=== PATIENT | female | born 1945 | race Caucasian/White ===

== ENCOUNTER 2025-02-18 11:16 | Observation (INO) | payer MEDICARE, SELFPAY ==
[2025-02-18] VITALS (16 sets, daily range): BP systolic 126–155; BP diastolic 45–87; PULSE 97–110; RESP 15–28; TEMP 36.6–36.7; O2SAT 95–99; BMI 26.4; BMI 24.7
--- NOTE | 2025-02-18 11:23 | HMH.EDGENADL ---
Discharge Plan Disposition Patient Disposition: Admitted Condition: Good Referrals Follow up/Referrals: Provider,Referral, [Primary Care Provider, Medical] - See instructions Clinical Impressions Clinical Impression: Dehydration, High anion gap metabolic acidosis Instructions Patient Instructions: DI for Dehydration -- Adult Print Language Print Language: Mosotho Discharge ED Provider: Anette Ring General Adult HPI General Chief complaint: Chest Pain Stated complaint: tachycardia, R shoulder pain, fatigue Time Seen by Provider: 02/18/25 11:23 History of Present Illness HPI narrative: Patient is a 79-year-old female with a past medical history of 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 Patient has been feeling more weak and tired over the last several months but this has acutely worsened over the last few days. Patient has had poor oral intake. Patient did have an episode of vomiting today. Patient has chronic diarrhea at baseline due to resection from previous colon cancer. Patient denies any blood in her diarrhea or any dark stools. Patient denies any chest pain has had some shortness of breath. Patient denies any fevers. Patient denies any body aches or chills. Patient has not had any cough. Patient denies any abdominal pain. Patient was previously on Xarelto which was discontinued after patient had a GI bleed. Patient recently moved here from [place] 6 weeks ago and has not established care with a primary care provider. Related Data Allergies Allergy/AdvReac Type Severity Reaction Status Date / Time Sulfa (Sulfonamide Allergy Unknown Verified 02/18/25 11:53 Antibiotics) allergy reaction [facility] Disclaimer: The information contained in this section may have been updated after the patient was seen, as this information can be updated by other users. Social History Smoking Status: Never smoker alcohol intake: never current occupational status: previously employed Travel in the last 8 weeks?: Inside the [place] ROS Obtained: Yes All systems reviewed & no additional complaints except as documented and Yes Systems reviewed as appropriate & no additional complaints except as documented Physical Exam General General appearance: alert and in no apparent distress Head Head exam: atraumatic, normocephalic and normal inspection Eye Eye exam: Present normal appearance, PERRL and EOMI; Absent scleral icterus ENT ENT exam: Present normal exam and normal external ear exam Neck Neck exam: Present normal inspection and full ROM Chest Chest inspection: Present normal inspection and symmetric chest wall rise Respiratory Respiratory exam: Present normal lung sounds bilaterally; Absent respiratory distress or wheezes Cardiovascular Cardiovascular exam: Present normal rhythm, tachycardia and normal heart sounds Abdominal Exam Abdominal exam: Present soft and distention; Absent tenderness, guarding or rebound Extremities Exam Extremities exam: Present normal inspection and full ROM Back Exam Back exam: Present normal inspection and full ROM Neurological Exam Neurological exam: Present alert and oriented X3 Psychiatric Psychiatric exam: Present normal affect and normal mood Skin Skin exam: Present warm and dry Medical Decision Making Medical Records Screening: Per USPSTF and CDC recommendations, given the prevalence of disease in our region, it is our hospital?s policy to screen for HIV and viral Hepatitis for all patients aged 18 and over and those with ongoing risk factors. Kiko Inquiry Pt receiving controlled substance: No Vital Signs: 02/18/25 11:22 02/18/25 11:30 02/18/25 11:39 Pulse Rate 110 H 106 H Pulse Rate [Right Brachial] 109 H Respiratory Rate 17 Blood Pressure 144/67 H 148/72 H Blood Pressure [Right Arm] 144/67 H Blood Pressure Mean Blood Pressure Mean [Right Arm] 92 Blood Pressure Source Blood Pressure Position 02 Sat by Pulse Oximetry 97 96 97 Oxygen Delivery Method Room Air Room Air Room Air 02/18/25 12:00 02/18/25 12:30 02/18/25 13:09 Pulse Rate 109 H 104 H 101 H Pulse Rate [Right Brachial] Respiratory Rate 22 28 H 15 Blood Pressure 145/87 H 139/70 145/63 H Blood Pressure [Right Arm] Blood Pressure Mean Blood Pressure Mean [Right Arm] Blood Pressure Source Automatic Cuff Automatic Cuff Blood Pressure Position Supine Sitting 02 Sat by Pulse Oximetry 97 98 99 Oxygen Delivery Method Room Air Room Air 02/18/25 13:30 02/18/25 14:07 02/18/25 14:30 Pulse Rate 99 H 101 H Pulse Rate [Right Brachial] Respiratory Rate 16 18 15 Blood Pressure 135/66 155/66 H 134/65 Blood Pressure [Right Arm] Blood Pressure Mean 90 Blood Pressure Mean [Right Arm] Blood Pressure Source Blood Pressure Position 02 Sat by Pulse Oximetry 98 98 96 Oxygen Delivery Method 02/18/25 15:01 02/18/25 15:30 02/18/25 16:00 Pulse Rate 100 H 104 H 101 H Pulse Rate [Right Brachial] Respiratory Rate 17 16 16 Blood Pressure 126/45 L 136/81 145/67 H Blood Pressure [Right Arm] Blood Pressure Mean Blood Pressure Mean [Right Arm] Blood Pressure Source Blood Pressure Position 02 Sat by Pulse Oximetry 96 96 95 Oxygen Delivery Method Lab Data Lab results reviewed: Yes I reviewed the patient's lab results. Lab Results 02/18/25 11:25: WBC 10.6, RBC 5.34, Hgb 13.8, Hct 42.8, MCV 80.1 L, MCH 25.8 L, MCHC 32.2, RDW 14.4, Plt Count 338, MPV 10.1, Neut % (Auto) 72.8, Lymph % (Auto) 13.2, [place] % (Auto) 13.5 H, Eos % (Auto) 0.0 L, Baso % (Auto) 0.1, Neut # (Auto) 7.7, Lymph # (Auto) 1.4, [place] # (Auto) 1.4 H, Eos # (Auto) 0.0, Baso # (Auto) 0.0, Sodium 137, Potassium 4.7, Chloride 103, Carbon Dioxide 14 L, Anion Gap 24.7 H, BUN 37 H, Creatinine 1.80 H, Estimated Creat Clear 24, Estimated GFR 27 L, Est GFR ( Amer) 33 L, Glucose 144 H, Calcium 11.2 H, Phosphorus 5.3 H, Magnesium 2.0, Total Bilirubin 0.8, AST 30, ALT 21, Alkaline Phosphatase 70, Total Creatine Kinase 175 H, Troponin I 0.02, Total Protein 9.4 H, Albumin 5.4 H, Globulin 4.0 H, Albumin/Globulin Ratio 1.4, Lipase 49, Salicylates < 1.0 L, Plasma/Serum Alcohol < 10, Acetone Level None detected 02/18/25 14:03: Urine Color Yellow, Urine Appearance Clear, Urine pH 5.5, Ur Specific [place] 1.015, Urine Protein Trace, Urine Glucose (UA) 2+, Urine Ketones Negative, Urine Blood Trace-l, Urine Nitrate Negative, Urine Bilirubin Negative, Urine Urobilinogen 0.2, Ur Leukocyte Esterase Negative, Urine RBC 3-5, Urine WBC 3-5, Ur Squamous Epith Cells 5-10, Urine Bacteria Trace, Urine Opiates Screen Negative, Urine Methadone Screen Negative, Ur Barbituates Screen Negative, Ur Phencyclidine Scrn Negative, Ur Amphetamines Screen Negative, U Benzodiazepines Scrn Negative, Urine Cocaine Screen Negative, U Marijuana (THC) Screen Negative 02/18/25 14:07: VBG pH 7.17 L, VBG pCO2 42.0, VBG pO2 39.2, VBG HCO3 14.9 L, VBG Total CO2 16.2 L, VBG O2 Saturation 64.8, VBG Base Excess -13.7 L, VBG Lactic Acid 1.7 02/18/25 15:47: Troponin I 0.02 02/18/25 11:25 02/18/25 11:25 Orders (Tests/Meds): ED MEDICATIONS Generic Name Dose Route Start Last Admin Trade Name Freq PRN Reason Stop Dose Admin Sodium Chloride 1,000 mls @ 150 mls/hr 02/18/25 17:15 Sod Chlor 0.9% 1000ml Bag IV 03/20/25 17:14 .Q6H40M GEOFF Insulin Human Regular 100 unit 101 mls @ 5.05 mls/hr 02/18/25 15:15 02/18/25 16:07 / Sodium Chloride IV 03/20/25 15:14 Not Given .Q20H GEOFF Protocol 5 UNIT/HR Sodium Chloride 10 ml 02/18/25 13:03 02/18/25 13:04 Sodium Chloride 0.9% 10ml Syr (Rad Only) IV 03/20/25 13:02 10 ml NEEDED PRN Administration Maintain IV Site Discontinued Medications Generic Name Dose Route Start Last Admin Trade Name Freq PRN Reason Stop Dose Admin Acetaminophen 500 mg 02/18/25 12:19 02/18/25 12:35 Acetaminophen 500mg Tab PO 02/18/25 12:20 500 mg ONCE ONE Administration Sodium Chloride 1,000 mls @ 999 mls/hr 02/18/25 12:18 02/18/25 12:36 Sod Chlor 0.9% 1000ml Bag IV 02/18/25 13:18 999 mls/hr .Q1H1M ONE Administration Sodium Chloride 1,000 mls @ 999 mls/hr 02/18/25 14:18 02/18/25 16:10 Sod Chlor 0.9% 1000ml Bag IV 02/18/25 15:18 999 mls/hr .Q1H1M ONE Administration Iopamidol 75 ml 02/18/25 13:03 02/18/25 13:04 Iopamidol-370 (76%);100ml Bottle IV 02/18/25 13:04 75 ml ONCE ONE Administration Ondansetron HCl 4 mg 02/18/25 12:18 02/18/25 12:35 Ondansetron 4mg/2ml Vial IV 02/18/25 12:19 4 mg ONCE ONE Administration Sodium Chloride 50 ml 02/18/25 13:03 02/18/25 13:04 0.9 % Sodium Chloride 50 Ml Vial IV 02/18/25 13:04 50 ml ONCE ONE Administration ORDERS Category Date Time Status CT angio chest PE protocol Stat Cat Scan 02/18/25 12:17 Completed CXR --portable [XR chest portable] Stat Exams 02/18/25 12:17 Completed Acetone, Serum (Rapid) Stat Lab 02/18/25 11:25 Completed B-Hydroxybutyrate Stat Lab 02/18/25 11:25 Received BMP [Basic Metabolic Panel] Stat Lab 02/18/25 15:47 Received CBC w/Auto Diff [Complete Blood Count Auto Diff] Stat Lab 02/18/25 11:25 Completed CK [Creatine Kinase] Stat Lab 02/18/25 11:25 Completed CMP [Comprehensive Metabolic Panel] Stat Lab 02/18/25 11:25 Completed Ethanol [Ethyl Alcohol] Stat Lab 02/18/25 11:25 Completed Hemoglobin A1C Stat Lab 02/18/25 11:25 Received Lipase Stat Lab 02/18/25 11:25 Completed Magnesium Stat Lab 02/18/25 11:25 Completed Phosphorous Stat Lab 02/18/25 11:25 Completed Salicylate Stat Lab 02/18/25 11:25 Completed Trop I [Troponin I] Stat Lab 02/18/25 11:25 Completed Troponin I Q3H Lab 02/18/25 15:47 Completed Troponin I Q3H Lab 02/18/25 18:30 Ordered UA [Urinalysis and Microscopic] Stat Lab 02/18/25 14:03 Completed UDS [Drug Screen,Urine] Stat Lab 02/18/25 14:03 Completed Blood Culture Stat Micro 02/18/25 15:51 Received Urine Culture Stat Micro 02/18/25 14:06 Received VBG [Venous Blood Gas] Stat RT 02/18/25 14:07 Completed ECG Data Tracing #1: I reviewed this ECG and interpreted as documented below: Sinus tachycardia without acute ST or T wave changes concerning for ischemia. No old for comparison. Medical Decision Narrative: Patient is a 79-year-old female with a past medical history of previous CVA, previous ovarian and colon cancer, not on therapy, type 2 diabetes who presented to the emergency department with generalized fatigue, weakness 1 episode of vomiting. On arrival, patient was tachycardic but otherwise normotensive. Patient was afebrile. Differential includes but not limited to: Dehydration, pulmonary embolism, pneumonia, sepsis, UTI, DKA, electrolyte abnormalities, ACS/GA, pneumothorax, pleural effusion, amongst others. Patient's labs were reviewed and interpreted by myself, CBC with no leukocytosis, hemoglobin stable. VBG with significant acidosis of 7.17, no elevated lactate. Chemistry with elevated anion gap of 24.7, creatinine of 1.8. Glucose of 144. Magnesium normal. CK mildly elevated at 175. UA showed no evidence of infection at this time. Salicylate level normal, urine drug screen negative. Acetone level negative. Chest x-ray was reviewed and interpreted by myself and showed no acute focal consolidation, pneumothorax, pleural effusion or other acute cardiopulmonary process. CT PE was reviewed and interpreted by myself and showed no pulmonary embolism. Patient was given Zofran as well as 2 L of IV fluids. Given patient's MARIJA, anion gap acidosis it was felt that patient warranted admission to the hospital. Patient was started on insulin drip and hospital medicine was consulted. Patient ultimately admitted to hospital medicine. Critical Care Critical Care Time Critical Care Time: No
--- NOTE | 2025-02-18 11:28 | ECG_ITS ---
APPROVED REPORT Exam: Resting ECG HR:106 bpm ECG Measurements Heart Rate 106 AXES OH 153 P 66 QRSd 81 QRS -66 QT 336 T 71 QTc 398 Conclusion Sinus tachycardia at a rate of [address] or T wave changes concerning for ischemia Electronically signed by : Anette Ring, 02/18/2025 17:59:54
--- NOTE | 2025-02-18 12:17 | XR_ITS ---
PROCEDURE INFORMATION: Exam: XR Chest Exam date and time: 02/18/2025 12:23 PM Age: 79 years old Clinical indication: Shortness of breath TECHNIQUE: Imaging protocol: Radiologic exam of the chest. Views: 1 view. COMPARISON: CT ANGIO CHEST PE PROTOCOL 02/18/2025 1:02 PM FINDINGS: Lungs: Unremarkable. No consolidation. Pleural spaces: Unremarkable. No pleural effusion. No pneumothorax. Heart/Mediastinum: Unremarkable. No cardiomegaly. Bones/joints: 9 mm focal area of sclerosis suggested in the left 2nd rib, artifactual as no sclerotic foci are noted on the referenced CT of the chest. No aggressive osseous lesions. IMPRESSION: No acute findings.
--- NOTE | 2025-02-18 12:17 | CT_ITS ---
PROCEDURE INFORMATION: Exam: CTA Chest With Contrast Exam date and time: 02/18/2025 1:02 PM Age: 79 years old Clinical indication: Other: Tachycardia; Additional info: Weakness, tachycardia, HX of cancer TECHNIQUE: Imaging protocol: Computed tomographic angiography of the chest with contrast. Exam focused on the arteries. 3D rendering (Not supervised by radiologist): MIP and/or 3D reconstructed images were created by the technologist. Radiation optimization: All CT scans at this facility use at least one of these dose optimization techniques: automated exposure control; mA and/or kV adjustment per patient size (includes targeted exams where dose is matched to clinical indication); or iterative reconstruction. Contrast material: ISOVUE; Contrast volume: 75 ml; Contrast route: INTRAVENOUS (IV); COMPARISON: CR XR CHEST PORTABLE 02/18/2025 12:23 PM FINDINGS: Pulmonary arteries: Normal. No pulmonary emboli. Aorta: Mild atherosclerosis of the aorta. No aneurysms, stenosis, or occlusion. Lungs: Unremarkable. No consolidation. No masses. Pleural spaces: Unremarkable. No pneumothorax. No pleural effusion. Heart: Mild aortic valve calcifications. Moderate trivessel coronary artery disease. Severe calcifications of the mitral annulus. Very high likelihood of circumferential left ventricular hypertrophy with basal septal dominance (basal septum measures 24 mm in thickness, though this could overestimated by the systolic phase). Consider correlation with echocardiography. Lymph nodes: Unremarkable. No enlarged lymph nodes. Diaphragm: Small hiatal hernia. Liver: Possible hepatic steatosis. Gallbladder and biliary ducts: Cholelithiasis versus gallbladder sludge. No gallbladder inflammation. Pancreas: Diffuse pancreatic parenchymal fatty atrophy. Questionable 1.2 cm cyst in the pancreatic head. Consider follow-up if warranted. No pancreatic ductal dilation. Kidneys: Benign 2.6 cm left renal cyst. No follow-up is warranted. Bones/joints: 1.2 cm sclerotic focus in the right glenoid. Variant bilateral cervical ribs. 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 Mild degenerative changes thoracic spine. 6 mm sclerotic focus in the spinous process of T2. Soft tissues: Calcification in the left breast versus biopsy clip. No acute soft tissue findings. IMPRESSION: 1. Sclerotic foci in the right glenoid and spinous process of T2 are nonspecific. Presumably related to bone islands, though in this patient with history of cancer infiltrative skeletal disease would be in the differential diagnosis. Consider correlation with bone scan if warranted. 2. No other acute findings. COMMENTS: Consistent with the [employer]'s Incidental Findings Committee white paper (J Am Grace Radiol 2018): Any incidental renal lesion less than 1 cm or classified as too small to characterize, or any incidental cystic renal lesion characterized as simple-appearing, is likely benign. No follow-up imaging is recommended for these lesions per consensus recommendations based on imaging criteria.
[2025-02-18 12:25] LABS: Hematocrit 42.8 % (37.0-47.0); Hemoglobin 13.8 g/dL (12.2-16.2); Immature Granulocytes % 0.4 %; Mean Corpuscular HGB Conc 32.2 g/dL (31.8-35.4); Mean Corpuscular Hemoglobin 25.8 pg (27.0-31.2); Mean Corpuscular Volume 80.1 fl (81-99); Nucleated Red Blood Cells % 0 %; Platelet Count 338 K/mm3 (142-424); Red Blood Count 5.34 M/mm3 (4.20-5.40); Red Cell Distribution Width-SD 41.8 fL; White Blood Count 10.6 K/mm3 (4.8-10.8)
[2025-02-18] MEDS: ONDANSETRON 4MG/2ML VIAL 4 MG IV (12:35)
[2025-02-18] MEDS: ACETAMINOPHEN 500MG TAB 500 MG PO (12:35)
[2025-02-18] MEDS: 0.9 % SODIUM CHLORIDE 1000ML 1,000 ML 999 ML IV ×2 (12:36→16:10)
[2025-02-18 12:38] LABS: Alanine Aminotransferase 21 U/L (12-78); Albumin Level 5.4 g/dl (3.5-5.0); Albumin/Globulin Ratio 1.4 (1.1-1.8); Alkaline Phosphatase 70 U/L (38-126); Anion Gap 24.7 mEq/L (5-15); Aspartate Amino Transferase 30 U/L (14-36); Bilirubin,Total 0.8 mg/dl (0.2-1.3); Blood Urea Nitrogen 37 mg/dl (7-17); Calcium 11.2 mg/dl (8.4-10.2); Carbon Dioxide 14 mmol/L (22.0-30.0); Chloride 103 mmol/L (98-107); Creatine Kinase 175 U/L (30-135); Creatinine Clearance Estimated 24 mL/min (50-200); Creatinine,Serum 1.80 mg/dl (0.52-1.04); Estimated Glomerular Filt Rate 27 ml/min (>60); GFR (African American) 33 ML/MIN (>60); Globulin 4.0 g/dL (1.3-3.2); Glucose 144 mg/dl (74-100); Lipase 49 U/L (23-300); Magnesium 2.0 mg/dl (1.6-2.3); Potassium 4.7 mmoL/L (3.5-5.1); Sodium 137 mmol/L (136-145); Total Protein,Serum 9.4 g/dl (6.3-8.2)
[2025-02-18 12:49] LABS: Troponin I 0.02 ng/ml (0.00-0.034)
[2025-02-18] MEDS: SODIUM CHLORIDE 0.9% 10ML SYR (RAD ONLY) 10 ML IV ×2 (13:04→19:40)
[2025-02-18] MEDS: IOPAMIDOL-370 (76%);100ML BOTTLE 75 ML IV ×2 (13:04→19:40)
[2025-02-18] MEDS: 0.9 % SODIUM CHLORIDE 50 ML VIAL IV (13:04)
[2025-02-18 14:07] LABS: Microscopic, Urine URINE MICROSCOPIC (MICROSCOPIC)
[2025-02-18 14:09] LABS: Bilirubin,Urine Negative (Negative); Color,Urine YELLOW (Yellow); Glucose,Urine (UA) 2+ (Negative); Ketones,Urine Negative (Negative); Leukocyte Esterase,Urine Negative (Negative); PH,Urine 5.5 (5.0-8.5); Protein,Urine TRACE (Negative); Specific Gravity, Urine 1.015 (1.005-1.030); Urobilinogen,Urine 0.2 EU/dl (0.2)
[2025-02-18 14:13] LABS: Lactate Venous 1.7 mmol/L (0.4-2.0); VBG HCO3 14.9 mmol/L (23-30); VBG PCO2 42.0 mmol/L (35-51); VBG PO2 39.2 mmol/L (28-40)
[2025-02-18 14:17] LABS: VBG PH 7.17 mmol/L (7.31-7.41)
[2025-02-18 14:21] LABS: Bacteria,Urine Trace /lpf
[2025-02-18 15:17] LABS: Acetone, Serum (Rapid) None Detected (None Detect)
[2025-02-18 15:20] LABS: Phosphorous 5.3 mg/dl (2.5-4.5)
[2025-02-18 15:42] LABS: Barbiturates Screen,Urine Negative ng/ml (<200)
[2025-02-18 15:43] LABS: Benzodiazepines Screen,Urine Negative ng/ml (<200)
[2025-02-18 15:44] LABS: Amphetamine/Metha Screen,Urine Negative ng/ml (<1000)
[2025-02-18 15:46] LABS: Methadone Screen,Urine Negative ng/ml (<300)
[2025-02-18 15:47] LABS: Opiate Screen,Urine Negative ng/ml (<300); Phencyclidine Screen,Urine Negative ng/ml (<25)
[2025-02-18 15:51] LABS: Salicylate < 1.0 mg/dL (2.0-20.0)
--- NOTE | 2025-02-18 15:51 | PC.NURSE ---
Blood cultures were obtained and sent to lab as well as the 2nd troponin.
--- NOTE | 2025-02-18 16:01 | PC.NURSE ---
warehouser called for bed placement anion gap acidosis
[2025-02-18 16:16] LABS: Troponin I 0.02 ng/ml (0.00-0.034)
[2025-02-18 16:26] LABS: Anion Gap 20.2 mEq/L (5-15); Blood Urea Nitrogen 31 mg/dl (7-17); Calcium 9.8 mg/dl (8.4-10.2); Carbon Dioxide 15 mmol/L (22.0-30.0); Chloride 106 mmol/L (98-107); Creatinine Clearance Estimated 31 mL/min (50-200); Creatinine,Serum 1.40 mg/dl (0.52-1.04); Estimated Glomerular Filt Rate 36 ml/min (>60); GFR (African American) 44 ML/MIN (>60); Glucose 81 mg/dl (74-100); Potassium 4.2 mmoL/L (3.5-5.1); Sodium 137 mmol/L (136-145)
--- NOTE | 2025-02-18 16:57 | PC.NURSE ---
report called to Arnoldo Tapia RN
--- NOTE | 2025-02-18 17:29 | PC.NURSE ---
arrived by w/c from ED
--- NOTE | 2025-02-18 17:38 | EXP.HP ---
History of Present Illness *Admission Date: 02/18/25 *Reason for visit:: Weakness, nausea *History of present illness: Pamela Nunez is a 79-year-old female with a medical history significant for colon cancer s/p partial resection, TIA, type 2 diabetes, anxiety/depression, hypertension, hyperlipidemia who presents with 3-week onset of weakness, dyspnea on exertion, dizziness, abdominal cramping, and more recently nausea/vomiting. Son states patient's who was recently diagnosed with leukemia and was accepted to hospice, and this has been a big transition and source of anxiety for patient. Patient admits she has not been drinking as much water recently, but thinks that she is eating normally. She also states she has been having lightheadedness, leg cramping, abdominal cramping, and dyspnea on exertion. His son states patient recently had an cardiac stress test which was followed up by a CCTA in [place]. He is obtaining records. Patient denies chest pain, but does endorse dyspnea on exertion. Workup in the ED significant for pH 7.17, lactic acid 1.7, AGAP 24, bicarb 14, A1c 11.7, creatinine 1.8. She received 1 L NS bolus in the ED and was initially started on insulin drip for suspected DKA. However, serum and urine ketones normal. On my evaluation, patient was feeling better after receiving IV fluids. Creatinine also improved to 1.4. Case discussed with ED provider initially was made to admit patient for high anion metabolic acidosis and associated symptoms. [facility] Disclaimer: The information contained in this section may have been updated after the patient was seen, as this information can be updated by other users. Medical History (Updated 02/18/25 @ 18:17 by Dora Camp RN) CAD (coronary artery disease) TIA (transient ischemic attack) Diabetes mellitus Ulcerative colitis Colon cancer Ovarian cancer Rheumatoid arthritis Asthma Social History (Updated 02/18/25 @ 16:53 by Anette Ring DO) Smoking Status: Never smoker alcohol intake: never current occupational status: previously employed Travel in the last 8 weeks?: Inside the [place] Have you lived/traveled outside US in past 30 days?: No Contact w/someone who lives/traveled outside US past 30 days?: No Exposure to someone with infectious disease in past 14 days?: No Do you have a fever (greater than 100.4 F or 38 C)?: No Have you tested positive for COVID-19?: No Exposed to someone with COVID-19 in past 14 days?: No Do you have a sore throat?: No Do you have a cough?: No Do you have any weakness?: No Do you have any diarrhea?: No Are you experiencing any unusual bleeding?: No Do you have any muscle aches/pain?: No Do you have any abdominal pain?: No Are you experiencing loss of taste or smell?: No Meds Home Medications and Allergies Home Medications ?Medication ?Instructions ?Recorded ?Confirmed ?Type albuterol sulfate 90 mcg/actuation 2 puff inhalation QID PRN Asthma 02/18/25 02/18/25 History aerosol inhaler benralizumab 30 mg/mL subcutaneous 30 mg SQ DIRECTED 02/18/25 02/18/25 History auto-injector (Fasenra Pen) budesonide-formoterol HFA 160 2 puff inhalation BID 02/18/25 02/18/25 History mcg-4.5 mcg/actuation aerosol inhaler (Symbicort) calcitriol 0.25 mcg capsule 0.25 mcg PO QODHS 02/18/25 02/18/25 History cilostazol 100 mg tablet 200 mg PO DAILY 02/18/25 02/18/25 History dapagliflozin propanediol 10 mg 10 mg PO DAILY 02/18/25 02/18/25 History tablet (Farxiga) duloxetine 60 mg capsule,delayed 60 mg PO DAILY 02/18/25 02/18/25 History release epinephrine 0.3 mg/0.3 mL 0.3 mg IM Q10M PRN Asthma 02/18/25 02/18/25 History injection, auto-injector eszopiclone 2 mg tablet 2 mg PO HS 02/18/25 02/18/25 History ezetimibe 10 mg tablet 10 mg PO DAILY 02/18/25 02/18/25 History ezetimibe 10 mg tablet (Zetia) 10 mg PO DAILY 02/18/25 02/18/25 History fenofibrate 160 mg tablet 160 mg PO DAILY 02/18/25 02/18/25 History folic acid 1 mg tablet 1 mg PO DAILY 02/18/25 02/18/25 History hydroxyzine HCl 25 mg tablet 25 mg PO DAILY 02/18/25 02/18/25 History ipratropium bromide 0.02 % 2.5 ml inhalation NEEDED PRN 02/18/25 02/18/25 History solution for inhalation Asthma xnkpdc-zyvbjtpo-nchmmdc 3 cap PO DAILY 02/18/25 02/18/25 History 36,000-114,000-180,000 unit capsule,delay rel (Creon) lorazepam 1 mg tablet (Ativan) 2 mg PO HS PRN Sleep 02/18/25 02/18/25 History losartan 100 mg tablet (Cozaar) 100 mg PO DAILY 02/18/25 02/18/25 History mesalamine 1,000 mg rectal 1 g UT HS PRN BOWELS 02/18/25 02/18/25 History suppository mesalamine 4 gram/60 mL enema 4 g UT HS PRN BOWELS 02/18/25 02/18/25 History montelukast 10 mg tablet 10 mg PO DAILY 02/18/25 02/18/25 History (Singulair) olanzapine 2.5 mg tablet 2 mg PO NEEDED PRN Vomiting 02/18/25 02/18/25 History potassium chloride 10 mEq 20 meq PO DAILY 02/18/25 02/18/25 History capsule,extended release rosuvastatin 40 mg tablet (Crestor) 40 mg PO DAILY 02/18/25 02/18/25 History tiotropium bromide 1.25 2 puff inhalation DAILY 02/18/25 02/18/25 History mcg/actuation mist for inhalation (Spiriva Respimat) triamterene 37.5 1 cap PO NEEDED PRN Fluid 02/18/25 02/18/25 History mg-hydrochlorothiazide 25 mg capsule New Prescriptions to Start Prescriptions: Allergies Allergy/AdvReac Type Severity Reaction Status Date / Time Sulfa (Sulfonamide Allergy Unknown Verified 02/18/25 11:53 Antibiotics) allergy reaction Exam Data for Last 24 hours Vital signs and Labs for Last 24 Hours: Temp Pulse Resp BP Pulse Ox O2 Del Method 98.1 F 97 H 17 152/74 H 95 Room Air 02/18/25 16:58 02/18/25 16:58 02/18/25 16:58 02/18/25 16:58 02/18/25 16:00 02/18/25 16:58 Laboratory Results - last 24 hr 02/18/25 11:25: WBC 10.6, RBC 5.34, Hgb 13.8, Hct 42.8, MCV 80.1 L, MCH 25.8 L, MCHC 32.2, RDW 14.4, Plt Count 338, MPV 10.1, Neut % (Auto) 72.8, Lymph % (Auto) 13.2, [place] % (Auto) 13.5 H, Eos % (Auto) 0.0 L, Baso % (Auto) 0.1, Neut # (Auto) 7.7, Lymph # (Auto) 1.4, [place] # (Auto) 1.4 H, Eos # (Auto) 0.0, Baso # (Auto) 0.0, Sodium 137, Potassium 4.7, Chloride 103, Carbon Dioxide 14 L, Anion Gap 24.7 H, BUN 37 H, Creatinine 1.80 H, Estimated Creat Clear 24, Estimated GFR 27 L, Est GFR ( Amer) 33 L, Glucose 144 H, Calcium 11.2 H, Phosphorus 5.3 H, Magnesium 2.0, Total Bilirubin 0.8, AST 30, ALT 21, Alkaline Phosphatase 70, Total Creatine Kinase 175 H, Troponin I 0.02, Total Protein 9.4 H, Albumin 5.4 H, Globulin 4.0 H, Albumin/Globulin Ratio 1.4, Lipase 49, Salicylates < 1.0 L, Plasma/Serum Alcohol < 10, Acetone Level None detected 02/18/25 14:03: Urine Color Yellow, Urine Appearance Clear, Urine pH 5.5, Ur Specific Bolton 1.015, Urine Protein Trace, Urine Glucose (UA) 2+, Urine Ketones Negative, Urine Blood Trace-l, Urine Nitrate Negative, Urine Bilirubin Negative, Urine Urobilinogen 0.2, Ur Leukocyte Esterase Negative, Urine RBC 3-5, Urine WBC 3-5, Ur Squamous Epith Cells 5-10, Urine Bacteria Trace, Urine Opiates Screen Negative, Urine Methadone Screen Negative, Ur Barbituates Screen Negative, Ur Phencyclidine Scrn Negative, Ur Amphetamines Screen Negative, U Benzodiazepines Scrn Negative, Urine Cocaine Screen Negative, U Marijuana (THC) Screen Negative 02/18/25 14:07: VBG pH 7.17 L, VBG pCO2 42.0, VBG pO2 39.2, VBG HCO3 14.9 L, VBG Total CO2 16.2 L, VBG O2 Saturation 64.8, VBG Base Excess -13.7 L, VBG Lactic Acid 1.7 02/18/25 15:47: Sodium 137, Potassium 4.2, Chloride 106, Carbon Dioxide 15 L, Anion Gap 20.2 H, BUN 31 H, Creatinine 1.40 H D, Estimated Creat Clear 31, Estimated GFR 36 L, Est GFR ( Amer) 44 L D, Glucose 81 D, Calcium 9.8, Troponin I 0.02 I & O for Last 24 hours: Intake & Output 02/15/25 02/16/25 02/17/25 02/18/25 23:59 23:59 23:59 23:59 Weight 61.235 kg Constitutional Constitutional: no acute distress *Routine HEENT Exam Head: Present normocephalic Eye: Present EOMI and PERRL ENT: Present mucous membranes moist *Routine Neck Exam Neck: Present supple; Absent lymphadenopathy *Routine Respiratory Exam Respiratory: Present CTA bilaterally *Routine Cardiovascular Exam Cardiovascular: Present RRR *Routine Abdominal Exam Abdominal: Present soft and tenderness; Absent normoactive bowel sounds *Routine Rectal Exam Rectal:: deferred *Routine Genitalia Exam Genitalia:: deferred *Routine Extremities Exam Extremities: Absent cyanosis, clubbing or edema *Routine Skin Exam Skin: Present warm; Absent rash *Routine Neurological Exam Neurological: Present alert and oriented X3 Assessment and Plan *Assessment and plan (1) High anion gap metabolic acidosis: Status: Acute Category: Medical Code(s): E87.29 - Other acidosis (2) Dehydration: Status: Acute Category: Medical Code(s): E86.0 - Dehydration Plan Pamela Nunez is a 79-year-old female with a medical history significant for colon cancer s/p partial resection, TIA, type 2 diabetes, anxiety/depression, hypertension, hyperlipidemia who presents with 3-week onset of weakness, dyspnea on exertion, dizziness, abdominal cramping, and more recently nausea/vomiting. Son states patient's who was recently diagnosed with leukemia and was accepted to hospice, and this has been a big transition and source of anxiety for patient. Patient admits she has not been drinking as much water recently, but thinks that she is eating normally. She also states she has been having lightheadedness, leg cramping, abdominal cramping, and dyspnea on exertion. His son states patient recently had an cardiac stress test which was followed up by a CCT[facility] in [place]. He is obtaining records. Patient denies chest pain, but does endorse dyspnea on exertion. Workup in the ED significant for pH 7.17, lactic acid 1.7, AGAP 24, bicarb 14, A1c 11.7, creatinine 1.8. She received 1 L NS bolus in the ED and was initially started on insulin drip for suspected DKA. However, serum and urine ketones normal. On my evaluation, patient was feeling better after receiving IV fluids. Creatinine also improved to 1.4. Case discussed with ED provider initially was made to admit patient for high anion metabolic acidosis and associated symptoms. #High anion metabolic acidosis #Dehydration #Lightheadedness #Abdominal cramping ? Presents with 3 weeks of lightheadedness, cramping, nausea/vomiting in the setting of going to home hospice for leukemia. ? Initial creatinine 1.8, improved to 1.4 after fluid resuscitation. Initial pH 7.17, but negative ketones, lactic acid, alcohol, salicylic acid, mild uremia. ? Continue IV LR at 125 L/h. ? Follow-up CT abdomen/pelvis for abdominal pain/cramping. ? Follow-up morning orthostatic vitals, CMP, VBG. #Dyspnea on exertion ? Recent abnormal stress test, CCTA was obtained in [place]. Send obtaining records. ? Follow-up ECHO in the morning. EKG, troponins unremarkable for ischemic findings. #History of TIA ? Started aspirin 81 mg, continue home rosuvastatin. #Type 2 diabetes ? Hemoglobin A1c 11.7. ? LDSSI, ACHS glucose checks. Home insulin pump turned off. #Anxiety/depression ? Continue home duloxetine Ativan as needed. #Hypertension ? Hold home losartan, hydrochlorothiazide, triamterene in the setting of MARIJA. BP acceptable at this time. Full code DVT prophylaxis: Lovenox 30 mg
[2025-02-18 18:25] LABS: Hemoglobin A1C 11.7 % (4.0-6.0)
--- NOTE | 2025-02-18 18:44 | CT_ITS ---
PROCEDURE INFORMATION: Exam: CT Abdomen And Pelvis With Contrast Exam date and time: 02/18/2025 7:36 PM Age: 79 years old Clinical indication: Abdominal pain; Additional info: Diffuse abdominal pain TECHNIQUE: Imaging protocol: Computed tomography of the abdomen and pelvis with contrast. Radiation optimization: All CT scans at this facility use at least one of these dose optimization techniques: automated exposure control; mA and/or kV adjustment per patient size (includes targeted exams where dose is matched to clinical indication); or iterative reconstruction. Contrast material: ISOVUE; Contrast volume: 75 ml; Contrast route: IV; COMPARISON: CT ANGIO CHEST PE PROTOCOL 02/18/2025 1:02 PM FINDINGS: Lungs: The visualized lung bases demonstrate no focal infiltrates or pleural effusions. Liver: Severe diffuse hepatic steatosis is identified. Gallbladder and biliary ducts: Trace gallstones noted. Pancreas: Normal. No ductal dilation. Spleen: The spleen is normal. Adrenal glands: The adrenal glands appear within normal limits. Kidneys and ureters: Simple renal cyst(s) are present with the largest measuring 2.4 cm. No additional follow-up is necessary. Stomach and bowel: The stomach appears within normal limits. No wall thickening or inflammatory change. Postoperative changes from subtotal colectomy. Appendix: No evidence of appendicitis. Intraperitoneal space: Unremarkable. No free air. No significant fluid collection. Vasculature: Moderate atherosclerotic calcifications of the aorta. Lymph nodes: Unremarkable. No enlarged lymph nodes. Urinary bladder: The bladder appears within normal limits. No wall thickening. Reproductive: There has been a hysterectomy. Bones/joints: Unremarkable. No acute fracture. Soft tissues: Unremarkable. IMPRESSION: 1. Severe diffuse hepatic steatosis is identified. 2. Trace gallstones noted. 3. Postoperative changes from subtotal colectomy with mild fluid distension of the residual rectum. Otherwise grossly normal appearance. COMMENTS: Consistent with the [employer]'s Incidental Findings Committee white paper (J Am Grace Radiol 2018): Any incidental renal lesion less than 1 cm or classified as too small to characterize, or any incidental cystic renal lesion characterized as simple-appearing, is likely benign. No follow-up imaging is recommended for these lesions per consensus recommendations based on imaging criteria.
[2025-02-18] MEDS: LACTATED RINGERS 1000ML 1,000 ML 125 ML IV (18:53)
[2025-02-18] MEDS: humaLOG 100 UNITS/ML 10ML VIAL (SSI) SUBCUT (21:08)
[2025-02-18 21:20] LABS: POC Glucose,Bedside 247 (70-110)
[2025-02-19] VITALS: BP 146/67; PULSE 106; RESP 16; TEMP 37; O2SAT 97
[2025-02-19 03:13] LABS: POC Glucose,Bedside 304 (70-110)
[2025-02-19 04:00] VITALS: BP 148/75; PULSE 101; RESP 16; TEMP 36.9; O2SAT 96; BMI 25.2
[2025-02-19] MEDS: LACTATED RINGERS 1000ML 1,000 ML 125 ML IV (05:16)
--- NOTE | 2025-02-19 06:00 | CA_ITS ---
APPROVED REPORT EXAM: Comprehensive 2D, Doppler, and color-flow Echocardiogram Refurbish Technician: Claudia Bush CRT Ht: 5 ft 2 in Wt: 135lbs BSA: 1.62 BP: 145/67 mmHg Indications: Shortness of Breath, Diabetes, Fatigue, Hyperlipidemia, Hypertension/HDD, hx colon ca and ovarian ca 2D Dimensions LVEF (Masterson's) 48.40 % LV Volume 76.60 mL LA Volume 57.80 mL LA Volume Index 34.80 mL/m2 (M/F) 16-34 EF AP4 51.30 % EF AP2 47.1 % EF BP 48.4 % GL Strain -14.1 % M-Mode Dimensions RVDd 2.46 cm (0.9-2.6) LA Diam 3.59 cm (1.9-4.0) LVDd 3.28 cm (3.5-5.7) LVDs 2.42 cm (3.5-5.7) IVSd 1.14 cm (0.6-1.1) PWd 1.21 cm (0.6-1.1) EF (Teich) 52.60% FS 26.20% EDV (Teich) 43.50 mL TAPSE 2.52 (<1.7) ESV (Teich) 20.60 mL LV Diastology MED A' 13.60 cm/s LAT A' 12.40 cm/s Aortic Valve KANIKA Index 1.40 cm2/m2 AoV Peak Russell. 162.0 (50-130 cm/s) AO Peak GR. 10.50 mmHg AO Mean GR. 6.20 (<5 mmHg) AO VTI 25.8 (18-25 cm) KANIKA (VTI) 2.33 (2.5-4.5 cm2) Mitral Valve MV Mean Gr. 10.00 (<2mmHg) MV PHT 63.0 ms Pulmonary Valve PV Peak Velocity 160.0 (50-150 cm/s) Tricuspid Valve TR P. Velocity 303.00 cm/s RAP Estimate 10.00 mmHg RVSP 46.60 mmHg Left Ventricle The left ventricle is normal size. The left ventricular systolic function is normal. The left ventricular ejection fraction is within the normal range. There is increased overall thickness. There is normal LV segmental wall motion. Diastolic function is indeterminate. LVEF is 55-60%. Right Ventricle The right ventricle is mildly dilated. The right ventricular systolic function is normal. Atria Left atrium is mildly dilated. Right atrium is mildly dilated. There is no Doppler evidence of interatrial shunt. Aortic Valve Aortic valve is mildly thickened. There is no aortic valvular stenosis. Trace aortic regurgitation. Mitral Valve Severe mitral annular calcification is present. The mitral valve leaflets are thickened. Moderate mitral stenosis is present. Mean MV gradient is 10 mmHg (HR 98 bpm). Mild mitral regurgitation is present. Tricuspid Valve The tricuspid valve leaflets are thin and pliable. Trace tricuspid regurgitation. There is insufficient TR jet to estimate RVSP. Pulmonic Valve The pulmonary valve is normal in structure. Trace pulmonic regurgitation. Great Vessels The aortic root is normal in size. IVC is normal in size and collapses >50% with inspiration. Pericardium There is no pericardial effusion. Other Information Study Quality: Technically Difficult Conclusion Technically difficult study due to poor acoustic windows. Normal biventricular systolic function. Mild RV dilation. Biatrial dilation. Severe MAC. Moderate MS (mean MV gradient 10 mmHg at HR 98 bpm). Mild MR. Electronically signed by : Zoila Deshpande MD 02/19/2025 12:40:16
[2025-02-19] MEDS: humaLOG 100 UNITS/ML 10ML VIAL (SSI) SUBCUT ×2 (06:16→11:26)
[2025-02-19 06:20] LABS: POC Glucose,Bedside 343 (70-110)
[2025-02-19 06:23] LABS: Hematocrit 35.1 % (37.0-47.0); Immature Granulocytes % 0.3 %; Mean Corpuscular HGB Conc 32.8 g/dL (31.8-35.4); Mean Corpuscular Hemoglobin 26.2 pg (27.0-31.2); Mean Corpuscular Volume 80.0 fl (81-99); Nucleated Red Blood Cells % 0 %; Platelet Count 274 K/mm3 (142-424); Red Blood Count 4.39 M/mm3 (4.20-5.40); Red Cell Distribution Width-SD 42.6 fL; White Blood Count 5.9 K/mm3 (4.8-10.8)
--- NOTE | 2025-02-19 06:23 | PC.NURSE ---
Pt has had no complaints this shift. Spoke with Katalina PHILIPPE at beginning of shift, and decision was made to remove pts insulin pump and use our glucometer for accuchecks/insulin admin. Pts dexcom reads approx 100 points higher than hospital glucometer. Pt has ambulated to bathroom with standby assist. LR infusing @125ml/hr.
[2025-02-19 06:30] LABS: Hemoglobin 11.5 g/dL (12.2-16.2)
[2025-02-19 06:33] LABS: Alanine Aminotransferase 16 U/L (12-78); Albumin Level 4.0 g/dl (3.5-5.0); Albumin/Globulin Ratio 1.5 (1.1-1.8); Alkaline Phosphatase 68 U/L (38-126); Anion Gap 16.9 mEq/L (5-15); Aspartate Amino Transferase 25 U/L (14-36); Bilirubin,Total 0.3 mg/dl (0.2-1.3); Blood Urea Nitrogen 25 mg/dl (7-17); Calcium 9.2 mg/dl (8.4-10.2); Carbon Dioxide 17 mmol/L (22.0-30.0); Chloride 108 mmol/L (98-107); Creatinine Clearance Estimated 37 mL/min (50-200); Creatinine,Serum 1.20 mg/dl (0.52-1.04); Estimated Glomerular Filt Rate 43 ml/min (>60); GFR (African American) 52 ML/MIN (>60); Globulin 2.7 g/dL (1.3-3.2); Glucose 313 mg/dl (74-100); Magnesium 2.0 mg/dl (1.6-2.3); Potassium 3.9 mmoL/L (3.5-5.1); Sodium 138 mmol/L (136-145); Total Protein,Serum 6.7 g/dl (6.3-8.2)
[2025-02-19 08:00] VITALS: BP 167/85; PULSE 106; RESP 20; TEMP 36.5; O2SAT 97
--- NOTE | 2025-02-19 08:19 | HMH.PTEV ---
Physical Therapy Evaluation Rehab PT IP Evaluation Start: 02/18/25 17:49 Freq: .once Status: Active Protocol: Document 02/19/25 08:12 RAMOS (Rec: 02/19/25 08:19 RAMOS [id number]) Subjective/History History History Per H&P: Pamela Nunez is a 79-year-old female with a medical history significant for colon cancer s/p partial resection, TIA, type 2 diabetes, anxiety/ depression, hypertension, hyperlipidemia who presents with 3-week onset of weakness, dyspnea on exertion, dizziness, abdominal cramping, and more recently nausea /vomiting. Son states patient's who was recently diagnosed with leukemia and was accepted to hospice, and this has been a big transition and source of anxiety for patient. Patient admits she has not been drinking as much water recently, but thinks that she is eating normally. She also states she has been having lightheadedness, leg cramping, abdominal cramping, and dyspnea on exertion. His son states patient recently had an cardiac stress test which was followed up by a CCTA in [place]. He is obtaining records. Patient denies chest pain, but does endorse dyspnea on exertion. Workup in the ED significant for pH 7.17, lactic acid 1.7, AGAP 24, bicarb 14, A1c 11.7, creatinine 1.8. She received 1 L NS bolus in the ED and was initially started on insulin drip for suspected DKA. However, serum and urine ketones normal. On my evaluation, patient was feeling better after receiving IV fluids. Creatinine also improved to 1.4. Case discussed with ED provider initially was made to admit patient for high anion metabolic acidosis and associated symptoms. Subjective Subjective PLOF: IND with mobility using a RW or cane. Still drives. No falls in the past 30 days. HOME: Pt is staying at her son's place with her . Single-story home. Ramped entrance. ASSIST: Son can assist as needed. New diagnosis of No cancer in past 12 months? [facility] How much help from another person do you currently need... Turning from your None back to your side while in a flat bed without using bedrails? Moving from lying on None back to sitting on the side of a flat bed without using bedrails? Moving to and from a None bed to a chair ( including a wheelchair)? Standing up from a None chair using your arms? (e.g., wheelchair, bedside chair) Walking in hospital None room? Climbing 3-5 steps A little with a railing? Mobility Score 23 Mobility Level [facility] Mobility 7 Walk 25 feet or more Mobility Calculator Rehab PT IP Eval Objective Appearance Patient Behavior Appropriate,Cooperative Patient Orientation Person,Place,Birthday,Situation Difficulty following none instructions Speech Pattern Clear Ambulation Patient Able to Yes Ambulate Ambulation Observation IP General Gait Wide Based Gait Pattern Observation Ambulation Distance 20 (feet) Ambulation Assistive Straight Cane Device Ambulation Ability Independent Balance Ability to Arise Able, uses arms to help Sitting Balance Steady, safe Standing Balance Steady, wide stance Dynamic Sitting Good Balance Ability Dynamic Standing Fair Balance Ability Transfers Bed Transfer Ability Independent Sit to Stand Bed Independent Transfer Ability Rehab PT IP prob,goals,plan Problems Date of Evaluation: 02/19/25 Rehab Potential Rehab Potential Innapropriate for Skilled Therapy Discharge Plan PT Discharge Plan Pt most appropriate to d/c home when deemed medically necessary d/t current level of mobility, home set-up, and family support. Pt not appropriate for skilled acute care PT at this time d/t pt?s mobility being at baseline. Eval Complexity Eval Charge Codes 97283 - Moderate Complexity PHYSICIAN CERTIFICATION: I certify the specified therapy services for Pamela Nunez are required, authorized, and reviewed every 30 days.
[2025-02-19] MEDS: ASPIRIN EC 81MG TABLET 81 MG PO (09:39)
--- NOTE | 2025-02-19 09:56 | HMH.PHAINT1 ---
Pharmacy Intervention Comments: MEDICATION RECONCILIATION COMPLETED ON PATIENT USING LIST FROM PATIENT. -TERRI OAKLEY, JEFED
[2025-02-19] MEDS: LIPASE/PROTEASE/AMYLASE 1 EACH CAPSULE.DR PO ×2 (09:59→11:25)
[2025-02-19] MEDS: TIOTROPIUM 18MCG/PUFF INHALER 1 CAP IH (10:42)
--- NOTE | 2025-02-19 11:05 | PC.NURSE ---
Explaining to patient what a six minute walk test is and she stated she was too unsteady to walk for that long or that far. Didn't want to risk falling. Refused testing
[2025-02-19 11:51] LABS: POC Glucose,Bedside 187 (70-110)
--- NOTE | 2025-02-19 11:57 | PC.NURSE ---
PATIENT AMBULATED AROUND HER ROOM WITH THE USE OF A CANE, OXYGEN SATURATION WAS MAINTAINED AT 98% ON ROOM AIR. PATIENT STATES SHE USES A CANE OR A WALKER AT HOME AT ALL TIMES. PATIENT WAS ABLE TO GET OUT OF BED AND AMBULATE AROUND THE ROOM ON ROOM AIR USING ONLY HER CANE WITHOUT SIGNS OF DISTRESS. PATIENT DENIES CHEST PAIN OR SHORTNESS OF BREATH AT REST AND WITH EXERTION.
[2025-02-19 12:00] VITALS: BP 141/74; PULSE 99; RESP 16; TEMP 36.8; O2SAT 99
[2025-02-19 12:02] VITALS: BP 141/68; BP 147/76; BP 161/69
[2025-02-19] MEDS: METOPROLOL SUCCINATE XL 25MG TABLET 25 MG PO (12:49)
--- NOTE | 2025-02-19 13:04 | P.DS_ITS ---
<Statement entered by José Miguel Resendez MD - 02/24/25 08:58> Personally examined patient and agree with plan of care as outlined by the PHOTOENGRAVING PROOFER. General Admission date:: 02/18/25 HPI HPI HPI: Pamela Nunez is a 79-year-old female with a medical history significant for colon cancer s/p partial resection, TIA, type 2 diabetes, anxiety/depression, hypertension, hyperlipidemia who presents with 3-week onset of weakness, dyspnea on exertion, dizziness, abdominal cramping, and more recently nausea/vomiting. Son states patient's who was recently diagnosed with leukemia and was accepted to hospice, and this has been a big transition and source of anxiety for patient. Patient admits she has not been drinking as much water recently, but thinks that she is eating normally. She also states she has been having lightheadedness, leg cramping, abdominal cramping, and dyspnea on exertion. His son states patient recently had an cardiac stress test which was followed up by a CCTA in [place]. He is obtaining records. Patient denies chest pain, but does endorse dyspnea on exertion. Workup in the ED significant for pH 7.17, lactic acid 1.7, AGAP 24, bicarb 14, A1c 11.7, creatinine 1.8. She received 1 L NS bolus in the ED and was initially started on insulin drip for suspected DKA. However, serum and urine ketones normal. On my evaluation, patient was feeling better after receiving IV fluids. Creatinine also improved to 1.4. Case discussed with ED provider initially was made to admit patient for high anion metabolic acidosis and associated symptoms. Hospital Course Hospital Course Hospital Course: Pamela Nunez is a 79-year-old female with a medical history significant for colon cancer s/p partial resection, TIA, type 2 diabetes, anxiety/depression, hypertension, hyperlipidemia who presents with 3-week onset of weakness, dyspnea on exertion, dizziness, abdominal cramping, and more recently nausea/vomiting. Son states patient's who was recently diagnosed with leukemia and was accepted to hospice, and this has been a big transition and source of anxiety for patient. Patient admits she has not been drinking as much water recently, but thinks that she is eating normally. She also states she has been having lightheadedness, leg cramping, abdominal cramping, and dyspnea on exertion. Her son states patient recently had an cardiac stress test which was followed up by a CCTA in [place]. He is obtaining records. Patient denies chest pain, but does endorse dyspnea on exertion. Workup in the ED significant for pH 7.17, lactic acid 1.7, AGAP 24, bicarb 14, A1c 11.7, creatinine 1.8. She received 1 L NS bolus in the ED and was initially started on insulin drip for suspected DKA. However, serum and urine ketones normal. On my evaluation, patient was feeling better after receiving IV fluids. Creatinine also improved to 1.4. Case discussed with ED provider initially was made to admit patient for high anion metabolic acidosis and associated symptoms. #High anion metabolic acidosis #Dehydration #Lightheadedness #Abdominal cramping ?Patient feeling well today, denies shortness of breath, weakness, chest pain. Able to ambulate in the room, vital signs stable. PT assessment reveals patient at baseline and may return home independently. ?In-depth conversation with son and patient regarding medical management. Both agreeable for outpatient follow-ups with cardiology and primary care. ? Presents with 3 weeks of lightheadedness, cramping, nausea/vomiting in the setting of going to home hospice for leukemia. ?Patient received 1 L bolus in the emergency room, followed by continuous LR at 125 mL an hour throughout admission. Patient able to tolerate diet and oral intake without problems. ? Initial creatinine 1.8, improved to 1.2 after fluid resuscitation. Initial pH 7.17, but negative ketones, lactic acid, alcohol, salicylic acid, mild uremia. ? CT abdomen/pelvis for abdominal pain/cramping nonconcerning. ? Follow-up morning orthostatic vitals were within normal range. Morning lab work overall unremarkable. #Dyspnea on exertion ? Recent abnormal stress test, CCTA was obtained in [place]. Received records from [place] regarding recent visit in December 2024. Patient had myocardial perfusion imaging September 2024 showing normal systolic function with a EF of approximately 72%, medium size moderately reversible perfusion abnormality. ? Echo shows normal BiV systolic function, severe MAC, moderate MS. LVEF 55 to 60%. Outpatient follow-up with cardiology next week. #History of TIA ? Continue aspirin 81 mg, home lovastatin 40 mg. Continue Xarelto 2.5 mg twice daily. #Type 2 diabetes ? Hemoglobin A1c 11.7. ? Patient states she does have insulin pump, it is currently not turned on. She has recently moved here, and does not have a current PCP. Appointment made with Dr. Huggins at discharge for further diabetic management. #Anxiety/depression ? Continue home duloxetine Ativan as needed. #Hypertension ? Continue losartan 100 mg daily at discharge. Total time spent on discharge 37 minutes in counseling, documentation, chart review, and direct care with patient. Exam Data for Last 24 hours Vital signs and Labs for Last 24 Hours: Temp Pulse Resp BP Pulse Ox O2 Del Method 98.3 F 99 H 16 161/69 H 99 Room Air 02/19/25 12:00 02/19/25 12:00 02/19/25 12:00 02/19/25 12:02 02/19/25 12:00 02/19/25 12:04 Laboratory Results - last 24 hr 02/18/25 11:25: Hemoglobin A1c 11.7 H, Phosphorus 5.3 H, Salicylates < 1.0 L, Plasma/Serum Alcohol < 10, Acetone Level None detected 02/18/25 14:03: Urine Color Yellow, Urine Appearance Clear, Urine pH 5.5, Ur Specific Radiant 1.015, Urine Protein Trace, Urine Glucose (UA) 2+, Urine Ketones Negative, Urine Blood Trace-l, Urine Nitrate Negative, Urine Bilirubin Negative, Urine Urobilinogen 0.2, Ur Leukocyte Esterase Negative, Urine RBC 3-5, Urine WBC 3-5, Ur Squamous Epith Cells 5-10, Urine Bacteria Trace, Urine Opiates Screen Negative, Urine Methadone Screen Negative, Ur Barbituates Screen Negative, Ur Phencyclidine Scrn Negative, Ur Amphetamines Screen Negative, U Benzodiazepines Scrn Negative, Urine Cocaine Screen Negative, U Marijuana (THC) Screen Negative 02/18/25 14:07: VBG pH 7.17 L, VBG pCO2 42.0, VBG pO2 39.2, VBG HCO3 14.9 L, VBG Total CO2 16.2 L, VBG O2 Saturation 64.8, VBG Base Excess -13.7 L, VBG Lactic Acid 1.7 02/18/25 15:47: Sodium 137, Potassium 4.2, Chloride 106, Carbon Dioxide 15 L, Anion Gap 20.2 H, BUN 31 H, Creatinine 1.40 H D, Estimated Creat Clear 31, Estimated GFR 36 L, Est GFR ( Amer) 44 L D, Glucose 81 D, Calcium 9.8, Troponin I 0.02 02/18/25 21:04: POC Glucose 247 H 02/19/25 02:45: POC Glucose 304 H* 02/19/25 05:23: WBC 5.9 D, RBC 4.39, Hgb 11.5 L D, Hct 35.1 L, MCV 80.0 L, MCH 26.2 L, MCHC 32.8, RDW 14.7, Plt Count 274, MPV 10.2, Neut % (Auto) 68.6, Lymph % (Auto) 14.0, Hendricks % (Auto) 16.9 H, Eos % (Auto) 0.0 L, Baso % (Auto) 0.2, Neut # (Auto) 4.1, Lymph # (Auto) 0.8, Hendricks # (Auto) 1.0, Eos # (Auto) 0.0, Baso # (Auto) 0.0, Sodium 138, Potassium 3.9, Chloride 108 H, Carbon Dioxide 17 L, Anion Gap 16.9 H, BUN 25 H, Creatinine 1.20 H, Estimated Creat Clear 37, Estimated GFR 43 L, Est GFR ( Amer) 52 L, Glucose 313 H D, Calcium 9.2, Magnesium 2.0, Total Bilirubin 0.3, AST 25, ALT 16, Alkaline Phosphatase 68, Total Protein 6.7 D, Albumin 4.0 D, Globulin 2.7, Albumin/Globulin Ratio 1.5 02/19/25 06:12: POC Glucose 343 H* 02/19/25 11:19: POC Glucose 187 H I & O for Last 24 hours: Intake & Output 02/16/25 02/17/25 02/18/25 02/19/25 23:59 23:59 23:59 23:59 Intake Total 360 / 360 1441 / 1441 Output Total 0 / 0 0 / 0 Balance 360 / 360 1441 / 1441 Weight 61.32 kg 62.199 kg Results Data Completed and Pending Labs on day of discharge: Labs from last 24 hours 02/19/25 02/19/25 02/19/25 11:19 06:12 05:23 WBC 5.9 D RBC 4.39 Hgb 11.5 L D Hct 35.1 L MCV 80.0 L MCH 26.2 L MCHC 32.8 RDW 14.7 Plt Count 274 MPV 10.2 Neut % (Auto) 68.6 Lymph % (Auto) 14.0 Hendricks % (Auto) 16.9 H Eos % (Auto) 0.0 L Baso % (Auto) 0.2 Neut # (Auto) 4.1 Lymph # (Auto) 0.8 Hendricks # (Auto) 1.0 Eos # (Auto) 0.0 Baso # (Auto) 0.0 VBG pH VBG pCO2 VBG pO2 VBG HCO3 VBG Total CO2 VBG O2 Saturation VBG Base Excess VBG Lactic Acid Sodium 138 Potassium 3.9 Chloride 108 H Carbon Dioxide 17 L Anion Gap 16.9 H BUN 25 H Creatinine 1.20 H Estimated Creat Clear 37 Estimated GFR 43 L Est GFR ( Amer) 52 L Glucose 313 H D POC Glucose 187 H 343 H* Hemoglobin A1c Calcium 9.2 Phosphorus Magnesium 2.0 Total Bilirubin 0.3 AST 25 ALT 16 Alkaline Phosphatase 68 Troponin I Total Protein 6.7 D Albumin 4.0 D Globulin 2.7 Albumin/Globulin Ratio 1.5 Urine Color Urine Appearance Urine pH Ur Specific Radiant Urine Protein Urine Glucose (UA) Urine Ketones Urine Blood Urine Nitrate Urine Bilirubin Urine Urobilinogen Ur Leukocyte Esterase Urine RBC Urine WBC Ur Squamous Epith Cells Urine Bacteria Salicylates Urine Opiates Screen Urine Methadone Screen Ur Barbituates Screen Ur Phencyclidine Scrn Ur Amphetamines Screen U Benzodiazepines Scrn Urine Cocaine Screen U Marijuana (THC) Screen Plasma/Serum Alcohol Acetone Level 02/19/25 02/18/25 02/18/25 02:45 21:04 15:47 WBC RBC Hgb Hct MCV MCH MCHC RDW Plt Count MPV Neut % (Auto) Lymph % (Auto) Hendricks % (Auto) Eos % (Auto) Baso % (Auto) Neut # (Auto) Lymph # (Auto) Hendricks # (Auto) Eos # (Auto) Baso # (Auto) VBG pH VBG pCO2 VBG pO2 VBG HCO3 VBG Total CO2 VBG O2 Saturation VBG Base Excess VBG Lactic Acid Sodium 137 Potassium 4.2 Chloride 106 Carbon Dioxide 15 L Anion Gap 20.2 H BUN 31 H Creatinine 1.40 H D Estimated Creat Clear 31 Estimated GFR 36 L Est GFR ( Amer) 44 L D Glucose 81 D POC Glucose 304 H* 247 H Hemoglobin A1c Calcium 9.8 Phosphorus Magnesium Total Bilirubin AST ALT Alkaline Phosphatase Troponin I 0.02 Total Protein Albumin Globulin Albumin/Globulin Ratio Urine Color Urine Appearance Urine pH Ur Specific Radiant Urine Protein Urine Glucose (UA) Urine Ketones Urine Blood Urine Nitrate Urine Bilirubin Urine Urobilinogen Ur Leukocyte Esterase Urine RBC Urine WBC Ur Squamous Epith Cells Urine Bacteria Salicylates Urine Opiates Screen Urine Methadone Screen Ur Barbituates Screen Ur Phencyclidine Scrn Ur Amphetamines Screen U Benzodiazepines Scrn Urine Cocaine Screen U Marijuana (THC) Screen Plasma/Serum Alcohol Acetone Level 02/18/25 02/18/25 02/18/25 14:07 14:03 11:25 WBC RBC Hgb Hct MCV MCH MCHC RDW Plt Count MPV Neut % (Auto) Lymph % (Auto) Hendricks % (Auto) Eos % (Auto) Baso % (Auto) Neut # (Auto) Lymph # (Auto) Hendricks # (Auto) Eos # (Auto) Baso # (Auto) VBG pH 7.17 L VBG pCO2 42.0 VBG pO2 39.2 VBG HCO3 14.9 L VBG Total CO2 16.2 L VBG O2 Saturation 64.8 VBG Base Excess -13.7 L VBG Lactic Acid 1.7 Sodium Potassium Chloride Carbon Dioxide Anion Gap BUN Creatinine Estimated Creat Clear Estimated GFR Est GFR ( Amer) Glucose POC Glucose Hemoglobin A1c 11.7 H Calcium Phosphorus 5.3 H Magnesium Total Bilirubin AST ALT Alkaline Phosphatase Troponin I Total Protein Albumin Globulin Albumin/Globulin Ratio Urine Color Yellow Urine Appearance Clear Urine pH 5.5 Ur Specific Radiant 1.015 Urine Protein Trace Urine Glucose (UA) 2+ Urine Ketones Negative Urine Blood Trace-l Urine Nitrate Negative Urine Bilirubin Negative Urine Urobilinogen 0.2 Ur Leukocyte Esterase Negative Urine RBC 3-5 Urine WBC 3-5 Ur Squamous Epith Cells 5-10 Urine Bacteria Trace Salicylates < 1.0 L Urine Opiates Screen Negative Urine Methadone Screen Negative Ur Barbituates Screen Negative Ur Phencyclidine Scrn Negative Ur Amphetamines Screen Negative U Benzodiazepines Scrn Negative Urine Cocaine Screen Negative U Marijuana (THC) Screen Negative Plasma/Serum Alcohol < 10 Acetone Level None detected DS: Diagnosis Discharge Diagnosis (1) High anion gap metabolic acidosis: Status: Acute Code(s): E87.29 - Other acidosis (2) Dehydration: Status: Acute Code(s): E86.0 - Dehydration (3) Insulin dependent diabetes mellitus: Status: Acute (4) History of TIA (transient ischemic attack): Status: Acute Code(s): Z86.73 - Personal history of transient ischemic attack (TIA), and cerebral infarction without residual deficits (5) Peripheral artery disease: Status: Acute Code(s): I73.9 - Peripheral vascular disease, unspecified (6) Hypertension: Status: Acute Code(s): I10 - Essential (primary) hypertension (7) Anxiety and depression: Status: Acute Code(s): F41.9 - Anxiety disorder, unspecified; F32.A - Depression, unspecified (8) Dyspnea on exertion: Status: Acute Code(s): R06.09 - Other forms of dyspnea Meds Home Medications and Allergies Home Medications ?Medication ?Instructions ?Recorded ?Confirmed ?Type albuterol sulfate 90 mcg/actuation 2 puff inhalation Q IDP PRN 02/18/25 02/19/25 History aerosol inhaler Shortness Of Breath benralizumab 30 mg/mL subcutaneous 30 mg SQ DIRECTE D 02/18/25 02/18/25 History auto-injector (Fasenra Pen) budesonide-formoterol HFA 160 2 puff inhalation BID 02/18/25 History mcg-4.5 mcg/actuation aerosol inhaler (Symbicort) calcitriol 0.25 mcg capsule 0.25 mcg PO Q48H 02/18/25 02/19/25 History cilostazol 100 mg tablet 200 mg PO DAILY 02/18/25 History dapagliflozin propanediol 10 mg 10 mg PO DAILY 5 02/18/25 History tablet (Farxiga) duloxetine 60 mg capsule,delayed 60 mg PO DAILY 02/18/25 History release eszopiclone 2 mg tablet 2 mg PO HS 02/18/25 02/18/25 History ezetimibe 10 mg tablet 10 mg PO DAILY 02/18/2502/05 History fenofibrate 160 mg tablet 160 mg PO DAILY 02/18/25 History folic acid 1 mg tablet 1 mg PO DAILY 02/18/2502/18 History hydroxyzine HCl 25 mg tablet 25 mg PO DAILY 02/18/25 0 02/18/25 History erawcc-tulbntsg-pftzkhv 1 cap PO AC 02/18/25 5 History 36,000-114,000-180,000 unit capsule,delay rel (Creon) lorazepam 1 mg tablet (Ativan) 2 mg PO HSP PRN Sleep 0 02/18/25 02/19/25 History losartan 100 mg tablet (Cozaar) 100 mg PO DAILY 02/18/25 History mesalamine 1,000 mg rectal 1 g NM DAILY 02/18/2502/19 History suppository mesalamine 4 gram/60 mL enema 4 g NM BID 02/18/2502/05 History montelukast 10 mg tablet 10 mg PO DAILY 02/18/2502/05 History (Singulair) olanzapine 2.5 mg tablet 2 mg PO DAILYP PRN Vomiting 02/18/25 02/19/25 History potassium chloride 10 mEq 20 meq PO DAILY 02/18/25 History capsule,extended release rosuvastatin 40 mg tablet (Crestor) 40 mg PO DAILY 02/18/25 History tiotropium bromide 1.25 2 puff inhalation DAILY 02/0502/18/25 History mcg/actuation mist for inhalation (Spiriva Respimat) triamterene 37.5 1 cap PO NEEDED PRN Fluid 02/18/25 02/18/25 History mg-hydrochlorothiazide 25 mg capsule biotin 10,000 mcg capsule 10,000 mcg PO DAILY 02/19/25 02/19/25 History cholecalciferol (vitamin D3) 50 2,000 unit PO DAILY 02/19/25 History mcg (2,000 unit) capsule (Vitamin D3) lactobacillus combination no.4 3 3 cell PO DAILY 02/1902/19/25 History billion cell capsule (Probiotic) multivitamin 1 tab PO DAILY 02/19/2502/05 History ondansetron 4 mg disintegrating 4 mg translingual TIDP PRN Nausea 02/19/25 02/19/25 History tablet rivaroxaban 2.5 mg tablet 2.5 mg PO BID 02/19/2502/19 History New Prescriptions to Start Prescriptions: Allergies Allergy/AdvReac Type Severity Reaction Status Date / Time Sulfa (Sulfonamide Allergy Unknown Verified 02/18/25 11:53 Antibiotics) allergy reaction Discharge Plan Disposition Patient Disposition: Home, Self-Care Condition: Good Follow up Plan Follow up with: Ridge Murcia PA [Physician [facility], Cardiology] - 02/28/25 9:45 am Saud Huggins MD [Staff Physician, Family Practice] - 03/11/25 10:20 am Prescriptions/Medication Reconciliation: Continued cilostazol 100 mg Tablet 200 mg PO DAILY lorazepam [Ativan] 1 mg Tablet 2 mg PO HSP PRN (Reason: Sleep) albuterol sulfate 90 mcg/actuation Hfa Aerosol Inhaler 2 puff INHALATION QIDP PRN (Reason: Shortness Of Breath) losartan [Cozaar] 100 mg Tablet 100 mg PO DAILY calcitriol 0.25 mcg Capsule 0.25 mcg PO Q48H Creon 36,000-114,000- 180,000 unit Capsule,Delayed Release(Dr/Ec) 1 cap PO AC Rx Instructions: administer with meals and/or snacks ezetimibe 10 mg Tablet 10 mg PO DAILY rosuvastatin [Crestor] 40 mg Tablet 40 mg PO DAILY duloxetine 60 mg Capsule,Delayed Release(Dr/Ec) 60 mg PO DAILY eszopiclone 2 mg Tablet 2 mg PO HS Fasenra Pen 30 mg/mL Auto-Injector 30 mg SQ DIRECTED Rx Instructions: every 8 weeks folic acid 1 mg Tablet 1 mg PO DAILY hydroxyzine HCl 25 mg Tablet 25 mg PO DAILY fenofibrate 160 mg Tablet 160 mg PO DAILY dapagliflozin propanediol [Farxiga] 10 mg Tablet 10 mg PO DAILY mesalamine 4 gram/60 mL Enema 4 g NM BID potassium chloride 10 mEq Capsule, Extended Release 20 meq PO DAILY olanzapine 2.5 mg Tablet 2 mg PO DAILYP PRN (Reason: Vomiting) triamterene-hydrochlorothiazid 37.5-25 mg Capsule 1 cap PO NEEDED PRN (Reason: Fluid) montelukast [Singulair] 10 mg Tablet 10 mg PO DAILY mesalamine 1,000 mg Suppository 1 g NM DAILY budesonide-formoterol [Symbicort] 160-4.5 mcg/actuation Hfa Aerosol Inhaler 2 puff INHALATION BID Spiriva Respimat 1.25 mcg/actuation Mist 2 puff INHALATION DAILY multivitamin Tablet 1 tab PO DAILY biotin 10,000 mcg Capsule 10,000 mcg PO DAILY ondansetron 4 mg Tablet,Disintegrating 4 mg translingual TIDP PRN (Reason: Nausea) cholecalciferol (vitamin D3) [Vitamin D3] 50 mcg (2,000 unit) Capsule 2,000 unit PO DAILY Probiotic 3 billion cell Capsule 3 cell PO DAILY rivaroxaban 2.5 mg Tablet 2.5 mg PO BID Problem Reconciliation Problems Reviewed?: Yes Patient Discharge Instructions ACTIVITY: Continue current activity DIET: continue same diet Patient Instructions: DI for Dehydration -- Adult, DI for Diabetic Ketoacidosis Print Language: Qatari Providers Primary Care Provider: Provider,Referral Admit Provider: José Miguel Resendez Attending Provider: José Miguel Resendez
--- NOTE | 2025-02-20 10:32 | SW/DCPLANNER ---
Spoke with patient on the phone. Patient stated that she is doing good. Patient stated that she is not aware of her appointments and that her son wrote them down when i was telling her. Patient stated that she was not prescribed any new medicine. Patient stated that she has no concerns or questions at this time. Kat Lewis
== END 2025-02-19 16:00 | disposition home or self-care (01) ==
LOC: ER 15:33 → 2ND 17:00 → ER 17:27
PROVIDERS: Admitting Provider Student in an Organized Health Care Education/Training Program; Emergency Provider Student in an Organized Health Care Education/Training Program; Visit Provider Student in an Organized Health Care Education/Training Program
DX: E87.29 Other acidosis (principal); E86.0 Dehydration; I10 Essential (primary) hypertension; F41.9 Anxiety disorder, unspecified; E11.51 Type 2 diabetes mellitus with diabetic peripheral angiopathy without gangrene; F32.A Depression, unspecified; R06.09 Other forms of dyspnea; I25.10 Atherosclerotic heart disease of native coronary artery without angina pectoris; J45.909 Unspecified asthma, uncomplicated; R00.0 Tachycardia, unspecified; E78.5 Hyperlipidemia, unspecified; K76.0 Fatty (change of) liver, not elsewhere classified; Z86.73 Personal history of transient ischemic attack (TIA), and cerebral infarction without residual deficits; Z85.038 Personal history of other malignant neoplasm of large intestine; Z88.2 Allergy status to sulfonamides; Z79.899 Other long term (current) drug therapy; Z85.43 Personal history of malignant neoplasm of ovary; Z79.01 Long term (current) use of anticoagulants
CPT/HCPCS: 36415; 71045; 71275; 74177; 80048; 80053; 80307; 80320; 80329; 81001; 82009; 82010; 82550; 82803; 82962; 83036; 83690; 83735; 84100; 84484; 85025; 87040; 87086; 93005; 93306; 96361; 96374; 97162; 99285; G0378; J1650; J2405; J7030; J7120; Q9967

== ENCOUNTER 2025-03-22 11:15 | Outpatient (CLI) | payer MEDICARE, SELFPAY ==
[2025-03-22 11:33] VITALS: BMI 25.7
[2025-03-22 11:55] LABS: Chloride 108 mmol/L (98-107); Potassium 4.3 mmoL/L (3.5-5.1); Sodium 138 mmol/L (136-145)
[2025-03-22 11:58] LABS: Anion Gap 13.3 mEq/L (5-15); Blood Urea Nitrogen 30 mg/dl (7-17); Calcium 9.2 mg/dl (8.4-10.2); Carbon Dioxide 21 mmol/L (22.0-30.0); Creatinine Clearance Estimated 32 mL/min (50-200); Creatinine,Serum 1.40 mg/dl (0.52-1.04); Estimated Glomerular Filt Rate 36 ml/min (>60); GFR (African American) 44 ML/MIN (>60); Glucose 178 mg/dl (74-100)
[2025-03-22] MEDS: IVABRADINE HCL 7.5MG TABLET PO (12:00)
[2025-03-22] MEDS: METOPROLOL TARTRATE 50MG TABLET PO ×2 (12:00→12:54)
[2025-03-22 12:08] VITALS: BP 133/60; PULSE 91; RESP 18; O2SAT 98
[2025-03-22] MEDS: 0.9 % SODIUM CHLORIDE 1000ML 1,000 ML 999 ML IV (12:37)
[2025-03-22 13:31] VITALS: BP 141/71; PULSE 70; RESP 16; O2SAT 97
[2025-03-22 13:34] VITALS: BP 107/39; PULSE 59; RESP 18; O2SAT 98
[2025-03-22 13:37] VITALS: BP 101/51; PULSE 68; RESP 18; O2SAT 99
[2025-03-22] MEDS: SODIUM CHLORIDE 0.9% 10ML SYR (RAD ONLY) 10 ML IV (13:41)
[2025-03-22] MEDS: IOPAMIDOL-370 (76%);100ML BOTTLE 85 ML IV (13:41)
[2025-03-22] MEDS: 0.9 % SODIUM CHLORIDE 50 ML VIAL IV (13:41)
== END 2025-03-22 14:19 | disposition home or self-care (01) ==
PROVIDERS: PCP Family Medicine; Visit Provider Physician Assistant
DX: I25.10 Atherosclerotic heart disease of native coronary artery without angina pectoris (principal); I05.2 Rheumatic mitral stenosis with insufficiency; I10 Essential (primary) hypertension; R93.1 Abnormal findings on diagnostic imaging of heart and coronary circulation
CPT/HCPCS: 75574; 80048; J7030; Q9967

== ENCOUNTER 2025-04-04 11:46 | Outpatient (CLI) | payer MEDICARE, SELFPAY ==
--- OUTSIDE RECORDS SUMMARY | 2025-03-22 14:25 | XMS_ITS | Encounter Summary ---
Author Organization [facility] Address [address] [id number] Care Team Providers Care Check Clerk Name Role Phone Unavailable Primary Care Provider Unavailabl e Encounter Details Date Type Department Care Team (Latest Contact Info) Description 03/22/2025 2:25 PM EDT Ancillary Procedure [place] [id number] [facility] [address] [place] [id number] Abnormal cardiac function test Social History Tobacco Use Types Packs/Day Years Used Date Smoking Tobacco: Never Assessed Comments Unknown Sex and Gender Information Value Date Recorded Sex Assigned at Not on file Legal Sex Female 2:21 PM EDT Gender Identity Not on file Sexual Orientation Not on file documented as of this encounter Plan of Treatment Not on file documented as of this encounter Procedures Procedure Name Priority Date/Time Associated Diagnosis Comments CT ANGIO CARDIAC CORONARY ARTERIES Routine 03/22/2025 2:24 PM EDT Abnormal cardiac function test documented in this encounter Results * CT Angio Cardiac Coronary Arteries (03/22/2025 2:24 PM EDT) Anatomical Region Laterality Modality Heart Computed Tomogra phy Impressions 03/22/2025 3:18 PM EDT 1. Severe coronary calcification with an Agatston score = 1671 using the AJ-130 method, which represents 96 percentile when matched for age, gender and ethnicity. Vascular age is 89 years. 2. There is coronary motion and breathing artifact that prevents accurate assessment of coronary artery disease. The proximal RCA appears to be occluded. 3. CAD-RADS N: Management recommendations: Additional or alternative evaluation may be needed. 4. No significant non coronary cardiac findings in particular normal cardiac chambers, non-coronary vessels in the field of view and unremarkable pericardium. 5. Extracardiac structures in the field of view are unremarkable. CRITICAL RESULT: No. COMMUNICATION: Per this written report. Drafted by Lance Ramos MD on 03/22/2025 2:42 PM Final report signed by Lance Ramos MD on 03/22/2025 3:18 PM Narrative 03/22/2025 3:18 PM EDT CLINICAL INDICATION: 79 years Female Symptoms: abnormal stress test TECHNIQUE: Procedure Data Image Acquisition: Images were acquired at [facility] in [place], and interpreted at [facility]. A 128-slice MDCT scanner (Duokan.coma View) was used for data acquisition. A non-contrast coronary calcium scan was initially performed. was performed. Bolus tracking in the ascending aorta with a threshold of 180HU. Immediately afterwards, ECG synchronized Cardiac CT was then performed from cardiac base to apex using retrospective gating with ECG tube current modulation. A total of 85 mL Isovue 370mg/mL contrast media was administered at 5 mL/sec followed by a saline flush using a biphasic injection protocol. A tube voltage of 120 kVp was used. The patient received the following medications prior to the Cardiac CT: 150mg of po metoprolol, 15mg of po ivabradine, and 0.4mg sublingual nitroglycerin. The average heart rate at the time of acquisition was 67 bpm (54 bpm to 82 bpm) and markedly irregular. Image Reconstruction: Transaxial images were reconstructed at 0.63 mm slice thickness. Data was reviewed interactively on an advanced workstation ([employer]) capable of 2 and 3 dimensional displays in all conventional reconstruction formats including multiplanar reformations, maximum intensity projections, curved multiplanar reformations, and volume rendered reconstructions. Selected routine images displaying relevant coronary anatomy and pathology were saved and sent to PACS. Complications: None Technical Quality: Overall image quality is Suboptimal. Coronary artery opacification is Adequate Total DLP (Dose-Length Product): 1651.4mGycm. (23.1 mSv) Please note: The reported value represents the total of one or more individual components during the CT acquisition on this date and at this time, and as such, the same value may appear in more than one CT report depending on the interpreting/reporting physicians. COMPARISON: None. FINDINGS: -CT Coronary Calcium Scoring- LMA= 168 LAD= 629 LCX= 355 RCA= 520 Total calcium score = 1671 using the AJ-130 method. This score is in the 96 percentile rank for age and gender, meaning that 4 % of patients of the same age and gender will have a higher score. The total volume score is 1379. The calculated vascular age for this patient is 89 years. There is calcification in the aortic wall, mitral annulus. -Coronary CT Angiography- Coronary Arteries: The coronaries have normal origin and proximal course. The coronary arterial system is right dominant. Note: Stenosis is reported as maximum percentage diameter stenosis. Stenosis grading is reported using the following scheme. Quantitative Stenosis Grading: CAD-RADS 0: 0% - No visible stenosis CAD-RADS 1: 1-24% - Minimal stenosis CAD-RADS 2: 25-49% - Mild stenosis CAD-RADS 3: 50-69% - Moderate stenosis CAD-RADS 4A: 70-99% - Severe stenosis in 1-2 vessels CAD-RADS 4B: Left main >50%, or 3 vessel >70% CAD-RADS 5: 100% - Occluded Left Main: CAD-RADS 0 The left main bifurcates into the left anterior descending artery and left circumflex artery. LAD and Diagonals: CAD-RADS N. There is motion artifact and significant coronary calcification. Unable to determine amount of stenosis LCx and Obtuse Marginals: CAD-RADS N Large vessel and gives off OM and terminates as AV LCx. Unable to assess due to motion RCA: CAD-RADS 5 Large dominant vessel that reaches the posterior interventricular groove. Possibly occluded in the proximal RCA with contrast filling about 15mm distal to it. Non Coronary Cardiac Findings: Normal cardiac chamber size. No pericardial thickening or calcification. Normal interatrial and interventricular septum, atrioventricular valves, ventriculo-arterial valves, pulmonary veins and imaged central veins. Central and branch pulmonary arteries in the field of view are unremarkable. Atherosclerotic disease in the visualized portion of the thoracic aorta Extra Cardiac Structures: no significant extracardiac findings Procedure Note Lance Ramos MD - 03/22/2025 CLINICAL INDICATION: 79 years Female Symptoms: abnormal stress test TECHNIQUE: Procedure Data Image Acquisition: Images were acquired at [facility] in [place], andinterpreted at [facility]. A 128-slice MDCT scanner ([email or web address]) was used for data acquisition. A non-contrast coronarycalcium scan was initially performed. was performed. Bolus tracking in theascending aorta with a threshold of 180HU. Immediately afterwards, ECGsynchronized Cardiac CT was then performed from cardiac base to apex usingretrospective gating with ECG tube current modulation. A total of 85 mLIsovue 370mg/mL contrast media was administered at 5 mL/sec followed by asaline flush using a biphasic injection protocol. A tube voltage of 120kVp was used. The patient received the following medications prior to the Cardiac CT:150mg of po metoprolol, 15mg of po ivabradine, and 0.4mg sublingualnitroglycerin. The average heart rate at the time of acquisition was 67 bpm (54 bpm to 82bpm) and markedly irregular. Image Reconstruction: Transaxial images were reconstructed at 0.63 mm slice thickness. Data wasreviewed interactively on an advanced workstation ([employer]) capable of 2and 3 dimensional displays in all conventional reconstruction formatsincluding multiplanar reformations, maximum intensity projections, curvedmultiplanar reformations, and volume rendered reconstructions. Selectedroutine images displaying relevant coronary anatomy and pathology weresaved and sent to PACS. Complications: None Technical Quality: Overall image quality is Suboptimal. Coronary artery opacification is Adequate Total DLP (Dose-Length Product): 1651.4mGycm. (23.1 mSv) Please note: Thereported value represents the total of one or more individual componentsduring the CT acquisition on this date and at this time, and as such, thesame value may appear in more than one CT report depending on theinterpreting/reporting physicians. COMPARISON: None. FINDINGS: -CT Coronary Calcium Scoring- LMA= 168 LAD= 629 LCX= 355 RCA= 520 Total calcium score = 1671 using the AJ-130 method. This score is in the96 percentile rank for age and gender, meaning that 4 % of patients of thesame age and gender will have a higher score. The total volume score [id number]. The calculated vascular age for this patient is 89 years. There is calcification in the aortic wall, mitral annulus. -Coronary CT Angiography- Coronary Arteries: The coronaries have normal origin and proximal course. The coronaryarterial system is right dominant. Note: Stenosis is reported as maximum percentage diameter stenosis.Stenosis grading is reported using the following scheme. Quantitative Stenosis Grading: CAD-RADS 0: 0% - No visible stenosis CAD-RADS 1: 1-24% - Minimal stenosis CAD-RADS 2: 25-49% - Mild stenosis CAD-RADS 3: 50-69% - Moderate stenosis CAD-RADS 4A: 70-99% - Severe stenosis in 1-2 vessels CAD-RADS 4B: Left main >50%, or 3 vessel >70% CAD-RADS 5: 100% - Occluded Left Main: CAD-RADS 0 The left main bifurcates into the left anteriordescending artery and left circumflex artery. LAD and Diagonals: CAD-RADS N. There is motion artifact and significantcoronary calcification. Unable to determine amount of stenosis LCx and Obtuse Marginals: CAD-RADS N Large vessel and gives off OM andterminates as AV LCx. Unable to assess due to motion RCA: CAD-RADS 5 Large dominant vessel that reaches the posteriorinterventricular groove. Possibly occluded in the proximal RCA withcontrast filling about 15mm distal to it. Non Coronary Cardiac Findings: Normal cardiac chamber size. No pericardial thickening or calcification. Normal interatrial and interventricular septum, atrioventricular valves,ventriculo-arterial valves, pulmonary veins and imaged central veins. Central and branch pulmonary arteries in the field of view areunremarkable. Atherosclerotic disease in the visualized portion of the thoracic aorta Extra Cardiac Structures: no significant extracardiac findings IMPRESSION: 1. Severe coronary calcification with an Agatston score = 1671 using theAJ-130 method, which represents 96 percentile when matched for age, genderand ethnicity. Vascular age is 89 years. 2. There is coronary motion and breathing artifact that prevents accurateassessment of coronary artery disease. The proximal RCA appears to beoccluded. 3. CAD-RADS N: Management recommendations: Additional or alternativeevaluation may be needed. 4. No significant non coronary cardiac findings in particular normalcardiac chambers, non-coronary vessels in the field of view andunremarkable pericardium. 5. Extracardiac structures in the field of view are unremarkable. CRITICAL RESULT: No. COMMUNICATION: Per this written report. Drafted by Lance Ramos MD on 03/22/2025 2:42 PM Final report signed by Lance Ramos MD on 03/22/2025 3:[address] [facility] [address] PROCEDURES Final Result documented in this encounter Visit Diagnoses Diagnosis Abnormal cardiac function test documented in this encounter
--- OUTSIDE RECORDS SUMMARY | 2025-04-04 11:48 | XMS_ITS | Clinical Summary ---
Author Organization [facility] Address [address] [place] [address] Care Team Providers Care Optical Instruments Supervisor Name Role Phone Unavailable Primary Care Provider Unavailabl e Encounters Date Type Department Care Team Description 03/22/2025 2:25 PM EDT Ancillary Procedure [facility] [address] [place] [address] Abnormal cardiac function test from Last 3 Months Social History Tobacco Use Types Packs/Day Years Used Date Smoking Tobacco: Never Assessed Comments Unknown Sex and Gender Information Value Date Recorded Sex Assigned at Not on file Legal Sex Female 2:21 PM EDT Gender Identity Not on file Sexual Orientation Not on file Plan of Treatment Health Maintenance Due Date Last Done Comments [facility]-Bone Density Scan 1945 [facility]-Depression Screening 1945 [facility]-Hepatitis C Screening 1945 [facility]-Medicare Annual Wellness (AWV) 1945 [facility]-Infant/Child/Adol SDOH Screenings 1945 [facility]- SDOH Screenings 1963 [facility]-Adult SDOH Screenings 1963 [facility]-DTaP,Tdap,and Td Vaccine s (1 - Tdap) 1964 [facility]-Pneumococcal Vaccine: 50 + Years (1 of 1 - PCV) 1995 [facility]-Zoster Vaccines (1 of 2) 1995 [facility]-RSV Vaccine: 60+ Years o r (1 - 1-dose 75+ series) 2020 GFU-RYCVU-50 Vaccine (1 - 20 24-25 season) 2024 [facility]-Influenza Vaccine (#1) 2025 HPV Vaccines Aged Out No longer eligi ble based on patient's age to complete this topic [facility]-HIB Vaccines Aged Out No longer e ligible based on patient's age to complete this topic [facility]-Hepatitis A Vaccines Aged Out No longer eligible based on patient's age to complete this topic [facility]-IPV Vaccines Aged Out No longer e ligible based on patient's age to complete this topic [facility]-Rotavirus Vaccines Aged Out No lo nger eligible based on patient's age to complete this topic Procedures Procedure Name Priority Date/Time Associated Diagnosis Comments CT ANGIO CARDIAC CORONARY ARTERIES Routine 03/22/2025 2:24 PM EDT Abnormal cardiac function test from Last 3 Months Results * CT Angio Cardiac Coronary Arteries [...] Data Image Acquisition: Images were acquired at [facility] in [place], and interpreted at [facility]. A 128-slice MDCT scanner (Gustoa View) was used for data acquisition. A [...] was reviewed interactively on an advanced workstation ([employer]) capable of 2 and 3 dimensional displays [...] Data Image Acquisition: Images were acquired at [facility] in [place], andinterpreted at [facility]. A 128-slice MDCT scanner (Elderscan) was used for data acquisition. A non-contrast [...] Data wasreviewed interactively on an advanced workstation ([employer]) capable of 2and 3 dimensional displays in [...] a higher score. The total volume score [id number]. The calculated vascular age for this patient [...] Lance Ramos MD on 03/22/2025 3:18 [address] [facility] [address] PROCEDURES Final Result from Last 3 Months Insurance MEDICARE
[2025-04-04 12:19] LABS: Hematocrit 37.4 % (37.0-47.0); Hemoglobin 12.2 g/dL (12.2-16.2); Immature Granulocytes % 0.6 %; Mean Corpuscular HGB Conc 32.6 g/dL (31.8-35.4); Mean Corpuscular Hemoglobin 26.2 pg (27.0-31.2); Mean Corpuscular Volume 80.3 fl (81-99); Nucleated Red Blood Cells % 0 %; Platelet Count 295 K/mm3 (142-424); Red Blood Count 4.66 M/mm3 (4.20-5.40); Red Cell Distribution Width-SD 42.5 fL; White Blood Count 9.6 K/mm3 (4.8-10.8)
[2025-04-04 12:48] LABS: Albumin Level 4.8 g/dl (3.5-5.0); Chloride 105 mmol/L (98-107)
[2025-04-04 12:49] LABS: Potassium 3.9 mmoL/L (3.5-5.1); Sodium 143 mmol/L (136-145)
[2025-04-04 12:51] LABS: Alanine Aminotransferase 14 U/L (12-78); Alkaline Phosphatase 57 U/L (38-126); Anion Gap 13.9 mEq/L (5-15); Aspartate Amino Transferase 25 U/L (14-36); Bilirubin,Direct 0.3 mg/dl (0.0-0.4); Bilirubin,Indirect 0.3 mg/dL (0.0-0.9); Bilirubin,Total 0.6 mg/dl (0.2-1.3); Bilirubin,Unconjugated 0.3 mg/dL (0.0-1.1); Blood Urea Nitrogen 29 mg/dl (7-17); Carbon Dioxide 28 mmol/L (22.0-30.0); Creatinine,Serum 1.20 mg/dl (0.52-1.04); Estimated Glomerular Filt Rate 43 ml/min (>60); GFR (African American) 52 ML/MIN (>60); Total Protein,Serum 7.4 g/dl (6.3-8.2)
[2025-04-04 12:52] LABS: Calcium 9.7 mg/dl (8.4-10.2); Cholesterol 109 mg/dl (140-200); Glucose 53 mg/dl (74-100); HDL Cholesterol 56 mg/dl (40-60); Magnesium 1.7 mg/dl (1.6-2.3); Triglycerides 150 mg/dl (30-150)
[2025-04-04 13:09] LABS: Free T4 (Free Thyroxine) 1.32 ng/dl (0.78-2.19)
[2025-04-04 13:24] LABS: Thyroid Stimulating Hormone 2.01 uIU/mL (0.465-4.68)
== END 2025-04-04 23:59 | disposition home or self-care (01) ==
LOC: LAB 11:47
PROVIDERS: PCP Family Medicine; Visit Provider Physician Assistant
DX: I25.10 Atherosclerotic heart disease of native coronary artery without angina pectoris (principal); I10 Essential (primary) hypertension
CPT/HCPCS: 36415; 80048; 80061; 80076; 83735; 84439; 84443; 85025

== ENCOUNTER 2025-05-07 07:55 | Day surgery (SDC) | payer MEDICARE, SELFPAY ==
[2025-05-07] VITALS (14 sets, daily range): BP systolic 106–154; BP diastolic 51–75; PULSE 71–91; RESP 10–18; TEMP 36.6–36.9; O2SAT 92–96; BMI 26.2
--- NOTE | 2025-05-07 07:07 | IR_ITS ---
APPROVED REPORT Patient Location: Outpatient Instructional Support Technician: BRANDON Estevez RT (R) PROCEDURES Left heart catheterization Left ventriculogram Selective coronary angiogram Drug-eluting stent deployment to the proximal LAD INDICATION Coronary artery disease, Abnormal CCTA, Angina pectoris Informed consent was obtained prior to the procedure. COMPLICATIONS NONE Estimated Blood Loss: LESS THAN 10 ML TECHNIQUE One percent lidocaine used to anesthetize the right anterior aspect of the wrist. The right radial artery was accessed via the Seldinger technique. A 6 Swiss sheath was placed in the right radial artery. 2.5 mg of Verapamil, 800 mcg of nitroglycerin, 1mg Lidocaine and 5000 U Heparin were given through the arterial sheath. The JL3 catheter was also used to perform left heart catheterization, left ventriculogram and selective coronary angiogram. At the end of the diagnostic angiogram therapeutic heparin was administered giving a therapeutic ACT and the guide catheter was placed in the left main artery followed by Choice PT extra-support wire placed into the LAD. A 3 mm x 12 mm Carver frontier stent was deployed at 18 farnaz in the ostial proximal LAD reducing the severe calcified stenosis to 0%. SHAYLEE-3 flow was present before and after procedure. At the end of the procedure the apparatus was removed the sheath was removed and hemostasis was achieved using TR banding patient was transferred to the postop boarding care in stable condition ANGIOGRAPHIC RESULTS The left main artery Normal The left anterior descending artery Has an ostial proximal calcified 70 to 80% stenosis followed by additional 30 to 40% stenoses with mid vessel 60% stenosis. The LAD is large and wraps the apex. A large first diagonal artery has a proximal 50% stenosis The circumflex artery Is codominant and has proximal 10% stenosis with 20 and 30% calcified stenosis in the large first obtuse marginal artery. A second obtuse marginal artery is smaller and has a concentric 30 to 40% proximal stenosis The right coronary artery Codominant proximally occluded and fills slowly via right to right collaterals The GEIGER ventriculogram reveals Normal 65% The left ventricular end-diastolic pressure 10 mmHg IMPRESSION Chronically occluded codominant right coronary Severe stenosis in a ostial proximal large LAD with successful stenting reducing the lesion to 0% with 1 drug-eluting stent Normal ejection fraction Normal LVEDP PLAN 1. Discontinue Xarelto 2.5 twice daily and continue Plavix 75 mg daily plus aspirin 81 mg daily 2. After 1 month discontinue aspirin and continue Xarelto and Plavix 3. Tighter control of diabetes 4. LDL less than 55 to be achieved with high intensity statin 5. Cardiac rehabilitation 6. Avoidance of tobacco products Electronically signed by : Enio Boyer MD 05/07/2025 12:37:02
[2025-05-07 08:23] LABS: Hematocrit 38.5 % (37.0-47.0); Hemoglobin 12.4 g/dL (12.2-16.2); Immature Granulocytes % 0.6 %; Mean Corpuscular HGB Conc 32.2 g/dL (31.8-35.4); Mean Corpuscular Hemoglobin 26.2 pg (27.0-31.2); Mean Corpuscular Volume 81.4 fl (81-99); Nucleated Red Blood Cells % 0 %; Platelet Count 329 K/mm3 (142-424); Red Blood Count 4.73 M/mm3 (4.20-5.40); Red Cell Distribution Width-SD 43.4 fL; White Blood Count 6.7 K/mm3 (4.8-10.8)
[2025-05-07 08:33] LABS: Anion Gap 14.7 mEq/L (5-15); Blood Urea Nitrogen 33 mg/dl (7-17); Calcium 10.2 mg/dl (8.4-10.2); Carbon Dioxide 27 mmol/L (22.0-30.0); Chloride 102 mmol/L (98-107); Creatinine Clearance Estimated 35 mL/min (50-200); Creatinine,Serum 1.30 mg/dl (0.52-1.04); Estimated Glomerular Filt Rate 40 ml/min (>60); GFR (African American) 48 ML/MIN (>60); Glucose 222 mg/dl (74-100); Potassium 4.7 mmoL/L (3.5-5.1); Sodium 139 mmol/L (136-145)
[2025-05-07] MEDS: HEPARIN 1,000 UNITS/500ML NS (CATH LAB) 3000 UNIT IV (10:46)
[2025-05-07] MEDS: NITROGLYCERIN 800MCG/8ML SYR (CATH LAB) 800 MCG IA (10:46)
[2025-05-07] MEDS: 0.9 % SODIUM CHLORIDE 500 ML 25 ML IV (10:47)
[2025-05-07] MEDS: HEPARIN 1,000 UNITS/ML 10ML VIAL (CATH LAB) 5000 UNIT IV (10:47)
[2025-05-07] MEDS: VERAPAMIL 2.5MG/ML 2ML VIAL 2.5 MG IV (10:47)
[2025-05-07] MEDS: LIDOCAINE 1% 10ML MDV 10 ML IJ (10:47)
[2025-05-07] MEDS: FENTANYL 100MCG/2ML VIAL 50 MCG IV (11:18)
[2025-05-07] MEDS: MIDAZOLAM HCL 1MG/ML 5ML VIAL 1 MG IV (11:19)
[2025-05-07] MEDS: IOPAMIDOL-370 (76%);100ML BOTTLE 70 ML IV (13:07)
[2025-05-07 13:08] LABS: CATHL Activated Clotting Time 253 SEC (74-125)
== END 2025-05-07 14:44 | disposition home or self-care (01) ==
PROVIDERS: PCP Family Medicine; Visit Provider Internal Medicine
PROC: 4A023N7 Measurement of Cardiac Sampling and Pressure, Left Heart, Percutaneous Approach (ICD-10-PCS; CPT 93452; principal; 2025-05-07 08:30)
DX: I25.119 Atherosclerotic heart disease of native coronary artery with unspecified angina pectoris (principal); R06.09 Other forms of dyspnea; R93.1 Abnormal findings on diagnostic imaging of heart and coronary circulation; R07.9 Chest pain, unspecified; E11.42 Type 2 diabetes mellitus with diabetic polyneuropathy; I73.9 Peripheral vascular disease, unspecified; M06.9 Rheumatoid arthritis, unspecified; K51.90 Ulcerative colitis, unspecified, without complications; Z86.73 Personal history of transient ischemic attack (TIA), and cerebral infarction without residual deficits; Z85.038 Personal history of other malignant neoplasm of large intestine; Z85.43 Personal history of malignant neoplasm of ovary; Z79.82 Long term (current) use of aspirin; Z79.84 Long term (current) use of oral hypoglycemic drugs; Z79.02 Long term (current) use of antithrombotics/antiplatelets; Z79.4 Long term (current) use of insulin; Z79.899 Other long term (current) drug therapy; Z79.01 Long term (current) use of anticoagulants; Z79.52 Long term (current) use of systemic steroids; Z88.2 Allergy status to sulfonamides; I05.0 Rheumatic mitral stenosis; I05.2 Rheumatic mitral stenosis with insufficiency; I10 Essential (primary) hypertension; J45.909 Unspecified asthma, uncomplicated
CPT/HCPCS: 80048; 85025; 85347; 92928; 93458; 99152; C1725; C1769; C1874; C9600; J1200; J1644; J2003; J3010; J7040; Q9967

== ENCOUNTER 2025-05-10 11:03 | Outpatient (CLI) | payer MEDICARE, SELFPAY ==
--- OUTSIDE RECORDS SUMMARY | 2024-06-11 09:23 | XMS_ITS ---
Author Organization [facility] Address [address] [place] [address] Care Team Providers Care Server Systems Administrator Name Role Phone Igor ZHANG, [place] Primary Care Provider Unavailable Deanna Burns [phone] REASON FOR VISIT Bishnu Encounters Encounter Location Date Provider Diagnosis [facility] [address] [place] [address] 06/11/2024 Deanna Burns Plan Of Treatment No Information Progress Notes * Pamela NUNEZ VDOB:[birth year] (78 yo F)Acc No.[id number]:06/11/2024 Patient: Mame riversPamela cardona Brandi :1945 A ge:78 Y S ex:Female Address:[address] [place] [address] * true * Date: Generated for Printi ng/Faxing/eTransmitting on: 08:08 AM MST
--- OUTSIDE RECORDS SUMMARY | 2024-08-02 05:30 | XMS_ITS ---
Author Organization [facility] Address [address] [place] [address] Care Team Providers Care Wire Machine Operator Name Role Phone Igor ZHANG, Palmira Primary Care Provider Unavailable Deanna Burns Unavailable [phone] Allergies Allergen (clinical drug ingredient) Drug/Non Drug [...] Location Date Provider Diagnosis [facility] [address] [place] [address] 08/02/2024 Deanna Burns Plan Of Treatment No Information Progress Notes * Pamela NUNEZ VDOB:[birth year] (79 yo F)Acc No.[id number]:08/02/2024 TV Telephone Patient: Mame SANTANAMARLI Pamela Brandi Provider: Hola Burns MD :1945 A ge:78 Y S ex:Female Date:08/02/2024 Address:[address] [place] [address] Pcp:Palmira Costa MD Subjective: * Chief Complaints: * 1 . MRI follow up - telemed. * HPI: H istory: This is a 78 year old woman who presents to neurology clinic for cognitive impairment. Interim history: MRI brain w/wo 06/19/24 @ [facility] - Findings consistent with a roughly 0.9 [...] with contrast. MRI brain w/wo 12/19/23 @ [facility] - Area of signal abnormality on recent [...] Management U nable to assess. BMI B KY Screening B KY documented and is within normal parameter. No [...] Electronic signature of Chace Burns MD on 05/10/2025 at 08:08 AM [facility] Sign off status: Pending * Provider: Hola Burns MD Date: 10/03/2023 Generated for Teena bass/Otis/eTransmitting on: 08:08 AM [facility] History and Physical Notes * HPI (History of Present Illness) Category Sub-Category Detail Notes Category Not es History This is a 78 year old woman who presents to neurology clinic for cognitive impairment. Interim history: MRI brain w/wo 06/19/24 @ [facility] - Findings consistent with a roughly 0.9 [...] with contrast. MRI brain w/wo 12/19/23 @ [facility] - Area of signal abnormality on recent [...]
--- OUTSIDE RECORDS SUMMARY | 2024-08-15 05:16 | XMS_ITS ---
Author Organization [facility] Address [address] [place] [address] Care Team Providers Care Social Work Coordinator Name Role Phone Igor ZHANG, Palmira Primary Care Provider Unavailable Deanna Burns [phone] REASON FOR VISIT MRI Encounters Encounter Location Date Provider Diagnosis [facility] [address] [place] [address] 08/15/2024 Deanna Burns Plan Of Treatment No Information Progress Notes * Pamela NUNEZ VDOB:[birth year] (79 yo F)Acc No.[id number]:08/15/2024 Patient: Mame riversPamela cardona V :1945 A ge:79 Y S ex:Female Address:[address] [place] [address] * true * Date: Generated for Printi ng/Faxing/eTransmitting on: 1 08:09 AM MST
--- OUTSIDE RECORDS SUMMARY | 2024-08-17 07:45 | XMS_ITS ---
Author Organization [facility] Address [address] [place] [address] Care Team Providers Care Counsel Name Role Phone Igor ZHANG, Palmira Primary Care Provider Unavailable Deanna Burns Unavailable [phone] Allergies Allergen (clinical drug ingredient) Drug/Non Drug [...] Encounters Encounter Location Date Provider Diagnosis Neurological [address] [address] 08/17/2024 Deanna Burns Mild neurocognitive disorder F99 [...] on establishing medical and financial power of transactional attorney. I counseled the patient on fall [...] regarding distance and urgency. Total time spent telephone quotation clerk: 20 minutes of which more than 90% was spent discussing their neurologic care. Participants and Location: Deanna Burns MD ([facility], [facility]), PAULETTE ([employer], [facility]), and Pamela Nunez (Patient, Home) Plan Of Treatment Treatment Notes Assessment Notes Mild neurocognitive disorder Counseled regarding dementia, memory associated care, and referral to the Alzheimer's Association. Counseled on physical exercises such as margaret chi, water aerobics, core balance training, as well as mind activities. Counseled on establishing medical and financial power of transactional attorney. I counseled the patient on fall prevention. The patient is to call if there are any changes or further concerns following the visit. >30 minutes spent on the clinical care of this patient Meningioma Follow up in 6 mo Other This is a patient initiated audiovisual telehealth clinic visit performed due to patient's preference regarding distance and urgency. Total time spent telephone quotation clerk: 20 minutes of which more than 90% was spent discussing their neurologic care. Participants and Location: Deanna Burns MD (Ne[facility]rologist, [facility]), PAULETTE ([employer], [facility]), and Pamela Nunez (Patient, Home) Next Appt Details Follow Up: 6 Months, Reason: Progress Notes * Pamela NUNEZ VDOB:[birth year] (79 yo F)Acc No.[id number]:08/17/2024 TV Telephone Patient: Mame riversPamela cardona Brandi Provider: Hola Burns MD :1945 A ge:79 Y S ex:Female Date:08/17/2024 Address:[address] [place] [address], [id number] Pcp:Palmira Costa MD Subjective: * Chief Complaints: [...] MRI of the brain with contrast. M [place] brain w/wo 12/19/23 @ [facility] IN[facility] - Area of signal abnormality on recent [...] relationship with the 5th cranial nerve. M [place] brain w/wo 06/19/24 @ [employer]UC[employer] INSTRUCTOR - Findings consistent with a roughly 0.9 [...] Once a dayRisedronate-Calcium Carbonate , Notes: Inj [id number] 81 MG Tablet Delayed Release 1 tablet [...] a dayTaking Risedronate-Calcium Carbonate , Notes: Inj [id number] Aspir-Low 81 MG Tablet Delayed Release 1 [...] regarding distance and urgency. Total time spent telephone quotation clerk: 20 minutes of which more than 90% was spent discussing their neurologic care. Participants and Location: Deanna Burns MD (Neurologist, [place] [facility]), PAULETTE ([employer], [facility]), and Pamela Nunez (Patient, Home) * Procedure Codes: * Follow Up: 6 Months * * [facility] Sign off status: Completed true * Provider: Hola Burns MD Date: 0 08/17/2024 Generated for Teena bass/Otis/Almaransmitting on: 08:[address] [facility] History and Physical Notes * HPI [...] with contrast. MRI brain w/wo 12/19/23 @ [employer] EDUCATION INSTRUCTOR - Area of signal abnormality on recent [...] cranial nerve. MRI brain w/wo 06/19/24 @ DR[employer] EDUCATION INSTRUCTOR - Findings consistent with a roughly 0.9 [...]
--- OUTSIDE RECORDS SUMMARY | 2025-02-22 07:30 | XMS_ITS ---
Author Organization [facility] Address [address] [place] [address] Care Team Providers Care Director Of Procurement Name Role Phone Igor ZHANG, Palmira Primary Care Provider Unavailable Deanna Burns Unavailable [phone] Allergies Allergen (clinical drug ingredient) Drug/Non Drug [...] Location Date Provider Diagnosis [facility] [address] [place] [address] 02/22/2025 Deanna Burns Plan Of Treatment No Information Progress Notes * Pamela NUNEZ VDOB:[birth year] (79 yo F)Acc No.[id number]:02/22/2025 TV Telephone Patient: Mame SANTANAPamela CALLES Brandi Provider: Hola Burns MD :1945 A ge:79 Y S ex:Female Date:02/22/2025 Address:[address] [place] [address] [facility] [place] Pcp:Palmira Costa MD Subjective: * Chief Complaints: [...] with contrast. MRI brain w/wo 12/19/23 @ [facility] - Area of signal abnormality on recent [...] cranial nerve. MRI brain w/wo 06/19/24 @ [facility] - Findings consistent with a roughly 0.9 [...] Management U nable to assess. BMI B MN Screening B MN documented and is within normal parameter. No [...] of Chace Burns MD on 05/10/2025 at 08:09 AM [facility] Sign off status: Pending * Provider: Hola Burns MD Date: 0 02/22/2025 Generated for [employer] shelia/Otis/Almaransmitting on: 1 08:09 AM [facility] History and Physical Notes * [...] with contrast. MRI brain w/wo 12/19/23 @ [facility] - Area of signal abnormality on recent [...] cranial nerve. MRI brain w/wo 06/19/24 @ [facility] - Findings consistent with a roughly 0.9 [...]
--- OUTSIDE RECORDS SUMMARY | 2025-03-22 14:25 | XMS_ITS | Encounter Summary ---
Author Organization [facility] Address [address] [id number] Care Team Providers Care Pulp Beater Name Role Phone Unavailable Primary Care Provider Unavailabl e Encounter Details Date Type Department Care Team (Latest Contact Info) Description 03/22/2025 2:25 PM EDT Ancillary Procedure [place] [id number] [facility] [address] [place] [id number] Abnormal cardiac function test Social History Tobacco [...] Data Image Acquisition: Images were acquired at [facility] in [place], and interpreted at [facility]. A 128-slice MDCT scanner (Sensorflare PCa View) was used for data acquisition. A [...] was reviewed interactively on an advanced workstation ([employer]) capable of 2 and 3 dimensional displays [...] Data Image Acquisition: Images were acquired at [facility] in [place], andinterpreted at [facility]. A 128-slice MDCT scanner (Egenera) was used for data acquisition. A non-contrast [...] Data wasreviewed interactively on an advanced workstation ([employer]) capable of 2and 3 dimensional displays in [...] a higher score. The total volume score [id number]. The calculated vascular age for this patient [...]
--- OUTSIDE RECORDS SUMMARY | 2025-05-10 11:08 | XMS_ITS | Patient Health Record ---
Author Organization [facility] Address [address] [place] [address] Care Team Providers Care Clinical Ob Name Role Phone Igor ZHANG, Palmira Primary Care Provider Unavailable Deanna Burns Unavailable [phone] Allergies Allergen (clinical drug ingredient) Drug/Non Drug Allergy documented on EMR Reaction Allergy Type Onset Date Status Substance with sulfonamide structure and antibacterial mechanism of action (substance) sulfonamide (uncoded) Unknown Allergy Active simvastatin Simvastatin Unknown Drug Allergy Act akash Reason For Referral No Information Medications Medication SIG (Take, Route, Frequency, Duration) Notes Start Date End Date Status Cozaar 100 MG 1 tablet Orally Once a day for 30 day(s) Active Amitriptyline HCl 10 MG 1 tablet Orally at bedtime for 30 day(s) Active Xarelto 2.5 MG 1 tablet Orally Twic e a day for 30 day(s) Active predniSONE 5 MG 1 tablet Orally Once a day for 30 day(s) PRN Active Spiriva Respimat 2.5 MCG/ACT 2 puffs Inhalation Once a day Active Sertraline HCl 100 MG 1 tablet Orally On ce a day for 30 day(s) Active Farxiga 10 MG 1 tablet Orally Once a day for 30 day(s) Active Metoprolol Succinate 50 MG 1 capsule Orally Once a day for 30 day(s) Active Prolia 60 MG/ML as directed Subcutaneous Active Multivitamin Adult - 1 tablet Orally Onc e a day for 30 day(s) Active Pepcid [...] as needed Orally Once a day Active Albuterol Sulfate 108 (90 Base) MCG/ACT 1 puff as needed Inhalation every 4 hrs Active Potassium Chloride 20 MEQ 1 packet with food Orally Once a day for 30 day(s) Active Risedronate-Calcium Carbonate Inj q6mo Active Aspir-Low 81 MG 1 tablet Orally Once a day for 30 day(s) Active Pregabalin 75 MG 1 capsule Orally Twi ce a day Active Fenofibrate 150 MG 1 capsule with food Orally Once a day for 30 day(s) Active Problems Problem Type SNOMED Code ICD Code Onset Dates Problem Status W/U Status Risk Notes Problem Essential tremor (757048206) Essential tremor (G25.0) Active confirmed Problem Mild cognitive disorder (310765538) MCI (mild cognitive impairment) (G31.84) Active confirmed Problem Benign neoplasm of cerebral meninges (90144604) Meningioma (D32.9) Active confirmed Problem CVA - Cerebrovascular accident (121726528) CVA (cerebral vascular accident) (I63.9) Active confirmed Problem Mild neurocognitive disorder (676006830) Mild neurocognitive disorder (F99) Active confirmed Vital Signs Weight-kg 65.32 kg 08/17/2024 Height 50 in 08/17/2024 Weight 144 lbs 08/17/2024 BMI 40.49 kg/m2 08/17/2024 Encounters Encounter Location Date Provider Diagnosis [facility] [address] [address] 08/17/2024 Yeeck Sim Mild neurocognitive disorder F99 ; Meningioma D32.9 ; Essential tremor G25.0 and CVA (cerebral vascular accident) I63.9 [facility] [place] [address] 06/11/2024 Deanna Burns [facility] [address] [place] [address] 08/15/2024 Deanna Burns Assessments Encounter Date Diagnosis (ICD Code) Assessment Notes Treatment Notes Treatment Clinical Notes Section Notes 08/17/2024 Meningioma (ICD-10 - D32.9) Follow up in 6 mo 08/17/2024 Mild neurocognitive disorder (ICD-10 - F99) Counseled regarding dementia, memory associated care, and referral to the [employer]. Counseled on physical exercises such as margaret chi, water aerobics, core balance training, as well as mind activities. Counseled on establishing medical and financial power of trust and estates attorney. I counseled the patient on fall prevention. The patient is to call if there are any changes or further concerns following the visit. >30 minutes spent on the clinical care of this patient 08/17/2024 Essential tremor (ICD-10 - G25.0) 08/17/2024 CVA (cerebral vascular accident) (ICD-10 - I63.9) 08/17/2024 Other This is a patient initiated audiovisual telehealth clinic visit performed due to patient's preference regarding distance and urgency. Total time spent customer retention specialist: 20 minutes of which more than 90% was spent discussing their neurologic care. Participants and Location: Deanna Burns MD (Neurologist, [facility]), PAULETTE (Director Of Rehabilitation And Wellness, [facility]), and Pamela Nunez (Patient, Home) Plan Of Treatment No Information Insurance Providers Payer Name Payer Address Payer Phone Subscriber Number Group Number Insured Name Patient Relationship to Insured Coverage Start Date Coverage End Date [facility] Complete [address] [place], [place] [id number] Pamela Linares Self - patient is the insured Medical (General) History Medical History History ICD Code HLD Asthma HTN Type II DM Pancreatic cyst GERD Claustrophobia Peripheral vascular disease CURTIS Lumbar stenosis CKD stage III Anxiety Diabetic neuropathy Surgical History Surgery Date(Month/Year) Laminectomy decompression 2015 Partial colon resection 2012
--- OUTSIDE RECORDS SUMMARY | 2025-05-10 11:08 | XMS_ITS ---
Author Name Interface, [id number] Address [place], [place] [id number] [place] [address] Oncology [facility] [place] [address] Allergies and Adverse Reactions Plan Reason for Visit Encounters Diagnostic Results Medications Problems Vital Signs Notes Section
--- OUTSIDE RECORDS SUMMARY | 2025-05-10 11:08 | XMS_ITS ---
Author Name Interface, [id number] [address] Organization [facility] [place] [address] Allergies and Adverse Reactions Medication/Group Name Reaction Severity Date Iodinated Contrast Media Sulfamide 08/27/2024 Plan Date Type Value 11/26/2024 APPOINTMENT LAB 15 MIN 11/26/2024 APPOINTMENT OV 15 MIN 08/27/2024 APPOINTMENT LAB 15 MIN 08/27/2024 APPOINTMENT OV 15 MIN 11/25/2024 LABORDER CA 125 panel 11/25/2024 LABORDER CBC w/ auto diff 11/25/2024 LABORDER CMP Reason for Visit OV 15 MIN Encounters Date Name 08/27/2024 Malignant tumor of f allopian tube 08/27/2024 Primary malignant ne oplasm of colon (disorder) Diagnostic Results Date Type Test Units Lower Limit Upper Limit Result Flag Comments Status Ordered By Specimen Source Lab Address 08/27 CA 125 U/mL 19 Kyleigh l Values obtained with different assay methods or kits cannot be usedinter changeabl y. If this has occurred, re-baseli ne testing may benecessa ry. This test was performed using the Gina Elecsys method.CA 125 is FDA approved for use as a one time test in the detection ofresidua l ovarian carcinoma in patients who have undergone first-maribel etherapy and would be considere d for diagnosti c second-lo ok procedure s.An assay value of 36 U/mL or more is predictiv e of residual disease,p rovided that alternati ve causes of an elevated CA 125 assay value canbe excluded. FINAL Petty Davis [facility] [place], [address] [facility] [address] Jm Parmar 08/27 Sodiu m mmol/L 135.0 145.0 141 Kyleigh l FINAL Petty Shay [facility] [place], [facility] [address] [facility] [address] [facility] 08/27 Potas sium mmol/L 3.6 5.3 5.0 Kyleigh l FINAL Petty Shay [facility] [place], [facility] [address] [facility] [address] [facility] 08/27 Chlor ron mmol/L 95.0 109.0 103 Kyleigh l FINAL Petty Shay [facility] [place] [address] [facility] [address] [facility] 08/27 CO2 mmol/L 20.0 31.0 25 Kyleigh l FINAL Petty Shay [place] [facility] [place] [address] [facility] [address] [facility] 08/27 Anion gap 4.0 18.0 12 Kyleigh l FINAL Petty Shay [place] [facility] [place] [address] [facility] [address] [facility] 08/27 Total prote in g/dL 6.0 7.7 8.2 High FINAL Petty Shya [place] [facility] [place], [facility] [address] [facility] [address] [facility] 08/27 Album in g/dL 3.8 5.1 4.8 Kyleigh l FINAL Petty Hsay [facility] [place] [address] [facility] [address] [facility] 08/27 Globu maribel g/dL 1.7 3.3 3.4 High FINAL Petty Shay [place] [facility] [place] [address] [facility] [address] [facility] [place] 08/27 A/G ratio , SPE 1.3 2.7 1.4 Kyleigh l FINAL Petty Shay [facility] [place] [address] [place] [address] [facility] 08/27 Calci um mg/dL 8.7 10.4 10.4 Kyleigh l FINAL Petty Day [place] [facility] [facility] [address] [address] [facility] [id number] [place] [address] 08/27 Alkal ine phosp hatas e IU/L 42.0 146.0 108 Kyleigh l FINAL Petty Day [place] [facility] [place] [address] [facility] [address] [place] [address] 08/27 ALT/S GPT IU/L 5.0 46.0 21 Kyleigh l FINAL Petty Day [facility] [place] [address] [facility] [id number] [place] [address] 08/27 AST/S GOT IU/L 11.0 40.0 21 Kyleigh l FINAL Petty [place] [facility] [place] [address] [facility] [id number] [place] [address] 08/27 Bilir ubin, total mg/dL 0.3 Kyleigh l FINAL Petty Day [facility] [place] [address] [facility] [id number] [place] [address] 08/27 Gluco se mg/dL 70.0 99.0 285 High Glucose reference range reflects fasting state. FINAL Petty [place] [facility] [place] [address] [facility] [address] [place] [address] 08/27 BUN mg/dL 8.0 36.0 41 High FINAL Petty Day [place] [facility] [place] [address] [facility] [address] [place] [address] 08/27 Creat inine mg/dL 0.51 1.08 1.44 High FINAL Petty Day [place] [facility] [place] [address] [facility] [address] [place] [address] 08/27 GFR non-A frica n Ameri can, estim ated mL/min /1.73m 2 37 Low eGFRcr calculate d using the CKD-EPI 2020 equation FINAL Pettysandro Day [facility] [place] [address] [facility] [address] [facility] 08/27 BUN/C reati nine ratio 10.0 28.0 28.5 High FINAL Pettysandro Day [place] [facility] [place] [address] [facility] [address] [facility] 08/27 WBC k/mm3 4.0 11.0 7.5 Kyleigh l FINAL Petty Shay [facility] [address] [facility] [address] [place] [address] 08/27 RBC m/mm3 3.7 5.4 5.00 Kyleigh l FINAL Petty Day [facility] [place] [address] [facility] [id number] [place] [address] 08/27 HGB g/dL 12.0 16.0 13.3 Kyleigh l FINAL Petty Day [facility] [place] [address] [facility] [address] [facility] 08/27 HCT % 35.0 48.0 41.7 Kyleigh l FINAL Petty Shay [facility] [place] [address] [facility] [address] [facility] 08/27 MCV fL 78.0 100.0 83.4 Kyleigh l FINAL Pettysandro Day [place] [facility] [place] [address] [facility] [address] [facility] 08/27 MCH pg 27.0 34.0 26.6 Low FINAL Petty Shay [facility] [place] [address] [facility] [address] [facility] 08/27 MCHC g/dL 31.0 37.0 31.9 Kyleigh l FINAL Petty Shay [facility] [place] [address] [facility] [address] Sat Ghulam 08/27 PLT k/mm3 130.0 450.0 255 Kyleigh l FINAL Petty Shay [place] [facility] [place], [address] [facility] [address] [facility] [place] 08/27 RDW-S D fL 38.0 49.0 43.4 Kyleigh l FINAL Petty Shay [facility] [place], [address] [facility] [address] [facility] [place] 08/27 RDW-C V, % % 11.0 15.0 14.3 Kyleigh l FINAL Petty Shay [facility] [place], [address] [facility] [address] [facility] [place] 08/27 MPV fL 9.0 12.0 11.1 Kyleigh l FINAL Petty Shay [place] [facility] [place], [facility] [address] [facility] [address] [facility] [place] 08/27 Christian % % 76.4 Automated Diff FINAL Petty Shay [place] [facility] [place], [facility] [address] [facility] [address] [facility] [place] 08/27 LY % % 19.2 FINAL Petty Shay [facility] [place], [address] [facility] [address] [facility] [place] 08/27 MO % % 3.4 FINAL Petty Shay [facility] [place], [address] [facility] [address] [facility] [place] 08/27 EO % % 0.0 FINAL Petty Shay [facility] [place], [facility] [address] [facility] [address] [facility] [place] 08/27 BA % % 0.1 FINAL Petty Shay [facility] [place], [address] [facility] [address] [facility] 08/27 Christian # (ANC) k/uL 1.5 7.8 5.7 Kyleigh l FINAL Petty Day [facility] [place], [address] [facility] [address] [facility] 08/27 LY # k/uL 0.9 3.9 1.4 Kyleigh l FINAL Petty Day [facility] [place], [address] [facility] [address] [facility] 08/27 MO # k/uL 0.2 1.0 0.3 Kyleigh l FINAL Petty Day [facility] [place], [facility] [address] [facility] [address] [facility] 08/27 EO # k/uL 0.0 0.6 0.0 Kyleigh l FINAL Petty [place] [facility] [place], [facility] [address] [facility] [address] [place] [address] 08/27 BA # k/uL 0.0 0.2 0.0 Kyleigh l FINAL Petty Day [place] [facility] [place], [facility] [address] [facility] [address] [facility] 08/27 IG % % 0.9 FINAL Petty Day Susan [facility] [place], [facility] [address] [facility] [address] [facility] 08/27 IG # k/uL 0.0 0.1 0.1 Kyleigh l FINAL Petty [place] [facility] [place] [address] [facility] [address] [place] [address] 08/27 NRBC, % % 0.0 1.0 0.0 Kyleigh l FINAL Petty Day [facility] [place] [address] [address] [facility] [address] [place] [address] Medications Date Name Route Dose Frequency Instructions Start Date End Date Status Fill Status Indication 09/21 Triamte denis-Hy drochlo rothiaz ron Oral Capsule 37.5 mg-25 mg oral 1.0 capsul e every 4th day active 09/21 Ondanse nathalie Oral oral 1.0 tablet PRN active 09/21 Metopro lol Oral 24 hr Tab (Succin ate) oral 1.0 tablet extend ed releas e 24 hr daily active 09/21 Lorazep am Oral orally 1.0 mg 2 times per day active 09/21 Losarta n Oral orally 100.0 mg daily active 09/21 Ezetimi be Oral oral 1.0 tablet QD active 09/21 Amlodip ine Oral orally 5.0 mg daily active 09/21 Rosuvas tatin Calcium Oral orally 40.0 mg daily active 09/21 Fenofib rate Oral oral 1.0 tablet daily active 09/21 Famotid ine Oral oral 1.0 tablet QD active 09/21 Prednis one Oral oral 1.0 daily active 09/21 Omepraz ole Oral Delayed Release Capsule oral 1.0 daily active 09/21 Pregaba maribel Oral oral 3.0 capsul e daily active 09/21 Potassi um Chlorid e Oral ER Tab oral 2.0 tablet extend ed releas e QD active 09/21 Tiotrop ium Inhaler 18 mcg active 09/21 Zolpide m Oral Tablet oral 1.0 tablet daily active 09/21 Dapagli flozin Oral orally 10.0 mg daily active 09/21 Tezepel umab-ek ko Subcuta neous subcuta neously 210.0 every 4 weeks active 09/21 Aspirin Oral orally 81.0 mg daily active 09/21 Hydroxy zine HCl Oral oral 1.0 tablet daily active 09/21 Insulin Aspart Subcuta neous active 09/21 Montelu kast Oral oral 1.0 tablet daily active 09/21 Budeson ron-For moterol HFA Inhaler 160 mcg-4.5 mcg/act uation 2.0 HFA aeroso l inhale r BID active 09/21 Albuter ol AEPB Inhaler 90 mcg/act uation active 09/21 Sertral ine Oral oral 1.0 capsul e daily active 09/21 Rivarox aban Oral oral 2.0 tablet daily active 10/30 triamci nolone acetoni de 1 MG/ML Topical Cream 2024 active 11/24 Solu-Co rtef intrave nously 100.0 mg Re-initiate treatment only upon physician approval. 2023 active Malignant tumor of fallopian tube 11/24 famotid ine 10 MG/ML Injecta ble Solutio n intrave nously 20.0 mg Re-initiate treatment only upon physician approval. 2023 active Malignant tumor of fallopian tube 11/24 paclita xel 6 MG/ML Injecta ble Solutio n intrave nously 222.0 mg once Dilute in 250-500 mL NS. Final product concentration must be 0.3-1.2 mg/mL. Administer using Met-ETCA-uobrc ining equipment and through an in-line 0.22 micron filter. Paclitaxel is a vascular irritant. 04/03 on hold Malignant tumor of fallopian tube 11/24 methylp redniso lone 2000 MG Injecti on intrave nously 125.0 mg Re-initiate treatment only upon physician approval. 2023 active Malignant tumor of fallopian tube 11/24 diphenh ydramin e hydroch loride 0.5 MG/ML Injecta ble Solutio n intrave nously 50.0 mg Re-initiate treatment only upon physician approval. 2023 active Malignant tumor of fallopian tube 11/24 1 ML epineph rine 1 MG/ML Injecti on intramu scularl y 0.3 mg once Re-initiate treatment only upon physician approval. 2023 active Malignant tumor of fallopian tube 03/21 dexamet hasone 4 MG Oral Tablet 2023 active 03/21 gabapen tin 100 MG Oral Capsule orally 1.0 capsul e every day at bedtime 2023 active 11/24 1 ML epineph rine 1 MG/ML Injecti on intramu scularl y 0.3 mg once Re-initiate treatment only upon physician approval. 2023 active Malignant tumor of fallopian tube 11/24 methylp redniso lone 2000 MG Injecti on intrave nously 125.0 mg Re-initiate treatment only upon physician approval. 2023 active Malignant tumor of fallopian tube 11/24 famotid ine 10 MG/ML Injecta ble Solutio n intrave nously 20.0 mg Re-initiate treatment only upon physician approval. 2023 active Malignant tumor of fallopian tube 11/24 Solu-Co rtef intrave nously 100.0 mg Re-initiate treatment only upon physician approval. 2023 active Malignant tumor of fallopian tube 11/24 diphenh ydramin e hydroch loride 0.5 MG/ML Injecta ble Solutio n intrave nously 50.0 mg Re-initiate treatment only upon physician approval. 2023 active Malignant tumor of fallopian tube 03/06 triamci nolone acetoni de 1 MG/ML Topical Cream topical ly 1.0 applic ation 2 times per day 2023 active 11/24 methylp redniso lone 2000 MG Injecti on intrave nously 125.0 mg Re-initiate treatment only upon physician approval. 2023 active Malignant tumor of fallopian tube 11/24 diphenh ydramin e hydroch loride 0.5 MG/ML Injecta ble Solutio n intrave nously 50.0 mg Re-initiate treatment only upon physician approval. 2023 active Malignant tumor of fallopian tube 11/24 Solu-Co rtef intrave nously 100.0 mg Re-initiate treatment only upon physician approval. 2023 active Malignant tumor of fallopian tube 11/24 1 ML epineph rine 1 MG/ML Injecti on intramu scularl y 0.3 mg once Re-initiate treatment only upon physician approval. 2023 active Malignant tumor of fallopian tube 11/24 famotid ine 10 MG/ML Injecta ble Solutio n intrave nously 20.0 mg Re-initiate treatment only upon physician approval. 2023 active Malignant tumor of fallopian tube 04/19 /2024 1 ML epineph rine 1 MG/ML Injecti on intramu scularl y 0.3 mg once Re-initiate treatment only upon physician approval. 2023 active Malignant tumor of fallopian tube 11/24 Solu-Co rtef intrave nously 100.0 mg Re-initiate treatment only upon physician approval. 2023 active Malignant tumor of fallopian tube 11/24 diphenh ydramin e hydroch loride 0.5 MG/ML Injecta ble Solutio n intrave nously 50.0 mg Re-initiate treatment only upon physician approval. 2023 active Malignant tumor of fallopian tube 11/24 methylp redniso lone 2000 MG Injecti on intrave nously 125.0 mg Re-initiate treatment only upon physician approval. 2023 active Malignant tumor of fallopian tube 11/24 famotid ine 10 MG/ML Injecta ble Solutio n intrave nously 20.0 mg Re-initiate treatment only upon physician approval. 2023 active Malignant tumor of fallopian tube 01/29 dexamet hasone 4 MG Oral Tablet orally 5.0 tablet As Directed 2023 active 11/24 carbopl atin 10 MG/ML Injecta ble Solutio n intrave nously 240.0 mg once Mix in D5W or NS.Carboplatin is an irritant. 01/09 on hold Malignant tumor of fallopian tube 11/24 1 ML epineph rine 1 MG/ML Injecti on intramu scularl y 0.3 mg once Re-initiate treatment only upon physician approval. 2023 active Malignant tumor of fallopian tube 11/24 methylp redniso lone 2000 MG Injecti on intrave nously 125.0 mg Re-initiate treatment only upon physician approval. 2023 active Malignant tumor of fallopian tube 11/24 Solu-Co rtef intrave nously 100.0 mg Re-initiate treatment only upon physician approval. 2023 active Malignant tumor of fallopian tube 11/24 diphenh ydramin e hydroch loride 0.5 MG/ML Injecta ble Solutio n intrave nously 50.0 mg Re-initiate treatment only upon physician approval. 2023 active Malignant tumor of fallopian tube 11/24 famotid ine 10 MG/ML Injecta ble Solutio n intrave nously 20.0 mg Re-initiate treatment only upon physician approval. 2023 active Malignant tumor of fallopian tube 11/24 1 ML epineph rine 1 MG/ML Injecti on intramu scularl y 0.3 mg once Re-initiate treatment only upon physician approval. 2023 active Malignant tumor of fallopian tube 11/24 diphenh ydramin e hydroch loride 0.5 MG/ML Injecta ble Solutio n intrave nously 50.0 mg Re-initiate treatment only upon physician approval. 2023 active Malignant tumor of fallopian tube 11/24 Solu-Co rtef intrave nously 100.0 mg Re-initiate treatment only upon physician approval. 2023 active Malignant tumor of fallopian tube 11/24 methylp redniso lone 2000 MG Injecti on intrave nously 125.0 mg Re-initiate treatment only upon physician approval. 2023 active Malignant tumor of fallopian tube 11/24 famotid ine 10 MG/ML Injecta ble Solutio n intrave nously 20.0 mg Re-initiate treatment only upon physician approval. 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 PRINCIPAL DIAGNOSIS: * Malignant tumor of fallopian tube ( Stage Date: 11/03/2023, Stage FIGO IIA (T2a, N0, cM0)-Pathological Histologic Grade : G3; ICD-10:C57.01 ;Malignant neoplasm of right fallopian tube ) * Primary malignant neoplasm of colon (disorder) ( Stage Date: 02/21/2013, Stage I (Primary, Ascending colon, T1, N0, M0)-Pathological Date of Dx:01/2013 Extent of Disease: No evidence of disease; Histopathologic Type: Adenocarcinoma; Histologic Grade: G1; KRAS Mutation: Unknown; MSI (Microsatellite Instability): Unknown; EGFR Expression: Unknown; First record:02/21/2013 Last record:02/21/2013; ICD-10:C18.9 ;Malignant neoplasm of co sreekanth, unspecified ) DIAGNOSIS:* TREATMENT HISTORY: Paclitaxel + Carboplatin Q21D (Ovarian) Cycle Length: 21 Number Cycles: 6 Start: C1D1 on [facility]oc Dx: Malignant tumor of fallopian tube LOT: Adjuvant Stage: FIGO IIA 12/20/2023 C2 D1 * Paclitaxel IV, HELD: 222 mg (135 mg/m2), Dose modified * Carboplatin IV, mg, Dose modified TREATMENT HISTORY:* 1. 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 Diagnosis 11/03/2023 with laparoscopic left salpingo-oophorectomy, robotic- assisted laparoscopic hysterectomy, right salpingo-oophorectomy, pelvic lymph node dissection, omental biopsy and lysis ofadhesions.?? b. Preoperative CA-125 level of 89.?? c.??BRCA negative. Folate receptor 1 positive, HER-2 negative, HRD negative. MSI stable. Mismatch repair proficient. TMB low.?? d. Adjuvant carboplatin and paclitaxel for 6 cycles 12/20/2023 - 04/03/2024. Paclitaxel held with cycle #6 secondary to peripheral neuropathy.?? HISTORY OF PRESENT ILLNESS: Ms. Pamela Nunez is a 79-year-old female presenting today for a surveillance exam. Since her last visit, she reports doing well.?? She noticed an episode of bleeding today when she went to the bathroom. She also reports vulvar itching. She has not been using the triamcinolone cream very often. She is concerned with its use and the appropriate method to use it. ?? She is being followed up by a doctor for her neuropathy in her legs. She mentions that she has a follow up with the doctor in 3-4 weeks. ?? She is unsure about her abdominal pain, as she had ulcerative colitis surgery in the past. She denies any recent surgeries.?? Her bowel movements are stable. Her appetite is normal. She endorses vomiting secondary to her heartburn issues. She reports taking omeprazole to help manage her heartburn issues. ALLERGIES: * Iodinated Contrast Media * Sulfamide MEDICATIONS: * Amlodipine Oral 5 mg orally daily * Cozaar (Losartan Oral) 100 mg orally daily * Ondansetron Oral 1 tablet oral PRN * Zetia (Ezetimibe Oral) 10 mg tablet 1 tablet oral QD * Triamcinolone Topical Cream 0.1 % 0.1 % cream 1 application topically 2 times per day. Use as needed for itching * Ativan (Lorazepam Oral) 1 mg orally 2 times per day * dexamethasone 4 mg tablet TAKE FIVE TABLETS BY MOUTH 12 AND 6 HOURS PRIOR TO PACLITAXEL DIRECTED * Dexamethasone Oral 4 mg tablet 5 tablet orally As Directed. Take 5 tablets p.o. 12 and 6 hours prior to paclitaxel. * Ambien (Zolpidem Oral Tablet) 10 mg tablet 1 tablet oral daily * Aspirin Oral 81 mg orally daily * Crestor (Rosuvastatin Calcium Oral) 40 mg orally daily * Potassium Chloride Oral ER Tab 20 mEq tablet extended release 2 tablet extended release oral QD * Tezspire (Tezepelumab-ekko Subcutaneous) subcutaneously every 4 weeks * Zoloft (Sertraline Oral) 150 mg capsule 1 capsule oral daily * Gabapentin Oral 100 mg capsule 1 capsule orally every day at bedtime. * Olanzapine Oral 2.5 mg tablet 2.5 mg orally As Directed. Take 1 tablet p.o. nightly for 4 days starting Day 1 of chemotherapy for nausea. * Farxiga (Dapagliflozin Oral) 10 mg orally daily * Prednisone Oral 5 mg tablet oral daily * Pregabalin Oral 75 mg capsule 3 capsule oral daily * Fenofibrate Oral 160 mg tablet 1 tablet oral daily * Singulair (Montelukast Oral) 10 mg tablet 1 tablet oral daily * Triamterene-Hydrochlorothiazide Oral Capsule 37.5 mg-25 mg 1 capsule oral every 4th day * Hydroxyzine HCl Oral 25 mg tablet 1 tablet oral daily * Metoprolol Oral 24 hr Tab (Succinate) 1 tablet extended release 24 hr oral daily * Omeprazole Oral Delayed Release Capsule 20 mg capsule,delayed release(DR/EC) oral daily * Pepcid (Famotidine Oral) 20 mg tablet 1 tablet oral QD * Xarelto (Rivaroxaban Oral) 2.5 mg tablet 2 tablet oral daily * Novolog (Insulin Aspart Subcutaneous) * Proair Digihaler (Albuterol AEPB Inhaler 90 mcg/actuation) * Spiriva (Tiotropium Inhaler 18 mcg) * Symbicort (Budesonide-Formoterol HFA Inhaler 160 mcg-4.5 mcg/actuation) 2 HFA aerosol inhaler BID Medications reviewed and reconciled with patient.?? PAST MEDICAL HISTORY: * Colon cancer. * Stroke X2. * Hypertension. * Diabetes. * Asthma. * Arthritis. * Ulcerative colitis. PAST SURGICAL HISTORY: ? PAST SURGICAL HISTORY:* * Right hemicolectomy with on-block subtotal colectomy and ileorectal anastomosis, January 2013. * Tonsillectomy. * Laparoscopic left salpingo-oophorectomy, robotic-assisted laparoscopic hysterectomy, right salpingo-oophorectomy, pelvic lymph node dissection, omental biopsy, lysis of adhesions. 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 FAMILY HISTORY: ? FAMILY HISTORY:* Mother - Ovarian cancer which metastases to colon (diagnosed at age 78). Daughter - Breast Cancer (diagnosed at age 53). Sister - Omentum cancer (diagnosed in 70s). Sister - Pancreatic cancer (diagnosed at age 78).? SOCIAL HISTORY: Smoking Status Smoking Tobacco : Former smoker; Smokeless Tobacco : Never used smokeless tobacco; Vaping : Never vaped SOCIAL HISTORY:* She is . ??Patient was a former smoker. She smoked for 1.5 years when she was 18 years old. She denies consuming alcohol or using illicit drugs.? ADVANCED DIRECTIVES: Location: [place] Name: PAMELA NUNEZ V ACP Introduction* Date of ACP Introduction: 08/27/2024 Level of Patient Interest in ACP* Introduced to ACP - Do Not Discuss Further ACP Counseling* Date of ACP counselin11/09/2023 Patient Education Resources* Overview Future ACP Counseling* Date for return to ACP Eligibility: 04/11/2024 * No future ACP counseling needed at this time : Remove from ACP Eligibility Code Status* Full Code Advance Directive Documents* Yes (Attached to EHR) * Comments: Patient brought a copy to the clinic on 10/13/2023 Surrogate Decision Maker* Patient Designates a Surrogate Decision Maker * Comments: Lm Enrique * [phone] REVIEW OF SYSTEMS: A complete 10 systems review completed and negative except for those mentioned in the history of present illness or below. VITALS/PERFORMANCE STATUS: Performance Status:??[place] 60% Requires occasional assistance, but is able to care for most of his/her needs. (Date: 05/07/2024) Vital Signs:??Height: 60 in; Weight: 138.4 lb; Blood pressure: 149/75, Pulse: 76, Temperature: 97.8F, Respirations: 20, Pain Scale: 5 Depression Screening:??Was screened; Outcome positive: No; Screening Date: 08/27/2024; Screening Tool: Patient Health Questionnaire (PHQ9); Total depression score: 2 PHYSICAL EXAM: General: She is an alert female in no acute distress. HEENT: Sclerae are anicteric, nares are patent. Neck: Trachea is midline, thyroid is not enlarged. Chest: Clear to auscultation bilaterally.?? Cardiovascular Exam: Normal S1-S2 with regular rate and rhythm.?? Abdomen: Soft, nontender, nondistended. No organomegaly, no CVA tenderness. No palpable hernia. Extremities: No edema, nontender. Lymph Node Survey: Negative. Skin Exam: No visible lesions.?? Pelvic Exam: The white discoloration of the external genitalia appears mildly improved. There is persistent agglutination of the periclitoral tissues with a fissure in the midline superior to the clitoris. There is a small ulceration involving the right posterior labium majus. The vagina is withoutevidence of bleeding or discharge. On bimanual exam, the bladder and urethra are nontender. The vagina is smooth. There is no palpable mass. On rectovaginal exam, there is no cul-de-sac nodularity. No palpable rectal lesion. Stool guaiac is negative.?? LAB: CBC LabResults 07/11/2024 05/07/2024 04/30/2024 04/02/2024 02/20/2024 CBC WBC x 10^3/uL 7.1 6.3 9.6 7.2 RBC x 10^6/uL 3.92 4.10 4.15 4.00 NRBC, % 0.3 0.0 0.1 0.6 HGB g/dL 10.6 (L) 10.8 (L) 10.8 (L) 10.6 (L) HCT % 35.1 35.8 34.7 (L) 34.1 (L) MCV fL 89.5 87.3 83.6 85.3 MCH pg 27.0 26.3 (L) 26.0 (L) 26.5 (L) MCHC g/dL 30.2 (L) 30.2 (L) 31.1 31.1 RDW-CV, % 16.5 (H) 16.5 (H) 17.5 (H) 17.1 (H) RDW-SD fL 54.3 (H) 52.5 (H) 52.7 (H) 52.3 (H) PLT x 10^3/uL 335 240 216 353 MPV fL 11.0 10.3 11.1 10.7 Christian % 48.4 51.1 64.9 48.3 LY % 25.7 25.7 18.9 21.0 MO % 20.7 16.5 12.7 15.6 EO % 2.3 1.3 2.0 2.4 IG % 1.8 4.4 0.7 11.6 Christian # (ANC) x 10^3/uL 3.4 3.2 6.2 3.5 BA % 1.1 1.0 0.8 1.1 MO # x 10^3/uL 1.5 (H) 1.0 1.2 (H) 1.1 (H) EO # x 10^3/uL 0.2 0.1 0.2 0.2 BA # x 10^3/uL 0.1 0.1 0.1 0.1 IG # x 10^3/uL 0.1 0.3 (H) 0.1 0.8 (H) LY # x 10^3/uL 1.8 1.6 1.8 1.5 Chemistries LabResults 07/11/2024 05/07/2024 04/30/2024 04/02/2024 02/20/2024 Chemistries Glucose mg/dL 173 (H) 142 (H) 194 (H) 156 (H) BUN mg/dL 20 32 27 24 Creatinine mg/dL 1.39 (H) 1.26 (H) 1.26 (H) 1.34 (H) BUN/Creatinine ratio 14.4 25.4 21.4 17.9 Sodium mmol/L 142 142 141 139 Potassium mmol/L 4.6 4.5 3.8 4.4 Chloride mmol/L 107 108 103 104 CO2 mmol/L 24 22 23 23 Anion gap 11 13 14 12 Calcium mg/dL 9.4 9.6 9.7 9.6 Albumin g/dL 4.2 4.3 4.4 4.1 Total protein g/dL 6.6 6.6 7.0 6.7 Globulin g/dL 2.4 2.3 2.6 2.6 Bilirubin, total mg/dL 0.2 0.2 0.3 0.2 Alkaline phosphatase U/L 64 73 74 81 AST/SGOT U/L 24 18 23 14 ALT/SGPT U/L 10 15 19 11 GFR non-, estimated mL/min/1.73m2 39 (L) 44 (L) 44 (L) 40 (L) Coags None Today Tumor Markers LabResults 07/11/2024 05/07/2024 04/30/2024 04/02/2024 02/20/2024 Tumor Markers CA 125 U/mL 18 26 28 28 Urine None Today IMPRESSION/PLAN: 1. 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 2. History of colon cancer.?? 3. 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 3. Lichen sclerosis.?? The patient was counseled on the findings of the exam. We will follow up on the results of the blood work performed today. She was advised to use the triamcinolone cream once a day. The bleeding is aresult of the vulvar changes. The instructions were written down for her. She was advised to call if her symptoms do not improve. She will follow up here in 3 months for her next surveillance exam. Today's total visit time was 30 minutes including 16 minutes of [id number] time with the patient and 14 minutes in chart review, order placement, and EMR documentation. PROBLEM LIST: * Malignant tumor of fallopian tube ( ICD-10:C57.01 ;Malignant neoplasm of right fallopian tube ) * Primary malignant neoplasm of colon (disorder) ( ICD-10:C18.9 ;Malignant neoplasm of colon, unspecified ) * Arthritis (disorder) ( ICD-10:M12.9 ;Arthropathy, unspecified ) * Asthma (disorder) ( ICD-10:J45.909 ;Unspecified asthma, uncomplicated ) * CIPN - Chemotherapy-induced peripheral neuropathy ( ICD-10:G62.0 ;Drug-induced polyneuropathy ) * Diabetes mellitus type 2 (disorder) ( ICD-10:E11.9 ;Type 2 diabetes mellitus without complications ) * Hypertensive disorder, systemic arterial (disorder) ( ICD-10:I10 ;Essential (primary) hypertension ) * Inflammatory bowel disease (disorder) ( ICD-10:K52.9 ;Noninfective gastroenteritis and colitis, unspecified ) . Documentation assistance provided by Santosjessika MCGARRY, scribing for Petty Day MD, on 08/27/2024. ??I, Petty Day MD, personally performed the services described in this documentation, and it is bothaccurate and complete. SEND COPY OF NOTE TO: Katalina Ruggiero DO (Referring) Palmira Costa MD (Referring) . Electronically signed by Petty Day MD 09/02/2024 22:01 MST
--- OUTSIDE RECORDS SUMMARY | 2025-05-10 11:08 | XMS_ITS | CCD ---
Author Name Interface, [id number] [address] Organization [facility] [place] [address] Care Team Providers Care Shell Sorter Name Role Phone Petty Day MD Unavailable Allergies and Adverse Reactions Medication/Group Name Reaction Severity Date Iodinated Contrast Media Sulfamide 08/27/2024 Care Plan Date Type Value 11/26/2024 APPOINTMENT LAB 15 MIN 11/26/2024 APPOINTMENT OV 15 MIN 08/27/2024 APPOINTMENT LAB 15 MIN 08/27/2024 APPOINTMENT OV 15 MIN 08/06/2024 APPOINTMENT LAB 15 MIN 08/06/2024 APPOINTMENT OV 20 MIN 08/06/2024 LABORDER CA 125 panel 08/06/2024 LABORDER CMP 08/06/2024 LABORDER CBC w/ auto diff 11/25/2024 LABORDER CA 125 panel 11/25/2024 LABORDER CBC w/ auto diff 11/25/2024 LABORDER CMP Reason for Visit OV 15 MIN Encounters Date Name 08/27/2024 Primary malignant ne oplasm of colon (disorder) Functional Status Date Name/Question Score/Answer 02/21/2013 Karnofsky performance status 80 01/09/2024 Karnofsky performance status 60 11/08/2023 Karnofsky performance status 80 12/20/2023 Karnofsky performance status 80 10/11/2023 Karnofsky performance status 70 12/12/2023 Karnofsky performance status 80 12/06/2023 Karnofsky performance status 80 09/20/2023 Karnofsky performance status 80 02/21/2024 Karnofsky performance status 70 01/31/2024 Karnofsky performance status 70 03/06/2024 Karnofsky performance status 70 05/07/2024 Karnofsky performance status 60 04/02/2024 Karnofsky performance status 70 01/30/2024 Karnofsky performance status 80 03/13/2024 Karnofsky performance status 70 04/03/2024 Karnofsky performance status 70 08/27/2024 Karnofsky performance status 60 Diagnostic Results Date Type Test Units Lower Limit Upper Limit Result Flag Comments Status Ordered By Specimen Source Lab Address 08/27 Christian # (ANC) k/uL 1.5 7.8 5.7 Kyleigh l FINAL Petty Shay [facility] [facility] [place] [address] [facility] [id number] [place] [address] 08/27 MCV fL 78.0 100.0 83.4 Kyleigh l FINAL Petty Shay [facility] [place] [address] [facility] [id number] [place] [address] 08/27 MO # k/uL 0.2 1.0 0.3 Kyleigh l FINAL Petty Shay [facility] [place] [address] [facility] [address] [facility] 08/27 IG % % 0.9 FINAL Petty Shay [facility] [place] [address] [facility] [address] [facility] 08/27 MO % % 3.4 FINAL Petty Shay [facility] [place] [address] [facility] [address] [facility] 08/27 IG # k/uL 0.0 0.1 0.1 Kyleigh l FINAL Petty Shay [facility] [place] [address] [facility] [address] [facility] 08/27 EO # k/uL 0.0 0.6 0.0 Kyleigh l FINAL Petty Shay [facility] [place] [address] [facility] [address] [facility] 08/27 EO % % 0.0 FINAL [facility] [place] [place], [address] [facility] [address] [facility] [place] 08/27 RBC m/mm3 3.7 5.4 5.00 Kyleigh l FINAL Petty Shay [facility] [place], [address] [facility] [address] [facility] [place] 08/27 MPV fL 9.0 12.0 11.1 Kyle[place] l FINAL [facility]ty [place] [facility] [place], [address] [facility] [address] [facility] [place] 08/27 NRBC, % % 0.0 1.0 0.0 Kyleigh l FINAL Petty Shay [facility] [place], [address] [facility] [address] [facility] [place] 08/27 WBC k/mm3 4.0 11.0 7.5 Kyleigh l FINAL Petty Shay [facility] [place], [address] [facility] [address] [facility] [place] 08/27 PLT k/mm3 130.0 450.0 255 Kyle[place] l FINAL Petty [place] [facility] [place], [address] [facility] [address] [facility] [place] 08/27 BA % % 0.1 FINAL [facility] [place] [place] [facility] [place], [address] [facility] [address] [facility] [place] 08/27 BA # k/uL 0.0 0.2 0.0 Kyleigh l FINAL Petty [place] [facility] [place], [address] [facility] [address] [facility] [place] 08/27 HGB g/dL 12.0 16.0 13.3 Kyleigh l FINAL Petty [place] [place] [facility] [place], [address] [facility] [address] [facility] [place] 08/27 RDW-S D fL 38.0 49.0 43.4 Kyleigh l FINAL [facility] [facility], [facility] [address] [facility] [id number] [place] [address] 08/27 RDW-C V, % % 11.0 15.0 14.3 Kyleigh l FINAL Petty Shay [place] [facility], [facility] [address] [facility] [id number] [place] [address] 08/27 LY % % 19.2 FINAL [facility]ty [facility]ay [place] [facility] [address] [facility] [id number] [place] [address] 08/27 MCH pg 27.0 34.0 26.6 Low FINAL Petty Shay [place] [facility], [facility] [address] [facility] [id number] [place] [address] 08/27 LY # k/uL 0.9 3.9 1.4 Kyleigh l FINAL Petty Shay [place] [facility], [facility] [address] [facility] [id number] [place] [address] 08/27 MCHC g/dL 31.0 37.0 31.9 Kyleigh l FINAL Petty Shay [place] [facility], [facility] [address] [facility] [address] [place] [address] 08/27 HCT % 35.0 48.0 41.7 Kyleigh l FINAL Petty [place] [facility] [place] [address] [facility] [id number] [place] [address] 08/27 Christian % % 76.4 Automated Diff FINAL Petty Shay [place] [facility] [place] [address] [address] [facility] [id number] [place] [address] 07/11 Lab Repor t See dock 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 If this has occurred, re-baseli ne testing may benecessa ry. This test was performed using the Gina Elecsys method.CA 125 is FDA approved for use as a one time test in the detection ofresidua l ovarian carcinoma in patients who have undergone first-marible etherapy and would be considere d for diagnosti c second-lo ok procedure s.An assay value of 36 U/mL or more is predictiv e of residual disease,p rovided that alternati ve causes of an elevated CA 125 assay value canbe excluded. FINAL [facility] [place] [address] 08/27 GFR non-A f[place] n Ameri can, estim ated mL/min /1.73m 2 37 Low eGFRcr calculate d using the CKD-EPI 2020 equation FINAL Petty Davis [employer] [place] [address] [facility] [address] 08/27 Alkal ine phosp hatas e IU/L 42.0 146.0 108 Kyleigh l FINAL Petty Davis [facility] [employer] [place] [address] [facility] [address] 08/27 Calci um mg/dL 8.7 10.4 10.4 Kyleigh l FINAL Petty Davis [employer] [facility] [employer] [place] [address] [facility] [address] 08/27 ALT/S GPT IU/L 5.0 46.0 21 Kyleigh l FINAL Petty Day [place] [facility] [employer] [place] [address] 08/27 Anion gap 4.0 18.0 12 Kyleihg l FINAL [facility] [place] [address] 08/27 CO2 mmol/L 20.0 31.0 25 Kyleigh l FINAL [facility] Day [facility] [place] [address] 08/27 A/G ratio , SPE 1.3 2.7 1.4 Kyleigh l FINAL [facility] [place] [facility] [place] [address] [facility] [address] Sat [place] 08/27 Gluco se mg/dL 70.0 99.0 285 High Glucose reference range reflects fasting state. FINAL Petty Day [place] [facility] [place], [address] [facility] [address] Sat [place] 08/27 Globu maribel g/dL 1.7 3.3 3.4 High FINAL Petty Day [facility] [place] [address] [facility] [address] [facility] [place] 08/27 Chlor ron mmol/L 95.0 109.0 103 Kyleigh l FINAL Petty Day [facility] [place] [address] [facility] [address] [facility] [place] 08/27 Total prote in g/dL 6.0 7.7 8.2 High FINAL Petty Day [facility] [place] [address] [facility] [address] [facility] [place] 08/27 BUN mg/dL 8.0 36.0 41 High FINAL Petty Day [place] [facility] [place], [facility] [address] [facility] [address] [facility] [place] 08/27 Creat inine mg/dL 0.51 1.08 1.44 High FINAL Petty [place] [facility] [place] [address] [facility] [address] Sat [place] 08/27 AST/S GOT IU/L 11.0 40.0 21 Kyle[place] l FINAL Petty Day [facility] [place] [address] [facility] [address] Sajit [place] 08/27 Album in g/dL 3.8 5.1 4.8 Kyleigh l FINAL Petty Day [place] [facility] [place] [address] [facility] [address] Sat [place] 08/27 Bilir ubin, total mg/dL 0.3 Kyle[place] l FINAL [facility]ty [facility]ay [place] [facility], [address] [address] [facility] [place] 08/27 Sodiu m mmol/L 135.0 145.0 141 Kyleigh l FINAL Pettysandro Day [facility], [facility] [address] [address] [facility] 08/27 BUN/C reati nine ratio 10.0 28.0 28.5 High FINAL Petty Day [facility], [facility] [address] [address] [facility] 08/27 Potas sium mmol/L 3.6 5.3 5.0 Kyleigh l FINAL [facility], [facility] [address] [address] [facility] Medications Date Name Route Dose Frequency Instructions Start Date End Date Status Fill Status Indication 09/21 Amlodip ine Oral orally 5.0 mg daily active 09/21 Triamte denis-Hy drochlo rothiaz ron Oral Capsule 37.5 mg-25 mg oral 1.0 capsul e every 4th day active 09/21 Rivarox aban Oral oral 2.0 tablet daily active 09/21 Albuter ol AEPB Inhaler 90 mcg/act uation active 09/21 Ondanse nathalie Oral oral 1.0 tablet PRN active 09/21 Ezetimi be Oral oral 1.0 tablet QD active 09/21 Potassi um Chlorid e Oral ER Tab oral 2.0 tablet extend ed releas e QD active 09/21 Rosuvas tatin Calcium Oral orally 40.0 mg daily active 09/21 Famotid ine Oral oral 1.0 tablet QD active 09/21 Prednis one Oral oral 1.0 daily active 09/21 Lorazep am Oral orally 1.0 mg 2 times per day active 09/21 Losarta n Oral orally 100.0 mg daily active 09/21 Fenofib rate Oral oral 1.0 tablet daily active 09/20 Miscell aneous Drug PATIENT WILL FAX LIST LATER. FORGOT MEDICATION LIST inactive 09/21 Tiotrop ium Inhaler 18 mcg active 09/21 Insulin Aspart Subcuta neous active 09/21 Omepraz ole Oral Delayed Release Capsule oral 1.0 daily active 09/21 Hydroxy zine HCl Oral oral 1.0 tablet daily active 09/21 Tezepel umab-ek ko Subcuta neous subcuta neously 210.0 every 4 weeks active 09/21 Dapagli flozin Oral orally 10.0 mg daily active 09/21 Sertral ine Oral oral 1.0 capsul e daily active 09/21 Metopro lol Oral 24 hr Tab (Succin ate) oral 1.0 tablet extend ed releas e 24 hr daily active 09/21 Pregaba maribel Oral oral 3.0 capsul e daily active 09/21 Zolpide m Oral Tablet oral 1.0 tablet daily active 09/21 Montelu kast Oral oral 1.0 tablet daily active 09/21 Budeson ron-For moterol HFA Inhaler 160 mcg-4.5 mcg/act uation 2.0 HFA aeroso l inhale r BID active 09/21 Aspirin Oral orally 81.0 mg daily active 10/30 triamci nolone acetoni de 1 MG/ML Topical Cream 2024 active 04/11 Omepraz ole Oral Delayed Release Capsule PO 1.0 CAPSUL E(S), ENTERI C COATED daily 02/21 inactive 04/11 Lipase- Proteas e-Amyla se Oral Delayed Release 6,000-1 9,000-3 0,000 unit PO 1.0 CAPSUL E(S), ENTERI C COATED With Meals 02/21 inactive 04/11 Vitamin E Topical Oil PO 5.0 ML as directed 02/21 inactive 04/11 Vitamin A Oral PO 1.0 CAPSUL E(S) daily 02/21 inactive 04/11 Rabepra zole Oral PO 1.0 TABLET , ENTERI C COATED daily 02/21 inactive 04/11 Multivi tamins Oral Tablet PO 1.0 TABLET (S) daily 02/21 inactive 04/11 Dipyrid amole-A spirin Oral ER Cap 200 mg-25 mg PO 1.0 CAPSUL E, SUSTAI DANILO RELEAS E 12 HR daily 02/21 inactive 04/11 Cholest yramine Oral PO 1.0 PACKET (S) as directed 02/21 inactive 04/11 Aspirin Oral PO 1.0 TABLET (S) daily 02/21 inactive 04/11 Montelu kast Oral PO 10.0 MG daily 02/21 inactive 04/11 Prednis one Oral PO 1.0 TABLET (S) as directed 02/21 inactive 04/11 Losarta n Oral PO 1.0 TABLET (S) BID 02/21 inactive 04/11 Lorazep am Oral PO 1.0 TABLET (S) Q4H PRN nausea 02/21 inactive 04/11 Triamte denis-Hy drochlo rothiaz ron Oral Capsule 37.5 mg-25 mg PO 1.0 CAPSUL E(S) daily 02/21 inactive 04/11 Folic Acid Oral PO 1.0 TABLET (S) daily 02/21 inactive 04/11 Zolpide m Oral Tablet PO 1.0 TABLET (S) QHS PRN sleep 02/21 inactive 04/11 Simvast atin Oral PO 1.0 TABLET (S) daily 02/21 inactive 04/11 Choleca lcifero l Oral PO 1.0 TABLET (S) daily 02/21 inactive 04/11 Albuter ol HFA Inhaler 90 mcg/act uation By inhalat ion 2.0 INHALA TION(S ) as directed 02/21 inactive 04/11 Budeson ron-For moterol HFA Inhaler 80 mcg-4.5 mcg/act uation By inhalat ion 1.0 INHALA TION(S ) as directed 02/21 inactive 04/11 Mesalam ine Oral PO 1.0 TABLET (S), ENTERI C COATED daily 02/21 inactive 04/11 Pioglit azone-M etformi n Oral 15 mg-500 mg PO 1.0 TABLET (S) daily 02/21 inactive 04/11 Ezetimi be Oral PO 1.0 TABLET (S) daily 02/21 inactive 04/11 Mather-3 Fatty Acids-V itamin E Oral 1,000 mg PO 1.0 CAPSUL E(S) daily 02/21 inactive 04/11 Sitagli ptin Oral PO 2.0 TABLET (S) as directed 02/21 inactive Problems Diagnosis Status Date of Diagnosis Resolution Date Mass of pelvic structure (finding) Resolved Inflammatory bowel disease (disorder) Active Primary malignant neoplasm o f colon (disorder) Active 01/2013 Asthma (disorder) Active Arthritis (disorder) Active Hypertensive disorder, syste nathaly arterial (disorder) Active Diabetes mellitus type 2 (disorder) Active Malignant tumor of fallopian tube Active CIPN - Chemotherapy-induced peripheral neuropathy Active Procedures Date Category Name Instructions Status 08/06/2024 Physician Order RTC PRODUCT MANAGEMENT ANALYST Ordered 08/06/2024 Physician Order RTC labs Ordered 11/25/2024 Physician Order RTC MD Ordered 11/25/2024 Physician Order RTC labs Ordered Social History Date Name Value 08/27/2024 Smoking Status Former smoker 09/20/2023 Sex Female Sexual Orientation Straight or h eterosexual 04/13/2025 Gender Identity Identifies as fe male Vital Signs Date Type Value 08/27/2024 Intravascular Systolic 149 08/27/2024 Intravascular Diastolic 75 08/27/2024 Body Temperature 97.80 08/27/2024 Heart Beat 76.00 08/27/2024 Respiratory Rate 20.00 08/27/2024 BSA 1.60 08/27/2024 Pain Scale 5.00 08/27/2024 Weight 138.40 08/27/2024 Height 60.00 08/27/2024 BMI 27.03 08/27/2024 Oxygen Saturation 93.00 Notes Section * Follow Up ([facility]) LOCATION: [facility] PATIENT: PAMELA NUNEZ : 1945 ATTENDING PHYSICIAN: Petty Day DATE of SERVICE?: 08/27/2024 REASON FOR VISIT: Surveillance exam. PRINCIPAL [...] lymph node dissection, omental biopsy and lysis ofadhesions.? b. Preoperative CA-125 level of 89.? c.?BRCA negative. Folate receptor 1 positive, HER-2 negative, HRD negative. MSI stable. Mismatchrepair proficient. TMB low.? d. Adjuvant carboplatin and paclitaxel for 6 cycles 12/20/2023 - 04/03/2024. Paclitaxel held with cycle #6 secondary to peripheral neuropathy.? HISTORY OF PRESENT ILLNESS: Ms. Pamela Nunez is a 79-year-old female presenting today for a surveillance exam. Since her last visit, she reports doing well.? She noticed an episode of bleeding today when she went to the bathroom. She also reports vulvar itching. She has not been using the triamcinolone cream very often. She is concerned with its use and the appropriate method to use it. ? She is being followed up by a doctor for her neuropathy in her legs. She mentions that she has a follow up with the doctor in 3-4 weeks. ? She is unsure about her abdominal pain, as she had ulcerative colitis surgery in the past. She denies any recent surgeries.? Her bowel movements are stable. Her appetite [...] inhaler BID Medications reviewed and reconciled with patient.? PAST MEDICAL HISTORY: * Colon cancer. * Stroke X2. * Hypertension. * Diabetes. * Asthma. * Arthritis. * Ulcerative colitis. PAST SURGICAL HISTORY: ? PAST SURGICAL HISTORY:* * Right hemicolectomy with on-block subtotal colectomy and ileorectal anastomosis, January 2013. * Tonsillectomy. * Laparoscopic left salpingo-oophorectomy, robotic-assisted laparoscopic hysterectomy, right salpingo-oophorectomy, pelvic lymph node dissection, omental biopsy, lysis of adhesions. PAST HANDBAG FRAMER HISTORY: Patient is a female with a [...] Never vaped SOCIAL HISTORY:* She is . ?Patient was a former smoker. She smoked for 1.5 years when she was 18 years old. She denies consuming alcohol or using illicit drugs.? ADVANCED DIRECTIVES: Location: [place] Name: ANDREW, PAMELA V ACP Introduction* Date of ACP Introduction: [...] a Surrogate Decision Maker * Comments: Lm Nunez * [phone] REVIEW OF SYSTEMS: A complete 10 systems review completed and negative except for those mentioned in the history of present illness or below. VITALS/PERFORMANCE STATUS: Performance Status:?Karnofsky 60% Requires occasional assistance, but is able to care for most of his/her needs. (Date: 05/07/2024) Vital Signs:?Height: 60 in; Weight: 138.4 lb; Blood pressure: 149/75, Pulse: 76, Temperature: 97.8 F, Respirations: 20, Pain Scale: 5 Depression Screening:?Was screened; Outcome positive: No; Screening Date: 08/27/2024; Screening Tool: Patient Health Questionnaire (PHQ9); Total depression score: 2 PHYSICAL EXAM: General: She is an alert female in no acute distress. HEENT: Sclerae are anicteric, nares are patent. Neck: Trachea is midline, thyroid is not enlarged. Chest: Clear to auscultation bilaterally.? Cardiovascular Exam: Normal S1-S2 with regular rate and rhythm.? Abdomen: Soft, nontender, nondistended. No organomegaly, no CVA tenderness. No palpable hernia. Extremities: No edema, nontender. Lymph Node Survey: Negative. Skin Exam: No visible lesions.? Pelvic Exam: The white discoloration of the [...] No palpable rectal lesion. Stool guaiac is negative.? LAB: CBC LabResults 07/11/2024 05/07/2024 04/30/2024 04/02/2024 [...] the right fallopian tube without evidence of disease.? 2. History of colon cancer.? 3. 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 3. Lichen sclerosis.? The patient was counseled on the findings [...] was 30 minutes including 16 minutes of [id number] time with the patient and 14 minutes [...] unspecified ) . Documentation assistance provided by Santos MCGARRY, scribing for Petty Day MD, on 08/27/2024. ?I, Petty Day MD, personally performed the services described in this documentation, and it is both accurate and complete. SEND COPY OF NOTE TO: Katalina Ruggiero DO (Referring) Palmira Costa MD (Referring) . Electronically signed by Petty Day MD 09/02/2024 22:01 MST
--- OUTSIDE RECORDS SUMMARY | 2025-05-10 11:08 | XMS_ITS | Clinical Summary ---
Author Organization [facility] Address [address] [place] [address] Care Team Providers Care Plush Finisher Name Role Phone Unavailable Primary Care Provider Unavailabl e Encounters Date Type Department Care Team Description 03/22/2025 2:25 PM EDT Ancillary Procedure [facility] [address] [place] [id number] Abnormal [...] r (1 - 1-dose 75+ series) 2020 [id number] Vaccine (1 - 20 24-25 season) 2025 UKY-Influenza Vaccine (#1) 2025 HPV Vaccines Aged [...] Data Image Acquisition: Images were acquired at [facility] in [place], and interpreted at [facility]. A 128-slice MDCT scanner (Issuea View) was used for data acquisition. A [...] was reviewed interactively on an advanced workstation (ki work) capable of 2 and 3 dimensional displays [...] Data Image Acquisition: Images were acquired at [facility] in [place], andinterpreted at [facility]. A 128-slice MDCT scanner (Fluther) was used for data acquisition. A non-contrast [...] Data wasreviewed interactively on an advanced workstation (ki work) capable of 2and 3 dimensional displays in [...] a higher score. The total volume score [id number]. The calculated vascular age for this patient [...] [place] BLAS IMG CT PROCEDURES Final Result from Last 3 [place] [id number]
--- OUTSIDE RECORDS SUMMARY | 2025-05-10 11:09 | XMS_ITS ---
Author Name Interface, [id number] lity Address [place], [place] [id number] [place] [address] [place] [address] Allergies and Adverse Reactions Medication/Group Name Reaction Severity Date Iodinated Contrast Media Sulfamide 08/27/2024 Plan Date Type Value 11/26/2024 APPOINTMENT LAB 15 MIN 11/26/2024 APPOINTMENT OV 15 MIN 08/27/2024 APPOINTMENT LAB 15 MIN 08/27/2024 APPOINTMENT OV 15 MIN 08/06/2024 APPOINTMENT LAB 15 MIN 08/06/2024 APPOINTMENT OV 20 MIN 05/07/2024 APPOINTMENT LAB 15 MIN 05/07/2024 APPOINTMENT OV 15 MIN 04/30/2024 APPOINTMENT OV 20 MIN 04/30/2024 APPOINTMENT LAB 15 MIN 04/30/2024 APPOINTMENT OV 15 MIN 04/27/[address] 15 MIN 04/30/2024 LABORDER CMP 04/30/2024 LABORDER CA 125 panel 04/30/2024 LABORDER CBC w/ auto diff 08/06/2024 LABORDER CA 125 panel 08/06/2024 LABORDER CMP 08/06/2024 LABORDER CBC w/ auto diff 11/25/2024 LABORDER CA 125 panel 11/25/2024 LABORDER CBC w/ auto diff 11/25/2024 LABORDER CMP Reason for Visit OV 15 MIN Encounters Date Name 04/27/2024 CIPN - Chemotherapy- induced peripheral neuropathy Diagnostic Results Date Type Test Units Lower Limit Upper Limit Result Flag Comments Status Ordered By Specimen Source Lab Address 04/27 CT Abdom en and Pelvi s witho ut contr ast [facility]Ph one:NAM E: PAMELA HAYS VDOB: [id number]: [id number]: [id number] E OF EXAM: 024EXAM INATION : CT Abdomen and Pelvis without contras tCLINIC AL 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 Oral contras t was given.D ose Reducti on Techniq ue: Automat ed Exposur e Control COMPARI SON: CT abdomen and pelvis, 024, [facility]. FINDING S:LOWER THORAX: No basilar atelect asis or consoli dation. Normal cardiac size. No pericar dial effusio n. No pleural effusio n.LIVER : No cirrhos is, steatos is, or mass.GA LLBLADD ER: Prior cholecy stectom y.BILE DUCTS: No biliary dilatio n.PANCR EAS: Severe pancrea tic atrophy .SPLEEN : Normal size. No focal abnorma lity.AD RENALS: No adrenal nodules .KIDNEY S: 2.2 cm simple cyst of the left kidney. AORTA/I VC: Severe aortoil iac atheros cleroti c calcifi cation is present without aneurys m.LYMPH NODES: No enlarge d retrope ritonea l lymph nodes. No enlarge d pelvic lymph nodes.B LADDER: Evaluat ion limited by incompl ete distens ion.REP RODUCTI VE ORGANS: Prior hystere ctomy. There is a right adnexal cyst or fluid collect ion measuri ng 6.4 cm in greates t dimensi on, previou sly 7.6 cm.GI TRACT: Normal distal esophag us. No signifi cant gastric abnorma lity. No small bowel dilatio n or mural thicken ing.COL ON/RECT UM: Subtota l colecto my with stable ileocol onic anastom osis in the right lower quadran t.MESEN RYANNE/PE RITONEU M: No mass or enlarge d nodes. No ascites or pneumop eritone um.ABDO MAGGY WALL: No hernia or mass.TWAN SU: L3-4 severe degener ative disc disease . No acute osseous abnorma lities. IMPRESS ION:1. No metasta tic disease identif ied without intrave nous contras t.2. Prior hystere ctomy. Right adnexal cyst or fluid collect ion has mildly decreas ed in size.3. Stable finding s of subtota l colecto my.4. Severe atheros clerosi s.5. Simple left renal cyst.El tal barnett signed byJose Alfredo Mascorro M.D.Dic tated: 04/27/20 3:33 PM Signed: 04/27/20 3:41 PMFINAL REPORT FINAL 04/30 Lab Repor t See software engineer advisor d 05/07 Gluco se mg/dL 70.0 99.0 173 High Glucose reference range reflects fasting state. FINAL [facility] [place] [facility] [place] [address] [address] [facility] [id number] [place] [address] 05/07 BUN mg/dL 8.0 36.0 20 Kyleigh l FINAL Petty [place] [facility] [place] [address] [address] [facility] [id number] [place] [address] 05/07 Creat inine mg/dL 0.51 1.08 1.39 High FINAL Petty Day Susan [facility] [facility] [place] [address] [address] [facility] [id number] [place] [address] 05/07 GFR non-A frica n Ameri can, estim ated mL/min /1.73m 2 39 Low eGFRcr calculate d using the CKD-EPI 2020 equation FINAL Petty [place] [facility] [place] [address] [address] [facility] [id number] [place] [address] 05/07 BUN/C reati nine ratio 10.0 28.0 14.4 Kyleigh l FINAL Petty Day Susan [facility] [facility] [place] [address] [facility] [id number] [place] [address] 05/07 Sodiu m mmol/L 135.0 145.0 142 Kyleigh l FINAL [facility]ty [place] [facility] [place] [address] [address] [facility] [address] [place] [address] 05/07 Potas sium mmol/L 3.6 5.3 4.6 Kyleigh l FINAL Petty Shay [place] [facility] [place], [address] [facility] [address] Sat Ghulam 05/07 Chlor ron mmol/L 95.0 109.0 107 Kyleigh l FINAL Petty Shay [place] [facility] [place], [address] [facility] [address] Sat Ghulam 05/07 CO2 mmol/L 20.0 31.0 24 Kyleigh l FINAL Petty Shay [place] [facility] [place], [address] [facility] [address] [facility] 05/07 Anion gap 4.0 18.0 11 Kyleigh l FINAL Petty Day [facility] [place], [address] [facility] [address] [facility] 05/07 Total prote in g/dL 6.0 7.7 6.6 Kyleigh l FINAL Petty Day [facility] [place], [address] [facility] [address] [facility]am 05/07 Album in g/dL 3.8 5.1 4.2 Kyleigh l FINAL Petty Day [place] [facility] [place], [address] [facility] [address] [facility] Ghulam 05/07 Globu maribel g/dL 1.7 3.3 2.4 Kyleigh l FINAL Petty Day [facility] [place], [facility] [address] [facility] [address] Sat Ghulam 05/07 A/G ratio , SPE 1.3 2.7 1.7 Kyleigh l FINAL Pettysandro Day [facility] [place], [address] [facility] [address] Sajit Ghulam 05/07 Calci um mg/dL 8.7 10.4 9.4 Kyleigh l FINAL Petty Day [facility] [place], [facility] [address] [place] [address] 05/07 Alkal ine phosp hatas e IU/L 42.0 146.0 64 Kyleigh l FINAL Petty Day [place] [facility], [facility] [address] [place] [address] 05/07 ALT/S GPT IU/L 5.0 46.0 10 Kyleigh l FINAL [facility] [place] [facility], [facility] [id number] [place] [address] 05/07 AST/S GOT IU/L 11.0 40.0 24 Kyleigh l FINAL [facility] [place] [facility] [place] [address] [address] [facility] [address] [place] [address] 05/07 Bilir ubin, total mg/dL 0.2 Kyleigh l FINAL Petty [place] [facility] [place] [address] [address] [facility] [address] [place] [address] 05/07 CA 125 U/mL 18 Kyleigh l Values obtained with different assay [...] 125 assay value canbe excluded. FINAL Petty Day [facility], [facility] [address] [place] [address] 05/07 WBC k/mm3 4.0 11.0 7.1 Kyleigh l FINAL [facility]ty [place] [facility], [facility] [address] [place] [address] 05/07 RBC m/mm3 3.7 5.4 3.92 Kyleigh l FINAL Petty Shay [facility] [place], [address] [facility] [address] [facility] 05/07 HGB g/dL 12.0 16.0 10.6 Low FINAL Petty Shay [place] [facility] [place], [address] [facility] [address] [facility] 05/07 HCT % 35.0 48.0 35.1 Kyleigh l FINAL Petty Shay [place] [facility] [place], [facility] [address] [facility] [address] [facility] 05/07 MCV fL 78.0 100.0 89.5 Kyleigh l FINAL Petty Shay [place] [facility] [place], [address] [facility] [address] [place] [address] 05/07 MCH pg 27.0 34.0 27.0 Kyleigh l FINAL Petty Shay [place] [facility] [place], [address] [facility] [address] [facility] 05/07 MCHC g/dL 31.0 37.0 30.2 Low FINAL Petty Shay [facility] [place], [facility] [address] [facility] [address] [facility] 05/07 PLT k/mm3 130.0 450.0 335 Kyleigh l FINAL Petty Shay [place] [facility] [place], [facility] [address] [facility] [address] [facility] 05/07 RDW-S D fL 38.0 49.0 54.3 High FINAL Petty Shay [facility] [place], [facility] [address] [facility] [address] [place] [address] 05/07 RDW-C V, % % 11.0 15.0 16.5 High FINAL Petty Shay [facility] [place], [facility] [address] [facility] [address] [facility] Ghulam 05/07 MPV fL 9.0 12.0 11.0 Kyleigh l FINAL Pettysandro Day [place] [facility] [place], [address] [facility] [address] Sajit Ghulam 05/07 Christian % % 48.4 Automated Diff FINAL Pettysandro Day [facility] [place], [address] [facility] [address] Sajit Ghulam 05/07 LY % % 25.7 FINAL Pettysandro Day [place] [facility] [place], [address] [facility] [address] Sajit Ghulam 05/07 MO % % 20.7 FINAL Pettysandro Day [place] [facility] [place], [address] [facility] [address] Saji Ghulam 05/07 EO % % 2.3 FINAL Petty Day [facility] [place], [address] [facility] [address] Sajit Ghulam 05/07 BA % % 1.1 FINAL Pettysandro Day [place] [facility] [place], [address] [facility] [address] Saji Ghulam 05/07 Christian # (ANC) k/uL 1.5 7.8 3.4 Kyleigh l FINAL Petty Day [place] [facility] [place], [address] [facility] [address] Sajit Ghulam 05/07 LY # k/uL 0.9 3.9 1.8 Kyleigh l FINAL Pettysandro Day [place] [facility] [place], [address] [facility] [address] Sajit Ghulam 05/07 MO # k/uL 0.2 1.0 1.5 High FINAL Petty Shay [place] [facility] [place], [address] [facility] [address] Sajit Ghulam 05/07 EO # k/uL 0.0 0.6 0.2 Kyleigh l FINAL Petty Shay [place] [facility] [place], [address] [facility] [address] [facility] Ghulam 05/07 BA # k/uL 0.0 0.2 0.1 Kyleigh l FINAL Petty [place] [facility] [place], [address] [facility] [address] [facility] Ghulam 05/07 IG % % 1.8 FINAL [facility]ty [place] [facility] [place], [address] [facility] [address] [facility] 05/07 IG # k/uL 0.0 0.1 0.1 Kyleigh l FINAL [facility] [place] [facility], [facility] [address] [place] [address] 05/07 NRBC, % % 0.0 1.0 0.3 Kyleigh l FINAL Petty [facility], [facility] [address] [facility] [address] [place] [address] 07/11 Lab Repor t See software engineer advisor d 08/27 CA 125 U/mL 19 Kyleigh [...] 125 assay value canbe excluded. FINAL [facility] [place] [facility] [place], [facility] [address] [facility] [address] [place] [address] 08/27 Sodiu m mmol/L 135.0 145.0 141 Kyleigh l FINAL [facility]ty [place] [facility] [place], [facility] [address] [facility] [address] [place] [address] 08/27 Potas sium mmol/L 3.6 5.3 5.0 Kyleigh l FINAL Petty Shay [place] [facility] [place] [address] [facility] [address] [facility] 08/27 Chlor ron mmol/L 95.0 109.0 103 Kyleigh l FINAL Petty Shay [place] [facility] [place], [facility] [address] [facility] [address] [facility] 08/27 CO2 mmol/L 20.0 31.0 25 Kyleigh l FINAL Petty Shay [place] [facility] [place] [address] [facility] [address] [facility] Gh[facility] 08/27 Anion gap 4.0 18.0 12 Kyleigh l FINAL Petty Shay [facility] [place] [address] [facility] [address] [facility] Gh[facility] 08/27 Total prote in g/dL 6.0 7.7 8.2 High FINAL Petty Shay [place] [facility] [place], [facility] [address] [facility] [address] [facility] Gh[facility]am 08/27 Album in g/dL 3.8 5.1 4.8 Kyleigh l FINAL Petyt Shay [facility] [place], [facility] [address] [facility] [address] [facility] Ghulam 08/27 Globu maribel g/dL 1.7 3.3 3.4 High FINAL Petty Shay [place] [facility] [place] [address] [facility] [address] [facility] Gh[facility]am 08/27 A/G ratio , SPE 1.3 2.7 1.4 Kyleigh l FINAL Pettysandro Day [place] [facility] [place] [address] [facility] [address] [facility] Gh[facility]am 08/27 Calci um mg/dL 8.7 10.4 10.4 Kyleigh l FINAL Petty Shay [facility] [place] [address] [facility] [address] [facility] 08/27 Alkal ine phosp hatas e IU/L 42.0 146.0 108 Kyleigh l FINAL Petty Day [place] [facility] [place] [address] [facility] [address] [facility] 08/27 ALT/S GPT IU/L 5.0 46.0 21 Kyleigh l FINAL Petty Day [place] [facility] [place] [address] [facility] [address] [place] [address] 08/27 AST/S GOT IU/L 11.0 40.0 21 Kyleigh l FINAL Petty Day [place] [facility] [place] [address] [address] [facility] [address] [place] [address] 08/27 Bilir ubin, total mg/dL 0.3 Kyleigh l FINAL Petty Day [place] [facility] [place] [address] [address] [facility] [address] [place] [address] 08/27 Gluco se mg/dL 70.0 99.0 285 High Glucose reference range reflects fasting state. FINAL Petty Day [place] [facility] [place] [address] [address] [facility] [address] [place] [address] 08/27 BUN mg/dL 8.0 36.0 41 High FINAL Petty Day [facility] [place] [address] [address] [facility] [address] [place] [address] 08/27 Creat inine mg/dL 0.51 1.08 1.44 High FINAL Petty Day [place] [facility] [place] [address] [address] [facility] [address] [place] [address] 08/27 GFR non-A frica n Ameri can, estim ated mL/min /1.73m 2 37 Low eGFRcr calculate d using the CKD-EPI 2020 equation FINAL Petty Day [place] [facility] [place] [address] [address] [facility] [address] [place] [address] 08/27 BUN/C reati nine ratio 10.0 28.0 28.5 High FINAL Petty Shay [facility] [place], [address] [facility] [address] [facility] Gh[facility]am 08/27 WBC k/mm3 4.0 11.0 7.5 Kyleigh l FINAL Petty Shay [place] [facility] [place], [address] [facility] [address] [facility] Gh[facility] 08/27 RBC m/mm3 3.7 5.4 5.00 Kyleigh l FINAL Petty Shay [place] [facility] [place], [address] [facility] [address] [facility] Gh[facility]am 08/27 HGB g/dL 12.0 16.0 13.3 Kyleigh l FINAL Petty Shay [facility] [place], [address] [facility] [address] [facility] Gh[facility]am 08/27 HCT % 35.0 48.0 41.7 Kyleigh l FINAL Petty Shay [place] [facility] [place], [address] [facility] [address] [facility] Ghulam 08/27 MCV fL 78.0 100.0 83.4 Kyleigh l FINAL Petty Shay [place] [facility] [place], [address] [facility] [address] [facility] Ghulam 08/27 MCH pg 27.0 34.0 26.6 Low FINAL Petty Shay [facility] [place], [address] [facility] [address] [facility] Ghulam 08/27 MCHC g/dL 31.0 37.0 31.9 Kyleigh l FINAL Petty Shay [place] [facility] [place], [facility] [address] [facility] [address] [facility] Ghulam 08/27 PLT k/mm3 130.0 450.0 255 Kyleigh l FINAL Petty Shay [place] [facility] [place], [facility] [address] [facility] [address] [facility] Ghulam 08/27 RDW-S D fL 38.0 49.0 43.4 Kyleigh l FINAL Pettysandro Day [facility] [place], [address] [facility] [address] Sajit Ghulam 08/27 RDW-C V, % % 11.0 15.0 14.3 Kyleigh l FINAL Pettysandro Day [place] [facility] [place], [address] [facility] [address] Sajit Ghulam 08/27 MPV fL 9.0 12.0 11.1 Kyleigh l FINAL Pettysandro Day [place] [facility] [place], [address] [facility] [address] Saji Ghulam 08/27 Christian % % 76.4 Automated Diff FINAL Pettysandro Day [facility] [place], [address] [facility] [address] Saji Ghulam 08/27 LY % % 19.2 FINAL Pettysandro Day [facility] [place], [address] [facility] [address] Sajit Ghulam 08/27 MO % % 3.4 FINAL Pettysandro Day [facility] [place], [address] [facility] [address] Sajit Ghulam 08/27 EO % % 0.0 FINAL Pettysandro Day [facility] [place], [address] [facility] [address] Sajit Ghulam 08/27 BA % % 0.1 FINAL Pettysandro Day [place] [facility] [place], [address] [facility] [address] Sajit Ghulam 08/27 Christian # (ANC) k/uL 1.5 7.8 5.7 Kyleigh l FINAL Pettysandro Day [place] [facility] [place], [address] [facility] [address] Sajit Ghulam 08/27 LY # k/uL 0.9 3.9 1.4 Kyleigh l FINAL Petty Shay [place] [facility] [place], [address] [facility] [address] [facility] 08/27 MO # k/uL 0.2 1.0 0.3 Kyleigh l FINAL Petty Shay [place] [facility] [place], [address] [facility] [address] [facility] 08/27 EO # k/uL 0.0 0.6 0.0 Kyleigh l FINAL Petty Shay [place] [facility] [place], [facility] [address] [facility] [address] [facility] 08[facility] BA # k/uL 0.0 0.2 0.0 Kyleigh l FINAL Petty Shay [place] [facility] [place], [facility] [address] [facility] [address] [facility] 08/27 IG % % 0.9 FINAL Petty Shay [facility] [place] [address] [facility] [address] [facility] 08/[facility] IG # k/uL 0.0 0.1 0.1 Kyleigh l FINAL Petty Shay [place] [facility], [facility] [address] [facility] 08/27 NRBC, % % 0.0 1.0 0.0 Kyleigh l FINAL Petty Shay [facility] [place] [address] [address] [facility] [address] [place] [address] Medications Date Name Route Dose Frequency Instructions [...] Tablet oral 1.0 tablet daily active 09/21 Tezepel umab-ek ko Subcuta neous subcuta neously 210.0 every 4 weeks active 09/21 Aspirin Oral orally 81.0 mg daily active 09/21 Dapagli flozin Oral orally 10.0 mg daily active 09/21 Hydroxy zine HCl [...] concentration must be 0.3-1.2 mg/mL. Administer using [id number] ining equipment and through an in-line 0.22 [...] neuropathy Active Vital Signs Date Type Value 05/07/2024 Intravascular Systolic 110 05/07/2024 Intravascular Diastolic 60 05/07/2024 Body Temperature 97.80 05/07/2024 BSA 1.63 05/07/2024 BMI 28.44 05/07/2024 Height 60.00 05/07/2024 Weight 145.60 05/07/2024 Pain Scale 8.00 05/07/2024 Oxygen Saturation 98.00 05/07/2024 Respiratory Rate 20.00 05/07/2024 Heart Beat 75.00 08/27/2024 Intravascular Systolic 149 08/27/2024 Intravascular Diastolic 75 08/27/2024 BMI 27.03 08/27/2024 Height 60.00 08/27/2024 Weight 138.40 08/27/2024 BSA 1.60 08/27/2024 Oxygen Saturation 93.00 08/27/2024 Respiratory Rate 20.00 08/27/2024 Heart Beat 76.00 08/27/2024 Body Temperature 97.80 08/27/2024 Pain Scale 5.00 Notes Section * [facility] LOCATION: [facility] PATIENT: PAMELA NUNEZ : 1945 ATTENDING [...] dissection, omental biopsy, lysis of adhesions. 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 ADVANCED DIRECTIVES: Location: [place] Name: ANDREWPAMELA PHILLIPS Brandi ACP Introduction* Date of ACP Introduction: 08/27/2024 [...] a Surrogate Decision Maker * Comments: Lm Andrew * [phone] REVIEW OF SYSTEMS: A complete 10 systems [...] was 30 minutes including 16 minutes of [id number] time with the patient and 14 minutes [...] unspecified ) . Documentation assistance provided by sulema Molinaibing for Petty Day MD, on 08/27/2024. ??I, Petty Day MD, personally performed the services described in this documentation, and it is bothaccurate and complete. SEND COPY OF NOTE TO: Katalina Ruggiero DO (Referring) Palmira Costa MD (Referring) . Electronically signed by Petty Day MD 09/02/2024 22:01 MST * [facility] Up [facility] LOCATION: [facility] PATIENT: PAMELA NUNEZ : 1945 ATTENDING PHYSICIAN: Petty Day DATE of SERVICE??: 05/07/2024 REASON FOR VISIT: Follow-up exam. PRINCIPAL DIAGNOSIS: * Malignant tumor of [...] held with cycle #6 secondary to peripheral neuropathy. HISTORY OF PRESENT ILLNESS: Ms. Pamela Nunez is a 78-year-old female presenting today for a follow-up exam. She reports bleeding for 2 weeks while in [place]. The bleeding restarted after returning home. She denies pain associated with bleeding. She reports numbness in her hands starting from her fingertips to her elbow, left worse than the right side. She reports neuropathy in her feet with associated pain. She reports dropping things due to the numbness. She trips and falls with the neuropathy in her feet. She reports chest pressure while rushing, onset 2-3 days ago which has resolved. She has a history of asthma. She denies issues with bowel movements.?? She has intermittent nausea but no vomiting. She had a CT of the abdomen and pelvis on 04/27/2024. The CT shows no evidence of metastatic disease. The cyst in the right pelvis measures 6.4 cm compared to 7.6 cm previously. There was a simple-appearing left renal cyst measuring 2.2 cm. ALLERGIES: * Iodinated Contrast Media * Sulfamide MEDICATIONS: * dexamethasone 4 mg tablet TAKE FIVE TABLETS BY MOUTH 12 AND 6 HOURS PRIOR TO PACLITAXEL DIRECTED * Gabapentin Oral 100 mg capsule 1 capsule orally every day at bedtime. * Crestor (Rosuvastatin Calcium Oral) 40 mg orally daily * Omeprazole Oral Delayed Release Capsule 20 mg capsule,delayed release(DR/EC) oral daily * Tezspire (Tezepelumab-ekko Subcutaneous) subcutaneously every 4 weeks * Zoloft (Sertraline Oral) 150 mg capsule 1 capsule oral daily * Olanzapine Oral 2.5 mg tablet 2.5 mg orally As Directed. Take 1 tablet p.o. nightly for 4 days starting Day 1 of chemotherapy for nausea. * Ambien (Zolpidem Oral Tablet) 10 mg tablet 1 tablet oral daily * Potassium Chloride Oral ER Tab 20 mEq tablet extended release 2 tablet extended release oral QD * Hydroxyzine HCl Oral 25 mg tablet 1 tablet oral daily * Ondansetron Oral 1 tablet oral PRN * Aspirin Oral 81 mg orally daily * Singulair (Montelukast Oral) 10 mg tablet 1 tablet oral daily * Zetia (Ezetimibe Oral) 10 mg tablet 1 tablet oral QD * Spiriva (Tiotropium Inhaler 18 mcg) * Dexamethasone Oral 4 mg tablet 5 tablet orally As Directed. Take 5 tablets p.o. 12 and 6 hours prior to paclitaxel. * Triamcinolone Topical Cream 0.1 % 0.1 % cream 1 application topically 2 times per day. Use as needed for itching * Amlodipine Oral 5 mg orally daily * Ativan (Lorazepam Oral) 1 mg orally 2 times per day * Cozaar (Losartan Oral) 100 mg orally daily * Farxiga (Dapagliflozin Oral) 10 mg orally daily * Novolog (Insulin Aspart Subcutaneous) * Proair Digihaler (Albuterol AEPB Inhaler 90 mcg/actuation) * Fenofibrate Oral 160 mg tablet 1 tablet oral daily * Metoprolol Oral 24 hr Tab (Succinate) 1 tablet extended release 24 hr oral daily * Pregabalin Oral 75 mg capsule 3 capsule oral daily * Symbicort (Budesonide-Formoterol HFA Inhaler 160 mcg-4.5 mcg/actuation) 2 HFA aerosol inhaler BID * Xarelto (Rivaroxaban Oral) 2.5 mg tablet 2 tablet oral daily * Pepcid (Famotidine Oral) 20 mg tablet 1 tablet oral QD * Prednisone Oral 5 mg tablet oral daily * Triamterene-Hydrochlorothiazide Oral Capsule 37.5 mg-25 mg 1 capsule oral every 4th day Medications reviewed and reconciled with patient.?? PAST [...] dissection, omental biopsy, lysis of adhesions. 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 ADVANCED DIRECTIVES: Location: [place] Name: PAMELA NUNEZ V ACP Introduction* Date of ACP Introduction: 02/20/2024 Level of Patient Interest in ACP* Introduced [...] a Surrogate Decision Maker * Comments: Lm Andrew * [phone] REVIEW OF SYSTEMS: A complete 10 systems review completed and negative except for those mentioned in the history of present illness or below. VITALS/PERFORMANCE STATUS: Performance Status:??[place] 70% Cares for self, unable to carry on normal activity or to do active work. (Date: 04/03/2024) Vital Signs:??Height: 60 in; Weight: 145.6 lb; Blood pressure: 110/60, Pulse: 75, Temperature: 97.8F, Respirations: 20, Pain Scale: 8 Depression Screening:??Was screened; Outcome positive: No; Screening Date: 05/07/2024; Screening Tool: MD-PHQ2; Total depression score: 0 PHYSICAL EXAM: General: She is an alert [...] Exam: No visible lesions.?? Pelvic Exam: The external genitalia are notable for changes consistent with lichen sclerosis. Thereis white discoloration associated with agglutination of the periclitoral tissues and the labia bilaterally. There is a fissure in the midline superior to the clitoris. There is also a fissure involving the right posterior labia??with evidence of bleeding. There are no discrete lesions identified. The vagina is without evidence of bleeding or discharge. There were no visible lesions. On bimanual exam, the bladder urethra are nontender. The vagina is smooth. There is no palpable mass. On rectovaginal exam, there is no cul-de-sac nodularity. No palpable rectal lesion. Stool guaiac is negative. LAB: CBC LabResults 05/07/2024 04/02/2024 03/12/2024 02/20/2024 01/17/2024 CBC WBC x 10^3/uL 7.1 6.3 9.6 7.2 8.4 RBC x 10^6/uL 3.92 4.10 4.15 4 4.34 NRBC, % 0.3 0.0 0.1 0.6 0.5 HGB g/dL 10.6 (L) 10.8 (L) 10.8 (L) 10.6 (L) 11.1 (L) HCT % 35.1 35.8 34.7 (L) 34.1 (L) 37.8 MCV fL 89.5 87.3 83.6 85.3 87.1 MCH pg 27.0 26.3 (L) 26.0 (L) 26.5 (L) 25.6 (L) MCHC g/dL 30.2 (L) 30.2 (L) 31.1 31.1 29.4 (L) RDW-CV, % 16.5 (H) 16.5 (H) 17.5 (H) 17.1 (H) 15.6 (H) RDW-SD fL 54.3 (H) 52.5 (H) 52.7 (H) 52.3 (H) 48.2 PLT x 10^3/uL 335 240 216 353 263 MPV fL 11.0 10.3 11.1 10.7 10.7 Christian % 48.4 51.1 64.9 48.3 58.4 LY % 25.7 25.7 18.9 21.0 20.6 MO % 20.7 16.5 12.7 15.6 12.4 EO % 2.3 1.3 2.0 2.4 3.7 IG % 1.8 4.4 0.7 11.6 3.6 Christian # (ANC) x 10^3/uL 3.4 3.2 6.2 3.5 4.9 BA % 1.1 1.0 0.8 1.1 1.3 MO # x 10^3/uL 1.5 (H) 1.0 1.2 (H) 1.1 (H) 1.1 (H) EO # x 10^3/uL 0.2 0.1 0.2 0.2 0.3 BA # x 10^3/uL 0.1 0.1 0.1 0.1 0.1 IG # x 10^3/uL 0.1 0.3 (H) 0.1 0.8 (H) 0.3 (H) LY # x 10^3/uL 1.8 1.6 1.8 1.5 1.7 Chemistries LabResults 05/07/2024 04/02/2024 03/12/2024 02/20/2024 01/17/2024 Chemistries Glucose mg/dL 142 (H) 194 (H) 156 (H) 136 (H) BUN mg/dL 32 27 24 27 Creatinine mg/dL 1.26 (H) 1.26 (H) 1.34 (H) 1.26 (H) BUN/Creatinine ratio 25.4 21.4 17.9 21.4 Sodium mmol/L 142 141 139 143 Potassium mmol/L 4.5 3.8 4.4 4.2 Chloride mmol/L 108 103 104 108 CO2 mmol/L 22 23 23 25 Anion gap 13 14 12 11 Calcium mg/dL 9.6 9.7 9.6 9.3 Albumin g/dL 4.3 4.4 4.1 4.3 Total protein g/dL 6.6 7.0 6.7 6.5 Globulin g/dL 2.3 2.6 2.6 2.2 Bilirubin, total mg/dL 0.2 0.3 0.2 0.2 Alkaline phosphatase U/L 73 74 81 57 AST/SGOT U/L 18 23 14 14 ALT/SGPT U/L 15 19 11 16 GFR non-, estimated mL/min/1.73m2 44 (L) 44 (L) 40 (L) 44 (L) Coags None Today Tumor Markers LabResults 05/07/2024 04/02/2024 03/12/2024 02/20/2024 01/17/2024 Tumor Markers CA 125 U/mL 26 28 28 20 Urine None Today IMPRESSION/PLAN: 1. 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 2. History of colon cancer. 3. Peripheral neuropathy, grade 2.?? 4. Lichen sclerosis. 5. Anemia. The patient was counseled on the findings of the CT and the exam. She will transition to observation. She will follow up here in 3 months to begin her surveillance exams. We discussed the findings ontcherelle vasquezia. She has previously been given a prescription for triamcinolone cream. She does not remember if she has the prescription. I wrote a note for her to take with her to remind her to look for the medication when she gets home. She was instructed to use the cream twice a day. She was also advised to take vitamin B6 secondary to the neuropathy symptoms. Today's total visit time was 40 minutes including 18 minutes of [id number] time with the patient and 22 minutes in chart review, review of the blood work, review of the CT,??order placement, and EMR documentation. PROBLEM LIST: * Malignant tumor of fallopian tube ( ICD-10:C57.01 ;Malignant neoplasm of right fallopian tube ) * Primary malignant neoplasm of colon (disorder) ( ICD-10:C18.9 ;Malignant neoplasm of colon, unspecified ) * Arthritis (disorder) ( ICD-10:M12.9 ;Arthropathy, unspecified ) * Asthma (disorder) ( ICD-10:J45.909 ;Unspecified asthma, uncomplicated ) * Diabetes mellitus type 2 (disorder) ( ICD-10:E11.9 ;Type 2 diabetes mellitus without complications ) * Hypertensive disorder, systemic arterial (disorder) ( ICD-10:I10 ;Essential (primary) hypertension ) * Inflammatory bowel disease (disorder) ( ICD-10:K52.9 ;Noninfective gastroenteritis and colitis, unspecified ) . Documentation assistance provided by [facility], scribing for Petty Day MD, on 05/07/2024. ??I, Petty Day MD, personally performed the services described in this documentation, and it is bothaccurate and complete. SEND COPY OF NOTE TO: KATALINA RUGGIERO DO (Referring) Palmira Costa MD (Referring) . Electronically signed by Petty Day MD 05/11/2024 09:19 [facility] * Nurse Note for: 27-APR-[id number] [facility] Nurse Note Print Location: Unknown Date/Time Printed: 05/10/2025 08:08 ([place]) Patient: PAMELA NUNEZ V Sex: Female : 1945 Date of Service: 04/27/2024 Allergies : Sulfamide, Iodinated Contrast Media Patient Assessment : Procedures : Computed tomography of abdomen and pelvis (procedure) - Associated Problem(s): Malignant tumor of fallopian tube *; Primary malignant neoplasm of colon (disorder) *; Selected Billing Code(s): CT ABDOMEN & PELVIS W/O CONTRAST MATERIAL (45395) Entered By Neris Vargas; Incident to Petty Day MD
[2025-05-10 11:16] LABS: Hematocrit 36.7 % (37.0-47.0); Hemoglobin 11.7 g/dL (12.2-16.2); Immature Granulocytes % 0.8 %; Mean Corpuscular HGB Conc 31.9 g/dL (31.8-35.4); Mean Corpuscular Hemoglobin 26.3 pg (27.0-31.2); Mean Corpuscular Volume 82.5 fl (81-99); Nucleated Red Blood Cells % 0 %; Platelet Count 313 K/mm3 (142-424); Red Blood Count 4.45 M/mm3 (4.20-5.40); Red Cell Distribution Width-SD 43.5 fL; White Blood Count 5.9 K/mm3 (4.8-10.8)
[2025-05-10 12:39] LABS: Alanine Aminotransferase 14 U/L (12-78); Albumin Level 4.2 g/dl (3.5-5.0); Albumin/Globulin Ratio 1.9 (1.1-1.8); Alkaline Phosphatase 89 U/L (38-126); Anion Gap 15.7 mEq/L (5-15); Aspartate Amino Transferase 20 U/L (14-36); Bilirubin,Total 0.4 mg/dl (0.2-1.3); Blood Urea Nitrogen 33 mg/dl (7-17); Calcium 9.2 mg/dl (8.4-10.2); Carbon Dioxide 26 mmol/L (22.0-30.0); Chloride 102 mmol/L (98-107); Creatinine,Serum 1.30 mg/dl (0.52-1.04); Estimated Glomerular Filt Rate 40 ml/min (>60); GFR (African American) 48 ML/MIN (>60); Globulin 2.2 g/dL (1.3-3.2); Glucose 158 mg/dl (74-100); Potassium 4.7 mmoL/L (3.5-5.1); Sodium 139 mmol/L (136-145); Total Protein,Serum 6.4 g/dl (6.3-8.2)
== END 2025-05-10 23:59 | disposition home or self-care (01) ==
LOC: LAB 11:04
PROVIDERS: PCP Family Medicine; Visit Provider Internal Medicine
DX: I25.10 Atherosclerotic heart disease of native coronary artery without angina pectoris (principal)
CPT/HCPCS: 36415; 80053; 85025

== ENCOUNTER 2025-07-11 13:31 | Outpatient (CLI) | payer MEDICARE, SELFPAY ==
--- OUTSIDE RECORDS SUMMARY | 2016-10-18 19:00 | XMS_ITS | Continuity of Care Document ---
Author Organization [facility] Address [address] [place] [address] Phone Care Team Providers Care Concrete Vibrator Operator Name Role Phone Unavailable Unavailable Unavailable Allergies, Adverse Reactions, Alerts Substance Reaction Status Criticality Sulfa (Sulfonamide Antibiotics) Active No Information Medications Medication Instructions Dosage Dose Quantity Effective Dates (start - stop) Status Indication Fill Status Comments Vigamox 0.5 % Eye Drops instill 1 drop by ophthalmic route 3 times every day FOR ONE WEEK 3 - Active prednisolone acetate 1 % Eye Drops, Susp instill 1 drop by Ophthalmic route 4 times every day FOR ONE WEEK; THEN TAPER DIRECTED 3 - Active Procedures Procedure Date ANESTH, LOW INTESTINE SCOPE, 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 MICROWAVE SERVIC E Non Smoker Advance Directives Directive Yes / No Effective Date File Name No Information Encounters Encounter Description Practice Location Reason(s) For Visit Diagnoses Date Provider Encounter Disposition [facility], [address] [place], [id number], tel:[phone] [facility] No Information 7 No Information [facility], [address] [place] [address], [id number], [place] tel:[phone] [facility] No Information 7 No Information [facility], [address] [place] [address], [id number], [place] tel:[phone] [facility] No Information 6 No Information [facility], [address] [place], [id number], tel:[phone] [facility] No Information 6 No Information [facility] [place], [address] [facility] [address] [address] [place], [place], [id number], [place] tel:[phone] [facility] [place] No Information 5 Lance Recio. [address] [place], [address], [place]. tel:[phone] [facility], [address] [place] [address], [id number], [place] tel:[phone] [place] [address] [facility] [place] No Information 4 No Information [facility] [place], [address] [place] [address] [place], [place], [id number], [place] tel:[phone] [facility] [place] No Information 4 Cameron Erin. [address] [place] [address], [id number], [place]. tel:[phone] [facility], [address] [place] [address], [id number], [place] tel:[phone] [place] [address] [facility] [place] No Information 4 No Information [facility], [address] [place] [address] [place], [place], [id number], [place] tel:[phone] [facility] [place] No Information 4 Jameslul Erin. [address] [place] [address], [id number], [place]. tel:[phone] [facility], [address] [place] [address] [place], [id number], [place] tel:[phone] [place] [address]ara ct, obscuring visionLens replaced by other meansRound hole of retina without detachment [address] [place] [address], [id number], [place]. tel:[phone] [facility] [place], [address] [facility] [address] [place], [id number], [place] tel:[phone] [place] No Information 0 3 Millie Shin. [address] [place] [address], [id number], [place]. tel:[phone] [facility] [place], [facility] [place], [id number], tel:[phone] [place] Senile nuclear sclerosis 3 Millie Shin. [address] [place] [address], [facility], . tel:[phone] [facility], [facility] [address] [place], [id number], tel:[phone] [place] No Information 3 Millie Shin. [address] [place] [address], [facility], . tel:[phone] Family History Family Member Type Diagnosis Age At Onset No Information Payers Payer name Insurance type Identifiers Authorization(s) [facility] CI leticia ID: [id number] Name: Coverage Status Eligibility Check on: UnknownRelationship to Subscriber: selfPayer Address: [address] [address], [place], [place], [id number], [place]ayer Phone: [phone] [employer] [place] iber ID: [id number] Name: Coverage Status Eligibility Check on: UnknownRelationship to Subscriber: selfPayer Address: [address], [place], [address], [place]Payer Phone: [phone] Social History Type Description Quantity Date Captured Comments Sex Female Smoking Status No Information Current Gender Female (finding) Chief Complaint And Reason For Visit No Information History Of Present Illness Encounter Date Complaint History Of Prese nt Illness No Information Functional Status Date Description Comments No Information Instructions Date Instruction Additional Infor gael Opacified Capsule OU - Discussed diagnosis in detail with patient. No treatment is required at this time. Will continue to observe condition and or symptoms. Call if VA worsens. Educational material provided. 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 Will continue to observe condition and or symptoms. Call if VA worsens. 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 Related to Opacified Capsule - Schedule Cat. SX. OD first disc. Toric lens w/ pt aim for distance. RL2 Related to Cataract, Nuclear Sclerosis Cataract, Nuclear Sc lerosis OU - Discussed diagnosis in detail with patient. Discussed treatment options with patient. Discussed risks and benefits and patient understands. Reassured patient of current condition and treatment. Schedule Cat. SX. OD first Disc. Toric lens w/ pt aim for distance. RL2 Related to Cataract, Nuclear Sclerosis Assessments Type Assessment Date No Information
--- OUTSIDE RECORDS SUMMARY | 2020-05-06 07:00 | XMS_ITS | Continuity of Care Document ---
Author Organization [facility] Address [address] [place] [address] Phone Care Team Providers Care Lab Associate Name Role Phone Kip Du PT Unavailable Unavailable Procedures Procedure Date Therapeutic Activities Manual Therapy Progress Note Therapeutic Activities Manual Therapy Therapeutic Activities Manual Therapy Progress Note Manual Therapy Therapeutic Activities Manual Therapy Therapeutic Activities Therapeutic Activities Manual Therapy Therapeutic Activities Manual Therapy Therapeutic Activities Manual Therapy Therapeutic Activities Manual Therapy Therapeutic Activities Therapeutic Exercise Manual Therapy Therapeutic Activities Therapeutic Exercise Manual Therapy Therapeutic Exercise Therapeutic Activities Manual Therapy PT Evaluation Low Complexity Manual Therapy Therapeutic Exercise Advance Directives Directive Yes / No Effective Date File Name No Information Encounters Encounter Description Practice Location Reason(s) For Visit Diagnoses Date Provider Providers Copied on Encounter [facility], [address], [place], [place], [id number], [place] tel:[phone] [facility] No Information Wortzel Kip. . [facility], [address], [place], [place], [id number], [place] tel:[phone] [facility] No Information Wortzel Kip. . [facility], [address], [place], [place], [id number], [place] tel:[phone] [facility] No Information Wortzel Kip. . [facility], [address], [place], [place], [id number], [place] tel:[phone] [facility] No Information Wortzel Kip. . [facility], [address], [place], [place], [id number], [place] tel:[phone] [facility] No Information Wortzel Kip. . [facility], [address], [place], [place], [id number], [place] tel:[phone] [facility] No Information Wortzel Kip. . [facility], [address], [place], [place], [id number], [place] tel:[phone] [facility] No Information Wortzel Kip. . [facility], [address], [place], [place], [id number], [place] tel:[phone] [facility] No Information Wortzel Kip. . [facility], [address], [place], [place], [id number], [place] tel:[phone] [facility] No Information Wortzel Kip. . [facility], [address], [place], [place], [id number], [place] tel:[phone] [facility] No Information Wortzel Kip. . [facility], [address], [place], [place], [id number], [place] tel:[phone] [facility] No Information Florian Shin. Mary Ann [facility], [address], [place], [place], [id number], tel:[phone] [facility] No Information Florian Shin. Mary Ann [facility], [address], [place], [place], [id number], tel:[phone] [facility] No Information Florian Shin. . Family History Family Member Type Diagnosis Age At Onset No Information Payers Payer name Insurance type Covered green party ID Authormoona yasmani(s) [facility] [id number] Social History Type Description Quantity Date Captured Comments Sex Female Smoking Status No Information Chief Complaint And Reason For Visit No Information Reason For Referral Reason For Referral No Information Plan Of Treatment Date Type Action Status Referral Ordered: Referrals: Specialist. Evaluate and Treat (related to F43.21) ordered Referral Ordered: Clinical Psychology (related to Depression) ordered Referral Ordered: Referrals: Specialist. Evaluate and Treat (related to Adjustment disorder with depressed mood) ordered Referral Ordered: Referrals: Specialist. Evaluate and Treat (related to F43.21) ordered Referral Ordered: Clinical Psychology (related to Depression) ordered History Of Present Illness Encounter Date Complaint History Of Prese nt Illness No Information Functional Status Date Functional Assessmen t No Information Instructions Date Instruction Additional Infor mation Giving encouragement to exercise Related to Overweight Assessments Type Assessment Date No Information Patient Care Teams Name Effective Dates (start - stop) Status Members No Information
--- OUTSIDE RECORDS SUMMARY | 2024-06-11 08:23 | XMS_ITS ---
Author Organization [facility] Address [address] [place] [address] Care Team Providers Care Podiatric Foot And Ankle Specialist Name Role Phone Igor ZHANG, [place] Primary Care Provider Unavailable Deanna Burns [phone] REASON FOR VISIT Bishnu Encounters Encounter Location Date Provider Diagnosis [facility] [address] [place] [address] 06/11/2024 Deanna Burns Plan Of Treatment No Information Progress Notes * Pamela NUNEZ VDOB:[birth year] (78 yo F)Acc No.[id number]:06/11/2024 Patient: Mame garciaPamela anglin Brandi :1945 A ge:78 Y S ex:Female Address:[address] [place] [address] * true * Date: Generated for Printi ng/Faxing/eTransmitting on: 1 09/14/2024 11:34 AM MST
--- OUTSIDE RECORDS SUMMARY | 2024-08-02 04:30 | XMS_ITS ---
Author Organization [facility] Address [address] [place] [address] Care Team Providers Care School Bus Technician Name Role Phone Igor ZHANG, Palmira Primary Care Provider Unavailable Deanna Burns Unavailable [phone] Allergies Allergen (clinical drug ingredient) Drug/Non Drug Allergy documented on EMR Reaction Allergy Type Onset Date Status Substance with sulfonamide structure and antibacterial mechanism of action (substance) sulfonamide (uncoded) Unknown Allergy Active simvastatin Simvastatin Unknown Drug Allergy Act akash REASON FOR VISIT MRI follow up - telemed Medications Medication SIG (Take, Route, Frequency, Duration) Notes Start Date End Date Status Farxiga 10 MG 1 tablet Orally Once a day for 30 day(s) Active Spiriva Respimat 2.5 MCG/ACT 2 puffs Inhalation Once a day Active Xarelto 2.5 MG 1 tablet Orally Twic a day for 30 day(s) Active Potassium Chloride 20 MEQ 1 packet with food Orally Once a day for 30 day(s) Active Metoprolol Succinate 50 MG 1 capsule Orally Once a day for 30 day(s) Active Omeprazole 20 MG 1 capsule 30 minutes before morning meal Orally Once a day for 30 day(s) Active Amitriptyline HCl 10 MG 1 tablet Orally at bedtime for 30 day(s) Active Cozaar 100 MG 1 tablet Orally Once a day for 30 day(s) Active Sertraline HCl 100 MG 1 tablet Orally On ce a day for 30 day(s) Active predniSONE 5 MG 1 tablet Orally Once a day for 30 day(s) PRN Active Folic Acid 1 MG 1 tablet Orally Once a day for 30 day(s) Active Pepcid 20 MG 1 tablet at bedtime as needed Orally Once a day for 30 day(s) Active Albuterol Sulfate 108 (90 Base) MCG/ACT 1 puff as needed Inhalation every 4 hrs Active Montelukast Sodium 10 MG 1 tablet Orally Once a day for 30 day(s) Active Lorazepam 1 tab Oral for 14 days PRN qHs Active Rosuvastatin Calcium 40 MG 1 tablet Orally Once a day for 30 day(s) Active Mesalamine ER 500 MG 2 capsules Orally F our times a day for 30 day(s) Active NovoLOG FlexPen 100 UNIT/ML as directed Subcutaneous Act akash Ambien 10 MG 1 tablet at bedtime as needed Orally Once a day Active Ezetimibe 10 MG 1 tablet Orally Once a day for 30 day(s) Active Fenofibrate 150 MG 1 capsule with food Orally Once a day for 30 day(s) Active Pregabalin 75 MG 1 capsule Orally Twi ce a day Active Multivitamin Adult - 1 tablet Orally Onc e a day for 30 day(s) Active Aspir-Low 81 MG 1 tablet Orally Once a day for 30 day(s) Active Risedronate-Calcium Carbonate Inj q6mo Active Prolia 60 MG/ML as directed Subcutaneous Active Vital Signs Weight-kg 65.32 kg 08/02/2024 Height 50 in 08/02/2024 Weight 144 lbs 08/02/2024 BMI 40.49 kg/m2 08/02/2024 Encounters Encounter Location Date Provider Diagnosis [facility] [address] [place] [address] 08/02/2024 Deanna Burns Plan Of Treatment No Information Progress Notes * Pamela NUNEZ VDOB:[birth year] (79 yo F)Acc No.[id number]:08/02/2024 TV Telephone Patient: Mame SANTANAMARLI Pamela Brandi Provider: Hola Burns MD :1945 A ge:78 Y S ex:Female Date:08/02/2024 Address:[address] [place] [address] Pcp:Palmira Costa MD Subjective: * Chief Complaints: * 1 . MRI follow up - telemed. * HPI: H istory: This is a 78 year old woman who presents to neurology clinic for cognitive impairment. Interim history: MRI brain w/wo 06/19/24 @ [facility] - Findings consistent with a roughly 0.9 x 0.4 cm right lateral hemispheric convexity meningioma at the level of the sylvian fissure without associated mass effect. This is stable. Findings consistent with a second small 0.9 x 0.4 cm plaque-like meningioma in the right prepontine cistern along the dorsal margin of the clivus. This is stable in size as well. The mass likely slightly abuts the medial margin of the right 5th cranial nerve cisternal segment as it enters Meckel's cave but does not clearly distort it or extend into Meckel's cave. Mild hemispheric microvascular ischemic change with chronic right basal ganglia lacunar infarct. This is stable. I reviewed these findings with them today. She is stable today. She has not had any right facial numbness or paresthesias. She has been approved for neuropsych but has not scheduled for this yet. Previous history: History obtained by: Patient and her daughter Cognitive Impairment History: She began having memory difficulties since March 2023. She has been losing words, sometimes will forget what she is doing or going. ADLs affected: Performs own hygiene, grooming, cooking. now performs finances as it is now too frustrating for her. Directions: Does not get lost. Drives. Behavioral: [facility] Education: Highschool Family History: Maternal Uncle with dementia No recent falls. Medications: None for memory. Labs: Tested by PCP. Imaging: MRI head wo 12/01/23 @ [facility] - Old right basal ganglia infarct. Tiny remote right cerebellar infarct. Minimal chronic small vessel ischemic changes. Small area of signal abnormality lateral to the right Sylvian fissure. This is nonspecific and incompletely characterized without contrast. This could reflect a small meningioma. Recommend correlation with MRI of the brain with contrast. MRI brain w/wo 12/19/23 @ [facility] - Area of signal abnormality on recent unenhanced brain MRI corresponds to a roughly 0.9 x 0.5 x 1.1 cm right lateral convexity meningioma at the level of the sylvian fissure. There is no associated mass effect. Findings consistent with a second small plaque-like meningioma in the right prepontine cistern along the right dorsal margin of the clivus. Correlate with any associated right 5th cranial nerve symptomatology as this likely lies near to the 5th cranial nerve. If indicated this could be further assessed with dedicated posterior fossa protocol to assess the relationship with the 5th cranial nerve. History of two strokes, 1st in 1984 and 2nd in 2008 or so. No residual deficits. She had difficulties with left leg difficulties but this resolved. She is on aspirin and statin. History of DVT on xarelto. * ROS: A dult ROS BASIC: Weight Loss N o. F ever or Chills N o. S kin Rash N o. D ecreased Hearing N o. D ouble Vision N o. S hortness of Breath?No. H eart Palpitations N o. L oss of Bowel Control N o. L oss of Bladder Control N o. B lood in the Urine N o. E asy Bruising N o. M aneudy Loss N o.?Depression N o. N ausea N o. V omiting N o. W eight Changes N o.?Snoring N o. T rouble Sleeping N o. D aytime Sleepiness N o. B lood Disorders N o. M uscle/Bones N o. N eurological N o. * Medical History: H LD, Asthma, HTN, Type II DM, Pancreatic cyst, GERD, Claustrophobia, Peripheral vascular disease, CURTIS, Lumbar stenosis, CKD stage III, Anxiety, Diabetic neuropathy. * Surgical History: L aminectomy decompression 2015, Partial colon resection 2012. * Hospitalization/Major Diagno stic Procedure: D enies Past Hospitalization. * Family History: F ather: , Ovarian Cancer. M other: . * Social History: M IPS: M edication R econciliation M edication list reviewed and reconciled with patient. Tobacco T obacco User? N o Alcohol How many times in the past year have you had 5(men)/4(women/65+) or more drinks in a day N one. No follow-up plan required Advance Care Planning D oes patient have an advance care plan? Y es, advance care plan or surrogate decision maker documented in the medical record. Fall Screening Have you had any falls in the past 12 months or have you had any falls since your last visit? Y es N umber of Falls 2 Pneumococcal Vaccination P atient reported Pneumoccoccal vaccination previously received? Y es D ate Received 2 016 Influenza Vaccination P atient reported Influenza vaccination previously received? Y es D ate Received 2 019 Blood Pressure B lood Pressure Management U nable to assess. BMI B MO Screening B MO documented and is within normal parameter. No follow up plan required. * Medications: T aking Xarelto 2.5 MG Tablet 1 tablet Orally Twice a day , Taking Spiriva Respimat 2.5 MCG/ACT Aerosol Solution 2 puffs Inhalation Once a day , Taking Farxiga 10 MG Tablet 1 tablet Orally Once a day , Taking Prolia 60 MG/ML Solution Prefilled Syringe as directed Subcutaneous , Taking Multivitamin Adult - Tablet 1 tablet Orally Once a day , Taking Risedronate-Calcium Carbonate , Notes to Pharmacist: Inj q6mo, Taking Aspir-Low 81 MG Tablet Delayed Release 1 tablet Orally Once a day , Taking Pregabalin 75 MG Capsule 1 capsule Orally Twice a day , Taking Fenofibrate 150 MG Capsule 1 capsule with food Orally Once a day , Taking Mesalamine ER 500 MG Capsule Extended Release 2 capsules Orally Four times a day , Taking Rosuvastatin Calcium 40 MG Tablet 1 tablet Orally Once a day , Taking NovoLOG FlexPen 100 UNIT/ML Solution Pen- injector as directed Subcutaneous , Taking Ezetimibe 10 MG Tablet 1 tablet Orally Once a day , Taking Ambien 10 MG Tablet 1 tablet at bedtime as needed Orally Once a day , Taking Albuterol Sulfate 108 (90 Base) MCG/ACT Aerosol Powder Breath Activated 1 puff as needed Inhalation every 4 hrs , Taking Pepcid 20 MG Tablet 1 tablet at bedtime as needed Orally Once a day , Taking Lorazepam 1 tab Oral , Notes to Pharmacist: PRN qHs, Taking Montelukast Sodium 10 MG Tablet 1 tablet Orally Once a day , Taking Folic Acid 1 MG Tablet 1 tablet Orally Once a day , Taking Omeprazole 20 MG Capsule Delayed Release 1 capsule 30 minutes before morning meal Orally Once a day , Taking Cozaar 100 MG Tablet 1 tablet Orally Once a day , Taking Amitriptyline HCl 10 MG Tablet 1 tablet Orally at bedtime , Taking predniSONE 5 MG Tablet 1 tablet Orally Once a day , Notes to Pharmacist: PRN, Taking Sertraline HCl 100 MG Tablet 1 tablet Orally Once a day , Taking Metoprolol Succinate 50 MG Capsule ER 24 Hour Sprinkle 1 capsule Orally Once a day , Taking Potassium Chloride 20 MEQ Packet 1 packet with food Orally Once a day , Medication List reviewed and reconciled with the patient * Allergies: S imvastatin, sulfonamide. Objective: * Vitals: W t-k.32 kg, Ht: 50, Wt:144lbs, BP: Not Taken - No Medical Need, BMI:40.49Index, BSA Calculated: 1.52. Assessment: Plan: * Treatment: * * Electronic signature of Chace Burns MD on 07/14/2025 at 11:35 AM [facility] Sign off status: Pending * Provider: Hola Burns MD Date: 10/03/2023 Generated for Teena bass/Otis/eTransmitting on: 09/14/2024 11:35 AM [facility] History and Physical Notes * HPI (History of Present Illness) Category Sub-Category Detail Notes Category Not es History This is a 78 year old woman who presents to neurology clinic for cognitive impairment. Interim history: MRI brain w/wo 06/19/24 @ [facility] - Findings consistent with a roughly 0.9 x 0.4 cm right lateral hemispheric convexity meningioma at the level of the sylvian fissure without associated mass effect. This is stable. Findings consistent with a second small 0.9 x 0.4 cm plaque-like meningioma in the right prepontine cistern along the dorsal margin of the clivus. This is stable in size as well. The mass likely slightly abuts the medial margin of the right 5th cranial nerve cisternal segment as it enters Meckel's cave but does not clearly distort it or extend into Meckel's cave. Mild hemispheric microvascular ischemic change with chronic right basal ganglia lacunar infarct. This is stable. I reviewed these findings with them today. She is stable today. She has not had any right facial numbness or paresthesias. She has been approved for neuropsych but has not scheduled for this yet. Previous history: History obtained by: Patient and her daughter Cognitive Impairment History: She began having memory difficulties since March 2023. She has been losing words, sometimes will forget what she is doing or going. ADLs affected: Performs own hygiene, grooming, cooking. now performs finances as it is now too frustrating for her. Directions: Does not get lost. Drives. Behavioral: [facility] Education: Highschool Family History: Maternal Uncle with dementia No recent falls. Medications: None for memory. Labs: Tested by PCP. Imaging: MRI head wo 12/01/23 @ [facility] - Old right basal ganglia infarct. Tiny remote right cerebellar infarct. Minimal chronic small vessel ischemic changes. Small area of signal abnormality lateral to the right Sylvian fissure. This is nonspecific and incompletely characterized without contrast. This could reflect a small meningioma. Recommend correlation with MRI of the brain with contrast. MRI brain w/wo 12/19/23 @ [facility] - Area of signal abnormality on recent unenhanced brain MRI corresponds to a roughly 0.9 x 0.5 x 1.1 cm right lateral convexity meningioma at the level of the sylvian fissure. There is no associated mass effect. Findings consistent with a second small plaque-like meningioma in the right prepontine cistern along the right dorsal margin of the clivus. Correlate with any associated right 5th cranial nerve symptomatology as this likely lies near to the 5th cranial nerve. If indicated this could be further assessed with dedicated posterior fossa protocol to assess the relationship with the 5th cranial nerve. History of two strokes, 1st in 1984 and 2nd in 2008 or so. No residual deficits. She had difficulties with left leg difficulties but this resolved. She is on aspirin and statin. History of DVT on xarelto.
--- OUTSIDE RECORDS SUMMARY | 2024-08-15 04:16 | XMS_ITS ---
Author Organization [facility] Address [address] [place] [address] Care Team Providers Care Data Analysis Assistant Name Role Phone Igor ZHANG, Palmira Primary Care Provider Unavailable Deanna Burns [phone] REASON FOR VISIT MRI Encounters Encounter Location Date Provider Diagnosis [facility] [address] [place] [address] 08/15/2024 Deanna Burns Plan Of Treatment No Information Progress Notes * Pamela NUNEZ VDOB:[birth year] (79 yo F)Acc No.[id number]:08/15/2024 Patient: Mame riversPamela cardona Brandi :1945 A ge:79 Y S ex:Female Address:[address] [place] [address] * true * Date: Generated for Printi ng/Faxing/eTransmitting on: 1 09/14/2024 11:36 AM MST
--- OUTSIDE RECORDS SUMMARY | 2024-08-17 06:45 | XMS_ITS ---
Author Organization [facility] Address [address] [place] [address] Care Team Providers Care Service Desk Agent Name Role Phone Igor ZHANG, Palmira Primary Care Provider Unavailable Deanna Burns Unavailable [phone] Allergies Allergen (clinical drug ingredient) Drug/Non Drug Allergy documented on EMR Reaction Allergy Type Onset Date Status Substance with sulfonamide structure and antibacterial mechanism of action (substance) sulfonamide (uncoded) Unknown Allergy Active simvastatin Simvastatin Unknown Drug Allergy Act akash REASON FOR VISIT MRI follow up Medications Medication SIG (Take, Route, Frequency, Duration) Notes Start Date End Date Status Montelukast Sodium 10 MG 1 tablet Orally Once a day for 30 day(s) Active Albuterol Sulfate 108 (90 Base) MCG/ACT 1 puff as needed Inhalation every 4 hrs Active Ambien 10 MG 1 tablet at bedtime as needed Orally Once a day Active Lorazepam 1 tab Oral for 14 days PRN qHs Active Pepcid 20 MG 1 tablet at bedtime as needed Orally Once a day for 30 day(s) Active NovoLOG FlexPen 100 UNIT/ML as directed Subcutaneous Act akash Rosuvastatin Calcium 40 MG 1 tablet Orally Once a day for 30 day(s) Active Ezetimibe 10 MG 1 tablet Orally Once a day for 30 day(s) Active Mesalamine ER 500 MG 2 capsules Orally F our times a day for 30 day(s) Active Fenofibrate 150 MG 1 capsule with food Orally Once a day for 30 day(s) Active Pregabalin 75 MG 1 capsule Orally Twi ce a day Active Aspir-Low 81 MG 1 tablet Orally Once a day for 30 day(s) Active Prolia 60 MG/ML as directed Subcutaneous Active Risedronate-Calcium Carbonate Inj q6mo Active Multivitamin Adult - 1 tablet Orally Onc e a day for 30 day(s) Active Potassium Chloride 20 MEQ 1 packet with food Orally Once a day for 30 day(s) Active Farxiga 10 MG 1 tablet Orally Once a day for 30 day(s) Active Metoprolol Succinate 50 MG 1 capsule Orally Once a day for 30 day(s) Active Spiriva Respimat 2.5 MCG/ACT 2 puffs Inhalation Once a day Active Xarelto 2.5 MG 1 tablet Orally Twic e a day for 30 day(s) Active predniSONE 5 MG 1 tablet Orally Once a day for 30 day(s) PRN Active Amitriptyline HCl 10 MG 1 tablet Orally at bedtime for 30 day(s) Active Cozaar 100 MG 1 tablet Orally Once a day for 30 day(s) Active Omeprazole 20 MG 1 capsule 30 minutes before morning meal Orally Once a day for 30 day(s) Active Sertraline HCl 100 MG 1 tablet Orally On ce a day for 30 day(s) Active Folic Acid 1 MG 1 tablet Orally Once a day for 30 day(s) Active Vital Signs Weight-kg 65.32 kg 08/17/2024 Height 50 in 08/17/2024 Weight 144 lbs 08/17/2024 BMI 40.49 kg/m2 08/17/2024 Encounters Encounter Location Date Provider Diagnosis Neurological [address] [address] 08/17/2024 Deanna Burns Mild neurocognitive disorder F99 ; Meningioma D32.9 ; Essential tremor G25.0 and CVA (cerebral vascular accident) I63.9 Assessments Encounter Date Diagnosis (ICD Code) Assessment Notes Treatment Notes Treatment Clinical Notes Section Notes 08/17/2024 Mild neurocognitive disorder (ICD-10 - F99) Counseled regarding dementia, memory associated care, and referral to the Alzheimer's Association. Counseled on physical exercises such as margaret chi, water aerobics, core balance training, as well as mind activities. Counseled on establishing medical and financial power of state's attorney. I counseled the patient on fall prevention. The patient is to call if there are any changes or further concerns following the visit. >30 minutes spent on the clinical care of this patient 08/17/2024 Meningioma (ICD-10 - D32.9) Follow up in 6 mo 08/17/2024 Essential tremor (ICD-10 - G25.0) 08/17/2024 CVA (cerebral vascular accident) (ICD-10 - I63.9) 08/17/2024 Other This is a patient initiated audiovisual telehealth clinic visit performed due to patient's preference regarding distance and urgency. Total time spent collection support specialist: 20 minutes of which more than 90% was spent discussing their neurologic care. Participants and Location: Deanna Burns MD ([facility], [facility]), PAULETTE ([employer] Operator, [facility]), and Pamela Nunez (Patient, Home) Plan Of Treatment Treatment Notes Assessment Notes Mild neurocognitive disorder Counseled regarding dementia, memory associated care, and referral to the Alzheimer's Association. Counseled on physical exercises such as margaret chi, water aerobics, core balance training, as well as mind activities. Counseled on establishing medical and financial power of state's attorney. I counseled the patient on fall prevention. The patient is to call if there are any changes or further concerns following the visit. >30 minutes spent on the clinical care of this patient Meningioma Follow up in 6 mo Other This is a patient initiated audiovisual telehealth clinic visit performed due to patient's preference regarding distance and urgency. Total time spent collection support specialist: 20 minutes of which more than 90% was spent discussing their neurologic care. Participants and Location: Deanna Burns MD ([facility], [facility]), PAULETTE ([employer] Operator, [facility]), and Pamela Nunez (Patient, Home) Next Appt Details Follow Up: 6 Months, Reason: Progress Notes * Pamela NUNEZ VDOB:[birth year] (79 yo F)Acc No.[id number]:08/17/2024 TV Telephone Patient: Mame riversPamela cardona Brandi Provider: Hola Burns MD :1945 A ge:79 Y S ex:Female Date:08/17/2024 Address:[address] [place] [address], [id number] Pcp:Palmira Costa MD Subjective: * Chief Complaints: * M RI follow up * HPI: H istory: This is a 79 year old woman who presents to neurology clinic for cognitive impairment. I nterim history: S he is stable today. She has not had any right facial numbness or paresthesias. S he has been diagnosed with ovarian cancer and finished chemotherapy. At this time she would like to defer further diagnostics like neuropsych. P revious history: H istory obtained by: Patient and her daughter C ognitive Impairment History: She began having memory difficulties since March 2023. She has been losing words, sometimes will forget what she is doing or going. A DLs affected: Performs own hygiene, grooming, cooking. now performs finances as it is now too frustrating for her. D irections: Does not get lost. Drives. B ehavioral: MDD & ROLAND E ducation: Highschool F amily History: Maternal Uncle with dementia N o recent falls. M edications: None for memory. L abs: Tested by PCP. I maging: MRI head wo 12/01/23 @ [facility] - Old right basal ganglia infarct. Tiny remote right cerebellar infarct. Minimal chronic small vessel ischemic changes. Small area of signal abnormality lateral to the right Sylvian fissure. This is nonspecific and incompletely characterized without contrast. This could reflect a small meningioma. Recommend correlation with MRI of the brain with contrast. M [place] brain w/wo 12/19/23 @ [facility] CL[facility] - Area of signal abnormality on recent [...] the relationship with the 5th cranial nerve. M [place] brain w/wo 06/19/24 @ [facility] CL[facility] - Findings consistent with a roughly 0.9 [...] basal ganglia lacunar infarct. This is stable. H istory of two strokes, 1st in 1984 and [...] N eurological N o. * Medical History: * Surgical History: L aminectomy decompression 2016Partial colon resection 2013 * Hospitalization/Major Diagno stic Procedure: D enies Past Hospitalization * Family History: F ather: , Ovarian [...] Management U nable to assess. BMI B ND Screening B ND documented and is within normal parameter. No follow up plan required. * Medications: T akingXarelto 2.5 MG Tablet 1 tablet Orally Twice a daySpiriva Respimat 2.5 MCG/ACT Aerosol Solution 2 puffs Inhalation Once a dayFarxiga 10 MG Tablet 1 tablet Orally Once a dayProlia 60 MG/ML Solution Prefilled Syringe as directed Subcutaneous Multivitamin Adult - Tablet 1 tablet Orally Once a dayRisedronate-Calcium Carbonate , Notes: Inj [id number] 81 MG Tablet Delayed Release 1 tablet Orally Once a dayPregabalin 75 MG Capsule 1 capsule Orally Twice a dayFenofibrate 150 MG Capsule 1 capsule with food Orally Once a dayMesalamine ER 500 MG Capsule Extended Release 2 capsules Orally Four times a dayRosuvastatin Calcium 40 MG Tablet 1 tablet Orally Once a dayNovoLOG FlexPen 100 UNIT/ML Solution Pen-injector as directed Subcutaneous Ezetimibe 10 MG Tablet 1 tablet Orally Once a dayAmbien 10 MG Tablet 1 tablet at bedtime as needed Orally Once a dayAlbuterol Sulfate 108 (90 Base) MCG/ACT Aerosol Powder Breath Activated 1 puff as needed Inhalation every 4 hrsPepcid 20 MG Tablet 1 tablet at bedtime as needed Orally Once a dayLorazepam 1 tab Oral , Notes: PRN qHsMontelukast Sodium 10 MG Tablet 1 tablet Orally Once a dayFolic Acid 1 MG Tablet 1 tablet Orally Once a dayOmeprazole 20 MG Capsule Delayed Release 1 capsule 30 minutes before morning meal Orally Once a dayCozaar 100 MG Tablet 1 tablet Orally Once a dayAmitriptyline HCl 10 MG Tablet 1 tablet Orally at bedtimepredniSONE 5 MG Tablet 1 tablet Orally Once a day, Notes: PRNSertraline HCl 100 MG Tablet 1 tablet Orally Once a dayMetoprolol Succinate 50 MG Capsule ER 24 Hour Sprinkle 1 capsule Orally Once a dayPotassium Chloride 20 MEQ Packet 1 packet with food Orally Once a dayMedication List reviewed and reconciled with the patientTaking Xarelto 2.5 MG Tablet 1 tablet Orally Twice a dayTaking Spiriva Respimat 2.5 MCG/ACT Aerosol Solution 2 puffs Inhalation Once a dayTaking Farxiga 10 MG Tablet 1 tablet Orally Once a dayTaking Prolia 60 MG/ML Solution Prefilled Syringe as directed Subcutaneous Taking Multivitamin Adult - Tablet 1 tablet Orally Once a dayTaking Risedronate-Calcium Carbonate , Notes: Inj [id number] Aspir-Low 81 MG Tablet Delayed Release 1 tablet Orally Once a dayTaking Pregabalin 75 MG Capsule 1 capsule Orally Twice a dayTaking Fenofibrate 150 MG Capsule 1 capsule with food Orally Once a dayTaking Mesalamine ER 500 MG Capsule Extended Release 2 capsules Orally Four times a dayTaking Rosuvastatin Calcium 40 MG Tablet 1 tablet Orally Once a dayTaking NovoLOG FlexPen 100 UNIT/ML Solution Pen-injector as directed Subcutaneous Taking Ezetimibe 10 MG Tablet 1 tablet Orally Once a dayTaking Ambien 10 MG Tablet 1 tablet at bedtime as needed Orally Once a dayTaking Albuterol Sulfate 108 (90 Base) MCG/ACT Aerosol Powder Breath Activated 1 puff as needed Inhalation every 4 hrsTaking Pepcid 20 MG Tablet 1 tablet at bedtime as needed Orally Once a dayTaking Lorazepam 1 tab Oral , Notes: PRN qHsTaking Montelukast Sodium 10 MG Tablet 1 tablet Orally Once a dayTaking Folic Acid 1 MG Tablet 1 tablet Orally Once a dayTaking Omeprazole 20 MG Capsule Delayed Release 1 capsule 30 minutes before morning meal Orally Once a dayTaking Cozaar 100 MG Tablet 1 tablet Orally Once a dayTaking Amitriptyline HCl 10 MG Tablet 1 tablet Orally at bedtimeTaking predniSONE 5 MG Tablet 1 tablet Orally Once a day, Notes: PRNTaking Sertraline HCl 100 MG Tablet 1 tablet Orally Once a dayTaking Metoprolol Succinate 50 MG Capsule ER 24 Hour Sprinkle 1 capsule Orally Once a dayTaking Potassium Chloride 20 MEQ Packet 1 packet with food Orally Once a dayMedication List reviewed and reconciled with the patient * Allergies: S imvastatinsulfonamideno[Allergies Verified] Objective: * Vitals: W t-k.32 kg, Ht: 50, Wt:144 lbs, BP: Not Taken - No Medical Need, BMI:40.49 Index, BSA Calculated: 1.52. * Examination: N eurological Exam: Mental Status A lert and oriented to person, place, time and situation. Speech and language intact. Normal attention, concentration, and memory. Cranial Nerves V ision and EOMI OK per patient. F acial sensations and movement intact to light touch per patient. Hearing clinically intact. Motor M oves all extremities equally against gravity per patient. Sensory I ntact light touch throughout per patient. ? Assessment: * Assessment: 1. M ild neurocognitive disorder - F99 (Primary) 2 . M eningioma - D32.9 3 . E ssential tremor - G25.0 4 . C VA (cerebral vascular accident) - I63.9 Plan: * Treatment: 2. M eningioma Notes: Follow up in 6 mo 3. O thers Notes: This is a patient initiated audiovisual telehealth clinic visit performed due to patient's preference regarding distance and urgency. Total time spent collection support specialist: 20 minutes of which more than 90% was spent discussing their neurologic care. Participants and Location: Deanna Burns MD (Neurologist, [facility]), PAULETTE ([employer] And [employer] Car Operator, [facility]), and Pamela Nunez (Patient, Home) * Procedure Codes: * Follow Up: 6 Months * * [facility] Sign off status: Completed true * Provider: Hola Burns MD Date: 0 08/17/2024 Generated for Teena bass/Otis/Almaransmitting on: 09/14/2024 11:35 AM [facility] History and Physical Notes * HPI (History of Present Illness) Category Sub-Category Detail Notes Category Not es History This is a 79 year old woman who presents to neurology clinic for cognitive impairment. Interim history: She is stable today. She has not had any right facial numbness or paresthesias. She has been diagnosed with ovarian cancer and finished chemotherapy. At this time she would like to defer further diagnostics like neuropsych. Previous history: History obtained by: Patient and [...] with contrast. MRI brain w/wo 12/19/23 @ [facility] CLERK - Area of signal abnormality on recent [...] the relationship with the 5th cranial nerve. MRI brain w/wo 06/19/24 @ [facility] CLERK - Findings consistent with a roughly 0.9 [...] basal ganglia lacunar infarct. This is stable. History of two strokes, 1st in 1984 and 2nd in 2008 or so. No residual deficits. She had difficulties with left leg difficulties but this resolved. She is on aspirin and statin. History of DVT on xarelto. Examination Category Sub-Category Detail Notes Category Not es Neurological Exam Mental Status Alert and orie nted to person, place, time and situation. Speech and language intact. Normal attention, concentration, and memory Cranial Nerves Vision and EOMI OK p er patient. Facial sensations and movement intact to light touch per patient. Hearing clinically intact Motor Moves all extremitie s equally against gravity per patient Sensory Intact light touch t hroughout per patient
--- OUTSIDE RECORDS SUMMARY | 2025-02-22 06:30 | XMS_ITS ---
Author Organization [facility] Address [address] [place] [address] Care Team Providers Care Roof Mechanic Name Role Phone Igor ZHANG, Palmira Primary Care Provider Unavailable Deanna Burns Unavailable [phone] Allergies Allergen (clinical drug ingredient) Drug/Non Drug Allergy documented on EMR Reaction Allergy Type Onset Date Status Substance with sulfonamide structure and antibacterial mechanism of action (substance) sulfonamide (uncoded) Unknown Allergy Active simvastatin Simvastatin Unknown Drug Allergy Act akash REASON FOR VISIT 6 month follow up, Neuropsych Medications Medication SIG (Take, Route, Frequency, Duration) Notes Start Date End Date Status Xarelto 2.5 MG 1 tablet Orally Twic a day for 30 day(s) Active Spiriva Respimat 2.5 MCG/ACT 2 puffs Inhalation Once a day Active Farxiga 10 MG 1 tablet Orally Once a day for 30 day(s) Active Metoprolol Succinate 50 MG 1 capsule Orally Once a day for 30 day(s) Active Potassium Chloride 20 MEQ 1 packet with food Orally Once a day for 30 day(s) Active Cozaar 100 MG 1 tablet Orally Once a day for 30 day(s) Active Amitriptyline HCl 10 MG 1 tablet Orally at bedtime for 30 day(s) Active predniSONE 5 MG 1 tablet Orally Once a day for 30 day(s) PRN Active Sertraline HCl 100 MG 1 tablet Orally On ce a day for 30 day(s) Active Omeprazole 20 MG 1 capsule 30 minutes before morning meal Orally Once a day for 30 day(s) Active Albuterol Sulfate 108 (90 Base) MCG/ACT 1 puff as needed Inhalation every 4 hrs Active Pepcid 20 MG 1 tablet at bedtime as needed Orally Once a day for 30 day(s) Active Lorazepam 1 tab Oral for 14 days PRN qHs Active Montelukast Sodium 10 MG 1 tablet Orally Once a day for 30 day(s) Active Folic Acid 1 MG 1 tablet Orally Once a day for 30 day(s) Active Mesalamine ER 500 MG 2 capsules Orally F our times a day for 30 day(s) Active Rosuvastatin Calcium 40 MG 1 tablet Orally Once a day for 30 day(s) Active NovoLOG FlexPen 100 UNIT/ML as directed Subcutaneous Act akash Ezetimibe 10 MG 1 tablet Orally Once a day for 30 day(s) Active Ambien 10 MG 1 tablet at bedtime as needed Orally Once a day Active Multivitamin Adult - 1 tablet Orally Onc e a day for 30 day(s) Active Risedronate-Calcium Carbonate Inj q6mo Active Aspir-Low 81 MG 1 tablet Orally Once a day for 30 day(s) Active Pregabalin 75 MG 1 capsule Orally Twi ce a day Active Fenofibrate 150 MG 1 capsule with food Orally Once a day for 30 day(s) Active Prolia 60 MG/ML as directed Subcutaneous Active Vital Signs Weight-kg 65.32 kg 02/22/2025 Height 50 in 02/22/2025 Weight 144 lbs 02/22/2025 BMI 40.49 kg/m2 02/22/2025 Encounters Encounter Location Date Provider Diagnosis [facility] [address] [place] [address] 02/22/2025 Deanna Burns Plan Of Treatment No Information Progress Notes * Pamela NUNEZ VDOB:[birth year] (79 yo F)Acc No.[id number]:02/22/2025 TV Telephone Patient: Mame SANTANAPamela CALLES Brandi Provider: Hola Burns MD :1945 A ge:79 Y S ex:Female Date:02/22/2025 Address:[address] [place] [address] [facility] [place] Pcp:Palmira Costa MD Subjective: * Chief Complaints: * 1 . 6 month follow up, Neuropsych. * HPI: H istory: This is a 79 year old woman who presents to neurology clinic for cognitive impairment. 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 I reviewewd these findings with her today. She is stable today. She has not had any right facial numbness or paresthesias. Previous history: History obtained by: Patient and [...] with contrast. MRI brain w/wo 12/19/23 @ [facility] - Area of signal abnormality on recent [...] cranial nerve. MRI brain w/wo 06/19/24 @ [facility] - Findings consistent with a roughly 0.9 [...] and statin. History of DVT on xarelto. History of ovarian cancer s/p chemotherapy. * ROS: A dult ROS BASIC: Weight [...] Management U nable to assess. BMI B IA Screening B IA documented and is within normal parameter. No [...] of Chace Burns MD on 07/14/2025 at 11:36 AM [facility] [place] Sign off status: Pending * Provider: Hola Burns MD Date: 0 02/22/2025 Generated for Teena bass/Otis/Hermessmitting on: 1 09/14/2024 11:36 AM [facility] [place] History and Physical Notes * HPI (History of Present Illness) Category Sub-Category Detail Notes Category Not es History This is a 79 year old woman who presents to neurology clinic for cognitive impairment. 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 I reviewewd these findings with her today. She is stable today. She has not had any right facial numbness or paresthesias. Previous history: History obtained by: Patient and [...] with contrast. MRI brain w/wo 12/19/23 @ [facility] - Area of signal abnormality on recent [...] cranial nerve. MRI brain w/wo 06/19/24 @ [facility] - Findings consistent with a roughly 0.9 [...] and statin. History of DVT on xarelto. History of ovarian cancer s/p chemotherapy.
[2025-07-11 15:07] LABS: Hematocrit 36.4 % (37.0-47.0); Hemoglobin 12.0 g/dL (12.2-16.2); Immature Granulocytes % 0.6 %; Mean Corpuscular HGB Conc 33.0 g/dL (31.8-35.4); Mean Corpuscular Hemoglobin 26.3 pg (27.0-31.2); Mean Corpuscular Volume 79.8 fl (81-99); Nucleated Red Blood Cells % 0 %; Platelet Count 335 K/mm3 (142-424); Red Blood Count 4.56 M/mm3 (4.20-5.40); Red Cell Distribution Width-SD 43.1 fL; White Blood Count 8.0 K/mm3 (4.8-10.8)
[2025-07-11 15:39] LABS: Alanine Aminotransferase 12 U/L (12-78); Albumin Level 4.7 g/dl (3.5-5.0); Albumin/Globulin Ratio 1.5 (1.1-1.8); Alkaline Phosphatase 62 U/L (38-126); Anion Gap 13.1 mEq/L (5-15); Aspartate Amino Transferase 22 U/L (14-36); Bilirubin,Total 0.5 mg/dl (0.2-1.3); Blood Urea Nitrogen 35 mg/dl (7-17); Calcium 10.3 mg/dl (8.4-10.2); Carbon Dioxide 24 mmol/L (22.0-30.0); Chloride 102 mmol/L (98-107); Cholesterol 108 mg/dl (140-200); Creatinine,Serum 1.30 mg/dl (0.52-1.04); Estimated Glomerular Filt Rate 40 ml/min (>60); GFR (African American) 48 ML/MIN (>60); Globulin 3.2 g/dL (1.3-3.2); Glucose 53 mg/dl (74-100); HDL Cholesterol 50 mg/dl (40-60); Potassium 4.1 mmoL/L (3.5-5.1); Sodium 135 mmol/L (136-145); Total Protein,Serum 7.9 g/dl (6.3-8.2); Triglycerides 158 mg/dl (30-150)
[2025-07-11 15:50] LABS: Hemoglobin A1C 7.8 % (4.0-6.0)
--- OUTSIDE RECORDS SUMMARY | 2025-07-14 13:35 | XMS_ITS | Clinical Summary ---
Author Organization [facility] Address [address] [place] [address] Care Team Providers Care Night Order Selector Name Role Phone Unavailable Primary Care Provider Unavailabl e Social History Tobacco Use Types Packs/Day Years [...] Screening 1945 [facility]-Medicare Annual Wellness (AWV) 1945 [facility]-/Child/Adol SDOH Screenings 1945 [facility]- SDOH Screenings 1963 [facility]-Adult SDOH Screenings 1963 [facility]-DTaP,Tdap,and Td Vaccine s (1 - Tdap) 1964 [facility]-Pneumococcal Vaccine: 50 + Years (1 of 1 - PCV) 1995 [facility]-Zoster Vaccines (1 of 2) 1995 [facility]-RSV Vaccine: 60+ Years o r (1 - 1-dose 75+ series) 2020 [id number] Vaccine (1 - 20 25-26 season) 2025 [facility]-Influenza Vaccine (#1) 2025 HPV [...] on patient's age to complete this topic Insurance [facility]
--- OUTSIDE RECORDS SUMMARY | 2025-07-14 13:35 | XMS_ITS ---
Author Name Interface, [id number] [address] Organization [facility] [place] [address] Support Name Relationship Address Phone Julián Don Child Unknown Unavailable ANDREWANTHONY PHILLIPS Spouse Unknown Unavailabl e Antoine, Annamaria Child Unknown Unavailabl e Allergies and Adverse Reactions Medication/Group Name Reaction [...] 04/27/[address] 15 MIN 04/30/2024 LAB_ORDER CMP 04/30/2024 LAB_ORDER CA 125 panel 04/30/2024 LAB_ORDER CBC w/ auto diff 08/06/2024 LAB_ORDER CA 125 panel 08/06/2024 LAB_ORDER CMP 08/06/2024 LAB_ORDER CBC w/ auto diff 11/25/2024 LAB_ORDER CA 125 panel 11/25/2024 LAB_ORDER CBC w/ auto diff 11/25/2024 LAB_ORDER CMP Reason for Visit OV 15 MIN Encounters Date Name 04/27/2024 CIPN - Chemotherapy- induced peripheral neuropathy Diagnostic Results Date Type Test Units Lower Limit Upper Limit Result Flag Comments Status Ordered By Specimen Source Lab Address 04/27 CT Abdom en and Pelvi s witho ut contr ast [facility]Ph one:ROBERT E: PAMELA HAYS VDOB: [id number]: [id number]: [id number] E OF EXAM: [id number] INATION : CT Abdomen and Pelvis without contras tCLINIC AL 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 Oral contras t was given.D ose Reducti on Techniq ue: Automat ed Exposur e Control COMPARI SON: CT abdomen and pelvis, 024, [facility]. FINDING S:LOWER THORAX: No basilar atelect asis [...] REPORT FINAL 04/30 Lab Repor t See pantry attendant d 05/07 Gluco se mg/dL 70.0 99.0 173 High Glucose reference range reflects fasting state. FINAL Petty [place] [facility] [address] [facility] [address] [facility] 05/07 BUN mg/dL 8.0 36.0 20 Kyleigh l FINAL Petty Day [email or web address] [place] [address] [address] [facility] [address] [facility] 05/07 Creat inine mg/dL 0.51 1.08 1.39 High FINAL Petty Day [email or web address] [facility], [facility] [address] [facility] [address] [facility] 05/07 GFR non-A frica n Ameri can, estim ated mL/min /1.73m 2 39 Low eGFRcr calculate d using the CKD-EPI 2020 equation FINAL Petty Day [place] [facility] [place] [address] [address] [facility] [address] [facility] 05/07 BUN/C reati nine ratio 10.0 28.0 14.4% Kyleigh l FINAL Petty Day [place] [facility] [place] [address] [address] [facility] [address] [facility] 05/07 Sodiu m mmol/L 135.0 145.0 142 Kyleigh l FINAL Ptetysandro Day [facility] [place], [address] [place], [place] [address] Sajit Ghulam 05/07 Potas sium mmol/L 3.6 5.3 4.6 Kyleigh l FINAL Petty Shay [facility] [place], [address] [place], [place] [address] Sajit Ghulam 05/07 Chlor ron mmol/L 95.0 109.0 107 Kyleigh l FINAL Pettysandro Day [place] [facility] [place], [address] [place], [place] [address] [facility] 05/07 CO2 mmol/L 20.0 31.0 24 Kyleigh l FINAL Petty Shay [place] [facility] [place], [address] [place], [place] [address] [facility] 05/07 Anion gap 4.0 18.0 11.0% Kyleigh l FINAL Petty Day [facility] [place], [address] [place], [place] [address] [facility] 05/07 Total prote in g/dL 6.0 7.7 6.6 Kyleigh l FINAL Petty Day [facility] [place], [address] [place], [place] [address] [facility] 05/07 Album in g/dL 3.8 5.1 4.2 Kyleigh l FINAL Petty Day [facility] [place], [facility] [address] [place], [place] [address] Sat Ghulam 05/07 Globu maribel g/dL 1.7 3.3 2.4 Kyleigh l FINAL Petty Day [facility] [place], [facility] [address] [place], [place] [address] Sajit Ghulam 05/07 A/G ratio , SPE 1.3 2.7 1.7% Kyleigh l FINAL Pettysandro Day [place] [facility] [place], [facility] [address] [place], [place] [address] [facility] 05/07 Calci um mg/dL 8.7 10.4 9.4 Kyleigh l FINAL Petty [place] [facility], [facility] [address] [place] [address] 05/07 Alkal ine phosp hatas e IU/L 42.0 146.0 64 Kyleigh l FINAL Petty Day [place] [facility], [facility] [address] [place] [facility] [address] [place] [address] 05/07 ALT/S GPT IU/L 5.0 46.0 10 Kyleigh l FINAL Petty [place] [facility], [facility] [address] [place] [address] 05/07 AST/S GOT IU/L 11.0 40.0 24 Kyleigh l FINAL Petty [place] [facility], [facility] [address] [place] [address] 05/07 Bilir ubin, total mg/dL 0.2 Kyleigh l FINAL Petty [place] [facility], [facility] [address] [place] [address] 05/07 CA 125 U/mL 18 Kyleigh l [...] canbe excluded. FINAL Petty [place] [facility] [address] [facility] [address] [facility] 05/07 WBC k/mm3 4.0 11.0 7.1 Kyleigh l FINAL Petty Shay [facility] [place], [address] [place], [place] [address] [facility] 05/07 RBC m/mm3 3.7 5.4 3.92 Kyleigh l FINAL Petty Shay [facility] [place], [address] [place], [place] [address] [facility] 05/07 HGB g/dL 12.0 16.0 10.6 Low FINAL Petty Shay [place] [facility] [place], [address] [place], [place] [address] [facility] 05/07 HCT % 35.0 48.0 35.1 Kyleigh l FINAL Petty Shay [facility] [place], [address] [place], [place] [address] [facility] 05/07 MCV fL 78.0 100.0 89.5 Kyleigh l FINAL Petty Shay [place] [facility] [place], [address] [place], [place] [address] [facility] 05/07 MCH pg 27.0 34.0 27.0 Kyleigh l FINAL Petty Shay [place] [facility] [place], [facility] [address] [place], [place] [address] [facility] 05/07 MCHC g/dL 31.0 37.0 30.2 Low FINAL Petty Shay [place] [facility] [place], [facility] [address] [place], [place] [address] [facility] 05/07 PLT k/mm3 130.0 450.0 335 Kyleigh l FINAL Petty Shay [facility] [place] [address] [place], [place] [address] [facility] 05/07 RDW-S D fL 38.0 49.0 54.3 High FINAL Petty Shay [place] [facility] [place], [facility] [address] [place], [place] [address] [facility] 05/07 RDW-C V, % % 11.0 15.0 16.5 High FINAL Petty Shay [facility] [place], [address] [place], [place] [address] Sajit Ghulam 05/07 MPV fL 9.0 12.0 11.0 Kyleigh l FINAL Petty Shay [place] [facility] [place], [address] [place], [place] [address] Sajit Ghulam 05/07 Christian % % 48.4 Automated Diff FINAL Petty Shay [place] [facility] [place], [address] [place], [place] [address] Sajit Ghulam 05/07 LY % % 25.7 FINAL Petty Shay [facility] [place], [address] [place], [place] [address] Sajit Ghulam 05/07 MO % % 20.7 FINAL Petty Shay [place] [facility] [place], [address] [place], [place] [address] Sajit Ghulam 05/07 EO % % 2.3 FINAL Petty Shay [place] [facility] [place], [address] [place], [place] [address] Sajit Ghulam 05/07 BA % % 1.1 FINAL Petty Shay [facility] [place], [address] [place], [place] [address] Sajit Ghulam 05/07 Christian # (ANC) k/uL 1.5 7.8 3.4 Kyleigh l FINAL Petty Shay [place] [facility] [place], [address] [place], [place] [address] Sajit Ghulam 05/07 LY # k/uL 0.9 3.9 1.8 Kyleigh l FINAL Petty Shay [place] [facility] [place], [address] [place], [place] [address] Sajit Ghulam 05/07 MO # k/uL 0.2 1.0 1.5 High FINAL Petty Shay [place] [facility] [place], [address] [place], [place] [address] Sajit Ghulam 05/07 EO # k/uL 0.0 0.6 0.2 Kyleigh l FINAL Petty [place] [facility], [address] [place], [place] [address] [facility] 05/07 BA # k/uL 0.0 0.2 0.1 Kyleigh l FINAL Petty [place] [facility], [address] [place], [place] [address] [facility] 05/07 IG % % 1.8 FINAL Petty [place] [facility], [address] [place], [place] [address] [facility] 05/07 IG # k/uL 0.0 0.1 0.1 Kyleigh l FINAL Petty [place] [facility], [address] [place], [place] [address] [facility] 05/07 NRBC, % % 0.0 1.0 0.3 Kyleigh l FINAL Petty [place] [facility], [address] [place], [place] [address] [facility] 07/11 Lab Repor t See pantry attendant d 08/27 CA 125 U/mL 19 Kyleigh [...] canbe excluded. FINAL Petty [place] [facility], [address] [place], [place] [address] [facility] 08/27 Sodiu m mmol/L 135.0 145.0 141 Kyleigh l FINAL Petty Shay Susan [facility] [place], [address] [place], [place] [address] Sat Ghulam 08/27 Potas sium mmol/L 3.6 5.3 5.0 Kyleigh l FINAL Petty Shay [place] [facility] [place], [address] [place] [address] Sat Ghulam 08/27 Chlor ron mmol/L 95.0 109.0 103 Kyleigh l FINAL Petty Shay [facility] [place], [facility] [address] [place], [place] [address] [facility] 08/27 CO2 mmol/L 20.0 31.0 25 Kyleigh l FINAL Petty Shay [place] [facility] [place], [facility] [address] [place] [address] [facility] 08/27 Anion gap 4.0 18.0 12.0% Kyleigh l FINAL Petty Shay [facility] [place], [address] [place], [place] [address] [facility] 08/27 Total prote in g/dL 6.0 7.7 8.2 High FINAL Petty Shay [facility] [place], [address] [place], [place] [address] [facility] 08/27 Album in g/dL 3.8 5.1 4.8 Kyleigh l FINAL Petty Day Susan [facility] [place], [facility] [address] [place] [address] [facility] 08/27 Globu maribel g/dL 1.7 3.3 3.4 High FINAL Pettysandro Day [place] [facility] [place], [facility] [address] [place], [place] [address] Sat Ghulam 08/27 A/G ratio , SPE 1.3 2.7 1.4% Kyleigh l FINAL Petty Shay [place] [facility] [place], [facility] [address] [place] [address] [facility] 08/27 Calci um mg/dL 8.7 10.4 10.4 Kyleigh l FINAL Petty Day [place] [facility] [place] [address] [address] [facility] [address] [place] [address] 08/27 Alkal ine phosp hatas e IU/L 42.0 146.0 108 Kyleigh l FINAL Petty Day [place] [facility] [place] [address] [address] [facility] [address] [place] [address] 08/27 ALT/S GPT IU/L 5.0 46.0 21 Kyleigh l FINAL Petty Day [place] [facility] [place] [address] [address] [facility] [id number] [place] [address] 08/27 AST/S GOT IU/L 11.0 40.0 21 Kyleigh l FINAL Petty Day [place] [facility] [place] [address] [address] [facility] [address] [place] [address] 08/27 Bilir ubin, total mg/dL 0.3 Kyleigh l FINAL Petty Day Susan [facility] [place] [address] [place], [place] [address] [place] [address] 08/27 Gluco se mg/dL 70.0 99.0 285 High Glucose reference range reflects fasting state. FINAL Petty Day [place] [facility] [place] [address] [address] [facility] [address] [place] [address] 08/27 BUN mg/dL 8.0 36.0 41 High FINAL Petty Day Susan [facility] [place] [address] [place], [place] [address] [place] [address] 08/27 Creat inine mg/dL 0.51 1.08 1.44 High FINAL Petty Day Susan [facility] [place] [address] [place], [place] [address] [facility] 08/27 GFR non-A frica n Ameri can, estim ated mL/min /1.73m 2 37 Low eGFRcr calculate d using the CKD-EPI 2020 equation FINAL Petty Day [place] [facility] [place], [facility] [address] [place], [place] [address] Sat Ghulam 08/27 BUN/C reati nine ratio 10.0 28.0 28.5% High FINAL Petty Day Susan [facility] [place], [address] [place], [place] [address] Sajit Ghulam 08/27 WBC k/mm3 4.0 11.0 7.5 Kyleigh l FINAL Petty Day [place] [facility] [place], [address] [place], [place] [address] [facility] 08/27 RBC m/mm3 3.7 5.4 5.00 Kyleigh l FINAL Petty Day Susan [facility] [place] [address] [place], [place] [address] [facility] 08/27 HGB g/dL 12.0 16.0 13.3 Kyleigh l FINAL Petty Day [place] [facility] [place], [facility] [address] [place] [address] [facility] 08/27 HCT % 35.0 48.0 41.7 Kyleigh l FINAL Petty Day [place] [facility] [place], [facility] [address] [place] [address] [facility] 08/27 MCV fL 78.0 100.0 83.4 Kyleigh l FINAL Petty Day [place] [facility] [place], [facility] [address] [place] [address] [facility] 08/27 MCH pg 27.0 34.0 26.6 Low FINAL Petty Day [place] [facility] [place] [address] [place] [address] Sat Ghulam 08/27 MCHC g/dL 31.0 37.0 31.9 Kyleigh l FINAL Pettysandro Day Susan [facility] [place] [address] [place], [place] [address] Sajit Ghulam 08/27 PLT k/mm3 130.0 450.0 255 Kyleigh l FINAL Petty Shay [place] [facility] [place], [address] [place], [place] [address] [facility] 08/27 RDW-S D fL 38.0 49.0 43.4 Kyleigh l FINAL Petty Shay [place] [facility] [place], [address] [place], [place] [address] [facility] 08/27 RDW-C V, % % 11.0 15.0 14.3 Kyleigh l FINAL Petty Shay [place] [facility] [place], [address] [place] [address] [facility] 08/27 MPV fL 9.0 12.0 11.1 Kyleigh l FINAL Petty Shay [place] [facility] [place], [address] [place], [place] [address] [facility] 08/27 Christian % % 76.4 Automated Diff FINAL Petty Shay [place] [facility] [place], [address] [place] [address] [facility] 08/27 LY % % 19.2 FINAL Petty Shay [place] [facility] [place], [address] [place] [address] [facility] 08/27 MO % % 3.4 FINAL Petty Shay [place] [facility] [place], [address] [place] [address] [facility] 08/27 EO % % 0.0 FINAL Petty Shay [facility] [place], [address] [place] [address] [facility] 08/27 BA % % 0.1 FINAL Petty Shay [facility] [place], [address] [place] [address] Sajit Ghulam 08/27 Christian # (ANC) k/uL 1.5 7.8 5.7 Kyleigh l FINAL Petty Shay [facility] [place], [address] [place] [address] [facility] 08/27 LY # k/uL 0.9 3.9 1.4 Kyleigh l FINAL Pettyasndro [place] [facility] [place], [address] [place] [address] [facility] 08/27 MO # k/uL 0.2 1.0 0.3 Kyleigh l FINAL Petty Day [place] [facility] [place], [facility] [address] [place] [address] [facility] 08[facility] EO # k/uL 0.0 0.6 0.0 Kyleigh l FINAL Petty Day [place] [facility] [place], [facility] [address] [place], [place] [address] [place] [address] 08/27 BA # k/uL 0.0 0.2 0.0 Kyleigh l FINAL Petty Day Susan [facility] [place], [facility] [address] [place] [address] [facility] 08/27 IG % % 0.9 FINAL Petty Shay [place] [facility] [place], [facility] [address] [place] [address] 08/27 IG # k/uL 0.0 0.1 0.1 Kyleigh l FINAL Pettysandro Day [place] [facility] [place] [address] [facility] [address] [place] [address] 08/27 NRBC, % % 0.0 1.0 0.0 Kyleigh l FINAL Petty Shay [facility] [place] [address] [facility] [address] [place] [address] Medications Date Name Route Dose Frequency Instructions Start Date End Date Status Fill Status Indication 09/21 Ondanse nathalie Oral oral 1.0 tablet PRN active 09/21 Famotid ine Oral oral 1.0 tablet QD active 09/21 Amlodip ine Oral orally 5.0 mg daily active 09/21 Sertral ine Oral oral 1.0 capsul e daily active 09/21 Metopro lol Oral 24 hr Tab (Succin ate) oral 1.0 tablet extend ed releas e 24 hr daily active 09/21 Fenofib rate Oral oral 1.0 tablet daily active 09/21 Aspirin Oral orally 81.0 mg daily active 09/21 Pregaba maribel Oral oral 3.0 capsul e daily active 09/21 Tiotrop ium Inhaler 18 mcg active 09/21 Rosuvas tatin Calcium Oral orally 40.0 mg daily active 09/21 Tezepel umab-ek ko Subcuta neous subcuta neously 210.0 every 4 weeks active 09/21 Losarta n Oral orally 100.0 mg daily active 09/21 Omepraz ole Oral Delayed Release Capsule oral 1.0 daily active 09/21 Ezetimi be Oral oral 1.0 tablet QD active 09/21 Lorazep am Oral orally 1.0 mg 2 times per day active 09/21 Potassi um Chlorid e Oral ER Tab oral 2.0 tablet extend ed releas e QD active 09/21 Dapagli flozin Oral orally 10.0 mg daily active 09/21 Triamte denis-Hy drochlo rothiaz ron Oral Capsule 37.5 mg-25 mg oral 1.0 capsul e every 4th day active 09/21 Insulin Aspart Subcuta neous active 09/21 Zolpide m Oral Tablet oral 1.0 tablet daily active 09/21 Montelu kast Oral oral 1.0 tablet daily active 09/21 Budeson ron-For moterol HFA Inhaler 160 mcg-4.5 mcg/act uation 2.0 HFA aeroso l inhale r BID active 09/21 Albuter ol AEPB Inhaler 90 mcg/act uation active 09/21 Hydroxy zine HCl Oral oral 1.0 tablet daily active 09/21 Prednis one Oral oral 1.0 daily active 09/21 Rivarox aban Oral oral 2.0 tablet daily active 10/30 triamci nolone acetoni de 1 MG/ML Topical Cream 2024 active 11/24 1 ML epineph rine 1 [...] concentration must be 0.3-1.2 mg/mL. Administer using Law-AONL-mxlzm ining equipment and through an in-line 0.22 micron filter. Paclitaxel is a vascular irritant. 04/03 on hold Malignant tumor of fallopian tube 11/24 Solu-Co [...] every day at bedtime 2023 active 11/24 Solu-Co rtef intrave nously 100.0 [...] 5.0 tablet As Directed 2023 active 11/24 diphenh ydramin e hydroch loride 0.5 MG/ML Injecta ble Solutio n intrave nously 50.0 mg Re-initiate treatment only upon physician approval. 2023 active Malignant tumor of fallopian tube 11/24 carbopl atin 10 MG/ML Injecta ble [...] Scale 5.00 Notes Section * [facility] ([facility] LOCATION: [facility] PATIENT: PAMELA NUNEZ : 1945 ATTENDING PHYSICIAN: [...] dissection, omental biopsy, lysis of adhesions. PAST WELL LOGGING CAPTAIN MUD ANALYSIS HISTORY: Patient is a female with a [...] or using illicit drugs.? ADVANCED DIRECTIVES: Location: [place] Name: PAMELA NUNEZ V ACP Introduction* Date [...] Designates a Surrogate Decision Maker * Comments: Anthony Nunez * [phone] REVIEW OF SYSTEMS: A complete 10 systems [...] was 30 minutes including 16 minutes of oppm-bm-xows time with the patient and 14 minutes [...] ) . Documentation assistance provided by Santos MCGARRY scribing for Petty Day MD, on 08/27/2024. ??I, Petty Day MD, personally performed the services described in this documentation, and it is bothaccurate and complete. SEND COPY OF NOTE TO: Katalina Ruggiero DO (Referring) Palmira Costa MD (Referring) . Electronically signed by Petty Day MD 09/02/2024 22:01 MST * [facility] LOCATION: [facility] PATIENT: PAMELA NUNEZ : 1945 ATTENDING PHYSICIAN: [...] reports bleeding for 2 weeks while in [place]. The bleeding restarted after returning home. She [...] dissection, omental biopsy, lysis of adhesions. PAST WELL LOGGING CAPTAIN MUD ANALYSIS HISTORY: Patient is a female with a [...] or using illicit drugs.? ADVANCED DIRECTIVES: Location: [place] Name: ANDREW PAMELA Paz ACP Introduction* Date of ACP Introduction: 02/20/2024 [...] Designates a Surrogate Decision Maker * Comments: Anthony Nunez * [phone] REVIEW OF SYSTEMS: A complete 10 systems [...] positive: No; Screening Date: 05/07/2024; Screening Tool: PRIME MD-PHQ2; Total depression score: 0 PHYSICAL EXAM: [...] her surveillance exams. We discussed the findings onthe labia. She has previously been given a prescription [...] was 40 minutes including 18 minutes of mpaz-gg-liyp time with the patient and 22 minutes [...] unspecified ) . Documentation assistance provided by [facility], scribing for Petty Day MD, on 05/07/2024. ??I, Petty Day MD, personally performed the services described in this documentation, and it is bothaccurate and complete. SEND COPY OF NOTE TO: KATALINA RUGGIERO DO (Referring) Palmira Costa MD (Referring) . Electronically signed by Petty Day MD 05/11/2024 09:19 [facility] * Nurse Note for: 27-APR-24 [facility] Nurse Note Print Location: Unknown Date/Time Printed: 07/14/2025 11:34 ([place]) Patient: PAMELA NUNEZ V Sex: Female : 1945 Date of Service: 04/27/2024 Allergies : Sulfamide, Iodinated Contrast Media Patient Assessment : Procedures : Computed tomography of abdomen and pelvis (procedure) - Associated Problem(s): Malignant tumor of fallopian tube *; Primary malignant neoplasm of colon (disorder) *; Selected Billing Code(s): CT ABDOMEN & PELVIS W/O CONTRAST MATERIAL (33398) Entered By Neris Vargas; Incident to Petty Day MD
--- OUTSIDE RECORDS SUMMARY | 2025-07-14 13:35 | XMS_ITS ---
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 Oral contras t was given.D ose Reducti on Techniq ue: Automat ed Exposur e Control COMPARI SON: CT abdomen and pelvis, 024, [facility]. FINDING S:LOWER THORAX: No basilar [...] REPORT FINAL 04/30 Lab Repor t See senior national account manager d 05/07 Gluco se mg/dL 70.0 99.0 173 High Glucose reference range reflects fasting state. FINAL Petty [place] [facility], [facility] [address] [facility], [place] [address] [facility] 05/07 BUN mg/dL 8.0 36.0 20 Kyleigh l FINAL Petty Day [employer] [facility] [place] [address] [address] [facility] [place] [address] [facility] 05/07 Creat inine mg/dL 0.51 1.08 1.39 High FINAL Petty Day [employer] [facility], [facility] [address] [facility] [place] [address] [facility] 05/07 GFR non-A frica n Ameri can, estim ated mL/min /1.73m 2 39 Low eGFRcr calculate d using the CKD-EPI 2020 equation FINAL Petty Day [place] [employer] [place] [address] [address] [facility], [place] [address] [facility] 05/07 BUN/C reati nine ratio 10.0 28.0 14.4% Kyleigh l FINAL Petty Day [place] [employer] [place] [place] [address] [address] [facility], [place] [address] [facility] 05/07 Sodiu m mmol/L 135.0 145.0 142 Kyleigh l FINAL Pettysadnro Day [facility] [place], [address] [facility] [address] Sajit Ghulam 05/07 Potas sium mmol/L 3.6 5.3 4.6 Kyleigh l FINAL Petty Shay [facility] [place], [address] [facility] [address] Sajit Ghulam 05/07 Chlor ron mmol/L 95.0 109.0 107 Kyleigh l FINAL Pettysandro Day [place] [facility] [place], [address] [facility] [address] [facility] Gh[facility]am 05/07 CO2 mmol/L 20.0 31.0 24 Kyleigh l FINAL Petty Shay [place] [facility] [place], [address] [facility] [address] [facility] 05/07 Anion gap 4.0 18.0 11.0% Kyleigh l FINAL Petty Day [facility] [place], [address] [facility] [address] [facility] 05/07 Total prote in g/dL 6.0 7.7 6.6 Kyleigh l FINAL Petty Day [facility] [place], [address] [facility] [address] [facility] 05/07 Album in g/dL 3.8 5.1 4.2 Kyleigh l FINAL Petty Day [facility] [place], [facility] [address] [facility] [address] Sat Ghulam 05/07 Globu maribel g/dL 1.7 3.3 2.4 Kyleigh l FINAL Petty Day [facility] [place], [facility] [address] [facility] [address] Sajit Ghulam 05/07 A/G ratio , SPE 1.3 2.7 1.7% Kyleigh l FINAL Pettysandro Day [place] [facility] [place], [facility] [address] [facility] [address] [facility] 05/07 Calci um mg/dL 8.7 10.4 9.4 Kyleigh l FINAL Petty [place] [facility], [facility] [place] [id number] [place] [address] 05/07 Alkal ine phosp hatas e IU/L 42.0 146.0 64 Kyleigh l FINAL Petty Day [place] [facility], [facility] [address] [facility], [place] [id number] [place] [address] 05/07 ALT/S GPT IU/L 5.0 46.0 10 Kyleigh l FINAL Petty [place] [facility], [facility] [place] [id number] [place] [address] 05/07 AST/S GOT IU/L 11.0 40.0 24 Kyleigh l FINAL Petty [place] [facility], [facility] [place] [id number] [place] [address] 05/07 Bilir ubin, total mg/dL 0.2 Kyleigh l FINAL Petty aMrtin[facility], [facility] [place] [id number] [place] [address] 05/07 CA 125 U/mL 18 Kyleigh l [...] canbe excluded. FINAL Petty [place] [facility], [facility] [address] [facility] [place] [address] [facility] 05/07 WBC k/mm3 4.0 11.0 7.1 Kyleigh l FINAL Petty Shay [facility] [place], [address] [facility] [address] [facility] 05/07 RBC m/mm3 3.7 5.4 3.92 Kyleigh l FINAL Petty Shay [facility] [place], [address] [facility] [address] [facility] 05/07 HGB g/dL 12.0 16.0 10.6 Low FINAL Petty Shay [place] [facility] [place], [address] [facility] [address] [facility] 05/07 HCT % 35.0 48.0 35.1 Kyleigh l FINAL Petty Shay [facility] [place], [address] [facility] [address] [facility] 05/07 MCV fL 78.0 100.0 89.5 Kyleigh l FINAL Petty Shay [place] [facility] [place], [address] [facility] [address] [facility] Ghulam 05/07 MCH pg 27.0 34.0 27.0 Kyleigh l FINAL Petty Shay [place] [facility] [place], [facility] [address] [facility] [address] [facility] 05/07 MCHC g/dL 31.0 37.0 30.2 Low FINAL Petty Shay [place] [facility] [place], [facility] [address] [facility] [address] [facility] Ghulam 05/07 PLT k/mm3 130.0 450.0 335 Kyleigh l FINAL Petty Shay [facility] [place] [address] [facility] [address] [facility]am 05/07 RDW-S D fL 38.0 49.0 54.3 High FINAL Petty Shay [place] [facility] [place], [facility] [address] [facility] [address] [facility] 05/07 RDW-C V, % % 11.0 15.0 16.5 High FINAL Petty Shay [facility] [place], [address] [facility] [address] Sajit Ghulam 05/07 MPV fL 9.0 12.0 11.0 Kyleigh l FINAL Petty Shay [place] [facility] [place], [address] [facility] [address] Sajit Ghulam 05/07 Christian % % 48.4 Automated Diff FINAL Petty Shay [place] [facility] [place], [address] [facility] [address] Sajit Ghulam 05/07 LY % % 25.7 FINAL Petty Shay [facility] [place], [address] [facility] [address] Sajit Ghulam 05/07 MO % % 20.7 FINAL Petty Shay [place] [facility] [place], [address] [facility] [address] Sajit Ghulam 05/07 EO % % 2.3 FINAL Petty Shay [place] [facility] [place], [address] [facility] [address] Sajit Ghulam 05/07 BA % % 1.1 FINAL Petty Shay [facility] [place], [address] [facility] [address] Sajit Ghulam 05/07 Christian # (ANC) k/uL 1.5 7.8 3.4 Kyleigh l FINAL Petty Shay [place] [facility] [place], [address] [facility] [address] Sajit Ghulam 05/07 LY # k/uL 0.9 3.9 1.8 Kyleigh l FINAL Petty Shay [place] [facility] [place], [address] [facility] [address] Sajit Ghulam 05/07 MO # k/uL 0.2 1.0 1.5 High FINAL Petty Shay [place] [facility] [place], [address] [facility] [address] Sajit Ghulam 05/07 EO # k/uL 0.0 0.6 0.2 Kyleigh l FINAL Petty [place] [facility], [address] [facility] [address] [facility]am 05/07 BA # k/uL 0.0 0.2 0.1 Kyleigh l FINAL Petty [place] [facility], [address] [facility] [address] [facility]am 05/07 IG % % 1.8 FINAL Petty [place] [facility], [address] [facility] [address] [facility]am 05/07 IG # k/uL 0.0 0.1 0.1 Kyleigh l FINAL Petty [place] [facility], [address] [facility] [address] [facility] Ghulam 05/07 NRBC, % % 0.0 1.0 0.3 Kyleigh l FINAL Petty [place] [facility], [address] [facility] [address] [facility] 07/11 Lab Repor t See senior national account manager d 08/27 CA 125 U/mL 19 Kyleigh [...] canbe excluded. FINAL Petty [place] [facility], [address] [facility] [address] [facility] Ghulam 08/27 Sodiu m mmol/L 135.0 145.0 141 Kyleigh l FINAL Petty Shay [facility] [place], [address] [facility] [address] Sat Ghulam 08/27 Potas sium mmol/L 3.6 5.3 5.0 Kyleigh l FINAL Petty Shay [place] [facility] [place], [address] [facility] [address] Sat Ghulam 08/27 Chlor ron mmol/L 95.0 109.0 103 Kyleigh l FINAL Petty Shay [facility] [place], [facility] [address] [facility] [address] [facility] 08/27 CO2 mmol/L 20.0 31.0 25 Kyleigh l FINAL Petty Shay [facility] [place], [facility] [address] [facility] [address] [facility] 08/27 Anion gap 4.0 18.0 12.0% Kyleigh l FINAL Petty Shay [facility] [place], [address] [facility] [address] [facility] 08/27 Total prote in g/dL 6.0 7.7 8.2 High FINAL Petty Shay [facility] [place], [address] [facility] [address] [facility] 08/27 Album in g/dL 3.8 5.1 4.8 Kyleigh l FINAL Petty Day [facility] [place], [facility] [address] [facility] [address] [facility] 08/27 Globu maribel g/dL 1.7 3.3 3.4 High FINAL Pettysandro Day [place] [facility] [place], [facility] [address] [facility] [address] Sat Ghulam 08/27 A/G ratio , SPE 1.3 2.7 1.4% Kyleigh l FINAL Petty Shay [place] [facility] [place], [facility] [address] [facility] [address] [facility] 08/27 Calci um mg/dL 8.7 10.4 10.4 Kyleigh l FINAL Petty Day [place] [facility] [place] [address] [address] [facility] [place] [address] [place] [address] 08/27 Alkal ine phosp hatas e IU/L 42.0 146.0 108 Kyleigh l FINAL Petty Day [facility] [place] [address] [address] [facility], [place] [address] [place] [address] 08/27 ALT/S GPT IU/L 5.0 46.0 21 Kyleigh l FINAL Petty Day [place] [facility] [place] [address] [address] [facility], [place] [address] [place] [address] 08/27 AST/S GOT IU/L 11.0 40.0 21 Kyleigh l FINAL Petty Day [facility] [place] [address] [address] [facility], [place] [address] [place] [address] 08/27 Bilir ubin, total mg/dL 0.3 Kyleigh l FINAL Petty Day [facility] [place] [address] [facility] [id number] [place] [address] 08/27 Gluco se mg/dL 70.0 99.0 285 High Glucose reference range reflects fasting state. FINAL Petty Day [facility] [place] [address] [address] [facility] [place] [phone] [place] [address] 08/27 BUN mg/dL 8.0 36.0 41 High FINAL Petty Day [facility] [place] [address] [facility] [address] [place] [address] 08/27 Creat inine mg/dL 0.51 1.08 1.44 High FINAL Petty Day [facility] [place] [address] [facility] [address] [facility] Ghulam 08/27 GFR non-A frica n Ameri can, estim ated mL/min /1.73m 2 37 Low eGFRcr calculate d using the CKD-EPI 2020 equation FINAL Petty Day [place] [facility] [place], [facility] [address] [facility] [address] Sat Ghulam 08/27 BUN/C reati nine ratio 10.0 28.0 28.5% High FINAL Petty Day [facility] [place], [address] [facility] [address] Sajit Ghulam 08/27 WBC k/mm3 4.0 11.0 7.5 Kyleigh l FINAL Petty Day [facility] [place], [address] [facility] [address] [facility] 08/27 RBC m/mm3 3.7 5.4 5.00 Kyleigh l FINAL Petty Day [facility] [place] [address] [facility] [address] [facility] 08/27 HGB g/dL 12.0 16.0 13.3 Kyleigh l FINAL Petty Day [place] [facility] [place], [facility] [address] [facility] [address] [facility] 08/27 HCT % 35.0 48.0 41.7 Kyleigh l FINAL Petty Day [facility] [place], [facility] [address] [facility] [address] [facility] 08/27 MCV fL 78.0 100.0 83.4 Kyleigh l FINAL Petty Day [facility] [place], [facility] [address] [facility] [address] [facility] 08/27 MCH pg 27.0 34.0 26.6 Low FINAL Petty Day [facility] [place] [address] [facility] [address] Sat Ghulam 08/27 MCHC g/dL 31.0 37.0 31.9 Kyleigh l FINAL Pettysandro Day [facility] [place] [address] [facility] [address] Sajit Ghulam 08/27 PLT k/mm3 130.0 450.0 255 Kyleigh l FINAL Petty Shay [place] [facility] [place], [address] [facility] [address] [facility] 08[facility] RDW-S D fL 38.0 49.0 43.4 Kyleigh l FINAL Petty Shay [place] [facility] [place], [address] [facility] [address] [facility] 08/27 RDW-C V, % % 11.0 15.0 14.3 Kyleigh l FINAL Petty Shay [facility] [place], [address] [facility] [address] [facility] 08/27 MPV fL 9.0 12.0 11.1 Kyleigh l FINAL Petty Shay [facility] [place], [address] [facility] [address] [facility] 08/27 Christian % % 76.4 Automated Diff FINAL Petty Shay [facility] [place], [address] [facility] [address] [facility] 08/27 LY % % 19.2 FINAL Petty Shay [facility] [place], [address] [facility] [address] [facility] 08/27 MO % % 3.4 FINAL Petty Shay [place] [facility] [place], [address] [facility] [address] [facility] 08/27 EO % % 0.0 FINAL Petty Shay [facility] [place], [address] [facility] [address] [facility] 08/27 BA % % 0.1 FINAL Petty Shay [facility] [place], [address] [facility] [address] Sajit Ghulam 08/27 Christian # (ANC) k/uL 1.5 7.8 5.7 Kyleigh l FINAL Petty Shay [facility] [place], [address] [facility] [address] [facility] 08/27 LY # k/uL 0.9 3.9 1.4 Kyleigh l FINAL Pettysandro [place] [facility] [place], [address] [facility] [address] [facility] 08/27 MO # k/uL 0.2 1.0 0.3 Kyleigh l FINAL Petty Day [place] [facility] [place], [facility] [address] [facility] [address] [facility] 08/[facility] EO # k/uL 0.0 0.6 0.0 Kyleigh l FINAL Petty Day [facility] [place], [facility] [address] [facility] [id number] [place] [address] 08/27 BA # k/uL 0.0 0.2 0.0 Kyleigh l FINAL Petty Day [place] [facility] [place], [facility] [address] [facility] [address] [facility] 08/27 IG % % 0.9 FINAL Petty Shay [facility] [place], [facility] [place] [id number] [place] [address] 08/27 IG # k/uL 0.0 0.1 0.1 Kyleigh l FINAL Pettysandro Day [place] [facility] [place] [address] [facility] [place] [address] [place] [address] 08/27 NRBC, % % 0.0 1.0 0.0 Kyleigh l FINAL Petty Shay [facility] [place] [address] [facility] [place] [id number] [place] [address] Medications Date Name Route Dose Frequency Instructions [...] concentration must be 0.3-1.2 mg/mL. Administer using Diw-WDWG-tioot ining equipment and through an in-line 0.22 [...] Scale 5.00 Notes Section * [facility] LOCATION: [facility] PATIENT: PAMELA NUNEZ : 1945 ATTENDING PHYSICIAN: [...] dissection, omental biopsy, lysis of adhesions. PAST ACTIVITY THERAPY SPECIALIST HISTORY: Patient is a female with a [...] or using illicit drugs.? ADVANCED DIRECTIVES: Location: [place] Name: PAMELA NUNEZ V ACP Introduction* Date [...] Decision Maker * Comments: Anthony Nunez * [phone] REVIEW OF SYSTEMS: A complete 10 systems [...] was 30 minutes including 16 minutes of fcks-rs-ylwg time with the patient and 14 minutes [...] MD 09/02/2024 22:01 MST * [facility] LOCATION: [facility] PATIENT: PAMELA NUNEZ : 1945 ATTENDING PHYSICIAN: [...] reports bleeding for 2 weeks while in [place]. The bleeding restarted after returning home. She [...] dissection, omental biopsy, lysis of adhesions. PAST ACTIVITY THERAPY SPECIALIST HISTORY: Patient is a female with a [...] or using illicit drugs.? ADVANCED DIRECTIVES: Location: [place] Name: ANDREW PAMELA Paz ACP Introduction* Date [...] Decision Maker * Comments: Anthony Nunez * [phone] REVIEW OF SYSTEMS: A complete 10 systems [...] was 40 minutes including 18 minutes of wsii-aw-gtfk time with the patient and 22 minutes [...] unspecified ) . Documentation assistance provided by [facility], scribing for Petty Day MD, on 05/07/2024. ??I, Petty Day MD, personally performed the services described in this documentation, and it is bothaccurate and complete. SEND COPY OF NOTE TO: KATALINA RUGGIERO DO (Referring) Palmira Costa MD (Referring) . 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
--- OUTSIDE RECORDS SUMMARY | 2025-07-14 13:35 | XMS_ITS ---
Author Name Interface, [id number] [address] Organization [facility] [place] [address] Support Name Relationship Address Phone Julián Don Child Unknown Unavailable ANDREWANTHONY PHILLIPS Spouse Unknown Unavailabl e [place], Annamaria Child Unknown Unavailabl e Allergies and Adverse Reactions Medication/Group Name Reaction Severity Date Iodinated Contrast Media Sulfamide 08/27/2024 Plan Date Type Value 11/26/2024 APPOINTMENT LAB 15 MIN 11/26/2024 APPOINTMENT OV 15 MIN 08/27/2024 APPOINTMENT LAB 15 MIN 08/27/2024 APPOINTMENT OV 15 MIN 11/25/2024 LAB_ORDER CA 125 panel 11/25/2024 LAB_ORDER [...] excluded. FINAL Petty Day [facility] [place], [address] [facility] [address] [facility] 08/27 Sodiu m mmol/L 135.0 145.0 141 Kyleigh l FINAL Petty Day [facility] [place], [address] [facility] [address] [facility] 08/27 Potas sium mmol/L 3.6 5.3 5.0 Kyleigh l FINAL Pettysandro Day [facility] [place] [address] [facility] [id number] [place] [address] 08/27 Chlor ron mmol/L 95.0 109.0 103 Kyleigh l FINAL Pettysandro Day [facility] [place] [address] [facility] [id number] [place] [address] 08/27 CO2 mmol/L 20.0 31.0 25 Kyleigh l FINAL Petty Day [facility] [place] [address] [facility] [address] [facility] 08/27 Anion gap 4.0 18.0 12.0% Kyleigh l FINAL Petty Day [facility] [place], [facility] [address] [facility] [address] [facility] 08/27 Total prote in g/dL 6.0 7.7 8.2 High FINAL Petty Day [facility] [place] [address] [facility] [address] [facility] 08/27 Album in g/dL 3.8 5.1 4.8 Kyleigh l FINAL Petty Day [facility] [place] [address] [facility] [id number] [place] [address] 08/27 Globu maribel g/dL 1.7 3.3 3.4 High FINAL Petty Day [facility] [place] [address] [facility] [address] [facility] 08/27 A/G ratio , SPE 1.3 2.7 1.4% Kyleigh l FINAL Petty [place] [facility] [place], [address] [facility] [address] [facility] 08/27 Calci um mg/dL 8.7 10.4 10.4 Kyleigh l FINAL Petty Day [facility] [place], [address] [facility] [address] [facility] 08/27 Alkal ine phosp hatas e IU/L 42.0 146.0 108 Kyleigh l FINAL Petty Day [facility] [place], [address] [facility] [id number] [place] [address] 08/27 ALT/S GPT IU/L 5.0 46.0 21 Kyleigh l FINAL Petty Day [facility], [facility] [address] [facility] [address] [facility] 08/27 AST/S GOT IU/L 11.0 40.0 21 Kyleigh l FINAL Petty Day [facility], [facility] [address] [facility] [address] [facility] 08/27 Bilir ubin, total mg/dL 0.3 Kyleigh l FINAL Petty Day [facility], [facility] [address] [facility] [address] [facility] 08/27 Gluco se mg/dL 70.0 99.0 285 High Glucose reference range reflects fasting state. FINAL Petty Day [facility] [place], [address] [facility] [address] [facility] 08/27 BUN mg/dL 8.0 36.0 41 High FINAL Petty Day [facility] [place], [facility] [address] [facility] [address] [facility] 08/27 Creat inine mg/dL 0.51 1.08 1.44 High FINAL Petty Day [facility] [place] [address] [facility] [address] [facility] 08/27 GFR non-A f[place] n Ameri can, estim ated mL/min /1.73m 2 37 Low eGFRcr calculate d using the CKD-EPI 2020 equation FINAL Pettysandro Day [facility] [place] [address] [facility] [address] [facility] 08/27 BUN/C reati nine ratio 10.0 28.0 28.5% High FINAL Pettysandro Day [facility] [place] [address] [facility] [address] [facility] 08/27 WBC k/mm3 4.0 11.0 7.5 Kyleigh l FINAL Pettysandro Day [facility] [place] [address] [facility] [address] [facility] 08/27 RBC m/mm3 3.7 5.4 5.00 Kyleigh l FINAL Pettysandro Day [facility] [place] [address] [facility] [address] [facility] 08/27 HGB g/dL 12.0 16.0 13.3 Kyleigh l FINAL Petty Shay [facility] [place] [address] [facility] [address] [facility] 08/27 HCT % 35.0 48.0 41.7 Kyleigh l FINAL Petty Shay [facility] [place] [address] [facility] [address] [facility] 08/27 MCV fL 78.0 100.0 83.4 Kyleigh l FINAL Petty Shay [facility] [place] [address] [facility] [address] [facility] 08/27 MCH pg 27.0 34.0 26.6 Low FINAL Petty Shay [facility] [place] [address] [facility] [address] Sajit [facility] 08/27 MCHC g/dL 31.0 37.0 31.9 Kyleigh l FINAL Petty Shay [facility] [place], [address] [facility] [address] Sajit [facility] 08/27 PLT k/mm3 130.0 450.0 255 Kyleigh l FINAL Petty Shay [facility] [place], [address] [facility] [address] [facility] 08/27 RDW-S D fL 38.0 49.0 43.4 Kyleigh l FINAL Petty Shay [facility] [place], [address] [facility] [address] [facility] 08/27 RDW-C V, % % 11.0 15.0 14.3 Kyleigh l FINAL Petty Shay [facility] [place], [address] [facility] [address] [facility] 08/27 MPV fL 9.0 12.0 11.1 Kyleigh l FINAL Petty Shay [facility] [place], [address] [facility] [address] [facility] 08/27 Christian % % 76.4 Automated Diff FINAL Petty Shay [facility] [place], [facility] [address] [facility] [address] [facility] 08/27 LY % % 19.2 FINAL Petty Shay [facility] [place], [address] [facility] [address] [facility] 08/27 MO % % 3.4 FINAL Petty Shay [facility] [place], [facility] [address] [facility] [address] Saji [facility] 08/27 EO % % 0.0 FINAL Petty Shay [facility] [place], [address] [facility] [address] Sajit [facility] 08/27 BA % % 0.1 FINAL Petty Shay [facility] [place], [address] [facility] [address] Sat [facility] 08/27 Christian # (ANC) k/uL 1.5 7.8 5.7 Kyleigh l FINAL Pettysandro [place] [facility] [place], [facility] [address] [facility] [address] Sat [facility] 08/27 LY # k/uL 0.9 3.9 1.4 Kyleigh l FINAL Petty Day [facility] [place] [address] [facility] [address] Sat [facility] 08/27 MO # k/uL 0.2 1.0 0.3 Kyleigh l FINAL Petty [place] [facility] [place] [address] [facility] [address] Sat [facility] 08/27 EO # k/uL 0.0 0.6 0.0 Kyleigh l FINAL Petty Day [facility] [place] [address] [facility] [address] [facility] 08/27 BA # k/uL 0.0 0.2 0.0 Kyleigh l FINAL Petty Day [facility] [place] [address] [facility] [address] Sat [facility] 08/27 IG % % 0.9 FINAL Petty Day [facility] [place] [address] [facility] [address] Sat [facility] 08/27 IG # k/uL 0.0 0.1 0.1 Kyleigh l FINAL Pettysandro Day [facility] [place] [address] [facility] [address] Sat [facility] 08/27 NRBC, % % 0.0 1.0 0.0 Kyleigh l FINAL Petty Shay [facility] [place] [address] [facility] [address] [facility] Medications Date Name Route Dose Frequency Instructions [...] concentration must be 0.3-1.2 mg/mL. Administer using Lto-[id number]-tydhf ining equipment and through an in-line 0.22 [...] Saturation 93.00 Notes Section * [facility] ([facility] LOCATION: [facility] PATIENT: PAMELA NUNEZ : [...] dissection, omental biopsy, lysis of adhesions. PAST ENGINEERING DRAFTER HISTORY: Patient is a female with a [...] or using illicit drugs.? ADVANCED DIRECTIVES: Location: [place] Name: PAMELA NUNEZ Brandi ACP Introduction* Date of ACP Introduction: [...] Decision Maker * Comments: Anthony Nunez * [phone] REVIEW OF SYSTEMS: A complete 10 systems [...] was 30 minutes including 16 minutes of [id number] time with the patient and 14 minutes [...] unspecified ) . Documentation assistance provided by anay Molinaing for Petty Day MD, on 08/27/2024. ??I, Petty Day MD, personally performed the services described in this documentation, and it is bothaccurate and complete. SEND COPY OF NOTE TO: Katalina Ruggiero DO (Referring) Palmira Costa MD (Referring) . Electronically signed by Petty Day MD 09/02/2024 22:01 MST
--- OUTSIDE RECORDS SUMMARY | 2025-07-14 13:35 | XMS_ITS | CCD ---
Author Name Interface, [id number] [address] Organization [facility] [place] [address] Care Team Providers Care Dealer Sales Manager Name Role Phone Petty Day MD Unavailable Unavailable Allergies and Adverse Reactions Medication/Group Name Reaction Severity Date Iodinated Contrast Media Sulfamide 08/27/2024 Care Plan Date Type Value 11/26/2024 APPOINTMENT LAB 15 MIN 11/26/2024 APPOINTMENT OV 15 MIN 08/27/2024 APPOINTMENT LAB 15 MIN 08/27/2024 APPOINTMENT OV 15 MIN 08/06/2024 APPOINTMENT LAB 15 MIN 08/06/2024 APPOINTMENT OV 20 MIN 08/06/2024 LAB_ORDER CA 125 panel 08/06/2024 LAB_ORDER CMP 08/06/2024 LAB_ORDER CBC w/ auto diff 11/25/2024 LAB_ORDER CA 125 panel 11/25/2024 LAB_ORDER CBC w/ auto diff 11/25/2024 LAB_ORDER CMP Reason for Visit OV 15 MIN Encounters Date Name 08/27/2024 Primary malignant ne oplasm of colon (disorder) Functional Status Date Name/Question Score/Answer 02/21/2013 Karnofsky performance status 80 01/09/2024 Karnofsky performance status 60 12/20/2023 Karnofsky performance status 80 12/12/2023 Karnofsky performance status 80 12/06/2023 Karnofsky performance status 80 09/20/2023 Karnofsky performance status 80 02/21/2024 Karnofsky performance status 70 01/31/2024 Karnofsky performance status 70 03/06/2024 Karnofsky performance status 70 05/07/2024 Karnofsky performance status 60 04/02/2024 Karnofsky performance status 70 01/30/2024 Karnofsky performance status 80 04/03/2024 Karnofsky performance status 70 08/27/2024 Karnofsky performance status 60 03/13/2024 Karnofsky performance status 70 11/08/2023 Karnofsky performance status 80 10/11/2023 Karnofsky performance status 70 Diagnostic Results Date Type Test Units Lower Limit Upper Limit Result Flag Comments Status Ordered By Specimen Source Lab Address 08/27 Christian # (ANC) k/uL 1.5 7.8 5.7 Kyleigh l FINAL Pettysandro Day [facility] [place] [address] [facility] [id number] [place] [address] 08/27 MCV fL 78.0 100.0 83.4 Kyleigh l FINAL Pettysandro Day [facility] [place] [address] [facility] [id number] [place] [address] 08/27 MO # k/uL 0.2 1.0 0.3 Kyleigh l FINAL Petty[place]andro Day [facility] [address] [facility] [address] [facility] 08/27 IG % % 0.9 FINAL Petty Day [facility] [place] [address] [facility] [address] [facility] 08/27 MO % % 3.4 FINAL Petty[place]andro Day [facility] [place] [address] [facility] [address] [facility] 08/27 IG # k/uL 0.0 0.1 0.1 Kyleigh l FINAL Petty[place]andro Day [facility] [address] [facility] [address] [facility] 08/27 EO # k/uL 0.0 0.6 0.0 Kyleigh l FINAL Petty Shay [facility] [place], [address] [facility] [address] [facility] 08/27 EO % % 0.0 FINAL Petty Shay [facility] [place], [address] [facility] [address] [facility] [place] 08/27 RBC m/mm3 3.7 5.4 5.00 Kyleigh l FINAL Petty Shay [facility] [place], [address] [facility] [address] [facility] [place] 08/27 MPV fL 9.0 12.0 11.1 Kyleigh l FINAL Petty Shay [facility] [place], [address] [facility] [address] [facility] [place] 08/27 NRBC, % % 0.0 1.0 0.0 Kyleigh l FINAL Petty Shay [facility] [place], [address] [facility] [address] [facility] 08/27 WBC k/mm3 4.0 11.0 7.5 Kyleigh l FINAL Petty Shay [facility] [place], [address] [facility] [address] [facility] 08/27 PLT k/mm3 130.0 450.0 255 Kyleigh l FINAL Petty Shay [facility] [place], [address] [facility] [address] [facility] 08/27 BA % % 0.1 FINAL Petty Shay [facility] [place], [address] [facility] [address] [facility] 08/27 BA # k/uL 0.0 0.2 0.0 Kyleigh l FINAL Petty Shay [facility] [place], [address] [facility] [address] [facility] 08/27 HGB g/dL 12.0 16.0 13.3 Kyleigh l FINAL Petty Shay [facility] [place], [address] [facility] [address] [facility] 08/27 RDW-S D fL 38.0 49.0 43.4 Kyleigh l FINAL Petty Shay [place] [facility] [place], [address] [facility] [address] [facility] 08/27 RDW-C V, % % 11.0 15.0 14.3 Kyleigh l FINAL Petty Shay [facility] [place], [facility] [address] [facility] [address] [facility] 08/27 LY % % 19.2 FINAL Petty Shay [facility] [place], [facility] [address] [facility] [id number] [place] [address] 08/27 MCH pg 27.0 34.0 26.6 Low FINAL Pettysandro Day [facility] [place] [address] [facility] [address] [facility] 08/27 LY # k/uL 0.9 3.9 1.4 Kyleigh l FINAL Petty Shay [facility] [place], [facility] [address] [facility] [address] [facility] 08/27 MCHC g/dL 31.0 37.0 31.9 Kyleigh l FINAL Petty Shay [facility] [place] [address] [facility] [address] [facility] 08/27 HCT % 35.0 48.0 41.7 Kyleigh l FINAL Petty Shay [facility] [place] [address] [facility] [id number] [place] [address] 08/27 Christian % % 76.4 Automated Diff FINAL Petty Shay [facility] [place] [address] [facility] [id number] [place] [address] 08/27 CA 125 U/mL 19 Kyleigh l [...] assay value canbe excluded. FINAL Petty Davis [place] [address] [facility] [id number] [place] [address] 08/27 GFR non-A frica n [place] can, estim ated mL/min /1.73m 2 37 Low eGFRcr calculate d using the CKD-EPI 2020 equation FINAL Petty Day [place] [address] [facility] [id number] [place] [address] 08/27 Alkal ine phosp hatas e IU/L 42.0 146.0 108 Kyleigh l FINAL Petty Davis [place] [address] [facility] [id number] [place] [address] 08/27 Calci um mg/dL 8.7 10.4 10.4 Kyleigh l FINAL Petty Davis [place] [address] [facility] [id number] [place] [address] 08/27 ALT/S GPT IU/L 5.0 46.0 21 Kyleigh l FINAL Petty Davis [place] [address] [facility] [id number] [place] [address] 08/27 Anion gap 4.0 18.0 12.0% Kyleigh l FINAL Petty Day [place] [address] [facility] [id number] [place] [address] 08/27 CO2 mmol/L 20.0 31.0 25 Kyleigh l FINAL Petty Day [place] [address] [facility] [address] [facility] 08/27 A/G ratio , SPE 1.3 2.7 1.4% Kyleigh l FINAL Pet[place]andro [place] [facility] [place] [address] [facility] [address] [facility] 08/27 Gluco se mg/dL 70.0 99.0 285 High Glucose reference range reflects fasting state. FINAL Petty Day [facility] [place] [address] [facility] [address] [facility] 08/27 Globu maribel g/dL 1.7 3.3 3.4 High FINAL Petty Day [facility] [place] [address] [facility] [id number] [place] [address] 08/27 Chlor ron mmol/L 95.0 109.0 103 Kyleigh l FINAL Petty Day [facility] [place] [address] [facility] [address] [facility] 08/27 Total prote in g/dL 6.0 7.7 8.2 High FINAL Pettysandro Dya [facility] [place] [address] [facility] [address] [facility] 08/27 BUN mg/dL 8.0 36.0 41 High FINAL Petty Day [facility] [place] [address] [facility] [address] [facility] 08/27 Creat inine mg/dL 0.51 1.08 1.44 High FINAL Pettysandro Day [facility] [place] [address] [facility] [address] [facility] 08/27 AST/S GOT IU/L 11.0 40.0 21 Kyleigh l FINAL Pettysandro Day [facility] [place] [address] [facility] [address] [facility] 08/27 Album in g/dL 3.8 5.1 4.8 Kyleigh l FINAL Petty Shay [place] [facility], [address] [facility] [address] [facility] 08/27 Bilir ubin, total mg/dL 0.3 Kyleigh l FINAL [facility]ty [facility] [place] [facility], [address] [facility] [address] [facility] 08/27 Sodiu m mmol/L 135.0 145.0 141 Kyleigh l FINAL Petty Davis [place] [facility], [address] [facility] [address] Sat [place] 08/27 BUN/C reati nine ratio 10.0 28.0 28.5% High FINAL Petty Day [place] [facility], [address] [facility] [address] Sat Ghul[place] 08/27 Potas sium mmol/L 3.6 5.3 5.0 Kyleigh l FINAL Petty Day [place] [facility], [address] [facility] [address] [facility] Medications Date Name Route Dose Frequency Instructions Start Date End Date Status Fill Status Indication 09/21 Losarta n Oral orally 100.0 mg daily active 09/21 Montelu kast Oral oral 1.0 tablet daily active 09/21 Prednis one Oral oral 1.0 daily active 09/21 Ezetimi be Oral oral 1.0 tablet QD active 09/21 Budeson ron-For moterol HFA Inhaler 160 mcg-4.5 mcg/act uation 2.0 HFA aeroso l inhale r BID active 09/21 Amlodip ine Oral orally 5.0 mg daily active 09/21 Albuter ol AEPB Inhaler 90 mcg/act uation active 09/21 Rivarox aban Oral oral 2.0 tablet daily active 09/21 Insulin Aspart Subcuta neous active 09/21 Hydroxy zine HCl Oral oral 1.0 tablet daily active 09/21 Aspirin Oral orally 81.0 mg daily active 09/21 Lorazep am Oral orally 1.0 mg 2 times per day active 09/21 Potassi um Chlorid e Oral ER Tab oral 2.0 tablet extend ed releas e QD active 09/21 Zolpide m Oral Tablet oral 1.0 tablet daily active 09/21 Rosuvas tatin Calcium Oral orally 40.0 mg daily active 09/21 Pregaba marible Oral oral 3.0 capsul e daily active 09/21 Famotid ine Oral oral 1.0 tablet QD active 09/21 Fenofib rate Oral oral 1.0 tablet daily active 09/21 Sertral ine Oral oral 1.0 capsul e daily active 09/21 Triamte denis-Hy drochlo rothiaz ron Oral Capsule 37.5 mg-25 mg oral 1.0 capsul e every 4th day active 09/21 Dapagli flozin Oral orally 10.0 mg daily active 09/20 Miscell aneous Drug PATIENT WILL FAX LIST LATER. FORGOT MEDICATION LIST inactive 09/21 Metopro lol Oral 24 hr Tab (Succin ate) oral 1.0 tablet extend ed releas e 24 hr daily active 09/21 Ondanse nathalie Oral oral 1.0 tablet PRN active 09/21 Omepraz ole Oral Delayed Release Capsule oral 1.0 daily active 09/21 Tiotrop ium Inhaler 18 mcg active 09/21 Tezepel umab-ek ko Subcuta neous subcuta neously 210.0 every 4 weeks active 10/30 triamci nolone acetoni de 1 MG/ML Topical Cream 2024 active 04/11 Omepraz ole Oral Delayed Release Capsule PO 1.0 CAPSUL E(S), ENTERI C COATED daily 02/21 inactive 04/11 Choleca lcifero l Oral PO 1.0 TABLET (S) daily 02/21 inactive 04/11 Multivi tamins Oral Tablet PO 1.0 TABLET (S) daily 02/21 inactive 09/04 /2021 Montelu kast Oral PO 10.0 MG daily 02/21 inactive 04/11 Sitagli ptin Oral PO 2.0 TABLET (S) as directed 02/21 inactive 04/11 Simvast atin Oral PO 1.0 TABLET (S) daily 02/21 inactive 04/11 Cholest yramine Oral PO 1.0 PACKET (S) as directed 02/21 inactive 04/11 Triamte denis-Hy drochlo rothiaz ron Oral Capsule 37.5 mg-25 mg PO 1.0 CAPSUL E(S) daily 02/21 inactive 04/11 Mesalam ine Oral PO 1.0 TABLET (S), ENTERI C COATED daily 02/21 inactive 04/11 Vitamin E Topical Oil PO 5.0 ML as directed 02/21 inactive 04/11 Lipase- Proteas e-Amyla se Oral Delayed Release 6,000-1 9,000-3 0,000 unit PO 1.0 CAPSUL E(S), ENTERI C COATED With Meals 02/21 inactive 04/11 Prednis one Oral PO 1.0 TABLET (S) as directed 02/21 inactive 04/11 Zolpide m Oral Tablet PO 1.0 TABLET (S) QHS PRN sleep 02/21 inactive 04/11 Losarta n Oral PO 1.0 TABLET (S) BID 02/21 inactive 04/11 Lorazep am Oral PO 1.0 TABLET (S) Q4H PRN nausea 02/21 inactive 04/11 Budeson ron-For moterol HFA Inhaler 80 mcg-4.5 mcg/act uation By inhalat ion 1.0 INHALA TION(S ) as directed 02/21 inactive 04/11 Rabepra zole Oral PO 1.0 TABLET , ENTERI C COATED daily 02/21 inactive 04/11 Vitamin A Oral PO 1.0 CAPSUL E(S) daily 02/21 inactive 04/11 Pioglit azone-M etformi n Oral 15 mg-500 mg PO 1.0 TABLET (S) daily 02/21 inactive 04/11 Folic Acid Oral PO 1.0 TABLET (S) daily 02/21 inactive 04/11 Albuter ol HFA Inhaler 90 mcg/act uation By inhalat ion 2.0 INHALA TION(S ) as directed 02/21 inactive 04/11 Dipyrid amole-A spirin Oral ER Cap 200 mg-25 mg PO 1.0 CAPSUL E, SUSTAI DANILO RELEAS E 12 HR daily 02/21 inactive 04/11 [place]-3 Fatty Acids-V itamin E Oral 1,000 mg PO 1.0 CAPSUL E(S) daily 02/21 inactive 04/11 Ezetimi be Oral PO 1.0 TABLET (S) daily 02/21 inactive 04/11 Aspirin Oral PO 1.0 TABLET (S) daily 02/21 inactive Problems Diagnosis Status Date of [...] Name Instructions Status 08/06/2024 Physician Order RTC LEPIDOPTERIST Ordered 08/06/2024 Physician Order RTC labs Ordered [...] 93.00 Notes Section * Follow Up (lester emerson) <html><head></head><body>

<div style= text-align:center ><span class= clinicalNoteMacroHighlighted id= [id number] macroname= PracticeLetterhead spantype= macro title= #PracticeLetterhead ><img height= 83 src= [email or web address] width= 520 ></span>

</div><div>
<div><strong>LOCATION</strong>: <span class= clinicalNoteMacroHighlighted id= [id number] macroname= MyLocation spantype= macro title= #MyLocation >[facility]</span>
</div><strong>PATIENT</strong>: <span class= clinicalNoteMacroHighlighted id= [id number] macroname= PatientName spantype= macro title= #PatientName >PAMELA NUNEZ</span><div><strong>MRN</strong>: <span class= clinicalNoteMacroHighlighted id= [id number] macroname= PatientMRN spantype= macro title= #PatientMRN >[id number]</span></div><div><strong></strong>: <span class=&quot ;clinicalNoteMacroHighlighted id= [id number] macroname= PatientDat eOfBirth spantype= macro title= #PatientDateOfBirth >1945</sp an>
<strong>ATTENDING PHYSICIAN</strong>: <span class= clinicalNoteM acroHighlighted id= [id number] macroname= AttendingPhysician parameters= ShowSpecialty:No spantype= macro title= #AttendingPhysician( ShowSpecialty:No) >Petty Day</span>

</div><div><strong>DATE of SERVICE </strong>: 08/27/2024</div>

<span class= clinicalNoteSectionShowSeparators clinicalNoteSectionVisible id= [id number] internalbreaksection= false originalname= Chief Complaint" recognizeconcepts= true spantype= section suppressempty= true >REASON FOR VISIT:</span>
Surveillance exam.

<span class= clinicalNoteSectionShowSeparators clinicalNoteSectionVisible id= [id number]" internalbreaksection= false originalname= Principal Diagnosis recognizec oncepts= true spantype= section suppressempty= true >PRINCIPAL DI AGNOSIS:</span>
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
Histologic Grade : G3; ICD-10:C57.01 ;Malignant neoplasm of right fallopian tube )</li> <li>Primary malignant neoplasm of colon (disorder) ( Stage Date: 02/21/2013, Stage I (Primary, Ascending colon, T1, N0, M0)-Pathological
Date of Dx:01/2013 Extent of Disease: No evidence of disease; Histopathologic Type: Adenocarcinoma; Histologic Grade: G1; KRAS Mutation: Unknown; MSI (Microsatellite Instability): Unknown; EGFR Expression: Unknown; First record:02/21/2013 Last record:02/21/2013; ICD-10:C18.9 ;Malignant neoplasm of colon, unspecified )</li></ul></span>
<span class= clinicalNoteSectionShowSeparators clinicalNoteSectionVisible id= [id number] internalbreaksection= false originalname= Diagnosis Notes recognizeconcepts= true spantype= section suppressempty= true >DIAGNOSIS:*</span>
<span class= clinicalNoteSectionShowSeparators clinicalNoteSectionVisible id= [id number] internalbreaksecti on= false originalname= Treatment History recognizeconcepts= true s pantype= section suppressempty= true >TREATMENT HISTORY:</span>
<span class= clinicalNoteMacroHighlighted id= [id number] macr oname= Regimens parameters= ShowPRNMedications:No,ShowPreMedications:No,RegimenFormat:Bulleted spantype= macro title= #Regimens(ShowPRNMedications:No,ShowPreMedic ations:No,RegimenFormat:Bulleted) >Paclitaxel + Carboplatin Q21D (Ovarian) Cycle Length: 21Number Cycles: 6 Start: C1D1 on 12/20/2023 Assoc Dx: Malignant tumor of fallopian tube LOT: Adjuvant Stage: FIGO IIA 12/20/2023 C2 D1
<ul> <li>Paclitaxel IV, HELD: 222 mg (135 mg/m2), Dose modified</li> <li>Carboplatin IV, mg, Dose modified</li></ul></span>
<span class= clinicalNoteSectionShowSeparators clinicalNoteSectionVisible id= [id number] internalbreaksection= false origin alname= Treatment Notes recognizeconcepts= true spantype= section s uppressempty= true >TREATMENT HISTORY:*</span>
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
<strong>a. Diagnosis 11/03/2023 with laparoscopic left salpingo-oophorectomy, robotic-assisted laparoscopic hysterectomy, right salpingo-oophorectomy, pelvic lymph node dissection, omental biopsy and lysis of adhesions.
b. Preoperative CA-125 level of 89.</stron g>
<strong>c. BRCA negative. Folate receptor 1 positive, HER-2 negative, HRD negative. MSI stable. Mismatch repair proficient. TMB low.
d. Adjuvant carboplatin and paclitaxel for 6 cycles 12/20/2023 - 04/03/2024. Paclitaxel held with cycle #6 secondary to peripheral neuropathy.</strong>

<span class= clinicalNoteSectionShowSeparators clinicalNoteSectionVisible id= [id number] internalbreaksection= false originalname= HPI recognizeconcepts= true spantype= section suppressempty= true >HISTORY OF PRESENT ILLNESS: </span>
Ms. Pamela Nunez is a 79-year-old female presenting today for a surveillance exam.

Since her last visit, she reports doing well.

She noticed an episode of bleeding today when she went to the bathroom. She also reports vulvar itching. She has not been using the triamcinolone cream very often. She is concerned with its useand the appropriate method to use it.

She is being followed up by a doctor for her neuropathy in her legs. She mentions that she has a follow up with the doctor in 3-4 weeks.

She is unsure about her abdominal pain, as she had ulcerative colitis surgery in the past. She denies any recent surgeries.

Her bowel movements are stable. Her appetite is normal. She endorses vomiting secondary to her heartburn issues. She reports taking omeprazole to help manage her heartburn issues.

<span clas s= clinicalNoteSectionShowSeparators clinicalNoteSectionVisible id= [id number] internalbreaksection= false originalname= Allergies recognizeconcepts= true spantype= section suppressempty= true >ALLERGIES:</span>
<span class= clinicalNoteMacroHighlighted id= [id number] macroname= Allergies parameters= ListType:Bulleted,ValueIfNull:No Known Allergies spantype= macro title= #Allergies(ListType:Bulleted,ValueIfNull:No Known Allergies) ><ul> <li>Iodinated Contrast Media</li> <li>Sulfam ron</li></ul></span>
<span class= clinicalNoteSectionShowSeparators clinicalNoteSectionVisible id= [id number] internalbreaksection="false originalname= Medications recognizeconcepts= true spantype="section suppressempty= true >MEDICATIONS:</span>
<span class= clinicalNoteMacrPRighlighted id= [id number] macroname= Lisa entMedications parameters= ListType:Bulleted,ValueIfNull:No Known Medications spantype= macro title= #PatientMedications(ListType:Bulleted,ValueIfNull:No Known Medications) ><ul> <li>Amlodipine Oral 5 mg orally daily</li> <li>Cozaar (Losartan Oral) 100 mg orally daily</li> <li>Ondansetron Oral 1 tablet oral PRN</li> <li>Zetia (Ezetimibe Oral) 10 mg tablet 1 tablet oral QD</li> <li>Triamcinolone Topical Cream 0.1 % 0.1 % cream 1 application topically 2 times per day. Use as needed for itching</li> <li>Ativan (Lorazepam Oral) 1 mg orally 2 times per day</li> <li>dexamethasone 4 mg tablet TAKE FIVE TABLETS BY MOUTH 12 AND 6 HOURS PRIOR TO PACLITAXEL DIRECTED</li> <li>Dexamethasone Oral 4 mg tablet 5 tablet orally As Directed. Take 5 tablets p.o. 12 and6 hours prior to paclitaxel.</li> <li>Ambien (Zolpidem Oral Tablet) 10 mg tablet 1 tablet oral daily</li> <li>Aspirin Oral 81 mg orally daily</li> <li>Crestor (Rosuvastatin Calcium Oral) 40 mg orally daily</li> <li>Potassium Chloride Oral ER Tab 20 mEq tablet extended release 2 tablet extended release oral QD</li> <li>Tezspire (Tezepelumab-ekko Subcutaneous) subcutaneously every 4 weeks</li> <li>Zoloft (Sertraline Oral) 150mg capsule 1 capsule oral daily</li> <li>Gabapentin Oral 100 mg capsule 1 capsule orally every day at bedtime.</li> <li>Olanzapine Oral 2.5 mg tablet 2.5 mg orally As Directed. Take 1 tablet p.o. nightly for 4 days starting Day 1 of chemotherapy for nausea.</li> <li& gt;Farxiga (Dapagliflozin Oral) 10 mg orally daily</li> <li>Prednisone Oral 5 mg tabletoral daily</li> <li>Pregabalin Oral 75 mg capsule 3 capsule oral daily</li> <li>Fenofibrate Oral 160 mg tablet 1 tablet oral daily</li> <li>Singulair (Montelukast Oral) 10 mg tablet 1 tablet oral daily</li> <li>Triamterene-Hydrochlorothiazide Oral Capsule 37.5 mg-25 mg 1 capsule oral every 4th day</li> <li>Hydroxyzine HCl Oral 25 mg tablet 1 tablet oral daily</li> <li>Metoprolol Oral 24 hr Tab (Succinate) 1 tablet extended release 24 hr oral daily</li> <li>Omeprazole Oral Delayed Release Capsule 20 mg capsule,delayed release(DR/EC) oral daily</li> <li>Pepcid (Famotidine Oral) 20 mg tablet 1 tablet oral QD</li> <li>Xarelto (Rivaroxaban Oral) 2.5 mg tablet 2 tablet oral daily</li> <li>Novolog (Insulin Aspart Subcutaneous)</li> <li>Proair Digihaler (Albuterol AEPB Inhaler 90 mcg/actuation)</li> <li>Spiriva (Tiotropium Inhaler 18 mcg)</li> <li>Symbicort (Budesonide-Formoterol HFA Inhaler 160 mcg-4.5 mcg/actuation) 2 HFA aerosol inhaler BID</li></ul></span>
Medications reviewed and reconciled with patient.& amp;nbsp;

<span class= clinicalNoteSectionShowSeparators clinicalNoteSect ionVisible id= [id number] internalbreaksection= false orig inalname= Past Medical History recognizeconcepts= true spantype= section" suppressempty= true >PAST MEDICAL HISTORY:</span>
<ol> <li>Colon cancer.</li> <li>Stroke X2.</li> <li>Hypertension.</li> <li>Diabetes.</li> <li>Asthma.</li> <li>Arthritis.</li> <li>Ulcerative colitis.</li></ol>
<span class= clinicalNoteSectionShowSeparators clinicalNoteSectionVisible id= [id number] internalbreaksection="false originalname= Surgical History recognizeconcepts= true spantype= section suppressempty= true >PAST SURGICAL HISTORY:</span>
<span class= clinicalNoteMacroHighlighted id= [id number] ma croname= Surgeries parameters= LookBackDays:All,ListType:Bulleted spantype=&qu ot;macro title= #Surgeries(LookBackDays:All,ListType:Bulleted) > &nb sp; </span>
<span class= clinicalNoteSectionShowSeparators clinicalN oteSectionVisible id= [id number] internalbreaksection= false&quo t; originalname= Surgical History Notes recognizeconcepts= true spantype=&quot ;section suppressempty= true >PAST SURGICAL HISTORY:*</span>
<ol> <li>Right hemicolectomy with on-block subtotal colectomy and ileorectal anastomosis, January 2013.</li> <li>Tonsillectomy.</li> <li>Laparoscopic left salpingo-oophorectomy, robotic-assisted laparoscopic hysterectomy, right salpingo-oophorectomy, pelvic lymph node dissection, omental biopsy, lysis of adhesions.</li></ol><span class= clinicalNoteSectionShowSeparators clinicalNoteSectionVisible id= [id number] internalbreaksection= false originalname= Past Obstetrical and Gynecologic History recognizeconcepts= true spantype= section suppressempty= true >PAST JAZZ MUSICIAN HISTORY:</span>
Patient is a female with a history of 2 vaginal deliveries.

<span class= clinicalNoteSectionShowSeparators clinicalNoteSectionVisible id= [id number]" internalbreaksection= false originalname= Family History recognizeconcepts= true spantype= section suppressempty= true >FAMILY HISTORY:</span>
<span class= clinicalNoteMacroHblue mountain hospitaled id= [id number] macroname= FamilyHistory parameters= ListType:Bulleted,ShowComments:Yes spantype= macro title= #FamilyHistory(ListType:Bulleted,ShowComments:Yes)&quo t;> </span>

<span class= clinicalNo teSectionShowSeparators clinicalNoteSectionVisible id= [id number] internalbreaksection= false originalname= Family History Notes recognizeconcepts= true spantype= section suppressempty= true >FAMILY HISTORY:*</span>
Mother - Ovarian cancer which metastases to colon (diagnosed at age 78).
Daughter - Breast Cancer (diagnosed at age 53).
Sister - Omentum cancer (diagnosed in 70s).
Sister - Pancreatic cancer (diagnosed at age 78). &n bsp;

<span class= clinicalNoteSectionShowSeparators clinicalNoteSectionVi sible id= [id number] internalbreaksection= false originaln kelly= Social History recognizeconcepts= true spantype= section suppr essempty= true >SOCIAL HISTORY:</span>
<span class= clinicalNote MacroHighlighted id= [id number] macroname= PatientSmokingStatus&quo t; parameters= Label:Smoking Status spantype= macro title= #PatientSmokin gStatus(Label:Smoking Status) >Smoking Status Smoking Tobacco : Former smoker; Smokeless Tobacco : Never used smokeless tobacco; Vaping : Never vaped</span>

<span class= clinicalNoteSectionShowSeparators clinicalNoteSectionVisible id= [id number] internalbreaksection= false originalname= SOCIAL HISTORY:* recognizeconcepts= true spantype= section suppressempty= true >SOCIAL HISTORY:*</span>
She is . Patient was a former smoker. She smok ed for 1.5 years when she was 18 years old. She denies consuming alcohol or using illicit drugs.

<span class= clinicalNoteSectionShowSeparators clinicalNoteSectionVisible id= [id number] internalbreaksection= false originalname= ADVANCED DIRECTIVES: recognizeconcepts= true spantype= section suppressempty= true >ADVANCED DIRECTIVES:</span>
<span class= clinicalNoteMacroHighlighted id= [id number] macroname= AdvanceCarePlanning spantype= macro title= #AdvanceCare Planning ><strong>Location: [place]</strong>
<strong>MRN: [id number]</strong>
<strong>Name: PAMELA NUNEZ V</strong>
<strong>ACP Introduction</strong><ul> <li>Date of ACP Introduction: 08/27/2024</ li></ul><strong>Level of Patient Interest in ACP</strong><ul> <li>Introduced to ACP - Do Not Discuss Further</li></ul><strong>ACP Counseling</strong><ul> <li>Date of ACP counselin11/09/2023</li></ul><strong>Patient Education Resources</strong><ul> <li>Overview</li></ul><strong>Future ACP Counseling</strong><ul> <li>Date for return to ACP Eligibility: 04/11/2024</li> <li>No future ACP counseling needed at this time : Remove from ACP Eligibil ity</li></ul><strong>Code Status</strong><ul> <li>Full Code</ li></ul><strong>Advance Directive Documents</strong><ul> <li>Yes (Attached to EHR)</li> <li>Comments: Patient brought a copy to the clinic on 10/13/2023</ li></ul><strong>Surrogate Decision Maker</strong><ul> <li>Patient Designates a Surrogate Decision Maker</li> <li>Comments: Anthony Nunez</li> < li>[phone]</li></ul></span>

<span class=&quot ;clinicalNoteSectionShowSeparators clinicalNoteSectionVisible id= [id number] internalbreaksection= false originalname= Review of Systems recognizeconcepts= true spantype= section suppressempty= true >REVIEW OF SYSTEMS:</span>
A complete 10 systems review completed and negative except for those mentioned in the history of present illness or below.

<span class= clinicalNoteSectionShowSeparators clinicalNoteSectionVisible id= [id number] i nternalbreaksection= false originalname= Vitals/Performance Status recognizeco ncepts= true spantype= section suppressempty= true >VITALS/PERFORMANCE STATUS:</span>
<strong>Performance Status: </strong><span class= clinicalNoteMacroHighlighted id= [id number] macroname=& quot;KarnofskyStatus parameters= Label:Karnofsky,ValueIfNull:Not Assessed spantype= macro title= #KarnofskyStatus(Label:Karnofsky,ValueIfNull:Not Assessed) >Chong 60% Requires occasional assistance, but is able to care for most of his/her needs. (Date: 05/07/2024)</span>
<strong>Vital Signs: </strong><span class="clinicalNoteMacroHighlighted id= [id number] macroname= PatientHeight parameters= Label:Height:,LookBackDays:0,ValueIfNull:None Today spantype=&q uot;macro title= #PatientHeight(Label:Height:,LookBackDays:0,ValueIfNull:None Today)">Height: 60 in</span>; <span class= clinicalNoteMacroHighlighted id= [id number] macroname= PatientWeight parameters= Label:Weight:,LookBackDays:0,ValueIfNull:None Today spantype= macro title= #PatientWeight(Label:We ight:,LookBackDays:0,ValueIfNull:None Today) >Weight: 138.4 lb</span>; <span class= clinicalNoteMacroHighlighted id= [id number] macroname= PatientVitalSigns parameters= LookBackDays:0,Verbosity:Medium spantype= macro" title= #PatientVitalSigns(LookBackDays:0,Verbosity:Medium) >Blood pressure: 149/75, Pulse: 76, Temperature: 97.8 F, Respirations: 20, Pain Scale: 5</span>
<strong>Depression Screening: </strong><span class= clinicalNoteMacroHighlighted id= [id number] macroname= DepressionStatus spantype= macro" title= #DepressionStatus >Was screened; Outcome positive: No; Screening Date: 08/27/2024; Screening Tool: Patient Health Questionnaire (PHQ9); Total depression score: 2</span>&l t;br>
<span class= clinicalNoteSectionShowSeparators clinicalNoteSectionVisible" id= [id number] internalbreaksection= false originalname="Physical Exam recognizeconcepts= true spantype= section suppressempty= true >PHYSICAL EXAM:</span>
General: She is an alert female in no acute distress.
HEENT: Sclerae are anicteric, nares are patent.
Neck: Trachea is midline, thyroid is not enlarged.
Chest: Clear to auscultation bilaterally. <br&gt ;Cardiovascular Exam: Normal S1-S2 with regular rate and rhythm.
Abdomen: Soft, nontender, nondistended. No organomegaly, no CVA tenderness. No palpable hernia.
Extremities: No edema, nontender.
Lymph Node Survey: Negative.
Skin Exam: No visible lesions.
Pelvic Exam: The white discoloration of the external genitalia appears mildly improved. There is persistent agglutination of the periclitoral tissues with a fissure in the midlinesuperior to the clitoris. There is a small ulceration involving the right posterior labium majus. The vagina is without evidence of bleeding or discharge. On bimanual exam, the bladder and urethra are nontender. The vagina is smooth. There is no palpable mass. On rectovaginal exam, there is no cul-de-sac nodularity. No palpable rectal lesion. Stool guaiac is negative.

<span class= clinicalNoteSectionShowSeparators clinicalNoteSectionVisible id= [id number] internalbreaksection= false originalname= Lab recognizeconcepts= true spantype= section suppressempty= true >LAB:& lt;/span>
<span class= clinicalNoteMacroHighlighted id= [id number] macroname= RecentLabResultsTable parameters= OptionalFlowsheetCatego ry:CBC,Label:CBC,ValueIfNull:None Today spantype= macro title= #RecentLabResul tsTable(OptionalFlowsheetCategory:CBC,Label:CBC,ValueIfNull:None Today) >CBC<table border= 1 style= width:100% > <tbody> <tr> <th align= left">LabResults</th> <td>07/11/2024</td> <td>05/07/2024</td> <td&g t;04/30/2024</td> <td>04/02/2024</td> <td>03/12/2024</td> <td>02/20/2024</td> </tr> <tr> <th align= left > CBC</th> <td>
</td> <td>
</td> <td>
</td> <td>
</td> <td>
</td> <td>
</td> </tr> <tr> <td> WBC x 10^3/uL</td> <td>
</td> <td>7.1</td> <td>
</td> <td>6.3</td> <td>9.6</td> <td>7.2</td> </tr> <tr> < td> RBC x 10^6/uL</td> <td>
</td> <td>3.92</td> <td>
</td> <td>4.10</td> <td>4.15</td> <td>4.00</td> </tr> <tr> <td> NRBC, %</td> <td>
</td> <td>0.3</td> <td>
</td> <td>0.0</td> <td>0.1</td> <td>0.6</td> </tr> <tr> <td> HGB g/dL</td> <td>
</td> <td>10.6 (L)</td> <td>
</td> <td>10.8 (L)</td> <td>10.8 (L)</td> <td>10.6 (L)</td> </tr> <tr> <td> HCT %</td> <td>
</td> <td>35.1</td> <td>
</td> <td>35.8</td> <td>34.7 (L)</td> <td>34.1 (L)</td> </tr> <tr> <td> MCV fL</td> <td>
</td> <td>89.5</td> < td>
</td> <td>87.3</td> <td>83.6</td> <td>85.3</td> </tr> <tr> <td> MCH pg</td> <td>
</td> <td>27.0</td> <td>
</td> <td>26.3 (L)</td> <td>26.0 (L)</td> <td>26.5 (L)</td> </tr> <tr> <td> MCHC g/dL</td> <td>
</td> <td>30.2 (L)</td> <td>
</td> <td>30.2 (L)</td> <td>31.1</td> <td>31.1</td> </tr> <tr> <td> RDW-CV, %</td> <td>
</td> <td>16.5 (H)&l t;/td> <td>
</td> <td>16.5 (H)</td> <td>17.5 (H)</td> <td>17.1 (H)</td> </tr> <tr> <td> RDW-SD fL</td> <td>
</td> <td>54.3 (H)</td> <td>
</td> <td>52.5 (H)</td> <td>52.7 (H)</td> <td>52.3 (H )</td> </tr> <tr> <td> PLT x 10^3/uL</td> <td>
</td> <td>335</td> <td>
</td> <td>240</td> <td>216</td> <td>353</td> </tr> <tr> <td> MPV fL</td> <td>
</td> <td>11.0</td> <td>
</td> <td>10.3</td> <td>11.1</td> <td>10.7</td> </tr> <tr> <td> &nbs p; Christian %</td> <td>
</td> <td>48.4</td> <td>
</td> <td>51.1</td> <td>64.9</td> <td>48.3</td></tr> <tr> <td> LY %</td> <td>
</td> <td>25.7</td> <td>
</td> <td>25.7</td> <td>18.9</td> <td>21.0</td> </tr> <tr> <td> MO %</td> <td>
</td> <td>20.7</td> <td>
</td> <td>16.5</td> <td>12.7</td> <td>15.6</td> </tr> <tr> <td> EO %</td> <td>
</td> <td>2.3</td> <td>
</td> <td>1.3</td> <td>2.0</td> <td>2.4</td> </tr> <tr> &lt ;td> IG %</td> <td>
</td> <td>1.8</td> <td>
</td> <td>4.4</td> <td>0.7</td> <td>11.6</td> </tr> <tr> <td> &nb sp;Christian # (ANC) x 10^3/uL</td> <td>
</td> <td>3.4</td> <td>
</td> <td>3.2</td> <td>6.2</td> <td>3.5</td> </tr> <tr> <td> BA %</td> <td>
</td> <td>1.1</td> <td>
</td> <td>1.0</td> <td>0.8</td> <td>1.1</td> </tr> <tr> <td> MO # x 10^3/uL</td> <td>
</td> <td>1.5 (H)</td> <td>
</td> <td>1.0</td> <td>1.2 (H)</td> <td>1.1 (H)</td> </tr> <tr> <td> EO # x 10^3/uL</td> <td>
</td> <td>0.2</td> <td>
</td> <td>0.1</td> <td>0.2</td> <td>0.2</td> </tr> <tr> <td> BA # x 10^3/uL</td> <td>
</td> <td>0.1</td> <td>
</td> <td>0.1</td> <td>0.1</td> <td>0.1</td> </tr> <tr> <td>&am p;nbsp; IG # x 10^3/uL</td> <td>
</td> <td>0.1</td> <td>
</td> <td>0.3 (H)</td> <td>0.1</td> <td>0.8 (H)</td> </tr> <tr> <td> LY # x 10^3/uL</td> <td>
</td> <td>1.8</td> <td >
</td> <td>1.6</td> <td>1.8</td> <td>1.5</td> </tr> </tbody></table></span>
<span class= clinicalNoteMacroHighlighted id= [id number] macroname= RecentLabResultsTable" parameters= OptionalFlowsheetCategory:Chemistries,Label:Chemistries,ValueIfNull: None Today" spantype= macro title= #RecentLabResultsTable(OptionalFlowsheetCategory:Clubhouse Attendant rossana,Label:Chemistries,ValueIfNull:None Today) >Chemistries<table border= 1 st yle= width:100% > <tbody> <tr> <th align= left >LabResults</th> <td>07/11/2024</td> <td>05/07/2024</td> <td>04/30/2024</td> <td>04/02/2024</td> <td>03/12/2024</td> <td>02/20/2024</td> </tr> <tr> <th align= left > Chemistries</> <td>
</td> <td>
</td> <td>
</td> <td>
</td> <td>
</td> <td>
</td></tr> <tr> <td> Glucose mg/dL</td> <td>
</td> <td>173 (H)</td> <td>
</td> <td>142 (H)</td> <td>194 (H)</td> <td>156 (H)</td> </tr> <tr> <td> BUN mg/dL</td> <td>
</td> <td>20</td> <td>
</td> <td>32</td> <td>27</td> <td>24</td> </tr> <tr> <td> Creatinine mg/dL</td> <td>
</td> <td>1.39 (H)</td> <td>
</td> <td>1.26 (H)</td> <td>1.26 (H)</td> <td>1.34 (H)</td> </tr> <tr> <td> BUN/Creatinine ratio</td> <td>
</td> <td>14.4</td> <td>
</td> <td>25.4</td> <td>21.4</td> <td>17.9</td> & lt;/tr> <tr> <td> Sodium mmol/L</td> <td>
</td> <td>142</td> <td>
</td> <td>142</td> <td>141</td> <td>139</td> </tr> <tr> <td> Potassium mmol/L</td> <td>
</td> &lt ;td>4.6</td> <td>
</td> <td>4.5</td> <td>3.8</td> <td>4.4</td> </tr> <tr> <td> Chloride mmol/L</td> <td>
</td> <td>107</td> <td>
</td> <td>108</td> <td>103</td> <td>104</td> </tr> <tr> <td> CO2 mmol/L</td> <td>
</td> <td>24</td> <td>
</td> <td>22</td> <td>23</td> <td>23</td> </tr> <tr> <td> &amp ;nbsp; Anion gap</td> <td>
</td> <td>11</td> <td>
</td> <td>13</td> <td>14</td> <td>12</td> </tr> <tr> <td> Calcium mg/dL</td> <td>
</td> <td>9.4</td> <td>
</td> <td>9.6</td> <td>9.7</td> <td>9.6</td> </tr> <tr> < td> Albumin g/dL</td> <td>
</td> <td>4.2</td> <td>
</td> <td>4.3</td> <td>4.4</td> <td>4.1</td> </tr> <tr> <td> Total protein g/dL</td> <td>
</td> <td>6.6</td> <td>
</td> <td>6.6</td> <td>7.0</td> <td>6.7</td> </tr> <tr> <td> Globulin g/dL</td> <td>
</td> <td>2.4</td> <td>
</td> <td>2.3</td> <td>2.6</td> <td>2.6</td> </tr> <tr> <td&g t; Bilirubin, total mg/dL</td> <td>
</td> <td>0.2</td> <td>
</td> <td>0.2</td> <td>0.3</td> <td>0.2</td> </tr> <tr> <td> Alkaline phosphatase U/L</td> <td>
</td> <td>64< /td> <td>
</td> <td>73</td> <td>74</td> <td>81</td> </tr> <tr> <td> AST/SGOT U/L</td> <td>
</td> <td>24</td> <td>
</td><td>18</td> <td>23</td> <td>14</td> </tr> <tr> <t d> ALT/SGPT U/L</td> <td>
</td> <td>10</td> <td>
</td> <td>15</td> <td>19</td> <td>11</td> </tr> <tr> <td> GFR non-, estimated mL/min/1.73m2</td> <td>
</td> <td>39 (L)</td> <td>
</td> <td>44 (L)</td> <td>44(L)</td> <td>40 (L)</td> </tr> </tbody></table></span>
<span class= clinicalNoteMacroHighlighted id= [id number] macroname= RecentLabResultsTable parameters= OptionalFlowsheetCategory:Coags,Label:Coags,ValueIfNull:None Today spantype= macro title= #RecentLabResultsTable(Opt ionalFlowsheetCategory:Coags,Label:Coags,ValueIfNull:None Today) >Coags None Today</span>
<span class= clinicalNoteMacroHighlighted id= [id number] macroname= RecentLabResultsTable parameters= OptionalFlowsheetCategory:TumorMarkers,Label:Tumor Markers,ValueIfNull:None Today spantype= macro title= #Rec entLabResultsTable(OptionalFlowsheetCategory:Tumor Markers,Label:Tumor Markers,ValueIfNull:None Today) >Tumor Markers<table border= 1 style= width:100% > <tbody> <tr> <th align= left >LabResults</th> <td>07/11/2024</td> <td>05/07/2024</td> <td>04/30/2024</td> <td>04/02/2024</td> <td>03/12/2024</td> <td>02/20/2024</td> </tr> <tr> <th align=&qu ot;left > Tumor Markers</th> <td>
</td> <td>
</td> <td>
</td> <td>
</td> <td>
</td> <td>
</td> </tr> <tr> <td>&nb sp; CA 125 U/mL</td> <td>
</td> <td>18</td> <td>
</td> <td>26</td> <td>28</td> <td>28</td> </tr> </tbody></table></span>
<span class="clinicalNoteMacroHighlighted id= [id number] macroname= RecentLabResultsTable parameters= OptionalFlowsheetCategory:Urine,Label:Urine,ValueIfNull:None Today spantype= macro title= #RecentLabResultsTable(OptionalFlowsheetCategory:Ur ine,Label:Urine,ValueIfNull:None Today) >Urine None Today</span>

<span class= clinicalNoteSectionShowSeparators clinicalNoteSectionVisible id= madhavii [id number] internalbreaksection= false originalname= Assessment&quot ; recognizeconcepts= true spantype= section suppressempty= true > IMPRESSION/PLAN:</span>
1. 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
2. History of colon cancer.
3. Peripheral neuropathy, grade 1 to 2.
3. Lichen sclerosis.

The patient was counseled on the findings of the exam. We will follow up on the resultsof the blood work performed today. She was advised to use the triamcinolone cream once a day. The bleeding is a result of the vulvar changes. The instructions were written down for her. She was advised to call if her symptoms do not improve. She will follow up here in 3 months for her next surveillance exam.

Today's total visit time was 30 minutes including 16 minutes of xral-bb-vihm time with the patient and 14 minutes in chart review, order placement, and EMR documentation.

<span class= clinicalNoteSectionShowSeparators clinicalNoteSectionVisible id= [id number] internalbreaksection= false originalname= Problem List recognizeconcepts= true spantype= section suppressempty= true >PROBLEM LIST:</span>
<span class= clinicalNoteMacroHighlighted id= [id number] macroname= Problems parameters=&qu ot;ListType:Bulleted,JcnmAKK56:Yes,Verbosity:Low spantype= macro title= #Probl ems(ListType:Bulleted,EzfnOQA64:Yes,Verbosity:Low) ><ul> <li>Malignant tumor of fallopian tube ( ICD-10:C57.01 ;Malignant neoplasm of right fallopian tube )</li> <li>Primary malignant neoplasm of colon (disorder) ( ICD-10:C18.9 ;Malignant neoplasm of colon, unspecified )</li> <li>Arthritis (disorder) ( ICD- 10:M12.9 ;Arthropathy, unspecified )</li><li>Asthma (disorder) ( ICD-10:J45.909 ;Unspecified asthma, uncomplicated )</li> <li>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

<span class= clinicalNoteSectionShowSeparators clinicalNoteSectionVisible id= [id number] internalbreaksection= false originalname= . recognizeconcepts= true spantype= section suppressempty= true >.</span>

Documentation assistance provided by Santos MCGARRY, scribing for Petty Day MD, on 08/27/2024. I, Petty Day MD, personally performed the services described in this documentation, and it is both accurate and complete.<span></span>

<span class= clinicalNoteSectionShowSeparators clinicalNoteSectionVisible id= [id number] internalbreaksection= false" originalname= Send copy of note to: recognizeconcepts= true sp antype= section suppressempty= true >SEND COPY OF NOTE TO:</span>
<span class= clinicalNoteMacroHighlighted id= [id number] ma croname= NoteRecipients spantype= macro title= #NoteRecipients >Katalina Ruggiero DO (Referring)
Palmira Costa MD (Referring)</span>&lt ;br>
.
</div>

<div><span class= eSignSignature >Electronically signed by Petty Day MD 09/02/2024 22:01 MST</span></div></body></html>
--- OUTSIDE RECORDS SUMMARY | 2025-07-14 13:35 | XMS_ITS | Patient Health Record ---
Author Organization [facility] Address [address] [place] [address] Care Team Providers Care Clinical Advisor Name Role Phone Igor ZHANG, Palmira Primary Care Provider Unavailable Deanna Burns Unavailable [phone] Allergies Allergen (clinical drug ingredient) Drug/Non Drug [...] W/U Status Risk Notes Problem Essential tremor (642292565) Essential tremor (G25.0) Active confirmed Problem Mild cognitive disorder (271958274) MCI (mild cognitive impairment) (G31.84) Active confirmed Problem Benign neoplasm of cerebral meninges (81456038) Meningioma (D32.9) Active confirmed Problem CVA - Cerebrovascular accident (133368882) CVA (cerebral vascular accident) (I63.9) Active confirmed Problem Mild neurocognitive disorder (633382432) Mild neurocognitive disorder (F99) Active confirmed Vital Signs Weight-kg 65.32 kg 08/17/2024 Height 50 in 08/17/2024 Weight 144 lbs 08/17/2024 BMI 40.49 kg/m2 08/17/2024 Encounters Encounter Location Date Provider Diagnosis [facility] [address] [address] 08/17/2024 Yeeck Sim Mild neurocognitive disorder F99 ; Meningioma D32.9 ; Essential tremor G25.0 and CVA (cerebral vascular accident) I63.9 [facility] [address] [place] [address] 08/15/2024 Deanna Burns Assessments Encounter Date Diagnosis [...] on establishing medical and financial power of corporate associate attorney. I counseled the patient on fall [...] regarding distance and urgency. Total time spent workers compensation claims assistant: 20 minutes of which more than 90% was spent discussing their neurologic care. Participants and Location: Deanna Burns MD (Ne[facility]rolog[facility], [facility] PAULETTE (Yacht Rigger, [facility]), and Pamela Nunez (Patient, Home) Plan Of Treatment No Information Insurance Providers Payer Name Payer Address Payer Phone Subscriber Number Group Number Insured Name Patient Relationship to Insured Coverage Start Date Coverage End Date [facility] Dual Complete [address] [place], [place] [id number] Pamela Linares Self - patient is the insured Medical (General) History Medical History History ICD Code HLD Asthma HTN Type II DM Pancreatic cyst GERD Claustrophobia Peripheral vascular disease CURTIS Lumbar stenosis CKD stage III Anxiety Diabetic neuropathy Surgical History Surgery Date(Month/Year) Laminectomy decompression 2016 Partial colon resection 2012
--- OUTSIDE RECORDS SUMMARY | 2025-07-14 13:35 | XMS_ITS ---
Author Name Interface, [id number] [address] Organization [facility] [place] [address] Support Name Relationship Address Phone Julián Don Child Unknown Unavailable ANDREW, ANTHONY Spouse Unknown Unavailabl e Andrew, Annamaria Child Unknown Unavailabl e Allergies and [...] MIN 04/27/[address] 15 MIN 04/03/2024 APPOINTMENT TREATMENT 6 HR 04/02/2024 APPOINTMENT LAB 15 MIN 04/02/2024 APPOINTMENT OV 15 MIN 03/13/2024 APPOINTMENT TREATMENT 6 HR 03/12/2024 APPOINTMENT OV 15 MIN 03/12/2024 APPOINTMENT LAB 15 MIN 03/06/2024 APPOINTMENT OV 20 MIN 02/21/2024 APPOINTMENT TREATMENT 6 HR 02/20/2024 APPOINTMENT LAB 15 MIN 02/20/2024 APPOINTMENT OV 20 MIN 01/31/2024 APPOINTMENT TREATMENT 5 HR 01/30/2024 APPOINTMENT OV 20 MIN 01/30/2024 APPOINTMENT LAB 15 MIN 01/11/[address] WHOLE BOD Y 30 MIN 01/10/2024 APPOINTMENT TREATMENT 5 HR 01/09/2024 APPOINTMENT LAB 15 MIN 01/09/2024 APPOINTMENT OV 15 MIN 01/06/[address] WHOLE BOD Y 30 MIN 12/20/2023 APPOINTMENT TREATMENT 5 HR 12/12/2023 APPOINTMENT LAB 15 MIN 12/12/2023 APPOINTMENT TREATMENT TEACH 45 MIN 01/09/2024 LAB_ORDER CA 125 panel 01/09/2024 LAB_ORDER CBC w/ auto diff 01/09/2024 LAB_ORDER CMP 01/10/2024 LAB_ORDER Basic Metabolic Panel 01/30/2024 LAB_ORDER CA 125 panel 01/30/2024 LAB_ORDER CBC w/ auto diff 01/30/2024 LAB_ORDER CMP 02/20/2024 LAB_ORDER CA 125 panel 02/20/2024 LAB_ORDER CMP 02/20/2024 LAB_ORDER CBC w/ auto diff 03/12/2024 LAB_ORDER CMP 03/12/2024 LAB_ORDER CA 125 panel 03/12/2024 LAB_ORDER CBC w/ auto diff 04/02/2024 LAB_ORDER CMP 04/02/2024 LAB_ORDER Iron, TIBC, Ferr itin panel 04/02/2024 LAB_ORDER Iron, % saturati on panel 04/02/2024 LAB_ORDER CBC w/ auto diff 04/02/2024 LAB_ORDER CA 125 panel 04/14/2024 LAB_ORDER CT abdomen/pelvi s w/o IV contrast 04/30/2024 LAB_ORDER CMP 04/30/2024 LAB_ORDER CA 125 panel 04/30/2024 LAB_ORDER CBC w/ auto diff 08/06/2024 LAB_ORDER CA 125 panel 08/06/2024 LAB_ORDER CMP 08/06/2024 LAB_ORDER CBC w/ auto diff 11/25/2024 LAB_ORDER CA 125 panel 11/25/2024 LAB_ORDER CBC w/ auto diff 11/25/2024 LAB_ORDER CMP Reason for Visit OV 15 MIN Encounters Date Name 12/12/2023 CIPN - Chemotherapy- induced peripheral neuropathy Diagnostic Results Date Type Test Units Lower Limit Upper Limit Result Flag Comments Status Ordered By Specimen Source Lab Address 12/11 CA 125 U/mL 50 High Values obtained with different assay methods or [...] assay value canbe excluded. FINAL Petty Davis [place] [address] [address] [facility] [id number] [place] [address] 12/11 Gluco se mg/dL 70.0 99.0 66 Low Glucose reference range reflects fasting state. FINAL Petty Davis [place] [address] [address] [facility] [id number] [place] [address] 12/11 BUN mg/dL 8.0 36.0 27 Kyleigh l FINAL Petty Day [place] [address] [address] [facility] [address] [place] [address] 12/11 Creat inine mg/dL 0.51 1.08 1.34 High FINAL Petty Day [place] [address] [address] [facility] [id number] [place] [address] 12/11 GFR non-[place] n Ameri can, estim ated mL/min /1.73m 2 41 Low eGFRcr calculate d using the CKD-EPI 2020 equation FINAL Petty Day Susan [employer] [place] [address] [address] [facility] [id number] [place] [address] 12/11 BUN/C reati nine ratio 10.0 28.0 20.1% Kyleigh l FINAL Petty Martinoora [employer] [place] [address] [address] [facility] [id number] [place] [address] 12/11 Sodiu m mmol/L 135.0 145.0 140 Kyleigh l FINAL Petty Day Ashby [employer] [place] [address] [address] [facility] [place] [address] [place] [address] 12/11 Potas sium mmol/L 3.6 5.3 4.8 Kyleigh l FINAL Petty Shay Susan [facility] [place], [address] [facility] [address] [place] [address] 12/11 Chlor ron mmol/L 95.0 109.0 105 Kyleigh l FINAL Petty Shay Susan [facility] [place], [facility] [address] [facility] [id number] [place] [address] 12/11 CO2 mmol/L 20.0 31.0 22 Kyleigh l FINAL Petty Shay Susan [facility], [facility] [address] [facility] [id number] [place] [address] 12/11 Anion gap 4.0 18.0 14.0% Kyleigh l FINAL Pettysandro Day Ashby [facility], [facility] [address] [facility] [address] [place] [address] 12/11 Total prote in g/dL 6.0 7.7 7.6 Kyleigh l FINAL Petty Day Susan [facility], [facility] [address] [facility] [address] [place] [address] 12/11 Album in g/dL 3.8 5.1 4.8 Kyleigh l FINAL Petty Day Susan [facility], [facility] [address] [facility] [address] [place] [address] 12/11 Globu maribel g/dL 1.7 3.3 2.8 Kyleigh l FINAL Pettysandro Day Susan [facility] [place], [facility] [address] [facility] [id number] [place] [address] 12/11 A/G ratio , SPE 1.3 2.7 1.7% Kyleigh l FINAL Pettysandro Day Ashby [facility], [facility] [address] [facility] [address] [place] [address] 12/11 Calci um mg/dL 8.7 10.4 9.6 Kyleigh l FINAL Petty Day Ashby [facility], [address] [facility] [address] Sat Ghulam 12/11 Alkal ine phosp hatas e IU/L 42.0 146.0 59 Kyleigh l FINAL Petty Day Ashby [facility], [address] [facility] [address] Sat Ghulam 12/11 ALT/S GPT IU/L 5.0 46.0 13 Kyleigh l FINAL Petty Day Ashby [facility], [address] [facility] [address] Sajit Ghulam 12/11 AST/S GOT IU/L 11.0 40.0 22 Kyleigh l FINAL Petty Day Ashby [facility], [address] [facility] [address] [facility] [place] 12/11 Bilir ubin, total mg/dL 0.3 Kyleigh l FINAL Petty Day Ashby [facility], [address] [facility] [address] [facility] [place] 12/11 WBC k/mm3 4.0 11.0 8.7 Kyleigh l FINAL Petty Day Susan [facility] [employer] [facility], [address] [facility] [address] [facility] Ghulam 12/11 RBC m/mm3 3.7 5.4 4.77 Kyleigh l FINAL Petty Day Ashby [facility], [address] [facility] [address] [facility] [place] 12/11 HGB g/dL 12.0 16.0 12.6 Kyleigh l FINAL Pettysandro Day Susan [facility], [address] [facility] [address] [facility] [place] 12/11 HCT % 35.0 48.0 39.0 Kyleigh l FINAL Pettysandro Day Susan [facility], [address] [facility] [address] [facility] 12/11 MCV fL 78.0 100.0 81.8 Kyleigh l FINAL Petty Shay [place] [facility], [address] [facility] [address] [facility] 12/11 MCH pg 27.0 34.0 26.4 Low FINAL Petty Shay [place] [facility], [address] [facility] [address] [facility] 12/11 MCHC g/dL 31.0 37.0 32.3 Kyeligh l FINAL Petty Sahy [place] [facility], [address] [facility] [address] [facility] 12/11 PLT k/mm3 130.0 450.0 329 Kyleigh l FINAL Petty Shay [place] [facility], [address] [facility] [address] [facility] 12/11 RDW-S D fL 38.0 49.0 39.5 Kyleigh l FINAL Petty Shay [place] [facility], [address] [facility] [address] [facility] 12/11 RDW-C V, % % 11.0 15.0 13.3 Kyleigh l FINAL Petty Shay [place] [facility], [address] [facility] [address] [facility] 12/11 MPV fL 9.0 12.0 10.2 Kyleigh l FINAL Petty Shay Susan [facility] [facility], [address] [facility] [address] [facility] 12/11 Christian % % 54.2 Automated Diff FINAL Petty Shay Susan [facility], [address] [facility] [address] [facility] Ghulam 12/11 LY % % 27.1 FINAL Pettysandro Day Susan [facility], [address] [facility] [address] [facility] Ghulam 12/11 MO % % 11.7 FINAL Pettysandro Day Ashby [facility] [facility], [address] [facility] [address] [facility] Ghulam 12/11 EO % % 5.7 FINAL Epttysandro Day Susan [facility], [address] [facility] [address] [facility] 12/11 BA % % 0.8 FINAL Pettysandro Day Susan [facility] [facility], [address] [facility] [address] [facility] Ghulam 12/11 Christian # (ANC) k/uL 1.5 7.8 4.7 Kyleigh l FINAL Petty [place] [facility], [address] [facility] [address] [facility] 12/11 LY # k/uL 0.9 3.9 2.4 Kyleigh l FINAL Petty [place] [facility] [facility], [address] [facility] [address] [facility] Ghulam 12/11 MO # k/uL 0.2 1.0 1.0 Kyleigh l FINAL Petty [place] [facility], [address] [facility] [address] [facility] Ghulam 12/11 EO # k/uL 0.0 0.6 0.5 Kyleigh l FINAL Pettysandro Day Susan [facility], [address] [facility] [address] [facility] Ghulam 12/11 BA # k/uL 0.0 0.2 0.1 Kyleigh l FINAL Pettysandro Day Susan [facility] [employer] [facility], [address] [facility] [address] [facility] Ghulam 12/11 IG % % 0.5 FINAL Petty Davis [facility] [employer] [facility], [address] [facility] [address] [facility] [address] [facility] Ghulam 12/11 IG # k/uL 0.0 0.1 0.0 Kyleigh l FINAL Petty Davis [facility] [facility], [address] [facility] [address] [facility] [address] [facility] Ghulam 12/11 NRBC, % % 0.0 1.0 0.0 Kyleigh l FINAL Petty Davis [facility] [facility], [address] [facility] [address] [facility] [address] [facility] Guhlam 12/12 Caris summa ry repor t Caris summa ry repor t PDF See front office java developer d Petty Day [employer] , [address] [place] [address], [address] [facility] [address] 12/12 Patho logy repor t See front office java developer d 01/05 AO PT SB [employer] [facility] [employer]Ph one:NAM E: CHINMAY HAYS VDOB: [id number]: [id number]: [id number] E OF EXAM: [id number] INATION : FDG PET-CT STUDYCL INICAL INDICAT ION: Fallopi an Tube and Colon CancerC OMPARIS ON: CT abdomen and pelvis, 024, [facility] yMRI abdomen , 023, [employer]FDG PET/CT 12/20/19 13 Radiolo gy LtdTECH NIQUE:I ntraven ous FDG dose: 10.83 mCi with 0.84 mCi discard ed. Time of imaging post radioph armaceu tical adminis tration : 60 minutes . Blood glucose : 136.Reg ion scanned : Vertex to mid thigh, with attenua tion correct ion and reconst ructed using the time-of -flight techniq ue in multipl e planes and maximum intensi ty project ion images. Emissio n time: 3.00 minutes / Transmi ssion time: CT. CTDI: 7.63 mGy. DLP: 767.71 mGy-cm. Dose Reducti on Techniq ue: Automat ed Exposur e Control .FINDIN GS:HEAD /NECKLY MPH NODES: No radiotr acer-av id cervica l adenopa thy.NIKO STLYMPH NODES: No radiotr acer-av id mediast inal or hilar adenopa thy.ROLO GS: Motion degrade d CT images of the lungs are unremar kable. No FDG avid pulmona ry lesions .PLEURA : No pleural effusio n.HEART : Multive ssel coronar y calcifi cation. Mitral annular calcifi cation also present .ABDOME N/PELVI SLYMPH NODES: No radiotr acer-av id abdomin al or pelvic adenopa thy.JAUN ER: The liver is unremar kable. The previou sly describ ed indeter minate hypoden se lesion in the left hepatic lobe is no longer present .GALLBL ADDER: Unremar kable.P ANCREAS : The pancrea s is unremar kable.S PLEEN: The spleen is unremar kable.A DRENALS : Adrenal glands are unremar kable.K IDNEYS: There is moderat e hydrone phrosis of the right kidney and right hydrour eter to the level of a nonavid fluid collect ion in the right adnexa, likely postope rative seroma or lymphoc gilberto. Left kidney demonst rates a nonavid simple cyst measuri ng 2.1 cm.GI TRACT: Normal distal esophag us. No signifi cant gastric abnorma lity. No small bowel dilatio n or mural thicken ing.COL ON: The previou sly seen subtota l colecto my is stable. No evidenc e of surgica l bed recurre nce or associa caden FDG avid lymphad enopath y.BLADD ER: Unremar kable by CT.REPR ODUCTIV E: There has been interva l hystere ctomy and oophore ctomies since the compari son CT. No evidenc e of FDG avid recurre nce in the surgica l bed. No associa caden FDG avid pelvic lymphad enopath y.MESEN RYANNE/PE RITONEU M: No ascites or pneumop eritone um.SKEL ETALNo evidenc e of radiotr acer-av id osseous metasta ses.IMP RESSION :1. No evidenc e of metasta tic disease .2. Interva l hystere ctomy and oophore ctomies . No evidenc e of FDG avid recurre nce in the surgica l bed.3. Stable subtota l colecto my. No evidenc e of surgica l bed recurre nce.4. Moderat e right hydrone phrosis and hydrour eter to the level of a nonavid fluid collect ion in the right adnexa, likely postope rative seroma or lymphoc gilberto causing some partial obstruc tion of the right ureter. 5. Previou sly describ ed indeter minate hypoden se lesion in the left hepatic lobe is no longer present .6. Extensi ve coronar y artery calcifi cation. Electro nically signed byJose Alfredo Mascorro M.D.Dic tated: 01/06/20 24 11:50 AM Signed: 01/06/20 24 12:07 PMFINAL REPORT FINAL 01/08 WBC k/mm3 4.0 11.0 14.3 High Note: new reference range effective 2023 . FINAL Petty Day Ashby [employer] [facility] [place] [address] [address] [facility] [address] [place] [address] 01/08 RBC m/mm3 3.7 5.4 4.35 Kyleigh l Note: new reference range effective 2023 . FINAL Petty Day Ashby [employer] [facility] [place] [address] [address] [facility] [address] [place] [address] 01/08 HGB g/dL 12.0 16.0 11.8 Low Note: new reference range effective 2023 . FINAL Petty Day Susan [employer] [facility] [place] [address] [address] [facility] [address] [place] [address] 01/08 HCT % 35.0 48.0 35.6 Ykleigh l Note: new reference range effective 2023 . FINAL Petty Shay Susan [employer] [facility] [place], [address] [facility] [address] [facility] Ghulam 01/08 MCV fL 78.0 100.0 81.8 Kyleigh l Note: new reference range effective 2023 . FINAL Petty Davis [facility] [place], [address] [facility] [address] [facility] Ghulam 01/08 MCH pg 27.0 34.0 27.1 Kyleigh l Note: new reference range effective 2023 . FINAL Petty Davis [facility] [place], [address] [facility] [address] [facility] 01/08 MCHC g/dL 31.0 37.0 33.1 Kyleigh l Note: new reference range effective 2023 . FINAL Petty Bridges [facility] [place] [address] [facility] [address] [facility] 01/08 PLT k/mm3 130.0 450.0 229 Kyleigh l Note: new reference range effective 2023 . FINAL Petty Bridges [facility] [place], [place] [address] [facility] [address] [facility] 01/08 RDW-S D fL 38.0 49.0 40.8 Kyleigh l Note: new reference range effective 2023 . FINAL Petty Davis [facility] [place], [place] [address] [facility] [address] [facility] 01/08 RDW-C V, % % 11.0 15.0 13.8 Klyeigh l Note: new reference range effective 2023 . FINAL Petty Davis [facility] [place], [place] [address] [facility] [address] [facility] Ghulam 01/08 MPV fL 9.0 12.0 10.4 Kyleigh l Note: new reference range effective 2023 . FINAL Petty Davis [facility] [place], [place] [address] [facility] [address] Sajit Ghulam 01/08 Christian % % 79.7 Automated Diff FINAL Petty [place] [facility] [place], [address] [facility] [address] Sajit Ghulam 01/08 LY % % 10.7 FINAL Petty [place] [facility] [place], [address] [facility] [address] Sajit Ghulam 01/08 MO % % 6.9 FINAL Petty Day Ashby [facility] [place], [address] [facility] [address] Sajit Ghulam 01/08 EO % % 0.1 FINAL Petty [place] [facility] [place], [address] [facility] [address] Sajit Ghulam 01/08 BA % % 0.5 FINAL Petty [place] [facility] [place], [facility] [address] [facility] [address] Sajit Ghulam 01/08 Christian # (ANC) k/uL 1.5 7.8 11.4 High Note: new reference range effective 2023 . FINAL Petty Davis [facility] [place], [address] [facility] [address] Sajit Ghulam 01/08 LY # k/uL 0.9 3.9 1.5 Kyleigh l Note: new reference range effective 2023 . FINAL Petty [place] [facility] [place], [address] [facility] [address] Sajit Ghulam 01/08 MO # k/uL 0.2 1.0 1.0 Kyleigh l Note: new reference range effective 2023 . FINAL Petty [place] [facility] [place], [address] [facility] [address] Sajit Ghulam 01/08 EO # k/uL 0.0 0.6 0.0 Kyleigh l Note: new reference range effective 2023 . FINAL Petty Bridges [facility] [place], [address] [facility] [address] [facility] 01/08 BA # k/uL 0.0 0.2 0.1 Kyleigh l Note: new reference range effective 2023 . FINAL Petty Bridges [facility] [place], [address] [facility] [address] [facility] 01/08 IG % % 2.1 FINAL Petty Bridges [facility] [place], [address] [facility] [address] [facility] 01/08 NRBC, % % 0.0 1.0 0.0 Kyleigh l Note: new reference range effective 2023 . FINAL Petty Bridges [facility] [place], [address] [facility] [address] [facility] 01/08 IG # k/uL 0.0 0.1 0.3 High Note: new reference range effective 2023 . FINAL Petty Bridges [facility] [place], [address] [facility] [address] [facility] 01/08 CA 125 U/mL 32 Kyleigh l Values obtained with different assay [...] 125 assay value canbe excluded. FINAL Petty Bridges [facility] [place], [address] [facility] [address] [facility] 01/08 Gluco se mg/dL 70.0 99.0 343 High Glucose reference range reflects fasting state. FINAL Petty [place] [facility] [place] [address] [facility] [address] [facility] [place] 01/08 BUN mg/dL 8.0 36.0 37 High FINAL Petty Davis [facility] [place] [address] [facility] [address] [facility] Ghulam 01/08 Creat inine mg/dL 0.51 1.08 1.52 High FINAL Petty Davis [facility] [place] [address] [facility] [address] [facility] [place] 01/08 GFR non-[place] n Ameri can, estim ated mL/min /1.73m 2 35 Low eGFRcr calculate d using the CKD-EPI 2020 equation FINAL Petty Davis [facility] [place] [address] [facility] [address] [place] [address] Ghulam 01/08 BUN/C reati nine ratio 10.0 28.0 24.3% Kyleigh l FINAL Petty [place] [facility] [place] [address] [facility] [address] [facility] Ghulam 01/08 Sodiu m mmol/L 135.0 145.0 139 Kyleigh l FINAL Petty Davis [facility] [place] [address] [facility] [address] [facility] Ghulam 01/08 Potas sium mmol/L 3.6 5.3 5.4 High FINAL Petty [place] [facility] [place] [address] [facility] [address] [facility] [place] 01/08 Chlor ron mmol/L 95.0 109.0 105 Kyleigh l FINAL Petty Davis [facility] [place] [address] [facility] [address] [facility] Gh[place] 01/08 CO2 mmol/L 20.0 31.0 22 Kyleigh l FINAL Petty [place] [facility] [place], [address] [facility] [address] [facility] [place] 01/08 Anion gap 4.0 18.0 13.0% Kyleigh l FINAL Petty Shay Ashby [facility], [facility] [address] [facility] [address] [facility] Ghulam 01/08 Total prote in g/dL 6.0 7.7 6.6 Kyleigh l FINAL Petty Shay Susan [facility], [facility] [address] [facility] [address] [facility] [place]am 01/08 Album in g/dL 3.8 5.1 4.0 Kyleigh l FINAL Pettysandro Day Ashby [facility], [facility] [address] [facility] [address] [place] [address] Ghulam 01/08 Globu maribel g/dL 1.7 3.3 2.6 Kyleigh l FINAL Petty Day Ashby [facility], [facility] [address] [facility] [address] [facility] Ghulam 01/08 A/G ratio , SPE 1.3 2.7 1.6% Kyleigh l FINAL Petty Day Ashby [facility], [facility] [address] [facility] [address] [place] [address] Ghulam 01/08 Calci um mg/dL 8.7 10.4 8.8 Kyleigh l FINAL Petty Day Susan [facility], [facility] [address] [facility] [address] [facility] Ghulam 01/08 Alkal ine phosp hatas e IU/L 42.0 146.0 67 Kyleigh l FINAL Petty Day Ashby [facility], [facility] [address] [facility] [address] [place] [address] Ghulam 01/08 ALT/S GPT IU/L 5.0 46.0 17 Kyleigh l FINAL Petty Shay Susan [facility], [facility] [address] [facility] [address] [facility] [place] 01/08 AST/S GOT IU/L 11.0 40.0 17 Kyleigh l FINAL Petty [place] [facility] [address] [facility] [address] Sajit Ghulam 01/08 Bilir ubin, total mg/dL 0.3 Kyleigh l FINAL Petty [place] [facility], [facility] [address] [facility] [address] Sajit Ghulam 01/09 Gluco se mg/dL 70.0 99.0 113 High Glucose reference range reflects fasting state. FINAL Petty Day [facility] [place] [address] [facility] [address] [facility] 01/09 BUN mg/dL 8.0 36.0 33 Kyleigh l FINAL Petty [place]a [facility] [place] [address] [facility] [address] [facility] 01/09 Creat inine mg/dL 0.51 1.08 1.47 High FINAL Petty Day Ashby [facility], [facility] [address] [facility] [address] [facility] 01/09 GFR non-[place] n Ameri can, estim ated mL/min /1.73m 2 36 Low eGFRcr calculate d using the CKD-EPI 2020 equation FINAL Petty Day [facility] [place] [address] [facility] [address] [facility] 01/09 BUN/C reati nine ratio 10.0 28.0 22.4% Kyleigh l FINAL Petty [place] [facility] [place] [address] [facility] [address] Sat Ghulam 01/09 Sodiu m mmol/L 135.0 145.0 140 Kyleigh l FINAL [facility]ty [facility], [facility] [address] [facility] [address] Sat Ghulam 01/09 Potas sium mmol/L 3.6 5.3 4.2 Kyleigh l FINAL [place]ty [place] [address] [facility] [address] Sat Ghulam 01/09 Chlor ron mmol/L 95.0 109.0 108 Kyleigh l FINAL [place] [address] [facility] [address] [facility] 01/09 CO2 mmol/L 20.0 31.0 22 Kyleigh l FINAL [place] [address] [facility] [address] [facility]am 01/09 Anion gap 4.0 18.0 11.0% Kyleigh l FINAL [place] [address] [facility] [address] [facility] Gh[facility]am 01/09 Calci um mg/dL 8.7 10.4 8.2 Low FINAL Petty Day [place] [address] [address] [facility] [address] [facility] 01/16 Patho logy repor t See front office java developer d 01/29 Gluco se mg/dL 70.0 99.0 136 High Glucose reference range reflects fasting state. FINAL Petty Day [place] [address] [facility] [address] [facility]am 01/29 BUN mg/dL 8.0 36.0 27 Kyleigh l FINAL Petty Day [place] [address] [address] [facility] [address] [facility] 01/29 Creat inine mg/dL 0.51 1.08 1.26 High FINAL Petty Day [place] [address] [address] [facility] [address] Sat Ghulam 01/29 GFR non-[place] n Ameri can, estim ated mL/min /1.73m 2 44 Low eGFRcr calculate d using the CKD-EPI 2020 equation FINAL Petty Day [facility], [address] [facility] [address] [facility] 01/29 BUN/C reati nine ratio 10.0 28.0 21.4% Kyleigh l FINAL Petty Shay [facility] [address] [facility] [address] [facility]am 01/29 Sodiu m mmol/L 135.0 145.0 143 Kyleigh l FINAL Petty Shay Ashby [facility] [address] [facility] [address] [facility] 01/29 Potas sium mmol/L 3.6 5.3 4.2 Kyleigh l FINAL Petty Shay [facility] [place], [facility] [address] [facility] [address] [facility] Ghulam 01/29 Chlor ron mmol/L 95.0 109.0 108 Kyleigh l FINAL Petty Shay [facility]by [facility] [place] [address] [facility] [address] [facility] 01/29 CO2 mmol/L 20.0 31.0 25 Kyleigh l FINAL Petty Shay [facility] [place] [address] [facility] [address] [facility] 01/29 Anion gap 4.0 18.0 11.0% Kyleigh l FINAL Petty Shay Ashby [facility] [place] [address] [facility] [address] [facility] Ghulam 01/29 Total prote in g/dL 6.0 7.7 6.5 Kyleigh l FINAL Petty Shay Ashby [facility] [address] [facility] [address] [facility] Ghulam 01/29 Album in g/dL 3.8 5.1 4.3 Kyleigh l FINAL Petty Shay Ashby [facility] [place] [address] [facility] [address] [facility] 01/29 Globu maribel g/dL 1.7 3.3 2.2 Kyleigh l FINAL Petty Day Susan [facility], [facility] [address] [facility] [address] [place] [address] 01/29 A/G ratio , SPE 1.3 2.7 1.9% Kyleigh l FINAL Petty Day Susan [facility] [place] [address] [facility] [address] [place] [address] 01/29 Calci um mg/dL 8.7 10.4 9.3 Kyleigh l FINAL Petty Day Ashby [facility] [place] [address] [facility] [address] [place] [address] 01/29 Alkal ine phosp hatas e IU/L 42.0 146.0 57 Kyleigh l FINAL Petty Day Ashby [facility] [place] [address] [facility] [id number] [place] [address] 01/29 ALT/S GPT IU/L 5.0 46.0 16 Kyleigh l FINAL Petty Day Susan [facility], [facility] [address] [facility] [address] [place] [address] 01/29 AST/S GOT IU/L 11.0 40.0 14 Kyleigh l FINAL Petty Day Susan [facility], [facility] [address] [facility] [address] [place] [address] 01/29 Bilir ubin, total mg/dL 0.2 Kyleigh l FINAL Petty Day Susan [facility], [facility] [address] [facility] [address] [facility] 01/29 CA 125 U/mL 20 Kyleigh l Values obtained with different assay [...] FINAL Petty Davis [facility] [place], [address] [facility] [address] [facility] 01/29 WBC k/mm3 4.0 11.0 8.4 Kyleigh l Note: new reference range effective 2023 . FINAL Petty Davis [facility] [place], [address] [facility] [address] [facility] 01/29 RBC m/mm3 3.7 5.4 4.34 Kyleigh l Note: new reference range effective 2023 . FINAL Petty Davis [facility] [place], [address] [facility] [address] [facility] 01/29 HGB g/dL 12.0 16.0 11.1 Low Note: new reference range effective 2023 . FINAL Petty Davis [facility] [place], [address] [facility] [address] [facility] 01/29 HCT % 35.0 48.0 37.8 Kyleigh l Note: new reference range effective 2023 . FINAL Petty Davis [facility] [place], [address] [facility] [address] [facility] 01/29 MCV fL 78.0 100.0 87.1 Kyleigh l Note: new reference range effective 2023 . FINAL Petty [place] [facility] [place], [address] [facility] [address] [facility] 01/29 MCH pg 27.0 34.0 25.6 Low Note: new reference range effective 2023 . FINAL Petty [place] [facility] [place], [address] [facility] [address] [facility] 01/29 MCHC g/dL 31.0 37.0 29.4 Low Note: new reference range effective 2023 . FINAL Petty Davis [facility] [place], [address] [facility] [address] [facility] 01/29 PLT k/mm3 130.0 450.0 263 Kyleigh l Note: new reference range effective 2023 . FINAL Petty [place] [facility] [place], [address] [facility] [address] [facility] 01/29 RDW-S D fL 38.0 49.0 48.2 Kyleigh l Note: new reference range effective 2023 . FINAL Petty Davis [facility] [place], [address] [facility] [id number] [place] [address] 01/29 RDW-C V, % % 11.0 15.0 15.6 High Note: new reference range effective 2023 . FINAL Petty [place] [facility] [place], [address] [facility] [address] [facility] 01/29 MPV fL 9.0 12.0 10.7 Kyleigh l Note: new reference range effective 2023 . FINAL Petty [place] [facility] [place], [address] [facility] [address] [facility] 01/29 Christian % % 58.4 Automated Diff FINAL Petty [place] [facility] [place], [address] [facility] [address] [facility] [place] 01/[facility] LY % % 20.6 FINAL Petty [place] [facility] [address] [facility] [address] [facility] 01/29 MO % % 12.4 FINAL Petty [place] [facility] [address] [facility] [address] [facility] 01/29 EO % % 3.7 FINAL Petty Shay Ashby [facility] [place], [address] [facility] [address] Sajit Ghulam 01/29 BA % % 1.3 FINAL Petty Day Ashby [facility] [place], [address] [facility] [address] Sajit Ghulam 01/29 Christian # (ANC) k/uL 1.5 7.8 4.9 Kyleigh l Note: new reference range effective 2023 . FINAL Petty Day Ashby [facility] [place], [address] [facility] [address] Sajit Ghulam 01/29 LY # k/uL 0.9 3.9 1.7 Kyleigh l Note: new reference range effective 2023 . FINAL Petty [place] [facility] [place], [address] [facility] [address] Sajit Ghulam 01/29 MO # k/uL 0.2 1.0 1.1 High Note: new reference range effective 2023 . FINAL Petty Day Ashby [facility] [place], [address] [facility] [address] Sajit Ghulam 01/29 EO # k/uL 0.0 0.6 0.3 Kyleigh l Note: new reference range effective 2023 . FINAL Petty [place] [facility] [place], [address] [facility] [address] Sajit Ghulam 01/29 BA # k/uL 0.0 0.2 0.1 Kyleigh l Note: new reference range effective 2023 . FINAL Petty Day Ashby [facility] [place], [address] [facility] [address] Sajit Ghulam 01/29 IG % % 3.6 FINAL Petty Day Susan [facility] [place], [address] [facility] [address] Sajit Ghulam 01/29 IG # k/uL 0.0 0.1 0.3 High Note: new reference range effective 2023 . FINAL Petty Day Susan [facility] [address] 01/29 NRBC, % % 0.0 1.0 0.5 Kylegih l Note: new reference range effective 2023 . FINAL Petty Day Susan [facility] [place] [address] 02/12 CT scan resul t See front office java developer d 02/19 WBC k/mm3 4.0 11.0 7.2 Kyleigh l FINAL Ambar Engelber roly Susan [facility] [place] [address] 02/19 RBC m/mm3 3.7 5.4 4.00 Kyleigh l FINAL Ambar Engelber roly Ashby [facility] [place] [address] 02/19 HGB g/dL 12.0 16.0 10.6 Low FINAL Ambar Engelber roly Susan [facility] [place] [address] 02/19 HCT % 35.0 48.0 34.1 Low FINAL Ambar Engelber roly Ashby [facility] [place] [address] 02/19 MCV fL 78.0 100.0 85.3 Kyleigh l FINAL Ambar Engelber roly Ashby [facility] [address] 02/19 MCH pg 27.0 34.0 26.5 Low FINAL Ambar Engelber roly Susan [facility] [place] [address] 02/19 MCHC g/dL 31.0 37.0 31.1 Kyleigh l FINAL Ambar Engelber g Susan [facility] [place], [address] [facility] [address] [facility] 02/19 PLT k/mm3 130.0 450.0 353 Kyleigh l FINAL Ambar Engelber g Ashby [facility] [place], [address] [facility] [address] [facility] 02/19 RDW-S D fL 38.0 49.0 52.3 High FINAL Ambar Engelber g Ashby [facility] [place], [facility] [address] [facility] [address] [facility] 02/19 RDW-C V, % % 11.0 15.0 17.1 High FINAL Ambar Engelber g Susan [facility] [place] [address] [facility] [address] [place] [address] 02/19 MPV fL 9.0 12.0 10.7 Kyleigh l FINAL Ambar Engelber g Susan [facility] [place], [facility] [address] [facility] [address] [place] [address] 02/19 Christian % % 48.3 Automated DiffSlide Reviewed FINAL Ambar Engelber g Susan [facility] [place], [facility] [address] [facility] [address] [facility] 02/19 LY % % 21.0 FINAL Ambar Engelber g Susan [facility] [place], [facility] [address] [facility] [address] [facility] 02/19 MO % % 15.6 FINAL Ambar Engelber g Susan [facility] [place] [address] [facility] [address] [place] [address] 02/19 EO % % 2.4 FINAL Ambar Engelber g Susan [facility] [place] [address] [facility] [address] [facility] 02/19 BA % % 1.1 FINAL Ambar Engelber g Ashby [facility] [place], [address] [facility] [address] [facility] 02/19 Christian # (ANC) k/uL 1.5 7.8 3.5 Kyleigh l FINAL Ambar Engelber g Susan [facility] [place], [address] [facility] [address] [facility] 02/19 LY # k/uL 0.9 3.9 1.5 Kyleigh l FINAL Ambar Engelber g Susan [facility] [place], [facility] [address] [facility] [address] [facility] 02/19 MO # k/uL 0.2 1.0 1.1 High FINAL Ambar Engelber g Susan [facility] [place], [facility] [address] [facility] [address] [facility] 02/19 EO # k/uL 0.0 0.6 0.2 Kyleigh l FINAL Ambar Engelber g Ashby [facility] [place], [facility] [address] [facility] [address] [facility] 02/19 BA # k/uL 0.0 0.2 0.1 Kyleigh l FINAL Ambar Engelber g Ashby [facility] [place], [facility] [address] [facility] [address] [facility] 02/19 IG % % 11.6 FINAL Ambar Engelber g Susan [facility] [place], [address] [facility] [address] [facility] 02/19 IG # k/uL 0.0 0.1 0.8 High FINAL Ambar Engelber g Susan [facility] [place], [facility] [address] [facility] [address] [facility] 02/19 NRBC, % % 0.0 1.0 0.6 Kyleigh l FINAL Ambar Engelber g Susan [facility] [place], [facility] [address] [place] [address] 02/19 CA 125 U/mL 28 Kyleigh l Values obtained with different assay [...] CA 125 assay value canbe excluded. FINAL Ambar dunham Ashby [employer] [place] [address] [address] [facility] [id number] [place] [address] 02/19 Gluco se mg/dL 70.0 99.0 156 High Glucose reference range reflects fasting state. FINAL Ambar dunham [place] [address] [address] [facility] [id number] [place] [address] 02/19 BUN mg/dL 8.0 36.0 24 Kyleigh l FINAL Ambar dunham Ashby [employer] [place] [address] [address] [facility] [address] [place] [address] 02/19 Creat inine mg/dL 0.51 1.08 1.34 High FINAL Ambar dunham [place] [address] [address] [facility] [address] [place] [address] 02/19 GFR non-[place] f[place] n Ameri can, estim ated mL/min /1.73m 2 40 Low eGFRcr calculate d using the CKD-EPI 2020 equation FINAL Ambar dunham Ashby [employer] [place] [address] [address] [facility] [address] [place] [address] 02/19 BUN/C reati nine ratio 10.0 28.0 17.9% Kyleigh l FINAL Ambar dunham [facility], [facility] [address] [facility] [address] [facility] 02/19 Sodiu m mmol/L 135.0 145.0 139 Kyleigh l FINAL Ambar Engelber g [facility]by [facility], [facility] [address] [facility] [address] [facility] 02/19 Potas sium mmol/L 3.6 5.3 4.4 Kyleigh l FINAL Ambar Engelber g [facility] [place] [address] [facility] [address] [facility] 02/19 Chlor ron mmol/L 95.0 109.0 104 Kyleigh l FINAL Ambar Engelber g [facility] [place] [address] [facility] [address] [place] [address] 02/19 CO2 mmol/L 20.0 31.0 23 Kyleigh l FINAL Ambar Engelber g [facility] [place] [address] [facility] [address] [place] [address] 02/19 Anion gap 4.0 18.0 12.0% Kyleigh l FINAL Ambar Engelber g Ashby [facility] [place] [address] [facility] [address] [facility] 02/19 Total prote in g/dL 6.0 7.7 6.7 Kyleigh l FINAL Ambar Engelber g Ashby [facility], [facility] [address] [facility] [address] [facility] 02/19 Album in g/dL 3.8 5.1 4.1 Kyleigh l FINAL Ambar Engelber g Ashby [facility], [facility] [address] [facility] [address] [facility] 02/19 Globu maribel g/dL 1.7 3.3 2.6 Kyleigh l FINAL Ambar Engelber g [facility] [place] [address] [address] [facility] [address] [facility] 02/19 A/G ratio , SPE 1.3 2.7 1.6% Kyleigh l FINAL Ambar Engelber roly Ashby [facility] [place] [address] [address] [facility] [address] [place] [address] 02/19 Calci um mg/dL 8.7 10.4 9.6 Kyleigh l FINAL Ambar Engelber roly Ashby [facility] [place] [address] [address] [facility] [address] [place] [address] 02/19 Alkal ine phosp hatas e IU/L 42.0 146.0 81 Kyleigh l FINAL Ambar Engelber roly Ashby [facility] [place] [address] [address] [facility] [address] [place] [address] 02/19 ALT/S GPT IU/L 5.0 46.0 11 Kyleigh l FINAL Ambar Engelber roly Ashby [facility] [place] [address] [address] [facility] [address] [place] [address] 02/19 AST/S GOT IU/L 11.0 40.0 14 Kyleigh l FINAL Ambar Engelber roly Ashby [facility] [place] [address] [address] [facility] [address] [place] [address] 02/19 Bilir ubin, total mg/dL 0.2 Kyleigh l FINAL Ambar Engelber roly Ashby [facility] [place] [address] [address] [facility] [address] [place] [address] 02/19 RBC morph See Comment Kyleigh l No significa nt RBC abnormali ties present. FINAL Ambar Engelber roly Ashby [facility] [place] [address] [address] [facility] [address] [place] [address] 02/19 Plate let estim ate Adequat e Kyleigh l FINAL Ambar Engelber roly Ashby [facility] [place] [address] [place] [address] 03/12 CA 125 U/mL 28 Kyleigh l Values obtained with different assay [...] CA 125 assay value canbe excluded. FINAL Ambar Engelber g [facility]by [facility] [place] [address] 03/12 WBC k/mm3 4.0 11.0 9.6 Kyleigh l FINAL Ambar Engelber g [facility]by [facility] [place] [address] [facility] 03/12 RBC m/mm3 3.7 5.4 4.15 Kyleigh l FINAL Ambar Engelber g [facility] [place] [address] 03/12 HGB g/dL 12.0 16.0 10.8 Low FINAL Ambar Engelber g [facility]by [facility] [place] [address] 03/12 HCT % 35.0 48.0 34.7 Low FINAL Ambar Engelber g Susan [facility] [place] [address] 03/12 MCV fL 78.0 100.0 83.6 Kyleigh l FINAL Ambar Engelber g [facility]by [facility] [place] [address] 03/12 MCH pg 27.0 34.0 26.0 Low FINAL Ambar Engelber g Ashby [facility] [place], [address] [facility] [address] Sajit Ghulam 03/12 MCHC g/dL 31.0 37.0 31.1 Kyleigh l FINAL Ambar Engelber g Ashby [facility] [place], [address] [facility] [address] Sajit Ghulam 03/12 PLT k/mm3 130.0 450.0 216 Kyleigh l FINAL Ambar Engelber g Susan [facility] [place], [facility] [address] [facility] [address] [facility] 03/12 RDW-S D fL 38.0 49.0 52.7 High FINAL Ambar Engelber g Susan [facility] [place], [facility] [address] [facility] [address] [facility] 03/12 RDW-C V, % % 11.0 15.0 17.5 High FINAL Ambar Engelber g Susan [facility] [place], [facility] [address] [facility] [address] [facility] 03/12 MPV fL 9.0 12.0 11.1 Kyleigh l FINAL Ambar Engelber g Susan [facility] [place], [facility] [address] [facility] [address] [facility] 03/12 Christian % % 64.9 Automated Diff FINAL Ambar Engelber g Susan [facility] [place], [facility] [address] [facility] [address] Sajit Ghulam 03/12 LY % % 18.9 FINAL Ambar Engelber g [facility]by [facility] [place] [address] [facility] [address] Sajit Ghulam 03/12 MO % % 12.7 FINAL Ambar Engelber g Susan [facility] [place] [address] [facility] [address] Sajit Ghulam 03/12 EO % % 2.0 FINAL Ambar Engelber g [facility]by [facility] [place], [address] [facility] [address] Sat Ghulam 03/12 BA % % 0.8 FINAL Ambar Engelber g Ashby [facility] [place], [address] [facility] [address] Sat Ghulam 03/12 Christian # (ANC) k/uL 1.5 7.8 6.2 Kyleigh l FINAL Ambar Engelber g [facility]by [facility] [place], [facility] [address] [facility] [address] [facility] 03/12 LY # k/uL 0.9 3.9 1.8 Kyleigh l FINAL Ambar Engelber g [facility]by [facility] [place], [facility] [address] [facility] [address] [facility] 03/12 MO # k/uL 0.2 1.0 1.2 High FINAL Ambar Engelber g Ashby [facility] [place], [facility] [address] [facility] [address] [facility] 03/12 EO # k/uL 0.0 0.6 0.2 Kyleigh l FINAL Ambar Engelber g Susan [facility] [place], [facility] [address] [facility] [address] [facility] 03/12 BA # k/uL 0.0 0.2 0.1 Kyleigh l FINAL Ambar Engelber g Ashby [facility] [place], [facility] [address] [facility] [address] Sat Ghulam 03/12 IG % % 0.7 FINAL Ambar Engelber g Ashby [facility] [place], [facility] [address] [facility] [address] Sat Ghulam 03/12 IG # k/uL 0.0 0.1 0.1 Kyleigh l FINAL Ambar Engelber g Susan [facility] [place], [facility] [address] [facility] [address] [place] [address] 03/12 NRBC, % % 0.0 1.0 0.1 Kyleigh l FINAL Ambar Leticiaelber ro[place] [address] [address] [facility] [address] [place] [address] 03/12 Gluco se mg/dL 70.0 99.0 194 High Glucose reference range reflects fasting state. FINAL Ambar Joeber ro[place] [address] [address] [facility] [address] [place] [address] 03/12 BUN mg/dL 8.0 36.0 27 Kyleigh l FINAL Ambar Osmani ro[place] [address] [address] [facility] [address] [place] [address] 03/12 Creat inine mg/dL 0.51 1.08 1.26 High FINAL Ambarkip Keen roly [place] [address] [address] [facility] [id number] [place] [address] 03/12 GFR non-A frica n Ameri can, estim ated mL/min /1.73m 2 44 Low eGFRcr calculate d using the CKD-EPI 2020 equation FINAL Ambar Keen ro[place] [address] [address] [facility] [address] [place] [address] 03/12 BUN/C reati nine ratio 10.0 28.0 21.4% Kyleigh l FINAL Ambar Leticiaelber ro[place] [address] [address] [facility] [address] [place] [address] 03/12 Sodiu m mmol/L 135.0 145.0 141 Kyleigh l FINAL Ambar Leticiaelber ro[place] [address] [address] [facility] [address] [place] [address] 03/12 Potas sium mmol/L 3.6 5.3 3.8 Kyleigh l FINAL Ambar Engelber roly [place] [address] [address] [facility] [address] [facility] 03/12 Chlor ron mmol/L 95.0 109.0 103 Kyleigh l FINAL Ambar Engelber roly [facility] [place] [address] [address] [facility] [id number] [place] [address] 03/12 CO2 mmol/L 20.0 31.0 23 Kyleigh l FINAL Ambar Engelber roly [facility] [place] [address] [address] [facility] [address] [place] [address] 03/12 Anion gap 4.0 18.0 14.0% Kyleigh l FINAL Ambar Engelber roly [facility] [place] [address] [address] [facility] [address] [place] [address] 03/12 Total prote in g/dL 6.0 7.7 7.0 Kyleigh l FINAL Ambar Engelber roly [facility] [place] [address] [address] [facility] [address] [place] [address] 03/12 Album in g/dL 3.8 5.1 4.4 Kyleigh l FINAL Ambar Engelber roly [facility] [place] [address] [address] [facility] [address] [place] [address] 03/12 Globu maribel g/dL 1.7 3.3 2.6 Kyleigh l FINAL Ambar Engelber roly [facility] [place] [address] [address] [facility] [address] [place] [address] 03/12 A/G ratio , SPE 1.3 2.7 1.7% Kyleigh l FINAL Ambar Engelber roly [facility] [place] [address] [address] [facility] [address] [place] [address] 03/12 Calci um mg/dL 8.7 10.4 9.7 Kyleigh l FINAL Ambar Engelber roly [facility] [place] [address] [address] [facility] [address] [place] [address] 03/12 Alkal ine phosp hatas e IU/L 42.0 146.0 74 Kyleigh l FINAL Ambar Engelber g [facility] [place] [address] [address] [facility] [address] [place] [address] Ghulam 03/12 ALT/S GPT IU/L 5.0 46.0 19 Kyleigh l FINAL Ambar Engelber g [facility] [place] [address] [address] [facility] [address] [place] [address] 03/12 AST/S GOT IU/L 11.0 40.0 23 Kyleigh l FINAL Ambar Engelber g [facility] [place] [address] [address] [facility] [address] [place] [address] 03/12 Bilir ubin, total mg/dL 0.3 Kyleigh l FINAL Ambar Engelber g [facility] [place] [address] [address] [facility] [address] [place] [address] 04/02 WBC k/mm3 4.0 11.0 6.3 Kyleigh l FINAL Ambar Engelber g [facility] [place] [address] [address] [facility] [address] [place] [address] 04/02 RBC m/mm3 3.7 5.4 4.10 Kyleigh l FINAL Ambar Engelber g [facility] [place] [address] [address] [facility] [address] [place] [address] 04/02 HGB g/dL 12.0 16.0 10.8 Low FINAL Ambar Engelber g [place] [facility] [place] [address] [address] [facility] [address] [place] [address] 04/02 HCT % 35.0 48.0 35.8 Kyleigh l FINAL Ambar Engelber g [facility] [place] [address] [address] [facility] [address] [place] [address] Ghulam 04/02 MCV fL 78.0 100.0 87.3 Kyleigh l FINAL Ambar Engelber g [place] [facility] [place], [address] [facility] [address] Sat Ghulam 04/02 MCH pg 27.0 34.0 26.3 Low FINAL Ambar Engelber g [facility] [place] [address] [facility] [address] Sat Ghulam 04/02 MCHC g/dL 31.0 37.0 30.2 Low FINAL Ambar Engelber g [place] [facility] [place] [address] [facility] [address] [facility] Ghulam 04/02 PLT k/mm3 130.0 450.0 240 Kyleigh l FINAL Ambar Engelber g [place] [facility] [place] [address] [facility] [address] [facility] Ghulam 04/02 RDW-S D fL 38.0 49.0 52.5 High FINAL Ambar Engelber g [place] [facility] [place] [address] [facility] [address] [facility] Ghulam 04/02 RDW-C V, % % 11.0 15.0 16.5 High FINAL Ambar Engelber g [facility] [place] [address] [facility] [address] [facility] Ghulam 04/02 MPV fL 9.0 12.0 10.3 Kyleigh l FINAL Ambar Engelber g [facility]by [facility] [place] [address] [facility] [address] Sajit Ghulam 04/02 Christian % % 51.1 Automated Diff FINAL Ambar Engelber g [place] [facility] [place] [address] [facility] [address] Sajit Ghulam 04/02 LY % % 25.7 FINAL Ambar Engelber g [place] [facility] [place] [address] [facility] [address] Sajit Ghulam 04/02 MO % % 16.5 FINAL Ambar Engelber g [facility]by [facility] [place], [address] [facility] [address] Sajit Ghulam 04/02 EO % % 1.3 FINAL Ambar Engelber g [place] [facility] [place], [address] [facility] [address] Sajit Ghulam 04/02 BA % % 1.0 FINAL Ambar Engelber g Ashby [facility] [place], [address] [facility] [address] Sajit Ghulam 04/02 Christian # (ANC) k/uL 1.5 7.8 3.2 Kyleigh l FINAL Ambar Engelber g Ashby [facility] [place], [address] [facility] [address] Sajit Ghulam 04/02 LY # k/uL 0.9 3.9 1.6 Kyleigh l FINAL Ambar Engelber g [place] [facility] [place], [address] [facility] [address] Sajit Ghulam 04/02 MO # k/uL 0.2 1.0 1.0 Kyleigh l FINAL Ambar Engelber g Ashby [facility] [place], [address] [facility] [address] Sajit Ghulam 04/02 EO # k/uL 0.0 0.6 0.1 Kyleigh l FINAL Ambar Engelber g Ashby [facility] [place], [address] [facility] [address] Sajit Ghulam 04/02 BA # k/uL 0.0 0.2 0.1 Kyleigh l FINAL Ambar Engelber g Ashby [facility] [place], [address] [facility] [address] Sajit Ghulam 04/02 IG % % 4.4 FINAL Ambar Engelber g [facility]by [facility] [place], [address] [facility] [address] [place] [address] 04/02 IG # k/uL 0.0 0.1 0.3 High FINAL Ambar dunham Ashby [employer] [place] [address] [address] [facility] [address] [place] [address] 04/02 NRBC, % % 0.0 1.0 0.0 Kyleigh l FINAL Ambar dunham Ashby [employer] [place] [address] [address] [facility] [address] [place] [address] 04/02 CA 125 U/mL 26 Kyleigh l Values obtained with different assay [...] CA 125 assay value canbe excluded. FINAL Ambar dunham Ashby [employer] [place] [address] [address] [facility] [address] [place] [address] 04/02 Gluco se mg/dL 70.0 99.0 142 High Glucose reference range reflects fasting state. FINAL Ambar dunham [place] [address] [address] [facility] [address] [place] [address] 04/02 BUN mg/dL 8.0 36.0 32 Kyleigh l FINAL Ambar dunham Ashby [employer] [place] [address] [address] [facility] [address] [place] [address] 04/02 Creat inine mg/dL 0.51 1.08 1.26 High FINAL Ambarkip dunham Ashby [employer] [place] [address] [address] [facility] [address] [place] [address] 04/02 GFR non-A frica n Ameri can, estim ated mL/min /1.73m 2 44 Low eGFRcr calculate d using the CKD-EPI 2020 equation FINAL Ambar Engelber roly [place] [address] [facility] [address] [facility] Ghulam 04/02 BUN/C reati nine ratio 10.0 28.0 25.4% Kyleigh l FINAL Ambar Engelber roly [place] [address] [facility] [address] [facility] Ghulam 04/02 Sodiu m mmol/L 135.0 145.0 142 Kyleigh l FINAL Ambar Engelber roly [place] [address] [facility] [address] [place] [address] Ghulam 04/02 Potas sium mmol/L 3.6 5.3 4.5 Kyleigh l FINAL Ambar Engelber roly [place] [address] [facility] [address] [facility] Ghulam 04/02 Chlor ron mmol/L 95.0 109.0 108 Kyleigh l FINAL Ambar Engelber roly [place] [address] [address] [facility] [address] [facility] Ghulam 04/02 CO2 mmol/L 20.0 31.0 22 Kyleigh l FINAL Ambar Engelber roly [place] [address] [facility] [address] [facility] Ghulam 04/02 Anion gap 4.0 18.0 13.0% Kyleigh l FINAL Ambar Engelber roly [place] [address] [facility] [address] [place] [address] Ghulam 04/02 Total prote in g/dL 6.0 7.7 6.6 Kyleigh l FINAL Ambar Engelber roly [place] [address] [address] [facility] [address] [place] [address] Ghulam 04/02 Album in g/dL 3.8 5.1 4.3 Kyleigh l FINAL Ambar Engelber g [facility] [place] [address] [address] [facility] [address] [place] [address] Ghulam 04/02 Globu maribel g/dL 1.7 3.3 2.3 Kyleigh l FINAL Ambar Engelber g [facility] [place] [address] [address] [facility] [address] [place] [address] Ghulam 04/02 A/G ratio , SPE 1.3 2.7 1.8% Kyleigh l FINAL Ambar Engelber g [facility] [place] [address] [address] [facility] [address] [place] [address] Ghulam 04/02 Calci um mg/dL 8.7 10.4 9.6 Kyleigh l FINAL Ambar Engelber g [facility] [place] [address] [address] [facility] [address] [place] [address] Ghulam 04/02 Alkal ine phosp hatas e IU/L 42.0 146.0 73 Kyleigh l FINAL Ambar Engelber g [facility] [place] [address] [address] [facility] [address] [place] [address] Ghulam 04/02 ALT/S GPT IU/L 5.0 46.0 15 Kyleigh l FINAL Ambar Engelber g [facility] [place] [address] [address] [facility] [address] [place] [address] Ghulam 04/02 AST/S GOT IU/L 11.0 40.0 18 Kyleigh l FINAL Ambar Engelber g [facility] [place] [address] [address] [facility] [address] [place] [address] Ghulam 04/02 Bilir ubin, total mg/dL 0.2 Kyleigh l FINAL Ambar Engelber g [facility] [place] [address] [address] [facility] [address] [facility] 04/02 Iron ug/dL 35.0 175.0 81 Kyleigh l The normal range is based on fasting specimens drawn before 10:00 AM.Iron levels have a diurnal fluctuati on of up to 30%, peaking in themornin g hours. FINAL Petty Davis [facility], [address] [facility] [address] [facility] 04/02 TIBC ug/dL 250.0 400.0 389 Kyleigh l FINAL Petty Davis [facility], [address] [facility] [address] [place] [address] 04/02 Iron, % satur ation % 15.0 45.0 21 Kyleigh l FINAL Petty Davis [facility], [address] [facility] [address] [facility] 04/02 Vicky tin ng/mL 14.0 313.0 126 Kyleigh l FINAL Petty Davis [facility], [address] [facility] [address] [facility] Ghulam 04/27 CT Abdom en and Pelvi s witho ut contr ast [facility]Ph one:ROBERT E: EDMUND PHILLIPS CHINMAY VDOB: [id number]: [id number]: [id number] E OF EXAM: 024EXAM INATION : CT Abdomen and Pelvis without contras tCLINIC AL 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 Oral contras t was given.D ose Reducti on Techniq ue: Automat ed Exposur e Control COMPARI SON: CT abdomen and pelvis, 024, [facility]. FINDING S:LOWER THORAX: No basilar [...] atheros clerosi s.5. Simple left renal cyst.El ectroni anibal signed byJose Alfredo Mascorro M.D.Dic tated: 04/27/20 24 3:33 PM Signed: 04/27/20 24 3:41 PMFINAL REPORT FINAL 04/30 Lab Repor t See front office java developer d 05/07 Gluco se mg/dL 70.0 99.0 173 High Glucose reference range reflects fasting state. FINAL Petty Davis [facility] [place], [address] [facility] [address] Jm Parmar 05/07 BUN mg/dL 8.0 36.0 20 Kyleigh l FINAL Petty Day [place] [facility] [place] [address] [address] [facility] [address] [place] [address] 05/07 Creat inine mg/dL 0.51 1.08 1.39 High FINAL Petty Day [facility] [place] [address] [facility] [address] [place] [address] 05/07 GFR non-A frica n Ameri can, estim ated mL/min /1.73m 2 39 Low eGFRcr calculate d using the CKD-EPI 2020 equation FINAL Petty Day [facility] [place] [address] [address] [facility] [address] [place] [address] 05/07 BUN/C reati nine ratio 10.0 28.0 14.4% Kyleigh l FINAL Petty Day [facility] [place] [address] [address] [facility] [address] [place] [address] 05/07 Sodiu m mmol/L 135.0 145.0 142 Kyleigh l FINAL Petty Day [place] [facility] [place] [address] [address] [facility] [address] [place] [address] 05/07 Potas sium mmol/L 3.6 5.3 4.6 Kyleigh l FINAL Petty Day [place] [facility] [place] [address] [facility] [address] [place] [address] 05/07 Chlor ron mmol/L 95.0 109.0 107 Kyleigh l FINAL Petty Day [facility] [place] [address] [facility] [address] [place] [address] 05/07 CO2 mmol/L 20.0 31.0 24 Kyleigh l FINAL Petty Day Ashby [facility] [place] [address] [facility] [address] [place] [address] 05/07 Anion gap 4.0 18.0 11.0% Kyleigh l FINAL Petty Shay [place] [facility] [place], [address] [facility] [address] [facility] Ghulam 05/07 Total prote in g/dL 6.0 7.7 6.6 Kyleigh l FINAL Petty Day [place] [facility] [place], [address] [facility] [address] [facility] Ghulam 05/07 Album in g/dL 3.8 5.1 4.2 Kyleigh l FINAL Petty Day [place] [facility] [place], [address] [facility] [address] [facility] Ghulam 05/07 Globu maribel g/dL 1.7 3.3 2.4 Kyleigh l FINAL Petty Day [place] [facility] [place], [facility] [address] [facility] [address] [facility] Ghulam 05/07 A/G ratio , SPE 1.3 2.7 1.7% Kyleigh l FINAL Petty Day [place] [facility], [facility] [address] [facility] [address] [facility] Ghulam 05/07 Calci um mg/dL 8.7 10.4 9.4 Kyleigh l FINAL Petty Day [place] [facility] [place], [address] [facility] [address] [facility] Ghulam 05/07 Alkal ine phosp hatas e IU/L 42.0 146.0 64 Kyleigh l FINAL Petty Day [facility]by [facility] [place], [address] [facility] [address] [facility] Ghulam 05/07 ALT/S GPT IU/L 5.0 46.0 10 Kyleigh l FINAL Petty Day Ashby [facility] [place], [facility] [address] [facility] [address] Sat Ghulam 05/07 AST/S GOT IU/L 11.0 40.0 24 Kyleigh l FINAL Petty Day Ashby [facility], [facility] [address] [facility] [address] [place] [address] 05/07 Bilir ubin, total mg/dL 0.2 Kyleigh l FINAL Petty [place] [facility] [place] [address] [facility] [address] [place] [address] 05/07 CA 125 U/mL 18 Kyleigh l [...] FINAL Petty [place] [facility] [place], [facility] [address] [place] [address] 05/07 WBC k/mm3 4.0 11.0 7.1 Kyleigh l FINAL Petty Day [facility] [place] [address] [address] [facility] [address] [place] [address] 05/07 RBC m/mm3 3.7 5.4 3.92 Kyleigh l FINAL Petty Day [place] [facility] [place] [address] [facility] [address] [place] [address] 05/07 HGB g/dL 12.0 16.0 10.6 Low FINAL Petty Day [place] [facility] [place] [address] [facility] [address] [place] [address] 05/07 HCT % 35.0 48.0 35.1 Kyleigh l FINAL Petty Day Ashby [facility] [place] [address] [facility] [address] [place] [address] 05/07 MCV fL 78.0 100.0 89.5 Kyleigh l FINAL Petty Day Ashby [facility] [place], [address] [facility] [address] Samelinda Ghulam 05/07 MCH pg 27.0 34.0 27.0 Kyleigh l FINAL Petty Shay Ashby [facility] [place], [address] [facility] [address] Samelindat Ghulam 05/07 MCHC g/dL 31.0 37.0 30.2 Low FINAL Petty Shay [place] [facility] [place], [address] [facility] [address] [facility] Ghulam 05/07 PLT k/mm3 130.0 450.0 335 Kyleigh l FINAL Petty Shay [facility] [place], [address] [facility] [address] [facility] Ghulam 05/07 RDW-S D fL 38.0 49.0 54.3 High FINAL Petty Shay Ashby [facility] [place], [facility] [address] [facility] [address] [facility] Ghulam 05/07 RDW-C V, % % 11.0 15.0 16.5 High FINAL Petty Shay [facility]by [facility] [place], [address] [facility] [address] [facility] Ghulam 05/07 MPV fL 9.0 12.0 11.0 Kyleigh l FINAL Petty Shay [facility] [place], [facility] [address] [facility] [address] [facility] Ghulam 05/07 Christian % % 48.4 Automated Diff FINAL Petty Shay [facility] [place] [address] [facility] [address] Sat Ghulam 05/07 LY % % 25.7 FINAL Petty Shay [facility] [place], [facility] [address] [facility] [address] Sajit Ghulam 05/07 MO % % 20.7 FINAL Petty Shay [facility]by [facility] [place] [address] [facility] [address] Sajit Ghulam 05/07 EO % % 2.3 FINAL Petty Shay [place] [facility] [place], [address] [facility] [address] Sajit Ghulam 05/07 BA % % 1.1 FINAL Pettysandro Day Susan [facility] [place], [address] [facility] [address] Sajit Ghulam 05/07 Christian # (ANC) k/uL 1.5 7.8 3.4 Kyleigh l FINAL Pettysandro Day Ashby [facility] [place], [address] [facility] [address] Sajit Ghulam 05/07 LY # k/uL 0.9 3.9 1.8 Kyleigh l FINAL Pettysandro Day Susan [facility] [place], [address] [facility] [address] Sajit Ghulam 05/07 MO # k/uL 0.2 1.0 1.5 High FINAL Pettysandro Day Ashby [facility] [place], [address] [facility] [address] Sajit Ghulam 05/07 EO # k/uL 0.0 0.6 0.2 Kyleigh l FINAL Petty Shay [facility]by [facility] [place], [address] [facility] [address] Sajit Ghulam 05/07 BA # k/uL 0.0 0.2 0.1 Kyleigh l FINAL Petty Shay [facility]by [facility] [place], [address] [facility] [address] Sajit Ghulam 05/07 IG % % 1.8 FINAL Petty Shay [facility]by [facility] [place], [address] [facility] [address] Sajit Ghulam 05/07 IG # k/uL 0.0 0.1 0.1 Kyleigh l FINAL Petty Shay [facility]by [facility] [place], [address] [facility] [address] Sajit Ghulam 05/07 NRBC, % % 0.0 1.0 0.3 Kyleigh l FINAL Petty [place] [facility], [facility] [address] [facility] [address] [place] [address] 07/11 Lab Repor t See front office java developer d 08/27 CA 125 U/mL 19 Kyleigh [...] canbe excluded. FINAL Petty [place] [facility], [facility] [address] [facility] [address] [place] [address] 08/27 Sodiu m mmol/L 135.0 145.0 141 Kyleigh l FINAL Petty Day Susan [facility], [facility] [address] [place] [address] 08/27 Potas sium mmol/L 3.6 5.3 5.0 Kyleigh l FINAL Petty Day [facility]by [facility], [facility] [address] [facility] [address] [place] [address] 08/27 Chlor ron mmol/L 95.0 109.0 103 Kyleigh l FINAL Petty Day Susan [facility], [facility] [address] [facility] [address] [place] [address] 08/27 CO2 mmol/L 20.0 31.0 25 Kyleigh l FINAL Petty [place] [facility] [address] [facility] [address] [place] [address] 08/27 Anion gap 4.0 18.0 12.0% Kyleigh l FINAL Petty Day Ashby [facility] [place], [facility] [address] [facility] [address] [facility] Ghulam 08/27 Total prote in g/dL 6.0 7.7 8.2 High FINAL Petty Day Susan [facility] [place], [facility] [address] [facility] [address] [facility] Ghulam 08/27 Album in g/dL 3.8 5.1 4.8 Kyleigh l FINAL Petty Shay [facility]by [facility] [place] [address] [facility] [address] [facility] Ghulam 08/27 Globu maribel g/dL 1.7 3.3 3.4 High FINAL Petty Day Ashby [facility] [place] [address] [facility] [address] [facility] 08/27 A/G ratio , SPE 1.3 2.7 1.4% Kyleigh l FINAL Petty Shay Ashby [facility] [place] [address] [facility] [address] [facility] 08/27 Calci um mg/dL 8.7 10.4 10.4 Kyleigh l FINAL Petty Shay Ashby [facility] [place] [address] [facility] [address] [facility] 08/27 Alkal ine phosp hatas e IU/L 42.0 146.0 108 Kyleigh l FINAL Petty Day Susan [facility] [place] [address] [facility] [address] [facility] 08/27 ALT/S GPT IU/L 5.0 46.0 21 Kyleigh l FINAL Petty Shay Susan [facility] [place] [address] [facility] [address] [facility] 08/27 AST/S GOT IU/L 11.0 40.0 21 Kyleigh l FINAL Pettysandro Day Susan [facility] [place] [address] [facility] [address] [facility] 08/27 Bilir ubin, total mg/dL 0.3 Kyleigh l FINAL Petty [place] [facility] [place] [address] [facility] [id number] [place] [address] 08/27 Gluco se mg/dL 70.0 99.0 285 High Glucose reference range reflects fasting state. FINAL Petty [place] [facility] [place] [address] [facility] [id number] [place] [address] 08/27 BUN mg/dL 8.0 36.0 41 High FINAL Petty Day Ashby [facility] [place] [address] [facility] [id number] [place] [address] 08/27 Creat inine mg/dL 0.51 1.08 1.44 High FINAL Petty [place] [facility] [place] [address] [facility] [id number] [place] [address] 08/27 GFR non-A frica n Ameri can, estim ated mL/min /1.73m 2 37 Low eGFRcr calculate d using the CKD-EPI 2020 equation FINAL Petty Davis [facility] [place] [address] [facility] [id number] [place] [address] 08/27 BUN/C reati nine ratio 10.0 28.0 28.5% High FINAL Petty [place] [facility] [place] [address] [facility] [address] [facility] 08/27 WBC k/mm3 4.0 11.0 7.5 Kyleigh l FINAL Petty Day Ashby [facility] [place] [address] [facility] [id number] [place] [address] 08/27 RBC m/mm3 3.7 5.4 5.00 Kyleigh l FINAL Petty [place] [facility] [place] [address] [facility] [id number] [place] [address] 08/27 HGB g/dL 12.0 16.0 13.3 Kyleigh l FINAL Petty Shay Ashby [facility] [place], [address] [facility] [address] [facility] 08/27 HCT % 35.0 48.0 41.7 Kyleigh l FINAL Petty Shay Ashby [facility] [place], [address] [facility] [address] Sajit Ghulam 08/27 MCV fL 78.0 100.0 83.4 Kyleigh l FINAL Petty Shay Ashby [facility] [place], [facility] [address] [facility] [address] [facility] 08/27 MCH pg 27.0 34.0 26.6 Low FINAL Petty Shay Ashby [facility] [place], [facility] [address] [facility] [address] [facility] 08/27 MCHC g/dL 31.0 37.0 31.9 Kyleigh l FINAL Petty Shay Susan [facility] [place], [address] [facility] [address] [facility] 08/27 PLT k/mm3 130.0 450.0 255 Kyleigh l FINAL Petty Shay Susan [facility] [place], [facility] [address] [facility] [address] [facility] 08/27 RDW-S D fL 38.0 49.0 43.4 Kyleigh l FINAL Petty Shay Ashby [facility] [place], [facility] [address] [facility] [address] [facility] 08/27 RDW-C V, % % 11.0 15.0 14.3 Kyleigh l FINAL Petty Shay Susan [facility] [place], [facility] [address] [facility] [address] Sat Ghulam 08/27 MPV fL 9.0 12.0 11.1 Kyleigh l FINAL Petty Shay Susan [facility] [place], [facility] [address] [facility] [address] Sat Ghulam 08/27 Christian % % 76.4 Automated Diff FINAL Petty Shay Ashby [facility] [place], [address] [facility] [address] Sajit Ghulam 08/27 LY % % 19.2 FINAL Petty Shay Ashby [facility] [place], [address] [facility] [address] Sajit Ghulam 08/27 MO % % 3.4 FINAL Petty Shay Susan [facility] [place], [address] [facility] [address] Sajit Ghulam 08/27 EO % % 0.0 FINAL Petty Shay Ashby [facility] [place], [address] [facility] [address] Sajit Ghulam 08/27 BA % % 0.1 FINAL Petty Shay Susan [facility] [place], [address] [facility] [address] Sajit Ghulam 08/27 Christian # (ANC) k/uL 1.5 7.8 5.7 Kyleigh l FINAL Petty Shay Ashby [facility] [place], [address] [facility] [address] Sajit Ghulam 08/27 LY # k/uL 0.9 3.9 1.4 Kyleigh l FINAL Petty Shay Susan [facility] [place], [address] [facility] [address] Sajit Ghulam 08/27 MO # k/uL 0.2 1.0 0.3 Kyleigh l FINAL Petty Shay Susan [facility] [place], [address] [facility] [address] Sajit Ghulam 08/27 EO # k/uL 0.0 0.6 0.0 Kyleigh l FINAL Petty Shay Ashby [facility] [place], [address] [facility] [address] Sajit Ghulam 08/27 BA # k/uL 0.0 0.2 0.0 Kyleigh l FINAL Petty Shay Ashby [facility] [place], [facility] [address] [facility] [address] [facility] 08/27 IG % % 0.[address] [facility], [facility] [address] [facility] [address] [facility] 08/27 IG # k/uL 0.0 0.1 0.1 Kyleigh l FINAL Petty Bridges [facility], [facility] [address] [facility] [address] [facility] 08/27 NRBC, % % 0.0 1.0 0.0 Kyleigh l FINAL Petty Davis [facility], [facility] N [place] [facility] [address] [facility] Medications Date Name Route Dose Frequency Instructions [...] releas e 24 hr daily active 09/21 Aspirin Oral orally 81.0 mg daily active 09/21 Fenofib rate Oral oral 1.0 tablet daily active 09/21 Pregaba maribel Oral oral 3.0 capsul e daily active 09/21 Tiotrop ium Inhaler 18 mcg active 09/21 Omepraz ole Oral Delayed Release Capsule oral 1.0 daily active 09/21 Rosuvas tatin Calcium Oral [...] concentration must be 0.3-1.2 mg/mL. Administer using [id number] ining equipment and through an in-line 0.22 [...] neuropathy Active Vital Signs Date Type Value 12/20/2023 Weight 144.00 12/20/2023 Height 60.00 12/20/2023 BMI 28.12 12/20/2023 BSA 1.62 12/20/2023 Intravascular Systolic 158 12/20/2023 Intravascular Diastolic 74 12/20/2023 Oxygen Saturation 95.00 12/20/2023 Respiratory Rate 18.00 12/20/2023 Heart Beat 87.00 12/20/2023 Body Temperature 97.40 12/20/2023 Pain Scale 6.00 01/09/2024 Oxygen Saturation 96.00 01/09/2024 Respiratory Rate 18.00 01/09/2024 Heart Beat 97.00 01/09/2024 Body Temperature 98.20 01/09/2024 Intravascular Systolic 148 01/09/2024 Intravascular Diastolic 65 01/09/2024 BSA 1.63 01/09/2024 BMI 28.44 01/09/2024 Height 60.00 01/09/2024 Weight 145.60 01/09/2024 Pain Scale 4.00 01/10/2024 BMI 28.01 01/10/2024 Height 60.00 01/10/2024 Weight 143.40 01/10/2024 Pain Scale 10.00 01/10/2024 BSA 1.62 01/10/2024 Heart Beat 74.00 01/10/2024 Respiratory Rate 18.00 01/10/2024 Oxygen Saturation 98.00 01/10/2024 Intravascular Systolic 111 01/10/2024 Intravascular Diastolic 53 01/10/2024 Body Temperature 98.60 01/30/2024 Oxygen Saturation 95.00 01/30/2024 Body Temperature 97.70 01/30/2024 Heart Beat 73.00 01/30/2024 Respiratory Rate 17.00 01/30/2024 Intravascular Systolic 128 01/30/2024 Intravascular Diastolic 58 01/30/2024 Pain Scale 7.00 01/30/2024 Weight 144.60 01/30/2024 Height 60.00 01/30/2024 BMI 28.24 01/30/2024 BSA 1.63 01/31/2024 Oxygen Saturation 95.00 01/31/2024 Body Temperature 97.80 01/31/2024 Heart Beat 84.00 01/31/2024 Respiratory Rate 18.00 01/31/2024 BSA 1.62 01/31/2024 Pain Scale 0.00 01/31/2024 Weight 144.20 01/31/2024 Height 60.00 01/31/2024 BMI 28.16 01/31/2024 Intravascular Systolic 138 01/31/2024 Intravascular Diastolic 80 02/20/2024 Intravascular Systolic 143 02/20/2024 Intravascular Diastolic 68 02/20/2024 Pain Scale 3.00 02/20/2024 Weight 144.60 02/20/2024 Height 60.00 02/20/2024 BMI 28.24 02/20/2024 BSA 1.63 02/20/2024 Body Temperature 97.00 02/20/2024 Heart Beat 70.00 02/20/2024 Respiratory Rate 18.00 02/20/2024 Oxygen Saturation 97.00 02/21/2024 Oxygen Saturation 98.00 02/21/2024 Body Temperature 98.70 02/21/2024 BSA 1.62 02/21/2024 BMI 27.93 02/21/2024 Height 60.00 02/21/2024 Weight 143.00 02/21/2024 Pain Scale 0.00 02/21/2024 Intravascular Systolic 131 02/21/2024 Intravascular Diastolic 71 02/21/2024 Respiratory Rate 16.00 02/21/2024 Heart Beat 79.00 03/06/2024 Body Temperature 98.30 03/06/2024 BMI 28.55 03/06/2024 Height 60.00 03/06/2024 Weight 146.20 03/06/2024 BSA 1.63 03/06/2024 Intravascular Systolic 151 03/06/2024 Intravascular Diastolic 74 03/06/2024 Oxygen Saturation 97.00 03/06/2024 Respiratory Rate 18.00 03/06/2024 Heart Beat 70.00 03/06/2024 Pain Scale 6.00 03/13/2024 BMI 28.04 03/13/2024 Height 60.00 03/13/2024 Weight 143.60 03/13/2024 Pain Scale 7.00 03/13/2024 Intravascular Systolic 158 03/13/2024 Intravascular Diastolic 81 03/13/2024 Respiratory Rate 18.00 03/13/2024 Heart Beat 96.00 03/13/2024 Body Temperature 98.00 03/13/2024 Oxygen Saturation 95.00 03/13/2024 BSA 1.62 04/02/2024 BMI 28.28 04/02/2024 Height 60.00 04/02/2024 Weight 144.80 04/02/2024 Pain Scale 8.00 04/02/2024 BSA 1.63 04/02/2024 Respiratory Rate 20.00 04/02/2024 Heart Beat 92.00 04/02/2024 Body Temperature 98.60 04/02/2024 Oxygen Saturation 92.00 04/02/2024 Intravascular Systolic 120 04/02/2024 Intravascular Diastolic 76 04/03/2024 BSA 1.63 04/03/2024 BMI 28.40 04/03/2024 Height 60.00 04/03/2024 Weight 145.40 04/03/2024 Pain Scale 7.00 04/03/2024 Intravascular Systolic 163 04/03/2024 Intravascular Diastolic 74 04/03/2024 Respiratory Rate 18.00 04/03/2024 Heart Beat 96.00 04/03/2024 Oxygen Saturation 98.00 04/03/2024 Body Temperature 97.40 05/07/2024 BMI 28.44 05/07/2024 Height 60.00 05/07/2024 Weight 145.60 05/07/2024 Oxygen Saturation 98.00 05/07/2024 BSA 1.63 05/07/2024 Heart Beat 75.00 05/07/2024 Body Temperature 97.80 05/07/2024 Intravascular Systolic 110 05/07/2024 Intravascular Diastolic 60 05/07/2024 Pain Scale 8.00 05/07/2024 Respiratory Rate 20.00 08/27/2024 Intravascular Systolic 149 08/27/2024 Intravascular Diastolic 75 08/27/2024 Respiratory Rate 20.00 08/27/2024 Body Temperature 97.80 08/27/2024 Heart Beat 76.00 08/27/2024 BSA 1.60 08/27/2024 Pain Scale 5.00 08/27/2024 Weight 138.40 08/27/2024 Height 60.00 08/27/2024 BMI 27.03 08/27/2024 Oxygen Saturation 93.00 Notes Section * Nurse Note for: 27-APR-24 [facility] Nurse Note Print Location: Unknown Date/Time Printed: 07/14/2025 11:34 (Yelitza/Woolrich) Patient: CHINMAY MORALES V Sex: Female : 1945 Date of Service: 04/27/2024 Allergies : Sulfamide, Iodinated Contrast Media Patient Assessment : Procedures : Computed tomography of abdomen and pelvis (procedure) - Associated Problem(s): Malignant tumor of fallopian tube *; Primary malignant neoplasm of colon (disorder) *; Selected Billing Code(s): CT ABDOMEN & PELVIS W/O CONTRAST MATERIAL (90399) Entered By Neris Vargas; Incident to Petty Day MD * Nurse Note for: 03-APR-24 [facility] Nurse Note Print Location: Unknown Date/Time Printed: 07/14/2025 11:34 (Yelitza/Woolrich) Patient: CHINMAY MORALES V Sex: Female : 1945 Date of Service: 04/03/2024 Allergies : Sulfamide, Iodinated Contrast Media Vital Signs : Time: 09:. Weight: 145.4 lb (65.95 kg). Height: 60 in (152.40 cm). BMI: 28.4 (kg/m2) . BSA: 1.63 (m2) . Temperature: 97.4 F (36.33 C) forehead. Pulse: 96 (/min) sitting. Respirations: 18 (/min) . Blood pressure: 163/74 (mm Hg) right arm Regular. Pain Scale: 7. O2 Saturation: 98 (%) at rest. Entered by Ml Cruz MA 04/03/2024 09:28 Incident To Details : Incident to physician is available to furnish assistance and provide supervision throughout the treatment. Entered By Kanchan Corey RN on 12: Patient Assessment : Positive results Assessment : Labs Verified: Yes-AMS, Alert, oriented with appropriate behavior. Complains of Pain-7. Negative results Assessment : Denies Fever, Chills or Night Sweats , Signs of Infection . Entered By Kanchan Corey RN on 12: IV Access/Lab Draw : IV Access-Peripheral - New Start, Primary Bag Fluid-0.9% Sodium Chloride, Needle Type-Iv Cath, Needle Size-24 Gauge, Access Site-Left Arm, Flush-10ml NS, Site Assess List-Blood Return,No Redness,No Swelling,No Tenderness,No Bruising, Site Care Checklist-Aseptic Technique, Dressing Change-Tegaderm,Alcohol, Lab Drawn- No, Access Attempts-1 time(s), Entered By Kanchan Corey RN on 12: IV De-Access : IV Access Method-Peripheral - New Start, IV Access Type-Iv Cath, Line Flushed- 20ml NS, Catheter-Dc'd, Site Care-Dressing changed per protocol,IV Infusion Completed,Blood Return Noted During Administration,Therapy Completed Without Adverse Event, Site Assess-Line Intact,No Redness,No Swelling,No Tenderness,No Bruising, Entered By Kanchan Corey RN on 12: Discharge Note : Comments-Therapy completed without adverse event, Discharged from clinic, Stable, No new complaints, Patient instructed to call office with any questions or problems, Accompanied By-Self, Discharge-Ambulatory Entered By Kanchan Corey RN on 12:02 Medication Administration : Incident to: Brian Davey MD Paclitaxel + Carboplatin Q21D (Ovarian) Chemotherapy Paclitaxel IV, 6 mg/mL concentrate, 222 mg intravenously Piggyback once, Admin over: 3 hours to 3 hours, Instructions: Dilute in 250-500 mL NS. Final product concentration must be 0.3-1.2 mg/mL. Administer using Poj-TUCY-[id number] equipment and through an in-line 0.22 micron filter. Paclitaxel is a vascular irritant., Allow Substitution HELD (Reason: Not given - other reason) Entered By: Petty Day MD Incident to: Brian Davey MD Paclitaxel + Carboplatin Q21D (Ovarian) Chemotherapy Carboplatin IV, 270 mg intravenously Piggyback once, Instructions: Mix in D5W or NS.Carboplatin is an irritant., Allow Substitution GIVEN: 270 mg Pharmacy plan: Dispense/Waste: 270/0 mg Amount in mL: 27 Pharmacy dispense: [facility]: [id number] Dispense/Waste: 270/0 mg Given Dose/Discard: 270/0 mg Start Time: 10:22, Entered By: Kanchan Corey RN, Stop Time: 11:22, Entered By: Kanchan Corey RN Admix Fluid: dextrose 5 % in water, Admix Fluid Volume: 250mL, Total Volume: 277mL Incident to: Brian Davey MD Paclitaxel + Carboplatin Q21D (Ovarian) Premedications Palonosetron IV, 0.25 mg intravenously Push once, Allow Substitution GIVEN: 0.25 mg Pharmacy plan: Dispense/Waste: 0.25/0 mg Amount in mL: 5 Pharmacy dispense: [facility]: [id number] Dispense/Waste: 0.25/0 mg Given Dose/Discard: 0.25/0 mg Start Time: 09:54, Entered By: Kanchan Corey RN, Stop Time: 09:56, Entered By: Kanchan Corey RN Incident to: Brian Davey MD Paclitaxel + Carboplatin Q21D (Ovarian) Premedications Dexamethasone IV, 10 mg intravenously Piggyback once, Admin over: 20 minutes to 20 minutes, Allow Substitution GIVEN: 10 mg Pharmacy plan: Dispense/Waste: 10/0 mg Amount in mL: 1 Pharmacy dispense: [facility]: [id number] Dispense/Waste: 10/0 mg Given Dose/Discard: 10/0 mg Start Time: 09:56, Entered By: Kanchan Corey RN, Stop Time: 10:06, Entered By: Kanchan Corey RN Admix Fluid: 0.9 % sodium chloride, Admix Fluid Volume: 50mL, Total Volume: 51mL Incident to: Brian Davey MD Paclitaxel + Carboplatin Q21D (Ovarian) Premedications Cinvanti (Aprepitant IV), 7.2 mg/mL emulsion, 130 mg intravenously Push once, Instructions: Administer 30 minutes prior to chemotherapy. Do NOT dilute. Flush with NS before and after administration.,Allow Substitution GIVEN: 130 mg Pharmacy plan: Dose Form Description: 7.2 mg/mL emulsion Dispense/Waste: 130/0 mg Amount in mL: 18 Pharmacy dispense: [facility]: [id number] Dispense/Waste: 130/0 mg Given Dose/Discard: 130/0 mg Start Time: 10:13, Entered By: Kanchan Corey RN, Stop Time: 10:18, Entered By: Kanchan Corey RN Incident to: Brian Davey MD Paclitaxel + Carboplatin Q21D (Ovarian) Premedications Diphenhydramine IV, 25 mg intravenously once, Instructions: Administer 30-60 minutes prior to paclitaxel., Allow Substitution GIVEN: 25 mg Pharmacy plan: Dispense/Waste: 25/0 mg Amount in mL: 0.5 Pharmacy dispense: [facility]: [id number] Dispense/Waste: 25/0 mg Given Dose/Discard: 25/0 mg Start Time: 09:52, Entered By: Kanchan Corey RN, Stop Time: 09:54, Entered By: Kanchan Corey RN Incident to: Brian Davey MD Paclitaxel + Carboplatin Q21D (Ovarian) Premedications Famotidine IV, 20 mg intravenously once, Instructions: Administer 30-60 minutes prior to paclitaxel., Allow Substitution GIVEN: 20 mg Pharmacy plan: Dispense/Waste: 20/0 mg Amount in mL: 2 Pharmacy dispense: [facility]: [id number] Dispense/Waste: 20/0 mg Given Dose/Discard: 20/0 mg Start Time: 09:50, Entered By: Kanchan Corey RN, Stop Time: 09:52, Entered By: Kanchan Corey RN Free Text Note : Patient tolerated treatment well, no issues or complaints. Entered By Kanchan Corey RN on 12:02 * Nurse Note for: 13-MAR-24 [facility] Nurse Note Print Location: Unknown Date/Time Printed: 07/14/2025 11:34 (Yelitza/Woolrich) Patient: CHINMAY MORALES V Sex: Female : 1945 Date of Service: 03/13/2024 Allergies : Sulfamide, Iodinated Contrast Media Vital Signs : Time: 09:51. Weight: 143.6 lb (65.14 kg). Height: 60 in (152.40 cm). BMI: 28.04 (kg/m2) . BSA: 1.62(m2) . Temperature: 98 F (36.67 C) forehead. Pulse: 96 (/min) sitting. Respirations: 18 (/min) . Blood pressure: 158/81 (mm Hg) right arm Regular. Pain Scale: 7. O2 Saturation: 95 (%) at rest. Entered by Ml Cruz MA 03/13/2024 09:52 Incident To Details : Incident to physician is available to furnish assistance and provide supervision throughout the treatment. Entered By Erin Duggan RN on 12:41 Patient Assessment : Positive results Assessment : Labs Verified: Yes-8/5 labs verified with [facility] RN, Alert, oriented with appropriate behavior. Complains of Pain-7, Fatigue. Negative results Assessment : Denies Fever, Chills or Night Sweats , Signs of Infection , Nausea . Entered By Erin Duggan RN on 12:45 IV Access/Lab Draw : IV Access-Peripheral - New Start, Needle Type-Iv Cath, Needle Size-24 Gauge, Access Site-Right Arm,Flush-10ml NS, Site Assess List-Blood Return,No Redness,No Swelling,No Tenderness,No Bruising, SiteCare Checklist-Aseptic Technique,Cap Changed, Dressing Change-Tegaderm,Alcohol, Lab Drawn-No, Access Attempts-2 time(s), Comments-IV started by MG Rn Entered By Erin Duggan RN on 12:46 IV De-Access : IV Access Method-Peripheral - New Start, IV Access Type-Iv Cath, Line Flushed- 10ml NS, Catheter-Dc'd, Site Care-IV Infusion Completed,Blood Return Noted During Administration,Therapy Completed Without Adverse Event,Occlusive Dressing Applied, Site Assess-Line Intact,No Redness,No Swelling,No Tenderness,No Bruising, Entered By Erin Duggan RN on 12:46 Discharge Note : Comments-Discharged from clinic, Stable, Patient instructed to call office with any questions or problems, Accompanied By-Self, Discharge-Ambulatory Entered By Erin Duggan RN on 12:46 Medication Administration : Incident to: Brian Davey MD Paclitaxel + Carboplatin Q21D (Ovarian) Chemotherapy Paclitaxel IV, 6 mg/mL concentrate, 222 mg intravenously Piggyback once, Admin over: 3 hours to 3 hours, Instructions: Dilute in 250-500 mL NS. Final product concentration must be 0.3-1.2 mg/mL. Administer using [id number] equipment and through an in-line 0.22 micron filter. Paclitaxel is a vascular irritant., Allow Substitution GIVEN: 222 mg Pharmacy plan: Dose Form Description: 6 mg/mL concentrate Dispense/Waste: 222/0 mg Amount in mL: 37 Pharmacy dispense: [facility]: [id number] Dispense/Waste: 222/0 mg Given Dose/Discard: 222/0 mg Start Time: 10:57, Entered By: Erin Duggan RN, Stop Time: 13:57, Entered By: Erin Duggan RN Admix Fluid: 0.9 % sodium chloride, Admix Fluid Volume: 250mL, Total Volume: 287mL Incident to: Brian Davey MD Paclitaxel + Carboplatin Q21D (Ovarian) Chemotherapy Carboplatin IV, 270 mg intravenously Piggyback once, Instructions: Mix in D5W or NS.Carboplatin is an irritant., Allow Substitution GIVEN: 270 mg Pharmacy plan: Dispense/Waste: 270/0 mg Amount in mL: 27 Pharmacy dispense: [facility]: [id number] Dispense/Waste: 270/0 mg Given Dose/Discard: 270/0 mg Start Time: 14:00, Entered By: Erin Duggan RN, Stop Time: 15:00, Entered By: Erin Duggan RN Admix Fluid: dextrose 5 % in water, Admix Fluid Volume: 250mL, Total Volume: 277mL Incident to: Brian Davey MD Paclitaxel + Carboplatin Q21D (Ovarian) Premedications Palonosetron IV, 0.25 mg intravenously Push once, Allow Substitution GIVEN: 0.25 mg Pharmacy plan: Dispense/Waste: 0.25/0 mg Amount in mL: 5 Pharmacy dispense: [facility]: [id number] Dispense/Waste: 0.25/0 mg Given Dose/Discard: 0.25/0 mg Start Time: 10:15, Entered By: Erin Duggan RN, Stop Time: 10:16, Entered By: Erin Duggan RN Incident to: Brian Davey MD Paclitaxel + Carboplatin Q21D (Ovarian) Premedications Dexamethasone IV, 10 mg intravenously Piggyback once, Admin over: 20 minutes to 20 minutes, Allow Substitution GIVEN: 10 mg Pharmacy plan: Dispense/Waste: 10/0 mg Amount in mL: 1 Pharmacy dispense: [facility]: [id number] Dispense/Waste: 10/0 mg Given Dose/Discard: 10/0 mg Start Time: 10:20, Entered By: Erin Duggan RN, Stop Time: 10:30, Entered By: Erin Duggan RN Admix Fluid: 0.9 % sodium chloride, Admix Fluid Volume: 50mL, Total Volume: 51mL Incident to: Brian Davey MD Paclitaxel + Carboplatin Q21D (Ovarian) Premedications Cinvanti (Aprepitant IV), 7.2 mg/mL emulsion, 130 mg intravenously Push once, Instructions: Administer 30 minutes prior to chemotherapy. Do NOT dilute. Flush with NS before and after administration.,Allow Substitution GIVEN: 130 mg Pharmacy plan: Dispense/Waste: 130/0 mg Amount in mL: 18 Pharmacy dispense: [facility]: [id number] Dispense/Waste: 130/0 mg Given Dose/Discard: 130/0 mg Start Time: 10:32, Entered By: Erin Duggan RN, Stop Time: 10:36, Entered By: Erin Duggan RN Incident to: Brian Davey MD Paclitaxel + Carboplatin Q21D (Ovarian) Premedications Diphenhydramine IV, 25 mg intravenously once, Instructions: Administer 30-60 minutes prior to paclitaxel., Allow Substitution GIVEN: 25 mg Pharmacy plan: Dispense/Waste: 25/0 mg Amount in mL: 0.5 Pharmacy dispense: [facility]: [id number] Dispense/Waste: 25/0 mg Given Dose/Discard: 25/0 mg Start Time: 10:18, Entered By: Erin Duggan RN, Stop Time: 10:20, Entered By: Erin Duggan RN Incident to: Brian Davey MD Paclitaxel + Carboplatin Q21D (Ovarian) Premedications Famotidine IV, 20 mg intravenously once, Instructions: Administer 30-60 minutes prior to paclitaxel., Allow Substitution GIVEN: 20 mg Pharmacy plan: Dispense/Waste: 20/0 mg Amount in mL: 2 Pharmacy dispense: [facility]: [id number] Dispense/Waste: 20/0 mg Given Dose/Discard: 20/0 mg Start Time: 10:16, Entered By: Erin Duggan RN, Stop Time: 10:18, Entered By: Erin Duggan RN Free Text Note : Pt voices no new complaints. Doses verified. Entered By Erin Duggan RN on 12:46 * Nurse Note for: 21-FEB-24 [facility] Nurse Note Print Location: Unknown Date/Time Printed: 07/14/2025 11:34 ([facility]) Patient: CHINMAY MORALES V Sex: Female : 1945 Date of Service: 02/21/2024 Allergies : Sulfamide, Iodinated Contrast Media Vital Signs : Time: 11:02. Weight: 143 lb (64.86 kg). Height: 60 in (152.40 cm). BMI: 27.93 (kg/m2) . BSA: 1.62 (m2) . Temperature: 98.7 F (37.06 C) forehead. Pulse: 79 (/min) radial sitting. Respirations: 16 (/min) . Blood pressure: 131/71 (mm Hg) right arm Regular. Pain Scale: 0. O2 Saturation: 98 (%) at rest.Entered by Judson Fontaine RN 02/21/2024 11:02 Incident To Details : Incident to physician is available to furnish assistance and provide supervision throughout the treatment. Entered By Judson Fontaine RN on :44 Patient Assessment : Positive results Assessment : Labs Verified: Yes, Alert, oriented with appropriate behavior. Negative results Assessment : Gait Changes-cane. Denies Pain -0-No pain. Entered By Judson Fontaine RN on :44 IV Access/Lab Draw : IV Access-Peripheral - New Start, Primary Bag Fluid-0.9% Sodium Chloride, Needle Type-Iv Cath, Needle Size-24 Gauge, Access Site-Left Arm, Site Assess List-Blood Return,No Redness,No Swelling,No Tenderness,No Bruising, Site Care Checklist- Aseptic Technique, Dressing Change-Alcohol,2x2, Lab Drawn-No, Access Attempts-1 time(s), Entered By Judson Fontaine RN on :44 IV De-Access : IV Access Method-Peripheral - New Start, IV Access Type-Iv Cath, Catheter-Dc'd, Site Care-Bandage Applied,IV Infusion Completed,Miller Set Cap Replaced,Occlusive Dressing Applied, Site Assess-Line Intact,No Redness,No Swelling,No Tenderness,No Bruising, Entered By Judson Fontaine RN on 11:47 Discharge Note : Comments-Therapy completed without adverse event, Discharged from clinic, Stable, Patient instructed to call office with any questions or problems, Accompanied By-Self, Discharge-Ambulatory Entered By Judson Fontaine RN on 11:48 Medication Administration : Incident to: Dora Euceda MD Paclitaxel + Carboplatin Q21D (Ovarian) Chemotherapy Paclitaxel IV, 6 mg/mL concentrate, 222 mg intravenously Piggyback once, Admin over: 3 hours to 3 hours, Instructions: Dilute in 250-500 mL NS. Final product concentration must be 0.3-1.2 mg/mL. Administer using Qwj-FMKQ-wuotyabjww equipment and through an in-line 0.22 micron filter. Paclitaxel is a vascular irritant., Allow Substitution GIVEN: 222 mg Pharmacy plan: Dose Form Description: 6 mg/mL concentrate Dispense/Waste: 222/0 mg Amount in mL: 37 Pharmacy dispense: [facility]: [id number] Dispense/Waste: 222/0 mg Given Dose/Discard: 222/0 mg Start Time: 12:00, Entered By: Judson Fontaine RN, Stop Time: 15:00, Entered By: Judson Fontaine RN Admix Fluid: 0.9 % sodium chloride, Admix Fluid Volume: 500mL, Total Volume: 537mL Incident to: Dora Euceda MD Paclitaxel + Carboplatin Q21D (Ovarian) Chemotherapy Carboplatin IV, 240 mg intravenously Piggyback once, Instructions: Mix in D5W or NS.Carboplatin is an irritant., Allow Substitution GIVEN: 240 mg Pharmacy plan: Dispense/Waste: 240/0 mg Amount in mL: 24 Pharmacy dispense: [facility]: [id number] Dispense/Waste: 240/0 mg Given Dose/Discard: 240/0 mg Start Time: 15:18, Entered By: Judson Fontaine RN, Stop Time: 16:18, Entered By: Judson Fontaine RN Admix Fluid: dextrose 5 % in water, Admix Fluid Volume: 500mL, Total Volume: 524mL Incident to: Dora Euceda MD Paclitaxel + Carboplatin Q21D (Ovarian) Premedications Palonosetron IV, 0.25 mg intravenously Push once, Allow Substitution GIVEN: 0.25 mg Pharmacy plan: Dispense/Waste: 0.25/0 mg Amount in mL: 5 Pharmacy dispense: [facility]: [id number] Dispense/Waste: 0.25/0 mg Given Dose/Discard: 0.25/0 mg Start Time: 11:20, Entered By: Judson Fontaine RN, Stop Time: 11:21, Entered By: Judson Fontaine RN Incident to: Dora Euceda MD Paclitaxel + Carboplatin Q21D (Ovarian) Premedications Dexamethasone IV, 10 mg intravenously Piggyback once, Admin over: 20 minutes to 20 minutes, Allow Substitution GIVEN: 10 mg Pharmacy plan: Dispense/Waste: 10/0 mg Amount in mL: 1 Pharmacy dispense: [facility]: [id number] Dispense/Waste: 10/0 mg Given Dose/Discard: 10/0 mg Start Time: 11:29, Entered By: Judson Fontaine RN, Stop Time: 11:49, Entered By: Judson Fontaine RN Admix Fluid: 0.9 % sodium chloride, Admix Fluid Volume: 50mL, Total Volume: 51mL Incident to: Dora Euceda MD Paclitaxel + Carboplatin Q21D (Ovarian) Premedications Cinvanti (Aprepitant IV), 7.2 mg/mL emulsion, 130 mg intravenously Push once, Instructions: Administer 30 minutes prior to chemotherapy. Do NOT dilute. Flush with NS before and after administration.,Allow Substitution GIVEN: 130 mg Pharmacy plan: Dispense/Waste: 130/0 mg Amount in mL: 18 Pharmacy dispense: [facility]: [id number] Dispense/Waste: 130/0 mg Given Dose/Discard: 130/0 mg Start Time: 11:52, Entered By: Judson Fontaine RN, Stop Time: 11:55, Entered By: Judson Fontaine RN Incident to: Dora Euceda MD Paclitaxel + Carboplatin Q21D (Ovarian) Premedications Diphenhydramine IV, 25 mg intravenously once, Instructions: Administer 30-60 minutes prior to paclitaxel., Allow Substitution GIVEN: 25 mg Pharmacy plan: Dispense/Waste: 25/0 mg Amount in mL: 0.5 Pharmacy dispense: [facility]: [id number] Dispense/Waste: 25/0 mg Given Dose/Discard: 25/0 mg Start Time: 11:22, Entered By: Judson Fontaine RN, Stop Time: 11:24, Entered By: Judson Fontaine RN Incident to: Dora Euceda MD Paclitaxel + Carboplatin Q21D (Ovarian) Premedications Famotidine IV, 20 mg intravenously once, Instructions: Administer 30-60 minutes prior to paclitaxel., Allow Substitution GIVEN: 20 mg Pharmacy plan: Dispense/Waste: 20/0 mg Amount in mL: 2 Pharmacy dispense: [facility]: [id number] Dispense/Waste: 20/0 mg Given Dose/Discard: 20/0 mg Start Time: 11:25, Entered By: Judson Fontaine RN, Stop Time: 11:28, Entered By: Judson Fontaine RN Free Text Note : Pt seen for Paclitaxel and Carboplatin infusion. Treatment approved by YULI Villalta prior to treatment.Labs and regimen verified. Approximately 20 minutes into Carboplatin infusion, pt told RN Christa that her arm was swollen. Pt denied pain or discomfort when asked. Infusion was immediately halted, IV removed, cold packs were placed on area, and arm was elevated. New IV was started in opposite arm and treatment was continued. Provider was notified. Pt education on treatment protocol and side effect management. Pt tolerated remainder of treatment without issue. Entered By Judson Fontaine RN on 16:50 Treatment Events : Assessment: Initial, Type: Actual, Drug Name: Carboplatin IV, Date: 02/21/2024 15:40, Vesciant Type: Chemotherapy, Signs and Symptoms: SwellingRedness, Action Taken: Medication infusion stoppedI.V. removedCold compresses appliedExtremity elevated, Instructions: Call if any skin breakdown or areas of blackness on skinContinue application of cold for first 24-48 hours, then as neededElevation Entered By Judson Fontaine RN on 15:54 * Nurse Note for: 21-FEB-24 [facility] Nurse Note Print Location: Unknown Date/Time Printed: 07/14/2025 11:34 ([facility]) Patient: CHINMAY MORALES V Sex: Female : 1945 Date of Service: 02/21/2024 Allergies : Sulfamide, Iodinated Contrast Media Vital Signs : Time: 11:02. Weight: 143 lb (64.86 kg). Height: 60 in (152.40 cm). BMI: 27.93 (kg/m2) . BSA: 1.62 (m2) . Temperature: 98.7 F (37.06 C) forehead. Pulse: 79 (/min) radial sitting. Respirations: 16 (/min) . Blood pressure: 131/71 (mm Hg) right arm Regular. Pain Scale: 0. O2 Saturation: 98 (%) at rest.Entered by Judson Fontaine RN 02/21/2024 11:02 Incident To Details : Incident to physician is available to furnish assistance and provide supervision throughout the treatment. Entered By Judson Fontaine RN on 11:44 Patient Assessment : Positive results Assessment : Labs Verified: Yes, Alert, oriented with appropriate behavior. Negative results Assessment : Gait Changes-cane. Denies Pain -0-No pain. Entered By Judson Fontaine RN on 11:44 IV Access/Lab Draw : IV Access-Peripheral - New Start, Primary Bag Fluid-0.9% Sodium Chloride, Needle Type-Iv Cath, Needle Size-24 Gauge, Access Site-Left Arm, Site Assess List-Blood Return,No Redness,No Swelling,No Tenderness,No Bruising, Site Care Checklist- Aseptic Technique, Dressing Change-Alcohol,2x2, Lab Drawn-No, Access Attempts-1 time(s), Entered By Judson Fontaine RN on 11:44 IV De-Access : IV Access Method-Peripheral - New Start, IV Access Type-Iv Cath, Catheter-Dc'd, Site Care-Bandage Applied,IV Infusion Completed,Miller Set Cap Replaced,Occlusive Dressing Applied, Site Assess-Line Intact,No Redness,No Swelling,No Tenderness,No Bruising, Entered By Judson Fontaine RN on 11:47 Discharge Note : Comments-Therapy completed without adverse event, Discharged from clinic, Stable, Patient instructed to call office with any questions or problems, Accompanied By-Self, Discharge-Ambulatory Entered By Judson Fontaine RN on 11:48 Medication Administration : Incident to: Dora Euceda MD Paclitaxel + Carboplatin Q21D (Ovarian) Chemotherapy Paclitaxel IV, 6 mg/mL concentrate, 222 mg intravenously Piggyback once, Admin over: 3 hours to 3 hours, Instructions: Dilute in 250-500 mL NS. Final product concentration must be 0.3-1.2 mg/mL. Administer using Izq-PDZA-iciwwaodxk equipment and through an in-line 0.22 micron filter. Paclitaxel is a vascular irritant., Allow Substitution GIVEN: 222 mg Pharmacy plan: Dose Form Description: 6 mg/mL concentrate Dispense/Waste: 222/0 mg Amount in mL: 37 Pharmacy dispense: [facility]: [id number] Dispense/Waste: 222/0 mg Given Dose/Discard: 222/0 mg Start Time: 12:00, Entered By: Judson Fontaine RN, Stop Time: 15:00, Entered By: Judson Fontaine RN Admix Fluid: 0.9 % sodium chloride, Admix Fluid Volume: 500mL, Total Volume: 537mL Incident to: Dora Eucdea MD Paclitaxel + Carboplatin Q21D (Ovarian) Chemotherapy Carboplatin IV, 240 mg intravenously Piggyback once, Instructions: Mix in D5W or NS.Carboplatin is an irritant., Allow Substitution GIVEN: 240 mg Pharmacy plan: Dispense/Waste: 240/0 mg Amount in mL: 24 Pharmacy dispense: [facility]: [id number] Dispense/Waste: 240/0 mg Given Dose/Discard: 240/0 mg Start Time: 15:18, Entered By: Judson Fontaine RN, Stop Time: 16:18, Entered By: Judson Fontaine RN Admix Fluid: dextrose 5 % in water, Admix Fluid Volume: 500mL, Total Volume: 524mL Incident to: Dora Euceda MD Paclitaxel + Carboplatin Q21D (Ovarian) Premedications Palonosetron IV, 0.25 mg intravenously Push once, Allow Substitution GIVEN: 0.25 mg Pharmacy plan: Dispense/Waste: 0.25/0 mg Amount in mL: 5 Pharmacy dispense: [facility]: [id number] Dispense/Waste: 0.25/0 mg Given Dose/Discard: 0.25/0 mg Start Time: 11:20, Entered By: Judson Fontaine RN, Stop Time: 11:21, Entered By: Judson Fontaine RN Incident to: Dora Euceda MD Paclitaxel + Carboplatin Q21D (Ovarian) Premedications Dexamethasone IV, 10 mg intravenously Piggyback once, Admin over: 20 minutes to 20 minutes, Allow Substitution GIVEN: 10 mg Pharmacy plan: Dispense/Waste: 10/0 mg Amount in mL: 1 Pharmacy dispense: [facility]: [id number] Dispense/Waste: 10/0 mg Given Dose/Discard: 10/0 mg Start Time: 11:29, Entered By: Judson Fontaine RN, Stop Time: 11:49, Entered By: Judson Fontaine RN Admix Fluid: 0.9 % sodium chloride, Admix Fluid Volume: 50mL, Total Volume: 51mL Incident to: Dora uEceda MD Paclitaxel + Carboplatin Q21D (Ovarian) Premedications Cinvanti (Aprepitant IV), 7.2 mg/mL emulsion, 130 mg intravenously Push once, Instructions: Administer 30 minutes prior to chemotherapy. Do NOT dilute. Flush with NS before and after administration.,Allow Substitution GIVEN: 130 mg Pharmacy plan: Dispense/Waste: 130/0 mg Amount in mL: 18 Pharmacy dispense: [facility]: [id number] Dispense/Waste: 130/0 mg Given Dose/Discard: 130/0 mg Start Time: 11:52, Entered By: Judson Fontaine RN, Stop Time: 11:55, Entered By: Judson Fontaine RN Incident to: Dora Euceda MD Paclitaxel + Carboplatin Q21D (Ovarian) Premedications Diphenhydramine IV, 25 mg intravenously once, Instructions: Administer 30-60 minutes prior to paclitaxel., Allow Substitution GIVEN: 25 mg Pharmacy plan: Dispense/Waste: 25/0 mg Amount in mL: 0.5 Pharmacy dispense: [facility]: [id number] Dispense/Waste: 25/0 mg Given Dose/Discard: 25/0 mg Start Time: 11:22, Entered By: Judson Fontaine RN, Stop Time: 11:24, Entered By: Judson Fontaine RN Incident to: Dora Euceda MD Paclitaxel + Carboplatin Q21D (Ovarian) Premedications Famotidine IV, 20 mg intravenously once, Instructions: Administer 30-60 minutes prior to paclitaxel., Allow Substitution GIVEN: 20 mg Pharmacy plan: Dispense/Waste: 20/0 mg Amount in mL: 2 Pharmacy dispense: [facility]: [id number] Dispense/Waste: 20/0 mg Given Dose/Discard: 20/0 mg Start Time: 11:25, Entered By: Judson Fontaine RN, Stop Time: 11:28, Entered By: Judson Fontaine RN Free Text Note : Pt seen for Paclitaxel and Carboplatin infusion. Treatment approved by YULI Villalta prior to treatment.Labs and regimen verified. Approximately 20 minutes into Carboplatin infusion, pt told RN Christa that her arm was swollen. Pt denied pain or discomfort when asked. Infusion was immediately halted, IV removed, cold packs were placed on area, and arm was elevated. New IV was started in opposite arm and treatment was continued. Provider was notified. Pt education on treatment protocol and side effect management. Pt tolerated remainder of treatment without issue. Entered By Judson Fontaine RN on 16:50 Treatment Events : Assessment: Initial, Type: Actual, Drug Name: Carboplatin IV, Date: 02/21/2024 15:40, Vesciant Type: Chemotherapy, Signs and Symptoms: SwellingRedness, Action Taken: Medication infusion stoppedI.V. removedCold compresses appliedExtremity elevated, Instructions: Call if any skin breakdown or areas of blackness on skinContinue application of cold for first 24-48 hours, then as neededElevation Entered By Judson Fontaine RN on 15:54 * Nurse Note for: 31-JAN-24 [facility] Nurse Note Print Location: Unknown Date/Time Printed: 07/14/2025 11:34 ([facility]/[place]) Patient: CHINMAY MORALES V Sex: Female : 1945 Date of Service: 01/31/2024 Allergies : Sulfamide, Iodinated Contrast Media Vital Signs : Time: 09:46. Weight: 144.2 lb (65.41 kg). Height: 60 in (152.40 cm). BMI: 28.16 (kg/m2) . BSA: 1.62(m2) . Temperature: 97.8 F (36.56 C) forehead. Pulse: 84 (/min) sitting. Respirations: 18 (/min) . Blood pressure: 138/80 (mm Hg) right arm Regular. Pain Scale: 0. O2 Saturation: 95 (%) at rest. Entered by Ml Cruz MA 01/31/2024 09:47 Incident To Details : Incident to physician is available to furnish assistance and provide supervision throughout the treatment. Entered By Kanchan Corey RN on 10:41 Patient Assessment : Positive results Assessment : Labs Verified: Yes-MG, Alert, oriented with appropriate behavior. Negative results Assessment : Denies Pain -0-No pain, Fever, Chills or Night Sweats , Signs of Infection . Entered By Kanchan Corey RN on 10:41 IV Access/Lab Draw : IV Access-Peripheral - New Start, Primary Bag Fluid-0.9% Sodium Chloride, Needle Type-Iv Cath, Needle Size-24 Gauge, Access Site-Right Arm, Flush-10ml NS, Site Assess List-Blood Return,No Redness,No Swelling,No Tenderness,No Bruising, Site Care Checklist-Aseptic Technique, Dressing Change-Tegaderm,Alcohol, Lab Drawn- No, Access Attempts-1 time(s), Entered By Kanchan Corey RN on 10:41 IV De-Access : IV Access Method-Peripheral - New Start, IV Access Type-Iv Cath, Line Flushed- 20ml NS, Catheter-Dc'd, Site Care-Dressing changed per protocol,IV Infusion Completed,Blood Return Noted During Administration,Therapy Completed Without Adverse Event, Site Assess-Line Intact,No Redness,No Swelling,No Tenderness,No Bruising, Entered By Kanchan Corey RN on : Discharge Note : Comments-Therapy completed without adverse event, Discharged from clinic, Stable, No new complaints, Patient instructed to call office with any questions or problems, Accompanied By-Family, Discharge-Ambulatory Entered By Kanchan Corey RN on : Medication Administration : Incident to: Brian Davey MD Paclitaxel + Carboplatin Q21D (Ovarian) Chemotherapy Paclitaxel IV, 6 mg/mL concentrate, 222 mg intravenously Piggyback once, Admin over: 3 hours to 3 hours, Instructions: Dilute in 250-500 mL NS. Final product concentration must be 0.3-1.2 mg/mL. Administer using Dsm-PWOZ-llqfslcdus equipment and through an in-line 0.22 micron filter. Paclitaxel is a vascular irritant., Allow Substitution GIVEN: 222 mg Pharmacy plan: Dose Form Description: 6 mg/mL concentrate Dispense/Waste: 222/0 mg Amount in mL: 37 Pharmacy dispense: [facility]: [id number] Dispense/Waste: 222/0 mg Given Dose/Discard: 222/0 mg Start Time: 10:30, Entered By: Kanchan Corey RN, Stop Time: 13:30, Entered By: Kanchan Corey RN Admix Fluid: 0.9 % sodium chloride, Admix Fluid Volume: 500mL, Total Volume: 537mL Incident to: Brian Davey MD Paclitaxel + Carboplatin Q21D (Ovarian) Chemotherapy Carboplatin IV, 240 mg intravenously Piggyback once, Instructions: Mix in D5W or NS.Carboplatin is an irritant., Allow Substitution GIVEN: 240 mg Pharmacy plan: Dispense/Waste: 240/0 mg Amount in mL: 24 Pharmacy dispense: [facility]: [id number] Dispense/Waste: 240/0 mg Given Dose/Discard: 240/0 mg Start Time: 13:41, Entered By: Kanchan Corey RN, Stop Time: 14:41, Entered By: Kanchan Corey RN Admix Fluid: dextrose 5 % in water, Admix Fluid Volume: 250mL, Total Volume: 274mL Incident to: Brian Davey MD Paclitaxel + Carboplatin Q21D (Ovarian) Premedications Palonosetron IV, 0.25 mg intravenously Push once, Allow Substitution GIVEN: 0.25 mg Pharmacy plan: Dispense/Waste: 0.25/0 mg Amount in mL: 5 Pharmacy dispense: [facility]: [id number] Dispense/Waste: 0.25/0 mg Given Dose/Discard: 0.25/0 mg Start Time: 10:03, Entered By: Kanchan Corey RN, Stop Time: 10:05, Entered By: Kanchan Corey RN Incident to: Brian Davey MD Paclitaxel + Carboplatin Q21D (Ovarian) Premedications Dexamethasone IV, 10 mg intravenously Piggyback once, Admin over: 20 minutes to 20 minutes, Allow Substitution GIVEN: 10 mg Pharmacy plan: Dispense/Waste: 10/0 mg Amount in mL: 1 Pharmacy dispense: [facility]: [id number] Dispense/Waste: 10/0 mg Given Dose/Discard: 10/0 mg Start Time: 10:05, Entered By: Kanchan Corey RN, Stop Time: 10:15, Entered By: Kanchan Corey RN Admix Fluid: 0.9 % sodium chloride, Admix Fluid Volume: 50mL, Total Volume: 51mL Incident to: Brian Davey MD Paclitaxel + Carboplatin Q21D (Ovarian) Premedications Cinvanti (Aprepitant IV), 7.2 mg/mL emulsion, 130 mg intravenously Push once, Instructions: Administer 30 minutes prior to chemotherapy. Do NOT dilute. Flush with NS before and after administration.,Allow Substitution GIVEN: 130 mg Pharmacy plan: Dose Form Description: 7.2 mg/mL emulsion Dispense/Waste: 130/0 mg Amount in mL: 18 Pharmacy dispense: [facility]: [id number] Dispense/Waste: 130/0 mg Given Dose/Discard: 130/0 mg Start Time: 10:20, Entered By: Kanchan Corey RN, Stop Time: 10:25, Entered By: Kanchan Corey RN Incident to: Brian Davey MD Paclitaxel + Carboplatin Q21D (Ovarian) Premedications Diphenhydramine IV, 25 mg intravenously once, Instructions: Administer 30-60 minutes prior to paclitaxel., Allow Substitution GIVEN: 25 mg Pharmacy plan: Dispense/Waste: 25/0 mg Amount in mL: 0.5 Pharmacy dispense: [facility]: [id number] Dispense/Waste: 25/0 mg Given Dose/Discard: 25/0 mg Start Time: 10:01, Entered By: Kanchan Corey RN, Stop Time: 10:03, Entered By: Kanchan Corey RN Incident to: Brian Davey MD Paclitaxel + Carboplatin Q21D (Ovarian) Premedications Famotidine IV, 20 mg intravenously once, Instructions: Administer 30-60 minutes prior to paclitaxel., Allow Substitution GIVEN: 20 mg Pharmacy plan: Dispense/Waste: 20/0 mg Amount in mL: 2 Pharmacy dispense: [facility]: [id number] Dispense/Waste: 20/0 mg Given Dose/Discard: 20/0 mg Start Time: 09:58, Entered By: Kanchan Corey RN, Stop Time: 10:00, Entered By: Kanchan Corey RN Free Text Note : Patient tolerated treatment well, no issues or complaints. Entered By Kanchan Corey RN on 10:42 * Nurse Note for: 11-JAN-24 [facility] Nurse Note Print Location: Unknown Date/Time Printed: 07/14/2025 11:34 ([facility]) Patient: CHINMAY MORALES V Sex: Female : 1945 Date of Service: 01/11/2024 Allergies : Sulfamide, Iodinated Contrast Media Patient Assessment : Free Text Note : Sent message to public health social worker this morning. Entered By Lidya Delgado RN on 09:18 * Nurse Note for: 10-JAN-24 [facility] Nurse Note Print Location: Unknown Date/Time Printed: 07/14/2025 11:34 ([facility]) Patient: CHINMAY MORALES V Sex: Female : 1945 Date of Service: 01/10/2024 Allergies : Sulfamide, Iodinated Contrast Media Vital Signs : Time: 09:22. Pain Scale: 10 per patient she has pain in the upper back. Entered by Ml Cruz MA 01/10/2024 09:24 Time: 09:22. Weight: 143.4 lb (65.05 kg). Height: 60 in (152.40 cm). BMI: 28.01 (kg/m2) . BSA: 1.62(m2) . Temperature: 98.6 F (37.00 C) forehead. Pulse: 74 (/min) sitting. Respirations: 18 (/min) . Blood pressure: 111/53 (mm Hg) right arm Regular. Pain Scale: 10. O2 Saturation: 98 (%) at rest. Entered by Ml Cruz MA 01/10/2024 09:23 Incident To Details : Incident to physician is available to furnish assistance and provide supervision throughout the treatment. Entered By Lidya Delgado RN on 10:14 Patient Assessment : Positive results Assessment : Labs Verified: Yes-with MIHAI RN and Dr. Day . Complains of Pain-10-The worst pain you can imagine (per patient she has pain in the upper back). Negative results Assessment : Alert, oriented with appropriate behavior-see free text note below. Entered By Lidya Delgado RN on IV Access/Lab Draw : IV Access-Peripheral - New Start, Needle Type-Iv Cath, Needle Size-24 Gauge, Access Site-Right Arm,Flush-20ml NS, Site Assess List-Blood Return,No Redness,No Swelling,No Tenderness,No Bruising, SiteCare Checklist-Aseptic Technique, Dressing Change-Tegaderm, Entered By Lidya Delgado RN on :30 IV De-Access : IV Access Method-Peripheral - New Start, IV Access Type-Iv Cath, Line Flushed- 20ml NS, Catheter-Dc'd, Site Care-Site Dressing Applied, Site Assess-Line Intact,No Redness,No Swelling,No Tenderness,No Bruising, Entered By Lidya Delgado RN on :30 Discharge Note : Comments-Discharged from clinic, Stable, Documented problems discussed with doctor, Patient instructed to call office with any questions or problems, Accompanied By-Spouse, Discharge-Ambulatory, withassistive device Entered By Lidya Delgado RN on Medication Administration : Incident to: Brian Davey MD Paclitaxel + Carboplatin Q21D (Ovarian) Chemotherapy Paclitaxel IV, 6 mg/mL concentrate, 222 mg intravenously Piggyback once, Admin over: 3 hours to 3 hours, Instructions: Dilute in 250-500 mL NS. Final product concentration must be 0.3-1.2 mg/mL. Administer using Ygy-KYCQ-ibligdwkyp equipment and through an in-line 0.22 micron filter. Paclitaxel is a vascular irritant., Allow Substitution GIVEN: 222 mg Pharmacy plan: Dose Form Description: 6 mg/mL concentrate Dispense/Waste: 222/0 mg Amount in mL: 37 Pharmacy dispense: [facility]: [id number] Dispense/Waste: 222/0 mg Given Dose/Discard: 222/0 mg Start Time: 10:50, Entered By: Lidya Delgado RN, Stop Time: 12:35, Entered By: Lidya Delgado RN Admix Fluid: 0.9 % sodium chloride, Admix Fluid Volume: 500mL, Total Volume: 537mL Incident to: Brian Davey MD Paclitaxel + Carboplatin Q21D (Ovarian) Chemotherapy Carboplatin IV, 240 mg intravenously Piggyback once, Instructions: Mix in D5W or NS.Carboplatin is an irritant., Allow Substitution HELD (Reason: Not given - other reason - patient dementia caused unablity to sit and stay for treatment) Entered By: Lidya Delgado RN Incident to: Brian Davey MD Paclitaxel + Carboplatin Q21D (Ovarian) Premedications Palonosetron IV, 0.25 mg intravenously Push once, Allow Substitution GIVEN: 0.25 mg Pharmacy plan: Dispense/Waste: 0.25/0 mg Amount in mL: 5 Pharmacy dispense: [facility]: [id number] Dispense/Waste: 0.25/0 mg Given Dose/Discard: 0.25/0 mg Start Time: 10:09, Entered By: Lidya Delgado RN, Stop Time: 10:10, Entered By: Lidya Delgado RN Incident to: Brian Davey MD Paclitaxel + Carboplatin Q21D (Ovarian) Premedications Dexamethasone IV, 10 mg intravenously Piggyback once, Admin over: 20 minutes to 20 minutes, Allow Substitution GIVEN: 10 mg Pharmacy plan: Dispense/Waste: 10/0 mg Amount in mL: 1 Pharmacy dispense: [facility]: [id number] Dispense/Waste: 10/0 mg Given Dose/Discard: 10/0 mg Start Time: 10:18, Entered By: Lidya Delgado RN, Stop Time: 10:35, Entered By: Lidya Delgado RN Admix Fluid: 0.9 % sodium chloride, Admix Fluid Volume: 50mL, Total Volume: 51mL Incident to: Brian Davey MD Paclitaxel + Carboplatin Q21D (Ovarian) Premedications Cinvanti (Aprepitant IV), 7.2 mg/mL emulsion, 130 mg intravenously Push once, Instructions: Administer 30 minutes prior to chemotherapy. Do NOT dilute. Flush with NS before and after administration.,Allow Substitution GIVEN: 130 mg Pharmacy plan: Dose Form Description: 7.2 mg/mL emulsion Dispense/Waste: 130/0 mg Amount in mL: 18 Pharmacy dispense: [facility]: [id number] Dispense/Waste: 130/0 mg Given Dose/Discard: 130/0 mg Start Time: 10:36, Entered By: Lidya Delgado RN, Stop Time: 10:40, Entered By: Lidya Delgado RN Incident to: Brian Davey MD Paclitaxel + Carboplatin Q21D (Ovarian) Premedications Diphenhydramine IV, 25 mg intravenously once, Instructions: Administer 30-60 minutes prior to paclitaxel., Allow Substitution GIVEN: 25 mg Pharmacy plan: Dispense/Waste: 25/0 mg Amount in mL: 0.5 Pharmacy dispense: [facility]: [id number] Dispense/Waste: 25/0 mg Given Dose/Discard: 25/0 mg Start Time: 10:15, Entered By: Lidya Delgado RN, Stop Time: 10:17, Entered By: Lidya Delgado RN Incident to: Brian Davey MD Paclitaxel + Carboplatin Q21D (Ovarian) Premedications Famotidine IV, 20 mg intravenously once, Instructions: Administer 30-60 minutes prior to paclitaxel., Allow Substitution GIVEN: 20 mg Pharmacy plan: Dispense/Waste: 20/0 mg Amount in mL: 2 Pharmacy dispense: [facility]: [id number] Dispense/Waste: 20/0 mg Given Dose/Discard: 20/0 mg Start Time: 10:12, Entered By: Lidya Delgado RN, Stop Time: 10:14, Entered By: Lidya Delgado RN Free Text Note : Spoke with Dr. Day in regards to abnormal values on patient's CMP. Carboplatin dose reduced for creatinine at 1.52. BMP drawn to recheck K+ level which was at 5.4. Glucose level rechecked found to be 153 at 9:43 by finger stick that I performed here in office. Per and patient's medicationlist she currently is taking 10 meq of K+ TID. Per , patient did not take the oral Dexamethasone 12 and 6 hours prior to treatment. Dr. Day informed. She gave VO to just give IV Dexamethasone 10 mg today. If patient does well with just this amount of Dexamethasone she may discontinue the oral Dexamethasone at home for future treatments. is here with patient during her treatment today. Patient has know memory issues. is reporting it has been worsening recently. Patient was seen by Dr. Day yesterday. PET on 01/05 did not show brain metastasis reported. She has had recent falls also . Patient had much difficulty remembering her last name when she was to tell us this. During her infusion today patient became very restless, she is having hallucinations about children and was concerned about their needs while here. She also was attempting to pull IV. She would not stay in the recliner. She was giggling inappropriately when I address her attempts to get up. C/O back pain and this was making her want to get up also. We moved patient to room 6 to see if that would her to relax a bit since infusion room was very busy and loud. made attempts to keep her settled but was not able either. At 1225 patient was standing up in room 6. Per nurse Kanchan and 's report she fell back and bumped the back of head on the wall. No evidence of injury seen. agreed with no injury noted on back of head. He will watch at home for any swelling or bruising. Assisted her back to chair by Kanchan OROZCO. Vitals taken BP 146/69 P 83 . I had conversation with and then also with Dr. Day. It was agreed by both and to stop the chemo infusion for today. Patient had received 1.5 hours of the [address] Day will give patient and a call regarding future plans for treatment. Entered By Lidya Delgado RN on 16:24 * Nurse Note for: 06-JAN-24 [facility] Nurse Note Print Location: Unknown Date/Time Printed: 07/14/2025 11:34 (Yelitza/Woolrich) Patient: CHINMAY MORALES V Sex: Female : 1945 Date of Service: 01/06/2024 Allergies : Sulfamide, Iodinated Contrast Media Patient Assessment : Medication Administration : Incident to: Petty Day MD Other Non-Regimen Orders Fluorodeoxyglucose f-18 IV, 200 mCi/mL solution, 45 mCi intravenously Push once, Allow Substitution GIVEN: 200 mCi/mL 11.67 mCi Pharmacy plan: Dose Form Description: 200 mCi/mL solution Dispense/Waste: 45/0 mCi Given Dose/Discard: 11.67/0.084 mCi Start Time: 06:28, Entered By: [employer], Stop Time: 06:29, Entered By: Jelena Fracn [employer] Procedures : Positron emission tomography (procedure) - Associated Problem(s): Malignant tumor of fallopian tube*; Primary malignant neoplasm of colon (disorder) *; Selected Billing Code(s): PET IMAGING CT ATTENUATION SKULL BASE MID-THIGH (49667) Entered By Jelena Franc [employer]; Incident to Petty Day MD * Nurse Note for: 20-DEC-23 [facility] Nurse Note Print Location: Unknown Date/Time Printed: 07/14/2025 11:34 (Yelitza/[place]oolrich) Patient: CHINMAY MORALES V Sex: Female : 1945 Date of Service: 12/20/2023 Allergies : Sulfamide, Iodinated Contrast Media Vital Signs : Time: 00:00. Weight: 144 lb (65.32 kg). Height: 60 in (152.40 cm). BMI: 28.12 (kg/m2) . BSA: 1.62 (m2) . Temperature: 97.4 F (36.33 C) forehead. Pulse: 87 (/min) sitting. Respirations: 18 (/min) . Blood pressure: 158/74 (mm Hg) right arm Regular. Pain Scale: 6. O2 Saturation: 95 (%) at rest. Entered by Ml Cruz MA 12/20/2023 09:52 Serial Vital Signs : Vitals Time: 14:46, B/P: 138/67 (mm Hg), Pulse: 77 (/min) by Erin Duggan RN 12/20/2023 15:25 Incident To Details : Incident to physician is available to furnish assistance and provide supervision throughout the treatment. Entered By Erin Duggan RN on Patient Assessment : Positive results Assessment : Labs Verified: Yes-5/6 labs verified with JSivla RN, Alert, oriented with appropriate behavior. Complains of Pain-6. Negative results Assessment : Denies Fever, Chills or Night Sweats , Signs of Infection . Entered By Erin Duggan RN on IV Access/Lab Draw : IV Access-Peripheral - New Start, Needle Type-Iv Cath, Needle Size-24 Gauge, Access Site-Left Arm, Flush-10ml NS, Site Assess List-Blood Return,No Redness,No Swelling,No Tenderness,No Bruising, Site Care Checklist-Aseptic Technique,Cap Changed, Dressing Change-Tegaderm,Alcohol, Lab Drawn-No, AccessAttempts-1 time(s), Entered By Erin Duggan RN on IV De-Access : IV Access Method-Peripheral - New Start, IV Access Type-Iv Cath, Line Flushed- 10ml NS, Catheter-Dc'd, Site Care-IV Infusion Completed,Blood Return Noted During Administration,Therapy Completed Without Adverse Event,Occlusive Dressing Applied, Site Assess-Line Intact,No Redness,No Swelling,No Tenderness,No Bruising, Entered By Erin Duggan RN on Discharge Note : Comments-Discharged from clinic, Stable, Patient instructed to call office with any questions or problems, Accompanied By-Family, Discharge-Ambulatory Entered By Erin Duggan RN on Medication Administration : Incident to: Brian Davey MD Paclitaxel + Carboplatin Q21D (Ovarian) Chemotherapy Paclitaxel IV, 6 mg/mL concentrate, 222 mg intravenously Piggyback once, Admin over: 3 hours to 3 hours, Instructions: Dilute in 250-500 mL NS. Final product concentration must be 0.3-1.2 mg/mL. Administer using [id number]-eiluytqvhw equipment and through an in-line 0.22 micron filter. Paclitaxel is a vascular irritant., Allow Substitution GIVEN: 222 mg Pharmacy plan: Dose Form Description: 6 mg/mL concentrate Dispense/Waste: 222/0 mg Amount in mL: 37 Pharmacy dispense: [facility]: [id number] Dispense/Waste: 222/0 mg Given Dose/Discard: 222/0 mg Start Time: 10:22, Entered By: Erin Duggan RN, Stop Time: 13:35, Entered By: Erin Duggan RN Admix Fluid: 0.9 % sodium chloride, Admix Fluid Volume: 500mL, Total Volume: 537mL Incident to: Brian Davey MD Paclitaxel + Carboplatin Q21D (Ovarian) Chemotherapy Carboplatin IV, 260 mg intravenously Piggyback once, Instructions: Mix in D5W or NS.Carboplatin is an irritant., Allow Substitution GIVEN: 260 mg Pharmacy plan: Dispense/Waste: 260/0 mg Amount in mL: 26 Pharmacy dispense: [facility]: [id number] Dispense/Waste: 2/0 mg Pharmacy dispense: [facility]: [id number] Dispense/Waste: 258/0 mg Given Dose/Discard: 260/0 mg Start Time: 13:40, Entered By: Erin Duggan RN, Stop Time: 14:40, Entered By: Erin Duggan RN Admix Fluid: D5W (non-DEHP) (dextrose 5 % in water), Admix Fluid Volume: 250mL, Total Volume: 276mL Incident to: Brian Davey MD Paclitaxel + Carboplatin Q21D (Ovarian) Premedications Palonosetron IV, 0.25 mg intravenously Push once, Allow Substitution GIVEN: 0.25 mg Pharmacy plan: Dispense/Waste: 0.25/0 mg Amount in mL: 5 Pharmacy dispense: [facility]: [id number] Dispense/Waste: 0.25/0 mg Given Dose/Discard: 0.25/0 mg Start Time: 09:44, Entered By: Erin Duggan RN, Stop Time: 09:45, Entered By: Erin Duggan RN Incident to: Brian Davey MD Paclitaxel + Carboplatin Q21D (Ovarian) Premedications Dexamethasone IV, 10 mg intravenously Piggyback once, Admin over: 20 minutes to 20 minutes, Allow Substitution GIVEN: 10 mg Pharmacy plan: Dispense/Waste: 10/0 mg Amount in mL: 1 Pharmacy dispense: [facility]: [id number] Dispense/Waste: 10/0 mg Given Dose/Discard: 10/0 mg Start Time: 09:51, Entered By: Erin Duggan RN, Stop Time: 10:01, Entered By: Erin Duggan RN Admix Fluid: 0.9 % sodium chloride, Admix Fluid Volume: 50mL, Total Volume: 51mL Incident to: Brian Davey MD Paclitaxel + Carboplatin Q21D (Ovarian) Premedications Diphenhydramine IV, 25 mg intravenously once, Instructions: Administer 30-60 minutes prior to paclitaxel., Allow Substitution GIVEN: 25 mg Pharmacy plan: Dispense/Waste: 25/0 mg Amount in mL: 0.5 Pharmacy dispense: [facility]: [id number] Dispense/Waste: 25/0 mg Given Dose/Discard: 25/0 mg Start Time: 09:46, Entered By: Erin Duggan RN, Stop Time: 09:48, Entered By: Erin Duggan RN Incident to: Brian Davey MD Paclitaxel + Carboplatin Q21D (Ovarian) Premedications Famotidine IV, 20 mg intravenously once, Instructions: Administer 30-60 minutes prior to paclitaxel., Allow Substitution GIVEN: 20 mg Pharmacy plan: Dispense/Waste: 20/0 mg Amount in mL: 2 Pharmacy dispense: [facility]: [id number] Dispense/Waste: 20/0 mg Given Dose/Discard: 20/0 mg Start Time: 09:48, Entered By: Erin Duggan RN, Stop Time: 09:50, Entered By: Erin Duggan RN Incident to: Brian Davey MD Paclitaxel + Carboplatin Q21D (Ovarian) Premedications Cinvanti (Aprepitant IV), 7.2 mg/mL emulsion, 130 mg intravenously Push once, Instructions: Administer 30 minutes prior to chemotherapy. Do NOT dilute. Flush with NS before and after administration.,Allow Substitution GIVEN: 130 mg Pharmacy plan: Dose Form Description: 7.2 mg/mL emulsion Dispense/Waste: 130/0 mg Amount in mL: 18 Pharmacy dispense: [place]: [id number] Dispense/Waste: 130/0 mg Given Dose/Discard: 130/0 mg Start Time: 10:03, Entered By: Erin Duggan RN, Stop Time: 10:07, Entered By: Erin Duggan RN Free Text Note : C1D1 approved by Dr. Day and verified with CARLEY RN. Doses verified. Pt states she took PO dexamethasone as ordered. Reviewed olanzapine and ondansetron rx instructions with pt, pt and her daughter verbalize understanding. Pt was instructed to call the office with any questions, concerns or uncontrolled symptoms. Entered By Erin Duggan RN on 10:52 * Nurse Note for: 12-DEC-23 [facility] Nurse Note Print Location: Unknown Date/Time Printed: 07/14/2025 11:34 (Yelitza/[place]oolrich) Patient: CHINMAY MORALES V Sex: Female : 1945 Date of Service: 12/12/2023 Allergies : Sulfamide, Iodinated Contrast Media Incident To Details : Incident to physician is available to furnish assistance and provide supervision throughout the treatment. Entered By Kanchan Corey RN on 15:32 Patient Assessment : Positive results Assessment : Alert, oriented with appropriate behavior. Negative results Assessment : Denies Fever, Chills or Night Sweats , Signs of Infection . Entered By Kanchan Corey RN on 15:32 Procedures : Nurse visit, No charge; Selected Billing Code(s): Nurse visit, No charge (NOCHARGEN) Entered By Kanchan Corey RN; Incident to Gurwinder Luna MD ;Missing information: Billing problem(s)
--- OUTSIDE RECORDS SUMMARY | 2025-07-14 13:35 | XMS_ITS ---
Author Name Interface, [id number] [address] Organization [facility] [place] [address] Support Name Relationship Address Phone Julián Don Child Unknown Unavailable ANDREWANTHONY PHILLIPS Spouse Unknown Unavailabl e Viola, Annamaria Child Unknown Unavailabl e Allergies and [...] Petty Day [facility] [place], [address] [facility] [address] [facility] 08/27 Sodiu m mmol/L 135.0 145.0 141 Kyleigh l FINAL Petty Day [facility] [place], [address] [facility] [address] [facility] 08/27 Potas sium mmol/L 3.6 5.3 5.0 Kyleigh l FINAL Pettysandro Day [facility] [place] [address] [facility] [id number] [place] [address] 08/27 Chlor ron mmol/L 95.0 109.0 103 Kyleigh l FINAL Pettysandro Day [facility] [place] [address] [facility] [id number] [place] [address] 08/27 CO2 mmol/L 20.0 31.0 25 Kyleigh l FINAL Petty Day [facility] [place] [address] [facility] [address] [facility] 08/27 Anion gap 4.0 18.0 12.0% Kyleigh l FINAL Petty Day [facility] [place], [facility] [address] [facility] [address] [facility] 08/27 Total prote in g/dL 6.0 7.7 8.2 High FINAL Petty [facility] [place] [address] [facility] [address] [facility] 08/27 Album in g/dL 3.8 5.1 4.8 Kyleigh l FINAL Petty Day [facility] [place] [address] [facility] [id number] [place] [address] 08/27 Globu maribel g/dL 1.7 3.3 3.4 High FINAL Petty Day [facility] [place] [address] [facility] [address] [facility] 08/27 A/G ratio , SPE 1.3 2.7 1.4% Kyleigh l FINAL Petty [place] [facility] [place], [address] [facility] [address] [facility] 08/27 Calci um mg/dL 8.7 10.4 10.4 Kyleigh l FINAL Petty Day [facility] [place], [address] [facility] [address] [facility] 08/27 Alkal ine phosp hatas e IU/L 42.0 146.0 108 Kyleigh l FINAL Petty Day [facility] [place], [address] [facility] [id number] [place] [address] 08/27 ALT/S GPT IU/L 5.0 46.0 21 Kyleigh l FINAL Petty [facility], [facility] [address] [facility] [address] [facility] 08/27 AST/S GOT IU/L 11.0 40.0 21 Kyleigh l FINAL Petty Day [facility], [facility] [address] [facility] [address] [facility] 08/27 Bilir ubin, total mg/dL 0.3 Kyleigh l FINAL Petty Day [facility], [facility] [address] [facility] [address] [facility] 08/27 Gluco se mg/dL 70.0 99.0 285 High Glucose reference range reflects fasting state. FINAL Petty Day [facility] [place], [address] [facility] [address] [facility] 08/27 BUN mg/dL 8.0 36.0 41 High FINAL Petty Day [facility] [place], [facility] [address] [facility] [address] [facility] 08/27 Creat inine mg/dL 0.51 1.08 1.44 High FINAL Petty Day [facility] [place] [address] [facility] [address] [facility] 08/27 GFR non-[place] f[place] n Ameri can, estim ated mL/min /1.73m 2 37 Low eGFRcr calculate d using the CKD-EPI 2020 equation FINAL Pettysandro Day [facility] [place] [address] [facility] [address] [facility] 08/27 BUN/C reati nine ratio 10.0 28.0 28.5% High FINAL Pettysandro Day [facility] [place] [address] [facility] [address] [facility] 08/27 WBC k/mm3 4.0 11.0 7.5 Kyleigh l FINAL Pettysandro Day [facility] [place] [address] [facility] [address] [facility] 08/27 RBC m/mm3 3.7 5.4 5.00 Kyleigh l FINAL Pettysandro Day [facility] [place] [address] [facility] [address] [facility] 08/27 HGB g/dL 12.0 16.0 13.3 Kyleigh l FINAL Petty Shay [facility] [place] [address] [facility] [address] [facility] 08/27 HCT % 35.0 48.0 41.7 Kyleigh l FINAL Petty Shay [facility] [place] [address] [facility] [address] [facility] 08/27 MCV fL 78.0 100.0 83.4 Kyleigh l FINAL Petty Shay [facility] [place] [address] [facility] [address] [facility] 08/27 MCH pg 27.0 34.0 26.6 Low FINAL Petty Shay [facility] [place] [address] [facility] [address] Sajit [facility] 08/27 MCHC g/dL 31.0 37.0 31.9 Kyliegh l FINAL Petty Shay [facility] [place], [address] [facility] [address] Sajit [facility] 08/27 PLT k/mm3 130.0 450.0 255 Kyleigh l FINAL Petty Shay [facility] [place], [address] [facility] [address] [facility] 08/27 RDW-S D fL 38.0 49.0 43.4 Kyleigh l FINAL Petty Shay [facility] [place], [address] [facility] [address] [facility] 08/27 RDW-C V, % % 11.0 15.0 14.3 Kyleigh l FINAL Petty Shay [facility] [place], [address] [facility] [address] [facility] 08/27 MPV fL 9.0 12.0 11.1 Kyleigh l FINAL Petty Shay [facility] [place], [address] [facility] [address] [facility] 08/27 Christian % % 76.4 Automated Diff FINAL Petty Shay [facility] [place], [facility] [address] [facility] [address] [facility] 08/27 LY % % 19.2 FINAL Petty Shay [facility] [place], [address] [facility] [address] [facility] 08/27 MO % % 3.4 FINAL Petty Shay [facility] [place], [facility] [address] [facility] [address] Saji [facility] 08/27 EO % % 0.0 FINAL Petty Shay [facility] [place], [address] [facility] [address] Sajit [facility] 08/27 BA % % 0.1 FINAL Petty Shay [facility] [place], [address] [facility] [address] Sat [facility] 08/27 Christian # (ANC) k/uL 1.5 7.8 5.7 Kyleigh l FINAL Pettysandro [place] [facility] [place], [facility] [address] [facility] [address] Sat [facility] 08/27 LY # k/uL 0.9 3.9 1.4 Kyleigh l FINAL Petty Day [facility] [place] [address] [facility] [address] Sat [facility] 08/27 MO # k/uL 0.2 1.0 0.3 Kyleigh l FINAL Petty [place] [facility] [place] [address] [facility] [address] Sat [facility] 08/27 EO # k/uL 0.0 0.6 0.0 Kyleigh l FINAL Petty Day [facility] [place] [address] [facility] [address] [facility] 08/27 BA # k/uL 0.0 0.2 0.0 Kyleigh l FINAL Petty Day [facility] [place] [address] [facility] [address] Sat [facility] 08/27 IG % % 0.9 FINAL Petty Day [facility] [place] [address] [facility] [address] Sat [facility] 08/27 IG # k/uL 0.0 0.1 0.1 Kyleigh l FINAL Pettysandro Day [facility] [place] [address] [facility] [address] Sat [facility] 08/27 NRBC, % % 0.0 1.0 0.0 Kyleigh l FINAL Petty Shay [facility] [place] [address] [facility] [address] [facility] Medications Date Name Route Dose Frequency Instructions [...] concentration must be 0.3-1.2 mg/mL. Administer using Rha-AUUS-foprz ining equipment and through an in-line 0.22 [...] 93.00 Notes Section * Follow Up ([facility] LOCATION: [facility] PATIENT: PAMELA NUENZ : 1945 ATTENDING PHYSICIAN: Petty Day DATE [...] dissection, omental biopsy, lysis of adhesions. 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 ADVANCED DIRECTIVES: Location: [place] Name: PAMELA NUNEZ Brandi ACP Introduction* Date [...] Decision Maker * Comments: Anthony Nunez * [phone] REVIEW OF SYSTEMS: A complete 10 systems [...] was 30 minutes including 16 minutes of nzyw-ob-bzff time with the patient and 14 minutes [...]
--- OUTSIDE RECORDS SUMMARY | 2025-07-14 13:36 | XMS_ITS | CCD ---
Author Name Interface, [id number] [address] Organization [facility] [place] [address] Care Team Providers Care Costume Shop Manager Name Role Phone Petty Day MD [...] 7.8 5.7 Kyleigh l FINAL Pettysandro Day [facility] [place] [address] [facility] [place] [id number] [place] [address] 08/27 MCV fL 78.0 100.0 83.4 Kyleigh l FINAL Pettysandro Day [facility] [place] [address] [facility] [place] [id number] [place] [address] 08/27 MO # k/uL 0.2 1.0 0.3 Kyleigh l FINAL Pettysandro Day [facility] [place] [address] [facility] [place] [address] [facility] [place] 08/27 IG % % 0.9 FINAL Petty Day [facility] [place] [address] [facility] [place] [address] [facility] [place] 08/27 MO % % 3.4 FINAL Pettysandro Day [facility] [place] [address] [facility] [place] [address] [facility] [place] 08/27 IG # k/uL 0.0 0.1 0.1 Kyleigh l FINAL Pettysandro Day [facility] [place] [address] [facility] [place] [address] [facility] [place] 08/27 EO # k/uL 0.0 0.6 0.0 Kyleigh l FINAL Petty Shay [facility] [place], [address] [facility] [place] [address] [facility] [place] 08/27 EO % % 0.0 FINAL Petty Shay [facility] [place], [address] [facility] [place] [address] [facility] 08/27 RBC m/mm3 3.7 5.4 5.00 Kyleigh l FINAL Petty Shay [facility] [place], [address] [facility] [place] [address] [facility] [place] 08/27 MPV fL 9.0 12.0 11.1 Kyleigh l FINAL Petty Shay [facility] [place], [address] [facility] [place] [address] [facility] [place] 08/27 NRBC, % % 0.0 1.0 0.0 Kyleigh l FINAL Petty Shay [facility] [place], [address] [facility] [place] [address] [facility] [place] 08/27 WBC k/mm3 4.0 11.0 7.5 Kyleigh l FINAL Petty Shay [facility] [place], [address] [facility] [place] [address] [facility] [place] 08/27 PLT k/mm3 130.0 450.0 255 Kyleigh l FINAL Petty Shay [facility] [place], [address] [facility] [place] [address] [facility] 08/27 BA % % 0.1 FINAL Petty Shay [facility] [place], [address] [facility] [place] [address] [facility] 08/27 BA # k/uL 0.0 0.2 0.0 Kyleigh l FINAL Petty Shay [facility] [place], [address] [facility] [place] [address] [facility] 08/27 HGB g/dL 12.0 16.0 13.3 Kyleigh l FINAL Petty Shay [facility] [place], [address] [facility] [place] [address] [facility] [place] 08/27 RDW-S D fL 38.0 49.0 43.4 Kyleigh l FINAL Petty Shay [place] [facility] [place], [address] [facility] [place] [address] [facility] [place] 08/27 RDW-C V, % % 11.0 15.0 14.3 Kyleigh l FINAL Petty Shay [facility] [place], [facility] [address] [facility] [place] [address] [facility] 08/27 LY % % 19.2 FINAL Petty Shay [facility] [place], [facility] [address] [facility] [place] [id number] [place] [address] 08/27 MCH pg 27.0 34.0 26.6 Low FINAL Pettysandro Day [facility] [place] [address] [facility] [place] [address] [facility] 08/27 LY # k/uL 0.9 3.9 1.4 Kyleigh l FINAL Petty Shay [facility] [place], [facility] [address] [facility] [place] [address] [facility] 08/27 MCHC g/dL 31.0 37.0 31.9 Kyleigh l FINAL Petty Shay [facility] [place] [address] [facility] [place] [address] [facility] 08/27 HCT % 35.0 48.0 41.7 Kyleigh l FINAL Petty Shay [facility] [place] [address] [facility] [place] [id number] [place] [address] 08/27 Christian % % 76.4 Automated Diff FINAL Petty Shay [facility] [place] [address] [facility] [place] [address] [place] [address] 08/27 CA 125 U/mL 19 Kyleigh l [...] assay value canbe excluded. FINAL Petty Davis [place] [address] [facility] [place] [address] [place] [address] 08/27 GFR non-[place] n [place] can, estim ated mL/min /1.73m 2 37 Low eGFRcr calculate d using the CKD-EPI 2020 equation FINAL Petty Day [facility] [place] [address] [facility] [place] [id number] [place] [address] 08/27 Alkal ine phosp hatas e IU/L 42.0 146.0 108 Kyleigh l FINAL Petty Davis [facility] [place] [address] [facility] [id number] [place] [address] 08/27 Calci um mg/dL 8.7 10.4 10.4 Kyleigh l FINAL Petty Davis [facility] [place] [address] [facility] [place] [id number] [place] [address] 08/27 ALT/S GPT IU/L 5.0 46.0 21 Kyleigh l FINAL Petty Davis [facility] [place] [address] [facility] [place] [address] [place] [address] 08/27 Anion gap 4.0 18.0 12.0% Kyleigh l FINAL Petty Day [facility] [place] [address] [facility] [place] [address] [place] [address] 08/27 CO2 mmol/L 20.0 31.0 25 Kyleigh l FINAL Petty Day [facility] [place] [address] [facility] [place] [address] [facility] [place] 08/27 A/G ratio , SPE 1.3 2.7 1.4% Kyleigh l FINAL Pettysandro [place] [facility] [place] [address] [facility] [place] [address] [facility] 08/27 Gluco se mg/dL 70.0 99.0 285 High Glucose reference range reflects fasting state. FINAL Petty Day [facility] [place] [address] [facility] [place] [address] [facility] 08/27 Globu maribel g/dL 1.7 3.3 3.4 High FINAL Petty Day [facility] [place] [address] [facility] [place] [id number] [place] [address] 08/27 Chlor ron mmol/L 95.0 109.0 103 Kyleigh l FINAL Petty Day [facility] [place] [address] [facility] [place] [address] [facility] 08/27 Total prote in g/dL 6.0 7.7 8.2 High FINAL Pettysandro Day [facility] [place] [address] [facility] [place] [address] [facility] [place] 08/27 BUN mg/dL 8.0 36.0 41 High FINAL Petty Day [facility] [place] [address] [facility] [place] [address] [facility] 08/27 Creat inine mg/dL 0.51 1.08 1.44 High FINAL Pettysandro Day [facility] [place] [address] [facility] [place] [address] [facility] [place] 08/27 AST/S GOT IU/L 11.0 40.0 21 Kyleigh l FINAL Pettysandro Day [facility] [place] [address] [facility] [place] [address] [facility] [place] 08/27 Album in g/dL 3.8 5.1 4.8 Kyleigh l FINAL Petty Shay [facility] [place], [address] [facility] [place] [address] Samel[facility]at [place] 08/27 Bilir ubin, total mg/dL 0.3 Kyleigh l FINAL Petty Davis [facility], [address] [facility] [place] [address] Samelindat [place] 08/27 Sodiu m mmol/L 135.0 145.0 141 Kyleigh l FINAL Petty Davis [facility], [address] [facility] [place] [address] Sat [place] 08/27 BUN/C reati nine ratio 10.0 28.0 28.5% High FINAL Petty Day [facility], [address] [facility] [place] [address] Sat [place] 08/27 Potas sium mmol/L 3.6 5.3 5.0 Kyleigh l FINAL Petty Day [facility], [address] 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

</div><div>
<div><strong>LOCATION</strong>: <span class= clinicalNoteMacroHighlighted id= [id number] macroname= MyLocation spantype= macro title= #MyLocation >[facility]</span>
</div><strong>PATIENT</strong>: <span class= clinicalNoteMacroHighlighted id= [id number] macroname= PatientName spantype= macro title= #PatientName >PAMELA NUNEZ</span><div><strong>MRN</strong>: <span class= clinicalNoteMacroHighlighted id= [id number] macroname= PatientMRN spantype= macro title= #PatientMRN >[id number]</span></div><div><strong></strong>: <span class=&quot ;clinicalNoteMacroHighlighted id= [id number] macroname= PatientDat [...] id= danika [id number] macroname= Problems parameters= InitialCap:Yes,ListType:Bu lleted,PrincipalOnly:Yes,[id number]:Yes spantype= macro title= #Problems(Initia lCap:Yes,ListType:Bulleted,PrincipalOnly:Yes,[id number]:Yes) ><ul> <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
<span class= clinicalNoteMacrIDighlighted id= [id number] macroname= Lisa entMedications parameters= ListType:Bulleted,ValueIfNull:No [...] recognizeconcepts= true spantype= section suppressempty= true >PAST INTERNAL AUDIT CONSULTANT HISTORY:</span>
Patient is a female with a history of 2 vaginal deliveries.

<span class= clinicalNoteSectionShowSeparators clinicalNoteSectionVisible id= [id number]" internalbreaksection= false originalname= Family History recognizeconcepts= true spantype= section suppressempty= true >FAMILY HISTORY:</span>
<span class= clinicalNoteMacroHsan juan hospitaled id= [id number] macroname= FamilyHistory parameters= ListType:Bulleted,ShowComments:Yes [...] AdvanceCarePlanning spantype= macro title= #AdvanceCare Planning ><strong>Location: [place]</strong>
<strong>MRN: [id number]</strong>
<strong>Name: PAMELA NUNEZ V</strong>
[...] Surrogate Decision Maker</li> <li>Comments: Anthony Nunez</li> < li>[phone]</li></ul></span>

<span class=&quot ;clinicalNoteSectionShowSeparators clinicalNoteSectionVisible id= [id number] internalbreaksection= [...] >LAB:& lt;/span>
<span class= clinicalNoteMacroHighlighted id= [id number] macroname= RecentLabResultsTable parameters= OptionalFlowsheetCatego ry:CBC,Label:CBC,ValueIfNull:None Today spantype= [...] parameters= OptionalFlowsheetCategory:Chemistries,Label:Chemistries,ValueIfNull: None Today" spantype= macro title= #RecentLabResultsTable(OptionalFlowsheetCategory:Principal Systems Engineer rossana,Label:Chemistries,ValueIfNull:None Today) >Chemistries<table border= 1 st yle= [...] was 30 minutes including 16 minutes of ayvd-gq-hvzp time with the patient and 14 minutes in chart review, order placement, and EMR documentation.

<span class= clinicalNoteSectionShowSeparators clinicalNoteSectionVisible id= [id number] internalbreaksection= false originalname= Problem List recognizeconcepts= true spantype= section suppressempty= true >PROBLEM LIST:</span>
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 I, Petty Day MD, [...]
--- OUTSIDE RECORDS SUMMARY | 2025-07-14 13:37 | XMS_ITS ---
Author Name Interface, [place] [address] Organization [facility] (Formerly [facility]) [place] [address] Support Name Relationship Address Phone Julián Don [...] Ordered By Specimen Source Lab Address 12/11 Gluco se mg/dL 70.0 99.0 66 Low Glucose reference range reflects fasting state. FINAL Petty tracy [facility] [place], [facility] [address] [facility] [address] [facility] [place] 12/11 BUN mg/dL 8.0 36.0 27 Kyleigh l FINAL [facility] [place] [address] [facility] [address] [facility] [place] 12/11 Creat inine mg/dL 0.51 1.08 1.34 High FINAL Petty Day [place] [address] [facility] [address] [facility] [place] 12/11 GFR non-A frica n Ameri can, estim ated mL/min /1.73m 2 41 Low eGFRcr calculate d using the CKD-EPI 2020 equation FINAL Petty Day [place] [address] [place] [address] Ghulam 12/11 BUN/C reati nine ratio 10.0 28.0 20.1% Kyleigh l FINAL [facility] [place] [address] [address] [facility] [place] 12/11 Sodiu m mmol/L 135.0 145.0 140 Kyleigh l FINAL Petty Day [place] [address] [facility] [address] [facility] [place] 12/11 Potas sium mmol/L 3.6 5.3 4.8 Kyleigh l FINAL Petty Day [place] [address] [facility] [address] [facility] [place] 12/11 Chlor ron mmol/L 95.0 109.0 105 Kyleigh l FINAL Petty Day [facility] [place] [address] [facility] [address] [facility] [place] 12/11 CO2 mmol/L 20.0 31.0 22 Kyleigh l FINAL Petty Day [facility] [place] [address] [facility] [address] [place] [address] 12/11 Anion gap 4.0 18.0 14.0% Kyleigh l FINAL Petty Shay [facility], [facility] [address] [facility] [address] [place] [address] Ghulam 12/11 Total prote in g/dL 6.0 7.7 7.6 Kyleigh l FINAL Petty Shay [facility], [facility] [address] [facility] [id number] [place] [address] [place] 12/11 Album in g/dL 3.8 5.1 4.8 Kyleigh l FINAL Petty Shay [facility] [place] [address] [facility] [address] [place] [address] 12/11 Globu maribel g/dL 1.7 3.3 2.8 Kyleigh l FINAL Petty Shay [facility] [place] [address] [place] [address] 12/11 A/G ratio , SPE 1.3 2.7 1.7% Kyleigh l FINAL Petty Shay [facility], [facility] [address] [facility] [address] [place] [address] 12/11 Calci um mg/dL 8.7 10.4 9.6 Kyleigh l FINAL Petty Shay [facility], [facility] [address] [facility] [id number] [place] [address] 12/11 Alkal ine phosp hatas e IU/L 42.0 146.0 59 Kyleigh l FINAL Petty Shay [facility] [place] [address] [facility] [address] [place] [address] 12/11 ALT/S GPT IU/L 5.0 46.0 13 Kyleigh l FINAL Petty Shay [facility], [facility] [address] [facility] [address] [place] [address] 12/11 AST/S GOT IU/L 11.0 40.0 22 Kyleigh l FINAL Petty Shay [facility] [place], [address] [facility] [address] [place] 12/11 Bilir ubin, total mg/dL 0.3 Kyleigh l FINAL Petty Shay Susan [facility], [address] [facility] [address] [place] [place] 12/11 WBC k/mm3 4.0 11.0 8.7 Kyleigh l FINAL Petty Shay [facility], [address] [facility] [address] [place] [place] 12/11 RBC m/mm3 3.7 5.4 4.77 Kyleigh l FINAL Petty Shay Susan [facility], [address] [facility] [address] [place] [place] 12/11 HGB g/dL 12.0 16.0 12.6 Kyleigh l FINAL Petty Shay [facility], [address] [facility] [address] [place] [place] 12/11 HCT % 35.0 48.0 39.0 Kyleigh l FINAL Petty Shay Susan [facility], [address] [facility] [address] [place] [place] 12/11 MCV fL 78.0 100.0 81.8 Kyleigh l FINAL Pettysandro Day [facility], [address] [facility] [address] Sat [place] 12/11 MCH pg 27.0 34.0 26.4 Low FINAL Petty Shay [facility] [facility], [address] [facility] [address] Sat [place] 12/11 MCHC g/dL 31.0 37.0 32.3 Kyleigh l FINAL Petty Sh[facility] [facility], [address] [facility] [address] [facility] [place] 12/11 PLT k/mm3 130.0 450.0 329 Kyleigh l FINAL Petty Shay [place] [facility], [address] [facility] [address] [facility] [place] 12/11 RDW-S D fL 38.0 49.0 39.5 Kyleigh l FINAL Petty Shay [facility] [facility], [address] [facility] [address] [facility] [place] 12/11 RDW-C V, % % 11.0 15.0 13.3 Kyleigh l FINAL Petty Shay Susan [facility], [address] [facility] [address] [facility] [place] 12/11 MPV fL 9.0 12.0 10.2 Kyleigh l FINAL Petty Shay [place] [facility], [address] [facility] [address] [facility] [place] 12/11 Christian % % 54.2 Automated Diff FINAL Petty Shay [facility] [facility], [address] [facility] [address] [facility] [place] 12/11 LY % % 27.1 FINAL Petty Shay Susan [facility] [facility], [address] [facility] [address] [facility] [place] 12/11 MO % % 11.7 FINAL Petty Shay Susan [facility] [facility], [address] [facility] [address] [facility] [place] 12/11 EO % % 5.7 FINAL Petty Sh[facility] [facility], [address] [facility] [address] [facility] [place] 12/11 BA % % 0.8 FINAL Petty Shay Susan [facility] [facility], [address] [facility] [address] [facility] 12/11 Christian # (ANC) k/uL 1.5 7.8 4.7 Kyleigh l FINAL Petty Shay [place] [facility] [facility], [address] [facility] [address] [facility] 12/11 LY # k/uL 0.9 3.9 2.4 Kyleigh l FINAL Petty Shay [place] [facility] [facility], [address] [facility] [address] [facility] 12/11 MO # k/uL 0.2 1.0 1.0 Kyleigh l FINAL Petty Shay [place] [facility] [facility], [address] [facility] [address] [facility] 12/11 EO # k/uL 0.0 0.6 0.5 Kyleigh l FINAL Petty Shay [place] [facility] [facility], [address] [facility] [address] [facility] 12/11 BA # k/uL 0.0 0.2 0.1 Kyleigh l FINAL Petty Shay [place] [facility] [facility], [address] [facility] [address] [facility] 12/11 IG % % 0.5 FINAL Petty Shay [place] [facility] [facility], [address] [facility] [address] [facility] 12/11 IG # k/uL 0.0 0.1 0.0 Kyleigh l FINAL Pet[facility] Sh[facility] [facility], [address] [facility] [address] [facility] 12/11 NRBC, % % 0.0 1.0 0.0 Kyleigh l FINAL Petty Shay [facility] [place] [facility], [address] [facility] [address] [facility] [place] 12/11 CA 125 U/mL 50 High Values [...] FINAL Petty Davis [facility] [place], [address] [facility] [address] [facility] 12/12 Caris summa ry repor t Caris summa ry repor t PDF See vice president of customer service d Petty Day [employer] , [address] [place] [address], [address] [facility] [address] 12/12 Patho logy repor t See vice president of customer service d 01/05 AO PT SB [employer] [facility] [employer]Ph one:NAM E: CHINMAY HAYS VDOB: [id number] 3MRN: [id number]: [id number] E OF EXAM: [id number] INATION : FDG PET-CT STUDYCL INICAL INDICAT ION: Fallopi an Tube and Colon CancerC OMPARIS ON: CT abdomen and pelvis, 024, [place] [facility] yMRI abdomen , 023, Radiolo gy [...] range effective 2023 . FINAL Petty Day [facility] [place] [address] [address] [facility] [address] [place] [address] 01/08 RBC m/mm3 3.7 5.4 4.35 Kyleigh l Note: new reference range effective 2023 . FINAL Petty Day [facility] [place] [address] [address] [facility] [address] [place] [address] 01/08 HGB g/dL 12.0 16.0 11.8 Low Note: new reference range effective 2023 . FINAL Petty Day Susan [facility] [place] [address] [address] [facility] [address] [place] [address] 01/08 HCT % 35.0 48.0 35.6 Kyleigh l Note: new reference range effective 2023 . FINAL Petty Shay Susan [facility] [place], [address] [facility] [address] [place] 01/08 MCV fL 78.0 100.0 81.8 Kyleigh l Note: new reference range effective 2023 . FINAL Petty Davis [facility] [place], [address] [facility] [address] [place] [place] 01/08 MCH pg 27.0 34.0 27.1 Kyleigh l Note: new reference range effective 2023 . FINAL Petty Davis [facility] [place], [address] [facility] [address] [facility] 01/08 MCHC g/dL 31.0 37.0 33.1 Kyleigh l Note: new reference range effective 2023 . FINAL Petty Bridges [facility] [place] [address] [facility] [address] [facility] 01/08 PLT k/mm3 130.0 450.0 229 Kyleigh l Note: new reference range effective 2023 . FINAL Petty Bridges [facility] [place], [place] [address] [facility] [address] [facility] 01/08 RDW-S D fL 38.0 49.0 40.8 Kyleigh l Note: new reference range effective 2023 . FINAL Petty Davis [facility] [place], [place] [address] [facility] [address] [facility] 01/08 RDW-C V, % % 11.0 15.0 13.8 Kyleigh l Note: new reference range effective 2023 . FINAL Petty Davis [facility] [place], [place] [address] [facility] [address] [facility] [place] 01/08 MPV fL 9.0 12.0 10.4 Kyleigh l Note: new reference range effective 2023 . FINAL Petty Davis [facility] [place], [place] [address] [facility] [address] Sajit Ghul[place] 01/08 Christian % % 79.7 Automated Diff FINAL Petty [place] [facility] [place], [address] [facility] [address] Sajit [place] 01/08 LY % % 10.7 FINAL Petty [place] [facility] [place], [address] [facility] [address] Sajit Ghulam 01/08 MO % % 6.9 FINAL Petty Day [facility] [place], [address] [facility] [address] Sajit [place] 01/08 EO % % 0.1 FINAL Petty [place] [facility] [place], [address] [facility] [address] Sajit [place] 01/08 BA % % 0.5 FINAL Petty [place] [facility] [place], [facility] [address] [facility] [address] Sajit Ghulam 01/08 Christian # (ANC) k/uL 1.5 7.8 11.4 High Note: new reference range effective 2023 . FINAL Petty Davis [facility] [place], [address] [facility] [address] Sajit Ghulam 01/08 LY # k/uL 0.9 3.9 1.5 Kyleigh l Note: new reference range effective 2023 . FINAL Petty [place] [facility] [place], [address] [facility] [address] Sajit Ghulam 01/08 MO # k/uL 0.2 1.0 1.0 Kyleigh l Note: new reference range effective 2023 . FINAL Petty [place] [facility] [place], [address] [facility] [address] Sajit Ghulam 01/08 EO # k/uL 0.0 0.6 0.0 Kyleigh l Note: new reference range effective 2023 . FINAL Petty Bridges [facility] [place], [address] [facility] [address] [facility] [place] 01/08 BA # k/uL 0.0 0.2 0.1 Kyleigh l Note: new reference range effective 2023 . FINAL Petty Bridges [facility] [place], [address] [facility] [address] [facility] [place] 01/08 IG % % 2.1 FINAL Petty Bridges [facility] [place], [address] [facility] [address] [facility] 01/08 IG # k/uL 0.0 0.1 0.3 High Note: new reference range effective 2023 . FINAL Petty Bridges [facility] [place], [address] [address] [facility] 01/08 NRBC, % % 0.0 1.0 0.0 Kyleigh l Note: new reference range effective 2023 . FINAL Petty Bridges [facility] [place], [address] [address] [facility] 01/08 CA 125 U/mL 32 Kyleigh l [...] excluded. FINAL Petty Bridges [facility] [place], [address] [facility] [address] [facility] [place] 01/08 Gluco se mg/dL 70.0 99.0 343 High Glucose reference range reflects fasting state. FINAL Petty [place] [facility] [place] [address] [facility] [address] [place] 01/08 BUN mg/dL 8.0 36.0 37 High FINAL Petty Davis [facility] [facility] [place] [address] [facility] [address] [place] 01/08 Creat inine mg/dL 0.51 1.08 1.52 High FINAL Petty Davis [facility] [place] [address] [facility] [address] [place] 01/08 GFR non-[place] f[place] n Ameri can, estim ated mL/min /1.73m 2 35 Low eGFRcr calculate d using the CKD-EPI 2020 equation FINAL Petty Davis [facility] [place] [address] [facility] [address] [place] [address] Gh[place] 01/08 BUN/C reati nine ratio 10.0 28.0 24.3% Kyleigh l FINAL Petty [place] [facility] [place] [address] [facility] [address] [facility] [place] 01/08 Sodiu m mmol/L 135.0 145.0 139 Kyleigh l FINAL Petty Davis [facility] [place] [address] [facility] [address] [place] [place] 01/08 Potas sium mmol/L 3.6 5.3 5.4 High FINAL Petty [place] [facility] [place] [address] [facility] [address] [place] 01/08 Chlor ron mmol/L 95.0 109.0 105 Kyleigh l FINAL Petty Davis [facility] [place] [address] [facility] [address] [place] 01/08 CO2 mmol/L 20.0 31.0 22 Kyleigh l FINAL Petty [place] [facility] [place], [address] [facility] [address] [place] [place] 01/08 Anion gap 4.0 18.0 13.0% Kyleigh l FINAL [facility], [facility] [address] [facility] [address] [facility] [place] 01/08 Total prote in g/dL 6.0 7.7 6.6 Kyleigh l FINAL Petty Shay Susan [facility], [facility] [address] [facility] [address] [facility] [place] 01/08 Album in g/dL 3.8 5.1 4.0 Kyleigh l FINAL Pettysandro Day [facility], [facility] [address] [facility] [address] [place] [address] [place] 01/08 Globu maribel g/dL 1.7 3.3 2.6 Kyleigh l FINAL Petty Day [facility], [facility] [address] [facility] [address] [facility] [place] 01/08 A/G ratio , SPE 1.3 2.7 1.6% Kyleigh l FINAL Pet[facility] Day [facility], [facility] [address] [facility] [address] [place] [address] [place] 01/08 Calci um mg/dL 8.7 10.4 8.8 Kyleigh l FINAL Petty Day [place] [facility], [facility] [address] [facility] [address] [facility] [place] 01/08 Alkal ine phosp hatas e IU/L 42.0 146.0 67 Kyleigh l FINAL Petty Day [facility], [facility] [address] [facility] [address] [place] [address] [place] 01/08 ALT/S GPT IU/L 5.0 46.0 17 Kyleigh l FINAL Petty Shay [facility], [facility] [address] [facility] [address] [place] 01/08 AST/S GOT IU/L 11.0 40.0 17 Kyleigh l FINAL Petty [place] [facility], [facility] [address] [facility] [address] Sajit Ghulam 01/08 Bilir ubin, total mg/dL 0.3 Kyleigh l FINAL Petty [place] [facility], [facility] [address] [facility] [address] Sajit Ghulam 01/09 Gluco se mg/dL 70.0 99.0 113 High Glucose reference range reflects fasting state. FINAL Petty Day [place] [facility] [place] [address] [facility] [address] [place] 01/09 BUN mg/dL 8.0 36.0 33 Kyleigh l FINAL Petty [place] [facility] [place] [address] [facility] [address] [place] 01/09 Creat inine mg/dL 0.51 1.08 1.47 High FINAL Pet[facility] Day [facility], [facility] [address] [facility] [address] [place] 01/09 GFR non-[place] f[place] n Ameri can, estim ated mL/min /1.73m 2 36 Low eGFRcr calculate d using the CKD-EPI 2020 equation FINAL Petty Day [place] [facility] [place] [address] [facility] [address] [place] 01/09 BUN/C reati nine ratio 10.0 28.0 22.4% Kyleigh l FINAL Petty [place] [facility] [place] [address] [facility] [address] Sat [place]am 01/09 Sodiu m mmol/L 135.0 145.0 140 Kyleigh l FINAL Petty [place] [facility], [facility] [address] [facility] [address] Sat Ghulam 01/09 Potas sium mmol/L 3.6 5.3 4.2 Kyleigh l FINAL Petty [place] [address] [address] Sat Ghulam 01/09 Chlor ron mmol/L 95.0 109.0 108 Kyleigh l FINAL Petty [place] [address] [facility] [address] [place] 01/09 CO2 mmol/L 20.0 31.0 22 Kyleigh l FINAL [place]ty [place] [address] [address] [place] 01/09 Anion gap 4.0 18.0 11.0% Kyleigh l FINAL Petty [place] [address] [address] [place] 01/09 Calci um mg/dL 8.7 10.4 8.2 Low FINAL Petty Day [place] [address] [address] [facility] [address] [place] 01/16 Patho logy repor t See vice president of customer service d 01/29 Gluco se mg/dL 70.0 99.0 136 High Glucose reference range reflects fasting state. FINAL Petty Day [place] [address] [address] [place] 01/29 BUN mg/dL 8.0 36.0 27 Kyleigh l FINAL Petty Day [place] [address] [address] [facility] [address] [place] 01/29 Creat inine mg/dL 0.51 1.08 1.26 High FINAL Petty Day [place] [address] [address] [facility] [address] Sat Gh[place] 01/29 GFR non-[place] f[place] n Ameri can, estim ated mL/min /1.73m 2 44 Low eGFRcr calculate d using the CKD-EPI 2020 equation FINAL Petty Day [facility], [address] [facility] [address] [place] 01/29 BUN/C reati nine ratio 10.0 28.0 21.4% Kyleigh l FINAL Petty Shay Susan [facility] [place] [address] [facility] [address] [place] 01/29 Sodiu m mmol/L 135.0 145.0 143 Kyleigh l FINAL [facility] [place] [address] [facility] [address] [place] 01/29 Potas sium mmol/L 3.6 5.3 4.2 Kyleigh l FINAL Petty Shay Susan [facility] [place], [facility] [address] [facility] [address] [facility] Gh[place] 01/29 Chlor ron mmol/L 95.0 109.0 108 Kyleigh l FINAL [facility] [place] [address] [facility] [address] [place] 01/29 CO2 mmol/L 20.0 31.0 25 Kyleigh l FINAL Pet[facility] Sh[facility] [place] [address] [facility] [address] [place] 01/29 Anion gap 4.0 18.0 11.0% Kyleigh l FINAL Pet[facility] Sh[facility] [place] [address] [facility] [address] [facility] Gh[place] 01/29 Total prote in g/dL 6.0 7.7 6.5 Kyleigh l FINAL [facility] [place] [address] [address] [address] [facility] [address] [facility] Ghulam 01/29 Album in g/dL 3.8 5.1 4.3 Kyleigh l FINAL Petty Shay [facility] [place] [address] [facility] [address] [place] Ghulam 01/29 Globu maribel g/dL 1.7 3.3 2.2 Kyleigh l FINAL Petty Day [facility], [facility] [address] [facility] [id number] [place] [address] 01/29 A/G ratio , SPE 1.3 2.7 1.9% Kyleigh l FINAL Petty Day [facility] [place] [address] [facility] [address] [place] [address] 01/29 Calci um mg/dL 8.7 10.4 9.3 Kyleigh l FINAL Petty Day [facility] [place] [address] [facility] [address] [place] [address] 01/29 Alkal ine phosp hatas e IU/L 42.0 146.0 57 Kyleigh l FINAL Petty Day [facility] [place] [address] [address] [place] [address] 01/29 ALT/S GPT IU/L 5.0 46.0 16 Kyleigh l FINAL Petty Day [facility], [facility] [address] [place] [address] 01/29 AST/S GOT IU/L 11.0 40.0 14 Kyleigh l FINAL Petty Day [facility], [facility] [address] [place] [address] 01/29 Bilir ubin, total mg/dL 0.2 Kyleigh l FINAL Petty Day [facility], [facility] [address] [facility] [address] [facility] 01/29 CA 125 U/mL 20 Kyleigh l [...] FINAL Petty Davis [facility] [place], [address] [address] [facility] 01/29 WBC k/mm3 4.0 11.0 8.4 Kyleigh l Note: new reference range effective 2023 . FINAL Petty Davis [facility] [place], [address] [address] [facility] 01/29 RBC m/mm3 3.7 5.4 4.34 Kyleigh l Note: new reference range effective 2023 . FINAL Petty Davis [facility] [place], [address] [address] [facility] 01/29 HGB g/dL 12.0 16.0 11.1 Low Note: new reference range effective 2023 . FINAL Petty Davis [facility] [place], [address] [address] [facility] 01/29 HCT % 35.0 48.0 37.8 Kyleigh l Note: new reference range effective 2023 . FINAL Petty Davis [facility] [place], [address] [address] [facility] 01/29 MCV fL 78.0 100.0 87.1 Kyleigh l Note: new reference range effective 2023 . FINAL Petty [place] [facility] [place], [address] [address] [facility] 01/29 MCH pg 27.0 34.0 25.6 Low Note: new reference range effective 2023 . FINAL Petty [place] [facility] [place], [address] [address] [facility] 01/29 MCHC g/dL 31.0 37.0 29.4 Low Note: new reference range effective 2023 . FINAL Petty Davis [facility] [place], [address] [facility] [address] [facility] 01/29 PLT k/mm3 130.0 450.0 263 Kyleigh l Note: new reference range effective 2023 . FINAL Petty [place] [facility] [place], [address] [facility] [address] [facility] 01/29 RDW-S D fL 38.0 49.0 48.2 Kyleigh l Note: new reference range effective 2023 . FINAL Petty Davis [facility] [place], [address] [facility] [address] [place] [address] 01/29 RDW-C V, % % 11.0 15.0 15.6 High Note: new reference range effective 2023 . FINAL Petty [place] [facility] [place], [address] [facility] [address] [facility] 01/29 MPV fL 9.0 12.0 10.7 Kyleigh l Note: new reference range effective 2023 . FINAL Petty [place] [facility] [place], [address] [facility] [address] [facility] 01/29 Christian % % 58.4 Automated Diff FINAL Petty [place] [facility] [place], [address] [facility] [address] [facility] 01/29 LY % % 20.6 FINAL Petty [place] [facility] [address] [facility] [address] [facility] 01/29 MO % % 12.4 FINAL Petty [place] [facility] [place] [address] [facility] [address] [facility] 01/29 EO % % 3.7 FINAL Petty Shay [facility] [place], [address] [facility] [address] Sajit Ghulam 01/29 BA % % 1.3 FINAL Petty Day [facility] [place], [address] [facility] [address] Sajit Ghulam 01/29 Christian # (ANC) k/uL 1.5 7.8 4.9 Kyleigh l Note: new reference range effective 2023 . FINAL Petty Day [facility] [place], [address] [facility] [address] Sajit Ghulam 01/29 LY # k/uL 0.9 3.9 1.7 Kyleigh l Note: new reference range effective 2023 . FINAL Petty [place] [facility] [place], [address] [facility] [address] Sajit Ghulam 01/29 MO # k/uL 0.2 1.0 1.1 High Note: new reference range effective 2023 . FINAL Petty Day [facility] [place], [address] [facility] [address] Sajit Ghulam 01/29 EO # k/uL 0.0 0.6 0.3 Kyleigh l Note: new reference range effective 2023 . FINAL Petty [place] [facility] [place], [address] [facility] [address] Sajit Ghulam 01/29 BA # k/uL 0.0 0.2 0.1 Kyleigh l Note: new reference range effective 2023 . FINAL Petty Day [facility] [place], [address] [facility] [address] Sajit Ghulam 01/29 IG % % 3.6 FINAL Petty Day Susan [facility] [place], [address] [facility] [address] Sajit Ghulam 01/29 IG # k/uL 0.0 0.1 0.3 High Note: new reference range effective 2023 . FINAL Petty [place] [facility] [place] [address] 01/29 NRBC, % % 0.0 1.0 0.5 Kyleigh l Note: new reference range effective 2023 . FINAL [facility] [place] [address] 02/12 CT scan resul t See vice president of customer service d 02/19 CA 125 U/mL 28 Kyleigh l [...] 125 assay value canbe excluded. FINAL Ambar Keen roly [facility] [place] [address] [address] [facility] [address] [place] [address] 02/19 RBC morph See Comment Kyleigh l No significa nt RBC abnormali ties present. FINAL Ambar dunham [facility] [place] [address] [address] [facility] [address] [place] [address] 02/19 Plate let estim ate Adequat e Kyleigh l FINAL Ambar dunham [facility] [place] [address] 02/19 WBC k/mm3 4.0 11.0 7.2 Kyleigh l FINAL Ambar dunham [facility] [place] [address] [address] [facility] [address] [place] [address] 02/19 RBC m/mm3 3.7 5.4 4.00 Kyleigh l FINAL Ambar Engelber g [facility] [place], [facility] [address] [facility] [address] [place] [address] 02/19 HGB g/dL 12.0 16.0 10.6 Low FINAL Ambar Engelber g [facility] [place], [facility] [address] [facility] [address] [place] [address] 02/19 HCT % 35.0 48.0 34.1 Low FINAL Ambar Engelber g [facility] [place] [address] [facility] [address] [place] [address] 02/19 MCV fL 78.0 100.0 85.3 Kyleigh l FINAL Ambar Engelber g [facility] [place] [address] [facility] [address] [place] [address] 02/19 MCH pg 27.0 34.0 26.5 Low FINAL Ambar Engelber g [facility] [place], [facility] [address] [facility] [address] [place] [address] 02/19 MCHC g/dL 31.0 37.0 31.1 Kyleigh l FINAL Ambar Engelber g Susan [facility] [place], [facility] [address] [facility] [address] [place] [address] 02/19 PLT k/mm3 130.0 450.0 353 Kyleigh l FINAL Ambar Engelber g Susan [facility] [place], [facility] [address] [facility] [address] [place] [address] 02/19 RDW-S D fL 38.0 49.0 52.3 High FINAL Ambar Engelber g Susan [facility] [place], [facility] [address] [facility] [address] [place] [address] 02/19 RDW-C V, % % 11.0 15.0 17.1 High FINAL Ambar Engelber g [facility] [place], [address] [facility] [address] Sat Ghulam 02/19 MPV fL 9.0 12.0 10.7 Kyleigh l FINAL Ambar Engelber g [facility] [place], [address] [facility] [address] Sajit Ghulam 02/19 Christian % % 48.3 Automated DiffSlide Reviewed FINAL Ambar Engelber g Susan [facility] [place], [facility] [address] [facility] [address] [place] 02/19 LY % % 21.0 FINAL Ambar Engelber g [facility] [place], [facility] [address] [facility] [address] [place] 02/19 MO % % 15.6 FINAL Ambar Engelber g [facility] [place] [address] [facility] [address] [place] 02/19 EO % % 2.4 FINAL Ambar Engelber g Susan [facility] [place], [facility] [address] [facility] [address] [place] 02/19 BA % % 1.1 FINAL Ambar Engelber g [facility] [place], [facility] [address] [facility] [address] [place] 02/19 Christian # (ANC) k/uL 1.5 7.8 3.5 Kyleigh l FINAL Ambar Engelber g [facility] [place], [facility] [address] [facility] [address] Sat Ghulam 02/19 LY # k/uL 0.9 3.9 1.5 Kyleigh l FINAL Ambar Engelber g [facility] [place], [address] [facility] [address] Sajit Ghulam 02/19 MO # k/uL 0.2 1.0 1.1 High FINAL Ambar Engelber g [facility] [place], [facility] [address] [facility] [address] [facility] 02/19 EO # k/uL 0.0 0.6 0.2 Kyleigh l FINAL Ambar Engelber roly [facility] [place] [address] [facility] [address] [facility] 02/19 BA # k/uL 0.0 0.2 0.1 Kyleigh l FINAL Ambar Engelber roly [facility] [place] [address] [facility] [address] [place] [address] 02/19 IG % % 11.6 FINAL Ambar Engelber roly [facility] [place] [address] [facility] [address] [place] [address] 02/19 IG # k/uL 0.0 0.1 0.8 High FINAL Ambar Engelber roly [facility] [place] [address] [address] [facility] [address] [place] [address] 02/19 NRBC, % % 0.0 1.0 0.6 Kyleigh l FINAL Ambar Engelber roly [facility] [place] [address] [address] [facility] [address] [place] [address] 02/19 Gluco se mg/dL 70.0 99.0 156 High Glucose reference range reflects fasting state. FINAL Ambar Engelber roly [facility] [place] [address] [place] [address] 02/19 BUN mg/dL 8.0 36.0 24 Kyleigh l FINAL Ambar Engelber roly [facility] [place] [address] [address] [facility] [address] [place] [address] 02/19 Creat inine mg/dL 0.51 1.08 1.34 High FINAL Ambar Engelber roly [facility] [place] [address] [address] [facility] [address] [place] [address] 02/19 GFR non-[place] f[place] n Ameri can, estim ated mL/min /1.73m 2 40 Low eGFRcr calculate d using the CKD-EPI 2020 equation FINAL Ambar Engelber roly [place] [address] [facility] [address] [facility] 02/19 BUN/C reati nine ratio 10.0 28.0 17.9% Kyleigh l FINAL Ambar Engelber roly [place] [address] [facility] [address] [place] [address] 02/19 Sodiu m mmol/L 135.0 145.0 139 Kyleigh l FINAL Ambar Engelber roly [place] [address] [place] [address] 02/19 Potas sium mmol/L 3.6 5.3 4.4 Kyeligh l FINAL Ambar Engelber roly [place] [address] [facility] [address] [place] [address] 02/19 Chlor ron mmol/L 95.0 109.0 104 Kyleigh l FINAL Ambar Engelber roly [place] [address] [place] [address] 02/19 CO2 mmol/L 20.0 31.0 23 Kyleigh l FINAL Ambar Engelber roly [place] [address] [facility] [address] [place] [address] 02/19 Anion gap 4.0 18.0 12.0% Kyleigh l FINAL Ambar Engelber roly [place] [address] [facility] [address] [place] [address] 02/19 Total prote in g/dL 6.0 7.7 6.7 Kyleigh l FINAL Ambar Engelber roly [place] [address] [address] [facility] [address] [place] [address] 02/19 Album in g/dL 3.8 5.1 4.1 Kyleigh l FINAL Ambar Engelber g [facility] [place] [address] [address] [facility] [address] [place] [address] 02/19 Globu maribel g/dL 1.7 3.3 2.6 Kyleigh l FINAL Ambar Engelber g [facility] [place] [address] [address] [facility] [address] [place] [address] 02/19 A/G ratio , SPE 1.3 2.7 1.6% Kyleigh l FINAL Ambar Engelber g [facility] [place] [address] [address] [facility] [address] [place] [address] 02/19 Calci um mg/dL 8.7 10.4 9.6 Kyleigh l FINAL Ambar Engelber g [facility] [place] [address] [address] [facility] [address] [place] [address] 02/19 Alkal ine phosp hatas e IU/L 42.0 146.0 81 Kyleigh l FINAL Ambar Engelber g [facility] [place] [address] [address] [facility] [address] [place] [address] 02/19 ALT/S GPT IU/L 5.0 46.0 11 Kyleigh l FINAL Abmar Engelber g [facility] [place] [address] [address] [facility] [address] [place] [address] 02/19 AST/S GOT IU/L 11.0 40.0 14 Kyleigh l FINAL Ambar Engelber g [facility] [place] [address] [address] [facility] [address] [place] [address] 02/19 Bilir ubin, total mg/dL 0.2 Kyleigh l FINAL Ambar Engelber g [facility] [place] [address] [place] [address] 03/12 CA 125 U/mL 28 Kyleigh [...] assay value canbe excluded. FINAL [facility] [place] [address] 03/12 Gluco se mg/dL 70.0 99.0 194 High Glucose reference range reflects fasting state. FINAL Ambar dunham [facility] [place] [address] 03/12 BUN mg/dL 8.0 36.0 27 Kyleigh l FINAL Ambar dunham [facility] [place] [address] 03/12 Creat inine mg/dL 0.51 1.08 1.26 High FINAL Ambar dunham [facility] [place] [address] 03/12 GFR non-[place] f[place] n Ameri can, estim ated mL/min /1.73m 2 44 Low eGFRcr calculate d using the CKD-EPI 2020 equation FINAL [facility] [place] [address] [address] [facility] 03/12 BUN/C reati nine ratio 10.0 28.0 21.4% Kyleigh l FINAL [facility] [place] [address] [address] [facility] Ghulam 03/12 Sodiu m mmol/L 135.0 145.0 141 Kyleigh l FINAL Ambar Engelber g [facility] [place] [address] [facility] [address] [place] [address] Ghulam 03/12 Potas sium mmol/L 3.6 5.3 3.8 Kyleigh l FINAL Ambar Engelber g [facility] [place] [address] [place] [address] 03/12 Chlor ron mmol/L 95.0 109.0 103 Kyleigh l FINAL Ambar Engelber g [facility] [place] [address] [address] [facility] [address] [place] [address] Ghulam 03/12 CO2 mmol/L 20.0 31.0 23 Kyleigh l FINAL Ambar Engelber g [facility] [place] [address] [address] [facility] [address] [place] [address] 03/12 Anion gap 4.0 18.0 14.0% Kyleigh l FINAL Ambar Engelber roly [facility] [place] [address] [address] [facility] [address] [place] [address] 03/12 Total prote in g/dL 6.0 7.7 7.0 Kyleigh l FINAL Ambar Engelber g [facility] [place] [address] [address] [facility] [address] [place] [address] Ghulam 03/12 Album in g/dL 3.8 5.1 4.4 Kyleigh l FINAL Ambar Engelber g [facility] [place] [address] [address] [facility] [address] [place] [address] Ghulam 03/12 Globu maribel g/dL 1.7 3.3 2.6 Kyleigh l FINAL Ambar Engelber g [facility] [place] [address] [address] [facility] [address] [place] [address] Ghulam 03/12 A/G ratio , SPE 1.3 2.7 1.7% Kyleigh l FINAL Ambar Engelber g [facility] [place] [address] [address] [facility] [address] [place] [address] 03/12 Calci um mg/dL 8.7 10.4 9.7 Kyleigh l FINAL Ambar Engelber g [facility] [place] [address] [address] [facility] [address] [place] [address] 03/12 Alkal ine phosp hatas e IU/L 42.0 146.0 74 Kyleigh l FINAL Ambar Engelber g [facility] [place] [address] [address] [facility] [address] [place] [address] 03/12 ALT/S GPT IU/L 5.0 46.0 19 Kyleigh l FINAL Ambar Engelber g [facility] [place] [address] [address] [facility] [address] [place] [address] 03/12 AST/S GOT IU/L 11.0 40.0 23 Kyleigh l FINAL Ambar Engelber g [facility] [place] [address] [address] [facility] [address] [place] [address] 03/12 Bilir ubin, total mg/dL 0.3 Kyleigh l FINAL Ambar Engelber g [facility] [place] [address] [address] [facility] [address] [place] [address] 03/12 WBC k/mm3 4.0 11.0 9.6 Kyleigh l FINAL Ambar Engelber g [facility] [place] [address] [address] [facility] [address] [place] [address] 03/12 RBC m/mm3 3.7 5.4 4.15 Kyleigh l FINAL Ambar Engelber g [facility] [place] [address] [address] [facility] [address] [place] [address] Ghulam 03/12 HGB g/dL 12.0 16.0 10.8 Low FINAL Ambar Engelber g [facility] [place], [address] [facility] [address] [place] 03/12 HCT % 35.0 48.0 34.7 Low FINAL Ambar Engelber g [facility] [place], [address] [facility] [address] [place]am 03/12 MCV fL 78.0 100.0 83.6 Kyleigh l FINAL Ambar Engelber g [facility] [place], [facility] [address] [facility] [address] [place]ulam 03/12 MCH pg 27.0 34.0 26.0 Low FINAL Ambar Engelber g [facility] [place], [facility] [address] [facility] [address] [place] [address] Ghulam 03/12 MCHC g/dL 31.0 37.0 31.1 Kyleigh l FINAL Ambar Engelber g [facility] [place], [address] [facility] [address] [place] [address] Ghulam 03/12 PLT k/mm3 130.0 450.0 216 Kyleigh l FINAL Ambar Engelber g [facility] [place], [facility] [address] [facility] [address] [place] [address] Ghulam 03/12 RDW-S D fL 38.0 49.0 52.7 High FINAL Ambar Engelber g [facility] [place], [address] [facility] [address] [place] Ghulam 03/12 RDW-C V, % % 11.0 15.0 17.5 High FINAL Ambar Engelber g [facility] [place], [address] [facility] [address] [place]am 03/12 MPV fL 9.0 12.0 11.1 Kyleigh l FINAL Ambar Engelber g [facility] [place], [address] [facility] [address] Sajit Ghulam 03/12 Christian % % 64.9 Automated Diff FINAL Ambar Engelber g [facility] [place], [address] [facility] [address] Sajit Ghulam 03/12 LY % % 18.9 FINAL Ambar Engelber g [facility] [place], [facility] [address] [facility] [address] Sajit Ghulam 03/12 MO % % 12.7 FINAL Ambar Engelber g [facility] [place], [facility] [address] [facility] [address] Sajit Ghulam 03/12 EO % % 2.0 FINAL Ambar Engelber g [facility] [place], [facility] [address] [facility] [address] Sajit Ghulam 03/12 BA % % 0.8 FINAL Ambar Engelber g [facility] [place], [facility] [address] [facility] [address] Sajit Ghulam 03/12 Christian # (ANC) k/uL 1.5 7.8 6.2 Kyleigh l FINAL Ambar Engelber g [facility] [place], [facility] [address] [facility] [address] Sajit Ghulam 03/12 LY # k/uL 0.9 3.9 1.8 Kyleigh l FINAL Ambar Engelber g [facility] [place], [facility] [address] [facility] [address] Sajit Ghulam 03/12 MO # k/uL 0.2 1.0 1.2 High FINAL Ambar Engelber g [facility] [place], [address] [facility] [address] Sajit Ghulam 03/12 EO # k/uL 0.0 0.6 0.2 Kyleigh l FINAL Ambar Engelber g [facility] [place] [address] [facility] [address] [facility] [address] [facility] Ghulam 03/12 BA # k/uL 0.0 0.2 0.1 Kyleigh l FINAL Ambar Engelber g [facility] [place] [address] [facility] [address] [facility] [address] [place] Ghulam 03/12 IG % % 0.7 FINAL Ambar Engelber g [facility] [place] [address] [address] [facility] [id number] [place] [address] Ghulam 03/12 IG # k/uL 0.0 0.1 0.1 Kyleigh l FINAL Ambar Engelber g [facility] [place] [address] [address] [facility] [address] [place] [address] Ghulam 03/12 NRBC, % % 0.0 1.0 0.1 Kyleigh l FINAL Ambar Engelber g [facility] [place] [address] [address] [facility] [id number] [place] [address] 04/02 WBC k/mm3 4.0 11.0 6.3 Kyleigh l FINAL Ambar Engelber roly [facility] [place] [address] [address] [facility] [address] [place] [address] 04/02 RBC m/mm3 3.7 5.4 4.10 Kyleigh l FINAL Ambar Engelber g [facility] [place] [address] [address] [facility] [address] [place] [address] 04/02 HGB g/dL 12.0 16.0 10.8 Low FINAL Ambar Engelber g [facility] [place] [address] [address] [facility] [address] [place] [address] 04/02 HCT % 35.0 48.0 35.8 Kyleigh l FINAL Ambar Engelber g [facility] [place] [address] [address] [facility] [address] [place] [address] 04/02 MCV fL 78.0 100.0 87.3 Kyleigh l FINAL Ambar Engelber g [facility] [place], [address] [facility] [address] Sat Ghulam 04/02 MCH pg 27.0 34.0 26.3 Low FINAL Ambar Engelber g [facility] [place] [address] [facility] [address] Sat Ghulam 04/02 MCHC g/dL 31.0 37.0 30.2 Low FINAL Ambar Engelber g [facility] [place] [address] [facility] [address] [place] Ghulam 04/02 PLT k/mm3 130.0 450.0 240 Kyleigh l FINAL Ambar Engelber g [facility] [place] [address] [facility] [address] [place] Ghulam 04/02 RDW-S D fL 38.0 49.0 52.5 High FINAL Ambar Engelber g [facility] [place] [address] [facility] [address] [place] Ghulam 04/02 RDW-C V, % % 11.0 15.0 16.5 High FINAL Ambar Engelber g [facility] [place] [address] [facility] [address] [place] Ghulam 04/02 MPV fL 9.0 12.0 10.3 Kyleigh l FINAL Ambar Engelber g [facility] [place] [address] [facility] [address] Sajit Ghulam 04/02 Christian % % 51.1 Automated Diff FINAL Ambar Engelber g [facility] [place] [address] [facility] [address] Sajit Ghulam 04/02 LY % % 25.7 FINAL Ambar Engelber g [facility] [place] [address] [facility] [address] Sajit Ghulam 04/02 MO % % 16.5 FINAL Ambar Engelber g [facility] [place], [address] [facility] [address] Sajit Ghulam 04/02 EO % % 1.3 FINAL Ambar Engelber g [facility] [place], [address] [facility] [address] Sajit Ghulam 04/02 BA % % 1.0 FINAL Ambar Engelber g [facility] [place], [address] [facility] [address] Sajit Ghulam 04/02 Christian # (ANC) k/uL 1.5 7.8 3.2 Kyleigh l FINAL Ambar Engelber g [facility] [place], [address] [facility] [address] Sajit Ghulam 04/02 LY # k/uL 0.9 3.9 1.6 Kyleigh l FINAL Ambar Engelber g [facility] [place], [address] [facility] [address] Sajit Ghulam 04/02 MO # k/uL 0.2 1.0 1.0 Kyleigh l FINAL Ambar Engelber g [facility] [place], [address] [facility] [address] Sajit Ghulam 04/02 EO # k/uL 0.0 0.6 0.1 Kyleigh l FINAL Ambar Engelber g [facility] [place], [address] [facility] [address] Sajit Ghulam 04/02 BA # k/uL 0.0 0.2 0.1 Kyleigh l FINAL Ambar Engelber g [facility] [place], [address] [facility] [address] Sajit Ghulam 04/02 IG % % 4.4 FINAL Ambar Engelber g [facility] [place], [address] [facility] [address] [place] [address] 04/02 IG # k/uL 0.0 0.1 0.3 High FINAL Ambar dunham [facility] [place] [address] [address] [facility] [address] [place] [address] 04/02 NRBC, % % 0.0 1.0 0.0 Kyleigh l FINAL Ambar dunham [facility] [place] [address] [address] [facility] [address] [place] [address] 04/02 CA 125 U/mL 26 Kyleigh l [...] assay value canbe excluded. FINAL Ambar dunham [facility] [place] [address] [address] [facility] [address] [place] [address] 04/02 Gluco se mg/dL 70.0 99.0 142 High Glucose reference range reflects fasting state. FINAL Ambar dunham [facility] [place] [address] [address] [facility] [address] [place] [address] 04/02 BUN mg/dL 8.0 36.0 32 Kyleigh l FINAL Ambar dunham [facility] [place] [address] [address] [facility] [address] [place] [address] 04/02 Creat inine mg/dL 0.51 1.08 1.26 High FINAL Ambarkip dunham [facility] [place] [address] [address] [facility] [address] [place] [address] 04/02 GFR non-[place] f[place] n Ameri can, estim ated mL/min /1.73m 2 44 Low eGFRcr calculate d using the CKD-EPI 2020 equation FINAL Ambar Engelber roly [place] [address] [facility] [address] [facility] Ghulam 04/02 BUN/C reati nine ratio 10.0 28.0 25.4% Kyleigh l FINAL Ambar Engelber roly [place] [address] [facility] [address] [facility] Ghulam 04/02 Sodiu m mmol/L 135.0 145.0 142 Kyleigh l FINAL Ambar Engelber roly [place] [address] [facility] [address] [place] [address] Ghulam 04/02 Potas sium mmol/L 3.6 5.3 4.5 Kyleigh l FINAL Ambar Engelber roly [place] [address] [facility] [address] [facility] Ghulam 04/02 Chlor ron mmol/L 95.0 109.0 108 Kyleigh l FINAL Ambar Engelber roly [place] [address] [address] [address] [facility] Ghulam 04/02 CO2 mmol/L 20.0 31.0 22 Kyleigh l FINAL Ambar Engelber roly [place] [address] [facility] [address] [facility] Ghulam 04/02 Anion gap 4.0 18.0 13.0% Kyleigh l FINAL Ambar Engelber roly [place] [address] [facility] [address] [place] [address] Ghulam 04/02 Total prote in g/dL 6.0 7.7 6.6 Kyleigh l FINAL Ambar Engelber roly [place] [address] [address] [facility] [address] [place] [address] Ghulam 04/02 Album in g/dL 3.8 5.1 4.3 Kyleigh l FINAL Ambar Engelber g [facility] [place] [address] [address] [facility] [address] [place] [address] Ghulam 04/02 Globu maribel g/dL 1.7 3.3 2.3 Kyleigh l FINAL Ambar Engelber g [facility] [place] [address] [address] [facility] [address] [place] [address] Ghulam 04/02 A/G ratio , SPE 1.3 2.7 1.8% Kyleigh l FINAL Ambar Engelber g [facility] [place] [address] [address] [facility] [address] [place] [address] Ghulam 04/02 Calci um mg/dL 8.7 10.4 9.6 Kyleigh l FINAL Ambar Engelber g [facility] [place] [address] [address] [facility] [address] [place] [address] Ghulam 04/02 Alkal ine phosp hatas e IU/L 42.0 146.0 73 Kyleigh l FINAL Ambar Engelber g [facility] [place] [address] [address] [facility] [address] [place] [address] Ghulam 04/02 ALT/S GPT IU/L 5.0 46.0 15 Kyleigh l FINAL Ambar Engelber g [facility] [place] [address] [address] [facility] [address] [place] [address] Ghulam 04/02 AST/S GOT IU/L 11.0 40.0 18 Kyleigh l FINAL Ambar Engelber g [facility] [place] [address] [address] [facility] [address] [place] [address] Ghulam 04/02 Bilir ubin, total mg/dL 0.2 Kyleigh l FINAL Ambar Engelber g [facility] [place] [address] [address] [facility] [address] [facility] 04/02 Vicky tin ng/mL 14.0 313.0 126 Kyleigh l FINAL Petty Davis [facility], [facility] N [facility] [address] [place] [address] 04/02 Iron ug/dL 35.0 175.0 81 Kyleigh l The normal range is based on fasting specimens drawn before 10:00 AM.Iron levels have a diurnal fluctuati on of up to 30%, peaking in themornin g hours. FINAL Petty Martinoora [facility], [facility] [address] [place] [address] 04/02 TIBC ug/dL 250.0 400.0 389 Kyleigh l FINAL Petty Davis [facility], [facility] N [facility] [address] [place] [address] 04/02 Iron, % satur ation % 15.0 45.0 21 Kyleigh l FINAL Petty Davis [facility], [facility] N [facility] [address] [facility] 04/27 CT Abdom en and Pelvi s witho ut contr ast [facility]Ph one:ROBERT E: EDMUND PHILLIPS CHINMAY VDOB: [id number] 3MRN: [id number]: [id number] E OF EXAM: 024EXAM INATION : CT Abdomen and Pelvis without contras tCLINIC AL 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 Oral contras t was given.D ose Reducti on Techniq ue: Automat ed Exposur e Control COMPARI SON: CT abdomen and pelvis, 024, [facility] ([place] FINDING S:LOWER THORAX: No basilar atelect asis [...] REPORT FINAL 04/30 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 05/07 CA 125 U/mL 18 Kyleigh l [...] assay value canbe excluded. FINAL Petty Davis [facility] [place] [address] [address] [place] [address] 05/07 Gluco se mg/dL 70.0 99.0 173 High Glucose reference range reflects fasting state. FINAL Petty Davis [facility] [place] [address] [address] [facility] [address] [place] [address] 05/07 BUN mg/dL 8.0 36.0 20 Kyleigh l FINAL Petty Davis [facility] [place] [address] [address] [facility] [address] [place] [address] 05/07 Creat inine mg/dL 0.51 1.08 1.39 High FINAL Petty Day [facility] [place] [address] [address] [facility] [address] [place] [address] 05/07 GFR non-[place] f[place] n Ameri can, estim ated mL/min /1.73m 2 39 Low eGFRcr calculate d using the CKD-EPI 2020 equation FINAL Petty Davis [facility] [place] [address] [address] [facility] [address] [place] [address] 05/07 BUN/C reati nine ratio 10.0 28.0 14.4% Kyleigh l FINAL Petty [facility] [facility] [place] [address] [address] [facility] [address] [place] [address] 05/07 Sodiu m mmol/L 135.0 145.0 142 Kyleigh l FINAL Petty [facility] [facility] [place] [address] [address] [facility] [address] [place] [address] 09/30 /2024 Potas sium mmol/L 3.6 5.3 4.6 Kyleigh l FINAL Pettysandro Day [facility] [place], [address] [facility] [address] Sat Ghulam 05/07 Chlor ron mmol/L 95.0 109.0 107 Kyleigh l FINAL Petty Shay [facility] [place], [address] [facility] [address] [place] Ghulam 05/07 CO2 mmol/L 20.0 31.0 24 Kyleigh l FINAL Petty Shay [facility] [place], [address] [facility] [address] [place] Ghulam 05/07 Anion gap 4.0 18.0 11.0% Kyleigh l FINAL Pettysandro Day [facility] [place], [address] [facility] [address] [place] Ghulam 05/07 Total prote in g/dL 6.0 7.7 6.6 Kyleigh l FINAL Petty Day [facility] [place], [address] [facility] [address] [place] Ghulam 05/07 Album in g/dL 3.8 5.1 4.2 Kyleigh l FINAL Petty Day [facility] [place], [address] [facility] [address] [place] Ghulam 05/07 Globu maribel g/dL 1.7 3.3 2.4 Kyleigh l FINAL Petty Day [facility] [place], [address] [facility] [address] Sat Ghulam 05/07 A/G ratio , SPE 1.3 2.7 1.7% Kyleigh l FINAL Petty Day [facility] [place], [address] [facility] [address] [place] Ghulam 05/07 Calci um mg/dL 8.7 10.4 9.4 Kyleigh l FINAL Petty Day [facility] [place], [facility] [address] [facility] [address] [facility] Ghulam 05/07 Alkal ine phosp hatas e IU/L 42.0 146.0 64 Kyleigh l FINAL Petty Shay [facility] [place], [facility] [address] [facility] [address] [facility] Ghulam 05/07 ALT/S GPT IU/L 5.0 46.0 10 Kyleigh l FINAL Petty Shay [facility] [place], [facility] [address] [facility] [address] [facility] Ghulam 05/07 AST/S GOT IU/L 11.0 40.0 24 Kyleigh l FINAL Petty Shay [facility] [place] [address] [facility] [address] [place] [address] Ghulam 05/07 Bilir ubin, total mg/dL 0.2 Kyleigh l FINAL Petty Shay [facility] [place] [address] [facility] [address] [facility] Ghulam 05/07 WBC k/mm3 4.0 11.0 7.1 Kyleigh l FINAL Petty Shay [facility] [place], [facility] [address] [facility] [address] [place] [address] 05/07 RBC m/mm3 3.7 5.4 3.92 Kyleigh l FINAL Petty Shay [facility] [place], [facility] [address] [facility] [address] [place] [address] 05/07 HGB g/dL 12.0 16.0 10.6 Low FINAL Petty Shay [facility] [place], [facility] [address] [facility] [address] [facility] Ghulam 05/07 HCT % 35.0 48.0 35.1 Kyleigh l FINAL Petty Shay [facility] [place], [facility] [address] [facility] [address] [facility] Ghulam 05/07 MCV fL 78.0 100.0 89.5 Kyleigh l FINAL Petty Shay [facility] [place], [address] [facility] [address] Samelinda Ghulam 05/07 MCH pg 27.0 34.0 27.0 Kyleigh l FINAL Petty Shay [facility] [place], [address] [facility] [address] Samelindat Ghulam 05/07 MCHC g/dL 31.0 37.0 30.2 Low FINAL Petty Shay [facility] [place], [address] [facility] [address] [place] Ghulam 05/07 PLT k/mm3 130.0 450.0 335 Kyleigh l FINAL Petty Shay [facility] [place], [address] [facility] [address] [place] Ghulam 05/07 RDW-S D fL 38.0 49.0 54.3 High FINAL Petty Shay [facility] [place], [facility] [address] [facility] [address] [place] Ghulam 05/07 RDW-C V, % % 11.0 15.0 16.5 High FINAL Petty Shay [facility] [place], [address] [facility] [address] [place] Ghulam 05/07 MPV fL 9.0 12.0 11.0 Kyleigh l FINAL Petty Shay [facility] [place], [facility] [address] [facility] [address] [place] Ghulam 05/07 Christian % % 48.4 Automated Diff FINAL Petty Shay [facility] [place] [address] [facility] [address] Sat Ghulam 05/07 LY % % 25.7 FINAL Petty Shay [facility] [place], [facility] [address] [facility] [address] Sajit Ghulam 05/07 MO % % 20.7 FINAL Petty Shay [facility] [place] [address] [facility] [address] Sajit Ghulam 05/07 EO % % 2.3 FINAL Petty Shay [facility] [place], [address] [facility] [address] Sajit Ghulam 05/07 BA % % 1.1 FINAL Pettysandro Day [facility] [place], [address] [facility] [address] Sajit Ghulam 05/07 Christian # (ANC) k/uL 1.5 7.8 3.4 Kyleigh l FINAL Pettysandro Day [facility] [place], [address] [facility] [address] Sajit Ghulam 05/07 LY # k/uL 0.9 3.9 1.8 Kyleigh l FINAL Pettysandro Day [facility] [place], [address] [facility] [address] Sajit Ghulam 05/07 MO # k/uL 0.2 1.0 1.5 High FINAL Pettysandro Day [facility] [place], [address] [facility] [address] Sajit Ghulam 05/07 EO # k/uL 0.0 0.6 0.2 Ykleigh l FINAL Petty Shay [facility] [place], [address] [facility] [address] Sajit Ghulam 05/07 BA # k/uL 0.0 0.2 0.1 Kyleigh l FINAL Petty Shay [facility] [place], [address] [facility] [address] Sajit Ghulam 05/07 IG % % 1.8 FINAL Petty Shay [facility] [place], [address] [facility] [address] Sajit Ghulam 05/07 IG # k/uL 0.0 0.1 0.1 Kyleigh l FINAL Petty Shay [facility] [place], [address] [facility] [address] Sajit Ghulam 05/07 NRBC, % % 0.0 1.0 0.3 Kyleigh l FINAL Petty Shay [facility] [place] [address] [facility] [address] [place] [address] 07/11 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 08/27 Sodiu m mmol/L 135.0 145.0 141 Kyleigh l FINAL Petty Shay [facility] [place] [address] [facility] [address] [place] [address] 08/27 Potas sium mmol/L 3.6 5.3 5.0 Kyleigh l FINAL Petty Shay [facility] [place] [address] [facility] [address] [place] [address] 08/27 Chlor ron mmol/L 95.0 109.0 103 Kyleigh l FINAL Petty Shay [facility] [place] [address] [facility] [address] [place] [address] 08/27 CO2 mmol/L 20.0 31.0 25 Kyleigh l FINAL Petty Shay [facility] [place] [address] [facility] [address] [place] [address] 08/27 Anion gap 4.0 18.0 12.0% Kyleigh l FINAL Petty Shay [facility] [place] [address] [facility] [address] [place] [address] 08/27 Total prote in g/dL 6.0 7.7 8.2 High FINAL Petty Shay [facility] [place] [address] [facility] [address] [place] [address] 08/27 Album in g/dL 3.8 5.1 4.8 Kyleigh l FINAL Petty Shay [facility] [place] [address] [facility] [address] [place] [address] 08/27 Globu maribel g/dL 1.7 3.3 3.4 High FINAL Petty Shay [facility] [place], [address] [facility] [address] [facility] 08/27 A/G ratio , SPE 1.3 2.7 1.4% Kyleigh l FINAL Petty [place] [facility] [place], [address] [facility] [address] [facility] 08/27 Calci um mg/dL 8.7 10.4 10.4 Kyleigh l FINAL Petty [place] [facility], [address] [facility] [address] [facility] 08/27 Alkal ine phosp hatas e IU/L 42.0 146.0 108 Kyleigh l FINAL Petty [place] [facility] [place], [facility] [address] [facility] [address] [facility] 08/27 ALT/S GPT IU/L 5.0 46.0 21 Kyleigh l FINAL Petty [place] [facility] [place], [facility] [address] [facility] [address] [facility] 08/27 AST/S GOT IU/L 11.0 40.0 21 Kyleigh l FINAL Petty [place] [facility] [place], [facility] [address] [facility] [address] [facility] Ghulam 08/27 Bilir ubin, total mg/dL 0.3 Kyleigh l FINAL Petty Day [facility] [place] [address] [facility] [address] [facility] 08/27 Gluco se mg/dL 70.0 99.0 285 High Glucose reference range reflects fasting state. FINAL Petty [place] [facility] [place] [address] [facility] [address] [facility] Ghulam 08/27 BUN mg/dL 8.0 36.0 41 High FINAL Petty Day Susan [facility] [place] [address] [facility] [address] [facility] Ghulam 08/27 Creat inine mg/dL 0.51 1.08 1.44 High FINAL Petty [facility] [address] [facility] [id number] [place] [address] 08/27 GFR non-A darleneca n Elan can, estim ated mL/min /1.73m 2 37 Low eGFRcr calculate d using the CKD-EPI 2020 equation FINAL [facility] [place] [address] [facility] [id number] [place] [address] 08/27 BUN/C reati nine ratio 10.0 28.0 28.5% High FINAL [facility] [place] [address] [facility] [id number] [place] [address] 08/27 CA 125 U/mL 19 Kyleigh l [...] canbe excluded. FINAL Petty Davis [facility] [place] [address] [address] [id number] [place] [address] 08/27 WBC k/mm3 4.0 11.0 7.5 Kyleigh l FINAL Petty Davis [facility] [place] [address] [address] [facility] [id number] [place] [address] 08/27 RBC m/mm3 3.7 5.4 5.00 Kyleigh l FINAL Petty Davis [facility] [place] [address] [address] [facility] [id number] [place] [address] 08/27 HGB g/dL 12.0 16.0 13.3 Kyleigh l FINAL Petty Shay [facility] [place], [address] [facility] [address] [place] 08/27 HCT % 35.0 48.0 41.7 Kyleigh l FINAL Petty Sh[facility] [place], [address] [facility] [address] Sajit [place] 08/27 MCV fL 78.0 100.0 83.4 Kyleigh l FINAL Petty Sh[facility] [place], [facility] [address] [facility] [address] [place] 08/27 MCH pg 27.0 34.0 26.6 Low FINAL Petty Shay [facility] [place], [facility] [address] [facility] [address] [place] 08/27 MCHC g/dL 31.0 37.0 31.9 Kyleigh l FINAL Petty Shay [facility] [place], [address] [facility] [address] [place] 08/27 PLT k/mm3 130.0 450.0 255 Kyleigh l FINAL Petty Shay [facility] [place], [facility] [address] [facility] [address] [place] 08/27 RDW-S D fL 38.0 49.0 43.4 Kyleigh l FINAL Petty Shay [facility] [place], [facility] [address] [facility] [address] [place] 08/27 RDW-C V, % % 11.0 15.0 14.3 Kyleigh l FINAL Petty Shay [facility] [place], [facility] [address] [facility] [address] Sat [place] 08/27 MPV fL 9.0 12.0 11.1 Kyleigh l FINAL Petty Shay [facility] [place], [facility] [address] [facility] [address] Sat [place] 08/27 Christian % % 76.4 Automated Diff FINAL Petty Shay [facility] [place], [address] [facility] [address] Sajit Ghulam 08/27 LY % % 19.2 FINAL Petty Shay [facility] [place], [address] [facility] [address] Sajit Ghulam 08/27 MO % % 3.4 FINAL Petty Shay Susan [facility] [place], [address] [facility] [address] Sajit Ghulam 08/27 EO % % 0.0 FINAL Petty Shay [facility] [place], [address] [facility] [address] Sajit Ghulam 08/27 BA % % 0.1 FINAL Petty Shay Susan [facility] [place], [address] [facility] [address] Sajit Ghulam 08/27 Christian # (ANC) k/uL 1.5 7.8 5.7 Kyleigh l FINAL Petty Shay [facility] [place], [address] [facility] [address] Sajit Ghulam 08/27 LY # k/uL 0.9 3.9 1.4 Kyleigh l FINAL Petty Shay [facility] [place], [address] [facility] [address] Sajit Ghulam 08/27 MO # k/uL 0.2 1.0 0.3 Kyleigh l FINAL Petty Shay [facility] [place], [address] [facility] [address] Sajit Ghulam 08/27 EO # k/uL 0.0 0.6 0.0 Kyleigh l FINAL Petty Shay [facility] [place], [address] [facility] [address] Sajit Ghulam 08/27 BA # k/uL 0.0 0.2 0.0 Kyleigh l FINAL Petty Shay [facility] [place], [address] [facility] [address] [place] 08/27 IG % % 0.9 FINAL [facility], [facility] [address] [facility] [address] [facility] [place] 08/27 IG # k/uL 0.0 0.1 0.1 Kyleigh l FINAL Petty Bridges [facility], [facility] [address] [facility] [address] [facility] [place] 08/27 NRBC, % % 0.0 1.0 0.0 Kyleigh l FINAL Petty Day [facility], [facility] [address] [facility] [address] [facility] Medications Date Name Route Dose [...] concentration must be 0.3-1.2 mg/mL. Administer using Igf-CYEI-avbdl ining equipment and through an in-line 0.22 [...] Active Vital Signs Date Type Value 12/20/2023 Body Temperature 97.40 12/20/2023 Heart Beat 87.00 12/20/2023 Respiratory Rate 18.00 12/20/2023 Oxygen Saturation 95.00 12/20/2023 BSA 1.62 12/20/2023 Pain Scale 6.00 12/20/2023 Weight 144.00 12/20/2023 Height 60.00 12/20/2023 BMI 28.12 12/20/2023 Intravascular Systolic 158 12/20/2023 Intravascular Diastolic 74 01/09/2024 Body Temperature 98.20 01/09/2024 Heart Beat 97.00 01/09/2024 Respiratory Rate 18.00 01/09/2024 Oxygen Saturation 96.00 01/09/2024 BSA 1.63 01/09/2024 Pain Scale 4.00 01/09/2024 Weight 145.60 01/09/2024 Height 60.00 01/09/2024 BMI 28.44 01/09/2024 Intravascular Systolic 148 01/09/2024 Intravascular Diastolic 65 01/10/2024 BSA 1.62 01/10/2024 Body Temperature 98.60 01/10/2024 Heart Beat 74.00 01/10/2024 Respiratory Rate 18.00 01/10/2024 Oxygen Saturation 98.00 01/10/2024 Intravascular Systolic 111 01/10/2024 Intravascular Diastolic 53 01/10/2024 Pain Scale 10.00 01/10/2024 Weight 143.40 01/10/2024 BMI 28.01 01/10/2024 Height 60.00 01/30/2024 BMI 28.24 01/30/2024 Height 60.00 01/30/2024 Weight 144.60 01/30/2024 Pain Scale 7.00 01/30/2024 Intravascular Systolic 128 01/30/2024 Intravascular Diastolic 58 01/30/2024 Oxygen Saturation 95.00 01/30/2024 Respiratory Rate 17.00 01/30/2024 Heart Beat 73.00 01/30/2024 Body Temperature 97.70 01/30/2024 BSA 1.63 01/31/2024 BMI 28.16 01/31/2024 Height 60.00 01/31/2024 Weight 144.20 01/31/2024 Pain Scale 0.00 01/31/2024 BSA 1.62 01/31/2024 Oxygen Saturation 95.00 01/31/2024 Respiratory Rate 18.00 01/31/2024 Heart Beat 84.00 01/31/2024 Body Temperature 97.80 01/31/2024 Intravascular Systolic 138 01/31/2024 Intravascular Diastolic 80 02/20/2024 BMI 28.24 02/20/2024 Height 60.00 02/20/2024 Weight 144.60 02/20/2024 Pain Scale 3.00 02/20/2024 BSA 1.63 02/20/2024 Oxygen Saturation 97.00 02/20/2024 Respiratory Rate 18.00 02/20/2024 Heart Beat 70.00 02/20/2024 Body Temperature 97.00 02/20/2024 Intravascular Systolic 143 02/20/2024 Intravascular Diastolic 68 02/21/2024 BSA 1.62 02/21/2024 BMI 27.93 02/21/2024 Height 60.00 02/21/2024 Weight 143.00 02/21/2024 Pain Scale 0.00 02/21/2024 Intravascular Systolic 131 02/21/2024 Intravascular Diastolic 71 02/21/2024 Oxygen Saturation 98.00 02/21/2024 Respiratory Rate 16.00 02/21/2024 Body Temperature 98.70 02/21/2024 Heart Beat 79.00 03/06/2024 Body Temperature 98.30 03/06/2024 Heart Beat 70.00 03/06/2024 Respiratory Rate 18.00 03/06/2024 Oxygen Saturation 97.00 03/06/2024 Intravascular Systolic 151 03/06/2024 Intravascular Diastolic 74 03/06/2024 Pain Scale 6.00 03/06/2024 Weight 146.20 03/06/2024 Height 60.00 03/06/2024 BMI 28.55 03/06/2024 BSA 1.63 03/13/2024 Body Temperature 98.00 03/13/2024 Heart Beat 96.00 03/13/2024 Respiratory Rate 18.00 03/13/2024 Oxygen Saturation 95.00 03/13/2024 BSA 1.62 03/13/2024 Pain Scale 7.00 03/13/2024 Weight 143.60 03/13/2024 Height 60.00 03/13/2024 BMI 28.04 03/13/2024 Intravascular Systolic 158 03/13/2024 Intravascular Diastolic 81 04/02/2024 Intravascular Systolic 120 04/02/2024 Intravascular Diastolic 76 04/02/2024 BSA 1.63 04/02/2024 BMI 28.28 04/02/2024 Height 60.00 04/02/2024 Weight 144.80 04/02/2024 Pain Scale 8.00 04/02/2024 Oxygen Saturation 92.00 04/02/2024 Respiratory Rate 20.00 04/02/2024 Heart Beat 92.00 04/02/2024 Body Temperature 98.60 04/03/2024 Intravascular Systolic 163 04/03/2024 Intravascular Diastolic 74 04/03/2024 Oxygen Saturation 98.00 04/03/2024 Respiratory Rate 18.00 04/03/2024 Heart Beat 96.00 04/03/2024 Body Temperature 97.40 04/03/2024 Weight 145.40 04/03/2024 Height 60.00 04/03/2024 BMI 28.40 04/03/2024 BSA 1.63 04/03/2024 Pain Scale 7.00 05/07/2024 Respiratory Rate 20.00 05/07/2024 Heart Beat 75.00 05/07/2024 Body Temperature 97.80 05/07/2024 Intravascular Systolic 110 05/07/2024 Intravascular Diastolic 60 05/07/2024 Oxygen Saturation 98.00 05/07/2024 BSA 1.63 05/07/2024 BMI 28.44 05/07/2024 Height 60.00 05/07/2024 Weight 145.60 05/07/2024 Pain Scale 8.00 08/27/2024 Height 60.00 08/27/2024 Weight 138.40 08/27/2024 Pain Scale 5.00 08/27/2024 Oxygen Saturation 93.00 08/27/2024 BMI 27.03 08/27/2024 Body Temperature 97.80 08/27/2024 Heart Beat 76.00 08/27/2024 Respiratory Rate 20.00 08/27/2024 BSA 1.60 08/27/2024 Intravascular Systolic 149 08/27/2024 Intravascular Diastolic 75 Notes Section * Nurse Note for: 27-APR-24 [facility] Nurse Note Print Location: Unknown Date/Time Printed: 07/14/2025 11:36 ([facility]) Patient: CHINMAY MORALES V Sex: Female : 1945 Date of Service: 04/27/2024 Allergies : Sulfamide, Iodinated Contrast Media Patient Assessment : Procedures : Computed tomography of abdomen and pelvis (procedure) - 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 Weight: 145.4 lb (65.95 kg). Height: 60 [...] concentration must be 0.3-1.2 mg/mL. Administer using Xdh-NNAB-jgrniuppva equipment and through an in-line 0.22 micron [...] mg Amount in mL: 27 Pharmacy dispense: [facility]: [id number] Dispense/Waste: 270/0 mg Given Dose/Discard: 270/0 mg [...] mg Amount in mL: 5 Pharmacy dispense: [facility]: [id number] Dispense/Waste: 0.25/0 mg Given Dose/Discard: 0.25/0 mg [...] mg Amount in mL: 1 Pharmacy dispense: [facility]: [id number] Dispense/Waste: 10/0 mg Given Dose/Discard: 10/0 mg [...] mg Amount in mL: 18 Pharmacy dispense: [facility]: [id number] Dispense/Waste: 130/0 mg Given Dose/Discard: 130/0 mg Start Time: 10:13, Entered By: Kanchan Corey RN, Stop Time: 10:18, Entered By: Kanchan Corey RN Incident to: Brian Davey MD Paclitaxel + Carboplatin Q21D (Ovarian) Premedications Diphenhydramine IV, 25 mg intravenously once, Instructions: Administer 30-60 minutes prior to paclitaxel., Allow Substitution GIVEN: 25 mg Pharmacy plan: Dispense/Waste: 25/0 mg Amount in mL: 0.5 Pharmacy dispense: [facility]: [id number] Dispense/Waste: 25/0 mg Given Dose/Discard: 25/0 mg Start Time: 09:52, Entered By: Kanchan Corey RN, Stop Time: 09:54, Entered By: Kanchan Corey RN Incident to: Brian Davey MD Paclitaxel + Carboplatin Q21D (Ovarian) Premedications Famotidine IV, 20 mg intravenously once, Instructions: Administer 30-60 minutes prior to paclitaxel., Allow Substitution GIVEN: 20 mg Pharmacy plan: Dispense/Waste: 20/0 mg Amount in mL: 2 Pharmacy dispense: [facility]: [id number] Dispense/Waste: 20/0 mg Given Dose/Discard: 20/0 mg Start Time: 09:50, Entered By: Kanchan Corey RN, Stop Time: 09:52, Entered By: Kanchan Corey RN Free Text Note : Patient tolerated treatment well, no issues or complaints. Entered By Kanchan Corey RN on 12:02 * Nurse Note for: 13-MAR-24 [facility] Nurse Note Print Location: Unknown Date/Time Printed: 07/14/2025 11:36 ([facility]) Patient: CHINMAY MORALES V Sex: Female : [...] : Labs Verified: Yes-8/5 labs verified with [facility] RN, Alert, oriented with appropriate behavior. Complains [...] Intact,No Redness,No Swelling,No Tenderness,No Bruising, Entered By rEin Duggan RN on 12:46 Discharge Note : [...] concentration must be 0.3-1.2 mg/mL. Administer using Kms-UHDQ-bkkltigeeu equipment and through an in-line 0.22 micron filter. Paclitaxel is a vascular irritant., Allow Substitution GIVEN: 222 mg Pharmacy plan: Dose Form Description: 6 mg/mL concentrate Dispense/Waste: 222/0 mg Amount in mL: 37 Pharmacy dispense: [facility]: [id number] Dispense/Waste: 222/0 mg Given Dose/Discard: 222/0 mg [...] mg Amount in mL: 27 Pharmacy dispense: [facility]: [id number] Dispense/Waste: 270/0 mg Given Dose/Discard: 270/0 mg [...] mg Amount in mL: 5 Pharmacy dispense: [facility]: [id number] Dispense/Waste: 0.25/0 mg Given Dose/Discard: 0.25/0 mg [...] mg Amount in mL: 1 Pharmacy dispense: [facility]: [id number] Dispense/Waste: 10/0 mg Given Dose/Discard: 10/0 mg [...] mg Amount in mL: 18 Pharmacy dispense: [facility]: [id number] Dispense/Waste: 130/0 mg Given Dose/Discard: 130/0 mg Start Time: 10:32, Entered By: Erin Duggan RN, Stop Time: 10:36, Entered By: Erin Duggan RN Incident to: Brian Davey MD Paclitaxel + Carboplatin Q21D (Ovarian) Premedications Diphenhydramine IV, 25 mg intravenously once, Instructions: Administer 30-60 minutes prior to paclitaxel., Allow Substitution GIVEN: 25 mg Pharmacy plan: Dispense/Waste: 25/0 mg Amount in mL: 0.5 Pharmacy dispense: [facility]: [id number] Dispense/Waste: 25/0 mg Given Dose/Discard: 25/0 mg Start Time: 10:18, Entered By: Erin Duggan RN, Stop Time: 10:20, Entered By: Erin Duggan RN Incident to: Brian Davey MD Paclitaxel + Carboplatin Q21D (Ovarian) Premedications Famotidine IV, 20 mg intravenously once, Instructions: Administer 30-60 minutes prior to paclitaxel., Allow Substitution GIVEN: 20 mg Pharmacy plan: Dispense/Waste: 20/0 mg Amount in mL: 2 Pharmacy dispense: [facility]: [id number] Dispense/Waste: 20/0 mg Given Dose/Discard: 20/0 mg Start Time: 10:16, Entered By: Erin Duggan RN, Stop Time: 10:18, Entered By: Erin Duggan RN Free Text Note : Pt voices no new complaints. Doses verified. Entered By Erin Duggan RN on 12:46 * Nurse Note for: 21-FEB-24 [facility] Nurse Note Print Location: Unknown Date/Time Printed: 07/14/2025 11:36 ([facility]) Patient: CHINMAY MORALES V Sex: Female : [...] concentration must be 0.3-1.2 mg/mL. Administer using Bwx-KNJZ-fnmvtdzhmo equipment and through an in-line 0.22 micron filter. Paclitaxel is a vascular irritant., Allow Substitution GIVEN: 222 mg Pharmacy plan: Dose Form Description: 6 mg/mL concentrate Dispense/Waste: 222/0 mg Amount in mL: 37 Pharmacy dispense: [facility]: [id number] Dispense/Waste: 222/0 mg Given Dose/Discard: 222/0 mg [...] mg Amount in mL: 24 Pharmacy dispense: [facility]: [id number] Dispense/Waste: 240/0 mg Given Dose/Discard: 240/0 mg [...] mg Amount in mL: 5 Pharmacy dispense: [facility]: [id number] Dispense/Waste: 0.25/0 mg Given Dose/Discard: 0.25/0 mg [...] mg Amount in mL: 1 Pharmacy dispense: [facility]: [id number] Dispense/Waste: 10/0 mg Given Dose/Discard: 10/0 mg [...] mg Amount in mL: 18 Pharmacy dispense: [facility]: [id number] Dispense/Waste: 130/0 mg Given Dose/Discard: 130/0 mg Start Time: 11:52, Entered By: Judson Fontaine RN, Stop Time: 11:55, Entered By: Judson Fontaine RN Incident to: Dora Euceda MD Paclitaxel + Carboplatin Q21D (Ovarian) Premedications Diphenhydramine IV, 25 mg intravenously once, Instructions: Administer 30-60 minutes prior to paclitaxel., Allow Substitution GIVEN: 25 mg Pharmacy plan: Dispense/Waste: 25/0 mg Amount in mL: 0.5 Pharmacy dispense: [facility]: [id number] Dispense/Waste: 25/0 mg Given Dose/Discard: 25/0 mg Start Time: 11:22, Entered By: Judson Fontaine RN, Stop Time: 11:24, Entered By: Judson Fontaine RN Incident to: Dora Euceda MD Paclitaxel + Carboplatin Q21D (Ovarian) Premedications Famotidine IV, 20 mg intravenously once, Instructions: Administer 30-60 minutes prior to paclitaxel., Allow Substitution GIVEN: 20 mg Pharmacy plan: Dispense/Waste: 20/0 mg Amount in mL: 2 Pharmacy dispense: [facility]: [id number] Dispense/Waste: 20/0 mg Given Dose/Discard: 20/0 mg [...] on 15:54 * Nurse Note for: 21-FEB-24 [facility] Nurse Note Print Location: Unknown Date/Time Printed: 07/14/2025 11:36 ([facility]) Patient: CHINMAY MORALES V Sex: Female : [...] concentration must be 0.3-1.2 mg/mL. Administer using Sep-HZOZ-mfunmemhih equipment and through an in-line 0.22 micron filter. Paclitaxel is a vascular irritant., Allow Substitution GIVEN: 222 mg Pharmacy plan: Dose Form Description: 6 mg/mL concentrate Dispense/Waste: 222/0 mg Amount in mL: 37 Pharmacy dispense: [facility]: [id number] Dispense/Waste: 222/0 mg Given Dose/Discard: 222/0 mg [...] mg Amount in mL: 24 Pharmacy dispense: [facility]: [id number] Dispense/Waste: 240/0 mg Given Dose/Discard: 240/0 mg [...] mg Amount in mL: 5 Pharmacy dispense: [facility]: [id number] Dispense/Waste: 0.25/0 mg Given Dose/Discard: 0.25/0 mg [...] mg Amount in mL: 1 Pharmacy dispense: [facility]: [id number] Dispense/Waste: 10/0 mg Given Dose/Discard: 10/0 mg [...] mg Amount in mL: 18 Pharmacy dispense: [facility]: [id number] Dispense/Waste: 130/0 mg Given Dose/Discard: 130/0 mg Start Time: 11:52, Entered By: Judson Fontaine RN, Stop Time: 11:55, Entered By: Judson Fontaine RN Incident to: Dora Euceda MD Paclitaxel + Carboplatin Q21D (Ovarian) Premedications Diphenhydramine IV, 25 mg intravenously once, Instructions: Administer 30-60 minutes prior to paclitaxel., Allow Substitution GIVEN: 25 mg Pharmacy plan: Dispense/Waste: 25/0 mg Amount in mL: 0.5 Pharmacy dispense: [facility]: [id number] Dispense/Waste: 25/0 mg Given Dose/Discard: 25/0 mg Start Time: 11:22, Entered By: Judson Fontaine RN, Stop Time: 11:24, Entered By: Judson Fontaine RN Incident to: Dora Euceda MD Paclitaxel + Carboplatin Q21D (Ovarian) Premedications Famotidine IV, 20 mg intravenously once, Instructions: Administer 30-60 minutes prior to paclitaxel., Allow Substitution GIVEN: 20 mg Pharmacy plan: Dispense/Waste: 20/0 mg Amount in mL: 2 Pharmacy dispense: [facility]: [id number] Dispense/Waste: 20/0 mg Given Dose/Discard: 20/0 mg [...] on 15:54 * Nurse Note for: 31-JAN-24 [facility] Nurse Note Print Location: Unknown Date/Time Printed: 07/14/2025 11:36 ([facility]) Patient: CHINMAY MORALES V Sex: Female : [...] concentration must be 0.3-1.2 mg/mL. Administer using Hdp-TOHA-xlykcvsqcu equipment and through an in-line 0.22 micron filter. Paclitaxel is a vascular irritant., Allow Substitution GIVEN: 222 mg Pharmacy plan: Dose Form Description: 6 mg/mL concentrate Dispense/Waste: 222/0 mg Amount in mL: 37 Pharmacy dispense: [facility]: [id number] Dispense/Waste: 222/0 mg Given Dose/Discard: 222/0 mg [...] mg Amount in mL: 24 Pharmacy dispense: [facility]: [id number] Dispense/Waste: 240/0 mg Given Dose/Discard: 240/0 mg [...] mg Amount in mL: 5 Pharmacy dispense: [facility]: [id number] Dispense/Waste: 0.25/0 mg Given Dose/Discard: 0.25/0 mg [...] mg Amount in mL: 1 Pharmacy dispense: [facility]: [id number] Dispense/Waste: 10/0 mg Given Dose/Discard: 10/0 mg [...] mg Amount in mL: 18 Pharmacy dispense: [facility]: [id number] Dispense/Waste: 130/0 mg Given Dose/Discard: 130/0 mg Start Time: 10:20, Entered By: Kanchan Corey RN, Stop Time: 10:25, Entered By: Kanchan Corey RN Incident to: Brian Davey MD Paclitaxel + Carboplatin Q21D (Ovarian) Premedications Diphenhydramine IV, 25 mg intravenously once, Instructions: Administer 30-60 minutes prior to paclitaxel., Allow Substitution GIVEN: 25 mg Pharmacy plan: Dispense/Waste: 25/0 mg Amount in mL: 0.5 Pharmacy dispense: [facility]: [id number] Dispense/Waste: 25/0 mg Given Dose/Discard: 25/0 mg Start Time: 10:01, Entered By: Kanchan Corey RN, Stop Time: 10:03, Entered By: Kanchan Corey RN Incident to: Brian Davey MD Paclitaxel + Carboplatin Q21D (Ovarian) Premedications Famotidine IV, 20 mg intravenously once, Instructions: Administer 30-60 minutes prior to paclitaxel., Allow Substitution GIVEN: 20 mg Pharmacy plan: Dispense/Waste: 20/0 mg Amount in mL: 2 Pharmacy dispense: [facility]: [id number] Dispense/Waste: 20/0 mg Given Dose/Discard: 20/0 mg Start Time: 09:58, Entered By: Kanchan Corey RN, Stop Time: 10:00, Entered By: Kanchan Corey RN Free Text Note : Patient tolerated treatment well, no issues or complaints. Entered By Kanchan Corey RN on 10:42 * Nurse Note for: 11-JAN-24 [facility] Nurse Note Print Location: Unknown Date/Time Printed: 07/14/2025 11:36 ([facility]) Patient: CHINMAY MORALES V Sex: Female : 1945 Date of Service: 01/11/2024 Allergies : Sulfamide, Iodinated Contrast Media Patient Assessment : Free Text Note : Sent message to social services specialist this morning. Entered By Lidya Delgado RN on 09:18 * Nurse Note for: 10-JAN-24 [facility] Nurse Note Print Location: Unknown Date/Time Printed: 07/14/2025 11:36 ([facility]) Patient: CHINMAY MOARLES V Sex: Female : 1945 Date of [...] concentration must be 0.3-1.2 mg/mL. Administer using Tqw-KIJA-qhpcnhaysc equipment and through an in-line 0.22 micron filter. Paclitaxel is a vascular irritant., Allow Substitution GIVEN: 222 mg Pharmacy plan: Dose Form Description: 6 mg/mL concentrate Dispense/Waste: 222/0 mg Amount in mL: 37 Pharmacy dispense: [facility]: [id number] Dispense/Waste: 222/0 mg Given Dose/Discard: 222/0 mg [...] mg Amount in mL: 5 Pharmacy dispense: [facility]: [id number] Dispense/Waste: 0.25/0 mg Given Dose/Discard: 0.25/0 mg [...] mg Amount in mL: 1 Pharmacy dispense: [facility]: [id number] Dispense/Waste: 10/0 mg Given Dose/Discard: 10/0 mg [...] mg Amount in mL: 18 Pharmacy dispense: [facility]: [id number] Dispense/Waste: 130/0 mg Given Dose/Discard: 130/0 mg Start Time: 10:36, Entered By: Lidya Delgado RN, Stop Time: 10:40, Entered By: Lidya Delgado RN Incident to: Brian Davey MD Paclitaxel + Carboplatin Q21D (Ovarian) Premedications Diphenhydramine IV, 25 mg intravenously once, Instructions: Administer 30-60 minutes prior to paclitaxel., Allow Substitution GIVEN: 25 mg Pharmacy plan: Dispense/Waste: 25/0 mg Amount in mL: 0.5 Pharmacy dispense: [facility]: [id number] Dispense/Waste: 25/0 mg Given Dose/Discard: 25/0 mg Start Time: 10:15, Entered By: Lidya Delgado RN, Stop Time: 10:17, Entered By: Lidya Delgado RN Incident to: Brian Davey MD Paclitaxel + Carboplatin Q21D (Ovarian) Premedications Famotidine IV, 20 mg intravenously once, Instructions: Administer 30-60 minutes prior to paclitaxel., Allow Substitution GIVEN: 20 mg Pharmacy plan: Dispense/Waste: 20/0 mg Amount in mL: 2 Pharmacy dispense: [facility]: [id number] Dispense/Waste: 20/0 mg Given Dose/Discard: 20/0 mg [...] on 16:24 * Nurse Note for: 06-JAN-24 [facility] Nurse Note Print Location: Unknown Date/Time Printed: 07/14/2025 11:36 (Yelitza/Andrews) Patient: CHINMAY MORALES V Sex: Female : [...] 11.67/0.084 mCi Start Time: 06:28, Entered By: [employer], Stop Time: 06:29, Entered By: Jelena Franc Ayi Laile Procedures : Positron emission tomography (procedure) - Associated Problem(s): Malignant tumor of fallopian tube*; Primary malignant neoplasm of colon (disorder) *; Selected Billing Code(s): PET IMAGING CT ATTENUATION SKULL BASE [place]IGH (13535) Entered By Jelena Franc Ayi Laile; Incident to Petty Day MD * Nurse Note for: 20-DEC-23 [facility] Nurse Note Print Location: Unknown Date/Time Printed: 07/14/2025 11:36 (Yelitza/Andrews) Patient: CHINMAY MORALES V Sex: Female : [...] : Labs Verified: Yes-5/6 labs verified with JSilva RN, Alert, oriented with appropriate behavior. Complains [...] concentration must be 0.3-1.2 mg/mL. Administer using Wsw-[id number]-umgyysrihg equipment and through an in-line 0.22 micron filter. Paclitaxel is a vascular irritant., Allow Substitution GIVEN: 222 mg Pharmacy plan: Dose Form Description: 6 mg/mL concentrate Dispense/Waste: 222/0 mg Amount in mL: 37 Pharmacy dispense: [facility]: [id number] Dispense/Waste: 222/0 mg Given Dose/Discard: 222/0 mg [...] mg Amount in mL: 26 Pharmacy dispense: [facility]: [id number] Dispense/Waste: 2/0 mg Pharmacy dispense: [facility]: [id number] Dispense/Waste: 258/0 mg Given Dose/Discard: 260/0 mg [...] mg Amount in mL: 5 Pharmacy dispense: [facility]: [id number] Dispense/Waste: 0.25/0 mg Given Dose/Discard: 0.25/0 mg [...] mg Amount in mL: 1 Pharmacy dispense: [facility]: [id number] Dispense/Waste: 10/0 mg Given Dose/Discard: 10/0 mg [...] mg Amount in mL: 0.5 Pharmacy dispense: [facility]: [id number] Dispense/Waste: 25/0 mg Given Dose/Discard: 25/0 mg Start Time: 09:46, Entered By: Erin Duggan RN, Stop Time: 09:48, Entered By: Erin Duggan RN Incident to: Brian Davey MD Paclitaxel + Carboplatin Q21D (Ovarian) Premedications Famotidine IV, 20 mg intravenously once, Instructions: Administer 30-60 minutes prior to paclitaxel., Allow Substitution GIVEN: 20 mg Pharmacy plan: Dispense/Waste: 20/0 mg Amount in mL: 2 Pharmacy dispense: [facility]: [id number] Dispense/Waste: 20/0 mg Given Dose/Discard: 20/0 mg [...] Amount in mL: 18 Pharmacy dispense: [place]: [id number] Dispense/Waste: 130/0 mg Given Dose/Discard: 130/0 mg [...] on 10:52 * Nurse Note for: 12-DEC-23 [facility] Nurse Note Print Location: Unknown Date/Time Printed: 07/14/2025 11:36 (Yelitza/Andrews) Patient: CHINMAY MORALES V Sex: Female : [...]
== END 2025-07-11 23:59 | disposition home or self-care (01) ==
LOC: LAB.DROPOF 07-14 13:32
PROVIDERS: PCP Family Medicine; Visit Provider Family Medicine
DX: D64.9 Anemia, unspecified (principal); E11.59 Type 2 diabetes mellitus with other circulatory complications; Z79.4 Long term (current) use of insulin; Z85.43 Personal history of malignant neoplasm of ovary
CPT/HCPCS: 80053; 80061; 83036; 85025; 86304